=== PATIENT | female | born 1945 | race Caucasian/White ===

== ENCOUNTER 2016-04-18 00:40 | Inpatient (IN) | payer MEDICARE, BC ==
[2016-04-18] MEDS ORDERED: ALBUTEROL NEBULIZED 2.5 MG/3 ML INHALATION STA (01:11)
[2016-04-18] MEDS ORDERED: ONDANSETRON 4 MG/2 ML VIAL IVP STA (01:12)
--- NOTE | 2016-04-18 01:23 | ED ---
General Adult HPI - General Chief complaint: Nausea/Vomiting/Diarrhea Stated complaint: Vomiting Time Seen by Provider: 04/18/16 01:01 Source: patient, RN notes reviewed Mode of arrival: wheelchair Limitations: no limitations - History of Present Illness Initial comments: This patient is a 70-year-old woman who presents with a number of complaints, including cough, retching, shortness of breath, generalized weakness and fatigue. The patient states that things have been going on for couple of days, and seemed to have started with a cough that for the most part is nonproductive. The patient also is having some shortness of breath. Over the past day she has been feeling more and more fatigued and having generalized weakness. She also has noted that the output from her colostomy seems to be runny is unusual. The patient is not having chest or abdominal pain. She is not having fevers. Onset/Timin -: days(s) - Related Data Home Medications Medication Instructions Recorded Confirmed Budesonide-Formot 160-4.5 Mcg 2 puff INHALATION RT-DAILY 11/30/13 04/18/16 [Symbicort 160-4.5 Mcg Inhaler] Losartan/Hydrochlorothiazide 1 tab PO QAM 11/30/13 04/18/16 [Losartan-Hctz 100-25 mg Tab] Sotalol HCl [Sotalol] 120 mg PO TID 11/30/13 04/18/16 amLODIPine [Norvasc] 5 mg PO HS 11/30/13 04/18/16 Magnesium Gluconate [Magonate] 500 mg PO DAILY 11/19/15 04/18/16 [place]-3 Fatty Acids/Fish Oil [Fish 2 cap PO DAILY 11/19/15 04/18/16 Oil 1,000 mg Softgel] Potassium Gluconate 99 mg PO DAILY 11/19/15 04/18/16 Ipratropium/Albuterol Sulfate 1 puff INHALATION RT-QID PRN 04/18/16 04/18/16 [Combivent Respimat Inhaler] Leflunomide [Arava] 20 mg PO DAILY 04/18/16 04/18/16 Oxybutynin Chloride [Ditropan] 5 mg PO BID 04/18/16 04/18/16 predniSONE 10 mg PO DAILY 04/18/16 04/18/16 Previous Rx's Medication Instructions Recorded Docusate [Colace] 100 mg PO BID PRN #60 cap 04/21/16 Enoxaparin [Lovenox] 80 mg SQ Q12HR #60 syringe 04/21/16 Allergies Allergy/AdvReac Type Severity Reaction Status Date / Time No Known Allergies Allergy Verified 04/18/16 11:30 Review of Systems ROS Statement: Those systems with pertinent positive or pertinent negative responses have been documented in the HPI. ROS Other: All systems not noted in ROS Statement are negative. 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 History of Any Multi-Drug Resistant Organisms: C-DIFF Date of last positivie culture/infection: 03/03/2015 MDRO Source:: stool Past Surgical History: Bladder Surgery, Bowel Resection, Joint Replacement, Orthopedic Surgery, Tonsillectomy, Tubal Ligation Additional Past Surgical History / Comment(s): 07/2015 cystoscopy with bladder bxs, Bowel RESECTIONs d/t ANAL CA x 2, bladder suspension x2- all done at [facility], urethropexies, fecal transplant at [facility] with no CDiff since, CARDIOVERSION, JOINT REPLACEMENTS: RT ELBOW & LEFT KNEE, LEFT HIP, RT FOOT surgery X2: HAMMERTOE AND BUNION. R foot 5th toe bone removed. Septoplasty. Bilateral eyelid sx. Past Anesthesia/Blood Transfusion Reactions: No Reported Reaction Past Psychological History: No Psychological Hx Reported Additional Psychological History / Comment(s): Pt resides with her spouse. She has a walker which she uses at times. She is independent. She drives. Smoking Status: Never smoker Past Alcohol Use History: Rare Past Drug Use History: None Reported Additional Drug Use History / Comment(s): . - Past Family History Mother Family Medical History: No Reported History Father Family Medical History: Unable to Obtain Additional Family Medical History / Comment(s): Father at the age of 35yrs following a stomach surgery. Pt unsure what was wrong with his stomach. General Exam Limitations: no limitations General appearance: alert, in distress (Appears in mild respiratory distress with tachypnea) Head exam: Present: atraumatic, normocephalic Eye exam: Present: normal appearance. Absent: scleral icterus, conjunctival injection ENT exam: Present: mucous membranes dry Neck exam: Present: normal inspection Respiratory exam: Present: normal lung sounds bilaterally, respiratory distress (Mildly to). Absent: wheezes, rales, rhonchi, stridor, accessory muscle use, decreased breath sounds Cardiovascular Exam: Present: normal rhythm, tachycardia, normal heart sounds. Absent: systolic murmur, diastolic murmur, rubs, gallop GI/Abdominal exam: Present: soft. Absent: tenderness, guarding, rebound Extremities exam: Present: normal inspection, normal capillary refill. Absent: pedal edema, calf tenderness Back exam: Present: normal inspection. Absent: CVA tenderness (R), CVA tenderness (L) Neurological exam: Present: alert Skin exam: Present: warm, dry, intact, normal color. Absent: rash Course Vital Signs 04/18/16 04/18/16 04/18/16 00:46 01:34 01:43 Temperature 98.6 F Pulse Rate 110 H 104 H 104 H Respiratory 22 Rate Blood Pressure 127/65 O2 Sat by Pulse 89 L Oximetry 04/18/16 04/18/16 04/18/16 02:13 03:53 08:19 Temperature 98.4 F Pulse Rate 105 H 103 H Respiratory 20 73 H 18 Rate Blood Pressure 130/79 125/76 117/66 O2 Sat by Pulse 94 L 16 L 93 L Oximetry 04/18/16 04/18/16 04/18/16 08:30 08:40 10:02 Temperature Pulse Rate 106 H 105 H 98 Respiratory 18 Rate Blood Pressure 144/63 O2 Sat by Pulse 93 L 96 Oximetry 04/18/16 04/18/16 04/18/16 10:05 10:17 12:03 Temperature 97.9 F 97.1 F L Pulse Rate 72 102 H 88 Respiratory 18 18 16 Rate Blood Pressure 144/63 132/60 118/73 O2 Sat by Pulse 92 L 96 92 L Oximetry 04/18/16 04/18/16 13:00 14:10 Temperature Pulse Rate 110 H 111 H Respiratory Rate Blood Pressure O2 Sat by Pulse Oximetry EKG Findings - EKG Results: EKG: interpreted by ERMD, sinus rhythm (With PACs), normal axis (Normal), normal QRS (Normal) EKG shows: tachycardia (Rate approximately 106 bpm) - Blocks, [place], Hypertrophy, ST Abn: Repolarization changes or abnormalities: nonspecific abnormality, ST segment, and/or T wave, early repolarization due to LVH Medical Decision Making - Lab Data Result diagrams: 04/21/16 05:51 04/21/16 05:51 Lab Results 04/18/16 04/18/16 04/18/16 Range/Units 01:23 01:23 01:23 WBC 15.9 H (3.8-10.6) k/uL RBC 4.65 (3.80-5.40) m/uL Hgb 13.2 (11.4-16.0) gm/dL Hct 41.5 (34.0-46.0) % MCV 89.3 (80.0-100.0) fL MCH 28.3 (25.0-35.0) pg MCHC 31.7 (31.0-37.0) g/dL RDW 15.0 (11.5-15.5) % Plt Count 251 (150-450) k/uL Neutrophils % 82 % Lymphocytes % 10 % Monocytes % 5 % Eosinophils % 1 % Basophils % 0 % Neutrophils # 13.0 H (1.3-7.7) k/uL Lymphocytes # 1.6 (1.0-4.8) k/uL Monocytes # 0.8 (0-1.0) k/uL Eosinophils # 0.2 (0-0.7) k/uL Basophils # 0.1 (0-0.2) k/uL PT (9.0-12.0) sec INR (<1.1) APTT (22.0-30.0) sec D-Dimer (<0.60) mg/L FEU Sodium 137 (137-145) mmol/L Potassium 3.5 (3.5-5.1) mmol/L Chloride 96 L (98-107) mmol/L Carbon Dioxide 29 (22-30) mmol/L Anion Gap 12 mmol/L BUN 13 (7-17) mg/dL Creatinine 0.70 (0.52-1.04) mg/dL Est GFR (MDRD) Af Amer >60 (>60 ml/min/1.73 sqM) Est GFR (MDRD) Non-Af >60 (>60 ml/min/1.73 sqM) Glucose 127 H (74-99) mg/dL Plasma Lactic Acid Kana (0.7-2.0) mmol/L Calcium 9.0 (8.4-10.2) mg/dL Total Bilirubin 1.2 (0.2-1.3) mg/dL AST 15 (14-36) U/L ALT 34 (9-52) U/L Alkaline Phosphatase 88 (38-126) U/L Total Creatine Kinase 22 L (30-135) U/L CK-MB (CK-2) 0.4 (0.0-2.4) ng/mL CK-MB (CK-2) Rel Index 1.8 Troponin I 0.012 (0.000-0.034) ng/mL NT-Pro-B Natriuret Pep pg/mL Total Protein 5.8 L (6.3-8.2) g/dL Albumin 3.2 L (3.5-5.0) g/dL C. difficile (EIA) Intrp (Negative) Influenza Type A RNA (Not Detectd) Influenza Type B (PCR) (Not Detectd) 04/18/16 04/18/16 04/18/16 Range/Units 01:23 01:23 01:23 WBC (3.8-10.6) k/uL RBC (3.80-5.40) m/uL Hgb (11.4-16.0) gm/dL Hct (34.0-46.0) % MCV (80.0-100.0) fL MCH (25.0-35.0) pg MCHC (31.0-37.0) g/dL RDW (11.5-15.5) % Plt Count (150-450) k/uL Neutrophils % % Lymphocytes % % Monocytes % % Eosinophils % % Basophils % % Neutrophils # (1.3-7.7) k/uL Lymphocytes # (1.0-4.8) k/uL Monocytes # (0-1.0) k/uL Eosinophils # (0-0.7) k/uL Basophils # (0-0.2) k/uL PT 13.9 H (9.0-12.0) sec INR 1.4 (<1.1) APTT 25.6 (22.0-30.0) sec D-Dimer 5.15 H (<0.60) mg/L FEU Sodium (137-145) mmol/L Potassium (3.5-5.1) mmol/L Chloride (98-107) mmol/L Carbon Dioxide (22-30) mmol/L Anion Gap mmol/L BUN (7-17) mg/dL Creatinine (0.52-1.04) mg/dL Est GFR (MDRD) Af Amer (>60 ml/min/1.73 sqM) Est GFR (MDRD) Non-Af (>60 ml/min/1.73 sqM) Glucose (74-99) mg/dL Plasma Lactic Acid Kaan 1.4 (0.7-2.0) mmol/L Calcium (8.4-10.2) mg/dL Total Bilirubin (0.2-1.3) mg/dL AST (14-36) U/L ALT (9-52) U/L Alkaline Phosphatase (38-126) U/L Total Creatine Kinase (30-135) U/L CK-MB (CK-2) (0.0-2.4) ng/mL CK-MB (CK-2) Rel Index Troponin I (0.000-0.034) ng/mL NT-Pro-B Natriuret Pep 472 pg/mL Total Protein (6.3-8.2) g/dL Albumin (3.5-5.0) g/dL C. difficile (EIA) Intrp (Negative) Influenza Type A RNA (Not Detectd) Influenza Type B (PCR) (Not Detectd) 04/18/16 04/18/16 Range/Units 01:27 01:30 WBC (3.8-10.6) k/uL RBC (3.80-5.40) m/uL Hgb (11.4-16.0) gm/dL Hct (34.0-46.0) % MCV (80.0-100.0) fL MCH (25.0-35.0) pg MCHC (31.0-37.0) g/dL RDW (11.5-15.5) % Plt Count (150-450) k/uL Neutrophils % % Lymphocytes % % Monocytes % % Eosinophils % % Basophils % % Neutrophils # (1.3-7.7) k/uL Lymphocytes # (1.0-4.8) k/uL Monocytes # (0-1.0) k/uL Eosinophils # (0-0.7) k/uL Basophils # (0-0.2) k/uL PT (9.0-12.0) sec INR (<1.1) APTT (22.0-30.0) sec D-Dimer (<0.60) mg/L FEU Sodium (137-145) mmol/L Potassium (3.5-5.1) mmol/L Chloride (98-107) mmol/L Carbon Dioxide (22-30) mmol/L Anion Gap mmol/L BUN (7-17) mg/dL Creatinine (0.52-1.04) mg/dL Est GFR (MDRD) Af Amer (>60 ml/min/1.73 sqM) Est GFR (MDRD) Non-Af (>60 ml/min/1.73 sqM) Glucose (74-99) mg/dL Plasma Lactic Acid Kana (0.7-2.0) mmol/L Calcium (8.4-10.2) mg/dL Total Bilirubin (0.2-1.3) mg/dL AST (14-36) U/L ALT (9-52) U/L Alkaline Phosphatase (38-126) U/L Total Creatine Kinase (30-135) U/L CK-MB (CK-2) (0.0-2.4) ng/mL CK-MB (CK-2) Rel Index Troponin I (0.000-0.034) ng/mL NT-Pro-B Natriuret Pep pg/mL Total Protein (6.3-8.2) g/dL Albumin (3.5-5.0) g/dL C. difficile (EIA) Intrp Negative (Negative) Influenza Type A RNA Not Detected (Not Detectd) Influenza Type B (PCR) Not Detected (Not Detectd) Critical Care Time Critical Care Time: Yes (40 minutes) Disposition Clinical Impression: Acute pulmonary embolism Narrative: Right lung Pneumonia vs. lung infarct. Disposition: ADMITTED IP TO THIS HOSP Condition: Serious
[2016-04-18 01:31] LABS: Basophils # (A) 0.1 k/uL (0-0.2); Basophils % (A) 0 %; CHCM 32.6; Eosinophils # (A) 0.2 k/uL (0-0.7); Eosinophils % (A) 1 %; HCT 41.5 % (34.0-46.0); HDW 2.61; HGB 13.2 gm/dL (11.4-16.0); Luc # (Auto) 0.21; Luc % (Auto) 1; Lymphocytes # (A) 1.6 k/uL (1.0-4.8); Lymphocytes % (A) 10 %; MCH 28.3 pg (25.0-35.0); MCHC 31.7 g/dL (31.0-37.0); MCV 89.3 fL (80.0-100.0); Mean Platelet Volume 6.7; Monocytes # (A) 0.8 k/uL (0-1.0); Monocytes % (A) 5 %; Neutrophils % (A) 82 %; RBC 4.65 m/uL (3.80-5.40); WBC 15.9 k/uL (3.8-10.6); WBC (Perox) 16.02
[2016-04-18 01:41] LABS: ALT 34 U/L (9-52); AST 15 U/L (14-36); Alkaline Phosphatase 88 U/L (38-126); Anion Gap 12 mmol/L; Blood Urea Nitrogen 13 mg/dL (7-17); Carbon Dioxide 29 mmol/L (22-30); Chloride 96 mmol/L (98-107); Glucose 127 mg/dL (74-99); Non-African American GFR(MDRD) >60 (>60 ml/min/1.73 sqM); Potassium 3.5 mmol/L (3.5-5.1); Sodium 137 mmol/L (137-145); Total Bilirubin 1.2 mg/dL (0.2-1.3); Total Protein 5.8 g/dL (6.3-8.2)
[2016-04-18 01:51] LABS: INR 1.4 (<1.1); Partial Thromboplastin Time 25.6 sec (22.0-30.0); Prothrombin Time 13.9 sec (9.0-12.0)
[2016-04-18 02:04] LABS: Creatine Kinase MB 0.4 ng/mL (0.0-2.4); Troponin I 0.012 ng/mL (0.000-0.034)
--- NOTE | 2016-04-18 02:18 | XR ---
EXAMINATION TYPE: XR abdomen acute w cxr DATE OF EXAM: 04/18/2016 1:53 AM COMPARISON: 01/16/2016 chest x-ray HISTORY: COPD atrial fibrillation bowel resection and colostomy, vomiting. TECHNIQUE: Single view of the chest and 2 views of the abdomen are submitted. FINDINGS: Single view of the chest fails demonstrate evidence for acute pulmonary disease. Chronic lung changes are noted bilaterally. Prominent vascular markings are noted bilaterally. There is mild cardiomegaly. There is no evidence for pneumoperitoneum. Mild gaseous distention of small bowel loops is noted in the central abdomen with mild ileus or enter itis changes. No significant bowel obstruction is noted. Surgical clips are noted in the left abdomen and pelvis. Left hip arthroplasty changes are noted. Calcifications are noted in the right buttock area and flank area probably related to injection granulomas. IMPRESSION: 1. No active lung infiltrates. Chronic lung changes are suggested. 2. Suggestion of mild ileus and enteritis changes in the abdomen.
[2016-04-18] MEDS ORDERED: RX INFO: IV CONTRAST WAS GIVEN 1 EACH MISC MISCELLANE PRN (02:41)
[2016-04-18] MEDS ORDERED: HEPARIN SODIUM,PORCINE 5,000 UNIT/ML 1 ML VIAL IV PRN (03:41)
[2016-04-18] MEDS ORDERED: HEPARIN SODIUM,PORCINE 5,000 UNIT/ML 1 ML VIAL IV ONE (03:41)
--- NOTE | 2016-04-18 03:45 | CT ---
EXAMINATION TYPE: CT chest angio for PE DATE OF EXAM: 04/18/2016 3:16 AM COMPARISON: March 02, 2015 HISTORY: ELEVATED D DIMER, SOB, CHEST PAIN CT DLP: 567 mGycm Automated exposure control for dose reduction was used. CONTRAST: CT Chest for pulmonary embolism performed with with IV Contrast, patient injected with 49 mL of Omnip aque 350. FINDINGS: PULMONARY ARTERIES: There is evidence of multiple filling defects extending from the right main pulmo nary artery as seen in the axial image 67 series 6 and extending into right lower lobe and right midd le lobe and also right upper lobe pulmonary arterial branches. The main pulmonary artery is prominent in size with possible pulmonary hypertension. No significant thrombus formation is noted in the left pulmonary artery and its branches. LUNGS: There is evidence of infiltrates and atelectatic changes in the right lung base with possible pulmonary infarction in the right lower lobe of lung. Mild infiltrates and atelectasis is also noted in the left lung base. There is no pleural effusion or pneumothorax seen. The tracheobronchial tree is patent. MEDIASTINUM: The ascending aorta measures 4.0 cm in greatest AP diameter in the axial image 58 with m ild aneurysmal dilatation without significant interval change. Atherosclerotic calcification is noted in the aortic arch. There are no greater than 1 cm hilar or mediastinal lymph nodes. Minor pericardial effusion is sugges bisi. Heart is not enlarged. Coronary arterial calcification is noted. OTHER: Small hiatal hernia is noted. Multilevel degenerative changes are present in the thoracic spine. IMPRESSION: 1. Evidence of acute pulmonary embolism involving the right main pulmonary artery with extension of t hrombi into right upper lobe middle lobe and lower lobe arterial branches. 2. Right lower lobe lung infiltrates and atelectasis and possible right lower lobe pulmonary infarcti on. 3. Mild atelectasis and infiltrate in the left lung base. 4. Stable 4 cm aneurysm of ascending aorta. A phone report is given to Dr. Yu at the time of the dictation.
[2016-04-18] MEDS ORDERED: ONDANSETRON 4 MG/2 ML VIAL IVP PRN (03:54)
[2016-04-18] MEDS ORDERED: ACETAMINOPHEN TAB 325 MG TAB PO PRN (03:54)
[2016-04-18] MEDS ORDERED: NALOXONE 0.4 MG/ML 1 ML VIAL IV PRN (03:54)
[2016-04-18] MEDS ORDERED: MAG HYDROX/AL HYDROX/SIMETH 30 ML CUP PO PRN (03:54)
[2016-04-18] MEDS ORDERED: MORPHINE SULFATE 4 MG/ML SYRINGE IV PRN (03:54)
[2016-04-18] MEDS ORDERED: LEVOFLOXACIN 750 MG TAB PO STA (04:00)
[2016-04-18] MEDS: SYMBICORT 160-4.5 MCG INHALER INHALATION SCH (08:28)
[2016-04-18] MEDS: IPRATROPIUM-ALBUTEROL 3 ML NEB INHALATION SCH ×3 (08:30→21:31)
[2016-04-18] MEDS ORDERED: NON-FORMULARY DRUG (Omega-3 Fatty Acids/Fish Oil [Fish Oil 1,000 Mg Softgel] 2 CAP) PO SCH (09:00)
[2016-04-18] MEDS ORDERED: DOCUSATE 100 MG CAP PO PRN (09:00)
[2016-04-18] MEDS: HEPARIN SODIUM,PORCINE/D5W PMX 25,000 UNIT in DEXTROSE/WATER 1 500ML.BAG IV SCH ×2 (11:12→21:04)
[2016-04-18 16:06] VITALS: BMI 32.1
[2016-04-18] MEDS: SOTALOL 120 MG TAB PO SCH ×3 (16:15→21:04)
--- NOTE | 2016-04-18 17:10 | P.GSCN ---
History of Present Illness Consult date: 04/18/16 Reason for Consult: pulmonary embolism, hypercoagulable state, history of melanoma History of present illness: impression; 1. recurrent pulmonary embolism (right pulmonary artery with extension to middle and lower lobes); patient is compliant with rivaroxaban 2. history of recurrent melanoma; last workup performed in 2016 including PET scan demonstrated no evidence of disease 3. history of hypercoagulable state with right femoral DVT in 2011 plan; 1. continue heparin drip 2. await pulmonary and hematological evaluation and recommendation 3. theoretically patient has failed anticoagulation and would be a candidate for an IVC filter; the question is if a trial of enoxaperin prior to placement of IVC filter is appropriate since the patient was on a NOAC; concern is that with hypercoagulable state and history of recurrent melanoma, IVC filter may result in IVC thrombosis; if patient fails enoxaperin then she would definately require an IVC filter; discussed with Francisco Bedoya, and Siddhartha Tierney 70 y/o woman with complex history including history of hilda-anal melanoma with resection 6 years ago, repeat resection at the [facility] 2013, history of hypercoagulable state with PE in 2013 and now with onset of dyspnea one week ago that failed to improve with nebulizers and steroids. Seen in the emergency room for generalized malaise, worsening cough and nausea. STates that she has been taking rivaroxaban daily and has not missed a dose. 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 FEcal incontinence was debilitating. Has a history of right femoral vein thrombosis in 2011 after foot surgery. CMHx; COPD, anal melanoma with recurrence, hypercoagulable state, rheumatoid arthritis, remote history of c. difficile colitis, degenerative arthritis, obesity PSHx; colonscopy, resection of hemorrhoids/melanoma, resection of perianal melanoma recurrence, left hip and knee replacements, right elbow replacement, Habits; denies tobacco, EtOH, drugs FHx; non-contributory Meds; reviewed PE: HEENT: anicteric sclera, normal oral mucosa, no carotid bruits or JVD, trachea midline, no thyromegaly or lymphadenopathy Lungs; diminished right base, otherwise clear Heart; RRR, normal S1 and S2 ABD; soft, non-tender, functional left lower quadrant colostomy EXTR; femoral, popliteal, dorsalis pedis and posterior tibial pulses are palpable bilaterally; no significant pedal edema bilaterally; no ulcers or evidence of significant venous insufficiency; CTA from 04/17/2016 reviewed; demonstrates thrombus in right PA, right middle and lower lobe branches, moderate burden; bibasilar infiltrate/effusion; CTA from 02/2015 fails to demonstrate evidence of right PA emboli EKG; tachycardia impression/plan as noted above following Past Medical History Past Medical History: Atrial Fibrillation, Blood Disorder, Cancer, COPD, Deep Vein Thrombosis (DVT), GERD/Reflux, Hypertension, Pulmonary Embolus (PE), Rheumatoid Arthritis (RA) Additional Past Medical History / Comment(s): Bilateral DVT's, R lung PE, MTHFR gene mutation, HIATAL HERNIA, MELANOMA ANUS with sx x 2, BASAL CELL CA SKIN NOSE with sx, low back pain, recurrent UTI's, 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 History of Any Multi-Drug Resistant Organisms: C-DIFF Year Discovered:: 03/03/2015 MDRO Source:: stool Past Surgical History: Bladder Surgery, Bowel Resection, Joint Replacement, Orthopedic Surgery, Tonsillectomy, Tubal Ligation Additional Past Surgical History / Comment(s): 07/2015 cystoscopy with bladder bxs, Bowel RESECTIONs d/t ANAL CA x 2, bladder suspension x2- all done at [facility], urethropexies, fecal transplant at [facility] with no CDiff since, CARDIOVERSION, JOINT REPLACEMENTS: RT ELBOW & LEFT KNEE, LEFT HIP, RT FOOT surgery X2: HAMMERTOE AND BUNION. R foot 5th toe bone removed. Septoplasty. Bilateral eyelid sx. Past Anesthesia/Blood Transfusion Reactions: No Reported Reaction Past Psychological History: No Psychological Hx Reported Additional Psychological History / Comment(s): Pt resides with her spouse. She has a walker which she uses at times. She is independent. She drives. Smoking Status: Never smoker Past Alcohol Use History: Rare Past Drug Use History: None Reported Additional Drug Use History / Comment(s): . - Past Family History Mother Family Medical History: No Reported History Father Family Medical History: Unable to Obtain Additional Family Medical History / Comment(s): Father at the age of 35yrs following a stomach surgery. Pt unsure what was wrong with his stomach. Medications and Allergies Home Medications Medication Instructions Recorded Confirmed Type Budesonide-Formot 160-4.5 Mcg 2 puff INHALATION RT-DAILY 11/30/13 04/18/16 History [Symbicort 160-4.5 Mcg Inhaler] Losartan/Hydrochlorothiazide 1 tab PO QAM 11/30/13 04/18/16 History [Losartan-Hctz 100-25 mg Tab] Rivaroxaban [Xarelto] 20 mg PO HS 11/30/13 04/18/16 History Sotalol HCl [Sotalol] 120 mg PO TID 11/30/13 04/18/16 History amLODIPine [Norvasc] 5 mg PO HS 11/30/13 04/18/16 History Magnesium Gluconate [Magonate] 500 mg PO DAILY 11/19/15 04/18/16 History [place]-3 Fatty Acids/Fish Oil [Fish 2 cap PO DAILY 11/19/15 04/18/16 History Oil 1,000 mg Softgel] Potassium Gluconate 99 mg PO DAILY 11/19/15 04/18/16 History Ipratropium/Albuterol Sulfate 1 puff INHALATION RT-QID PRN 04/18/16 04/18/16 History [Combivent Respimat Inhaler] Leflunomide [Arava] 20 mg PO DAILY 04/18/16 04/18/16 History Oxybutynin Chloride [Ditropan] 5 mg PO BID 04/18/16 04/18/16 History predniSONE 10 mg PO DAILY 04/18/16 04/18/16 History Allergies Allergy/AdvReac Type Severity Reaction Status Date / Time No Known Allergies Allergy Verified 04/18/16 11:30 Surgical - Exam Vital Signs Temp Pulse Resp BP Pulse Ox 98.6 F 110 H 22 127/65 89 L 04/18/16 00:46 04/18/16 00:46 04/18/16 00:46 04/18/16 00:46 04/18/16 00:46 Results - Labs 04/18/16 01:23 04/18/16 01:23
[2016-04-18] MEDS: SODIUM CHLORIDE 0.9% 1,000 ML IV SCH ×2 (17:37→20:05)
[2016-04-18] MEDS: LOSARTAN-HCTZ 50-12.5 MG 1 EACH TAB PO SCH (17:43)
[2016-04-18] MEDS: LEFLUNOMIDE 20 MG TAB PO SCH (17:43)
[2016-04-18] MEDS: MAGNESIUM OXIDE 400 MG TAB PO SCH (17:44)
[2016-04-18] MEDS: predniSONE 10 MG TAB PO SCH (17:46)
[2016-04-18] MEDS: POTASSIUM CHLORIDE ER 10 MEQ TAB.ER.PRT PO SCH (17:46)
[2016-04-18] MEDS ORDERED: IPRATROPIUM-ALBUTEROL 3 ML NEB INHALATION PRN (18:54)
[2016-04-18 19:52] LABS: Amorphous Sediment,Urine Rare /hpf; Appearance,Urine Turbid (Clear); Bacteria,Urine Occasional /hpf; Bilirubin,Urine Negative (Negative); Glucose,Urine (UA) Negative (Negative); Ketones,Urine Negative (Negative); Leukocyte Esterase,Urine Large (Negative); Mucus,Urine Many /hpf; Nitrite,Urine Positive (Negative); PH, Urine 5.5 (5.0-8.0); Particle Count 278809; Protein,Urine 1+ (Negative); RBC,Urine 5 /hpf (0-5); Specific Gravity,Urine 1.027 (1.001-1.035); Squamous Epithelial Cell,Urine 4 /hpf (0-4); UA Billing (MACRO vs. MICRO) MICRO; Urobilinogen,Urine <2.0 mg/dL (<2.0); WBC,Urine >182 /hpf (0-5)
[2016-04-18] MEDS: amLODIPine 5 MG TAB PO SCH (20:05)
[2016-04-18] MEDS: OXYBUTYNIN CHLORIDE 5 MG TAB PO SCH (21:04)
[2016-04-19 06:58] LABS: Basophils % (A) 0 %; CH 28.6; CHCM 31.5; Eosinophils % (A) 1 %; HCT 38.6 % (34.0-46.0); HDW 2.57; HGB 12.1 gm/dL (11.4-16.0); Hypochromasia Slight; Luc # (Auto) 0.12; Luc % (Auto) 2; Lymphocytes # (A) 1.2 k/uL (1.0-4.8); Lymphocytes % (A) 16 %; MCH 28.6 pg (25.0-35.0); MCHC 31.3 g/dL (31.0-37.0); MCV 91.2 fL (80.0-100.0); Mean Platelet Volume 6.8; Monocytes # (A) 0.5 k/uL (0-1.0); Monocytes % (A) 6 %; Neutrophils # (A) 5.8 k/uL (1.3-7.7); Neutrophils % (A) 76 %; RBC 4.24 m/uL (3.80-5.40); RDW 14.7 % (11.5-15.5); WBC 7.7 k/uL (3.8-10.6); WBC (Perox) 8.27
[2016-04-19] MEDS: IPRATROPIUM-ALBUTEROL 3 ML NEB INHALATION SCH ×3 (07:45→20:54)
[2016-04-19] MEDS: SYMBICORT 160-4.5 MCG INHALER INHALATION SCH (07:45)
[2016-04-19 08:01] LABS: Anion Gap 10 mmol/L; Blood Urea Nitrogen 12 mg/dL (7-17); Calcium 8.7 mg/dL (8.4-10.2); Carbon Dioxide 29 mmol/L (22-30); Chloride 99 mmol/L (98-107); Glucose 129 mg/dL (74-99); Non-African American GFR(MDRD) >60 (>60 ml/min/1.73 sqM); Potassium 3.9 mmol/L (3.5-5.1); Sodium 138 mmol/L (137-145)
[2016-04-19] MEDS: SOTALOL 120 MG TAB PO SCH ×3 (08:01→21:06)
[2016-04-19] MEDS: MAGNESIUM OXIDE 400 MG TAB PO SCH (08:01)
[2016-04-19] MEDS: OXYBUTYNIN CHLORIDE 5 MG TAB PO SCH ×2 (08:01→20:09)
[2016-04-19] MEDS: LEFLUNOMIDE 20 MG TAB PO SCH (08:01)
[2016-04-19] MEDS: predniSONE 10 MG TAB PO SCH (08:01)
[2016-04-19] MEDS: LOSARTAN-HCTZ 50-12.5 MG 1 EACH TAB PO SCH (08:01)
[2016-04-19] MEDS: POTASSIUM CHLORIDE ER 10 MEQ TAB.ER.PRT PO SCH (08:01)
--- NOTE | 2016-04-19 11:38 | HP ---
DATE OF ADMISSION: 04/18/2016 DATE OF SERVICE: 04/18/2016 CHIEF COMPLAINT: Generalized weakness, fatigue, shortness of breath, cough. HISTORY OF PRESENT ILLNESS: This 70-year-old woman with a past medical history of multiple medical problems including atrial fibrillation, history of COPD, DVT, GERD, hypertension, pulmonary embolism, bilateral deep venous thromboses, history of rectal melanoma being followed by Dr. Paez in the outpatient setting recently had a surgery for colostomy in February. The patient was not feeling with multiple medical problems as mentioned earlier with shortness of breath, cough, weakness and fatigue. The patient came to [facility] yesterday and was evaluated. White count was elevated at 15.9 and d-dimer elevated to 5.15. Influenza is negative. C. difficile also negative. However, the patient underwent a chest CTA, which showed evidence of acute pulmonary embolism involving the right main pulmonary artery with extension of the thrombi in the right upper lobe, middle lobe and as well as lower lobe artery branches and the right lower lobe lung infiltrates, atelectasis and possible right lower lobe pulmonary infarction also noted, stable 4 cm aneurysm ascending artery was also noted. The patient is admitted for further evaluation and treatment. Of note, the patient was taken Xarelto per Dr. Horn's recommendations and the patient is Xarelto taking it every day at 6:00 in the evening. There is no history of any fever, rigors. No history of headache, loss of consciousness, seizures. PAST MEDICAL HISTORY: History of atrial fibrillation, history of COPD, history of DVT, history of GERD, hypertension, pulmonary embolus, history of rheumatoid arthritis, history of bilateral leg DVT, hiatal hernia, bladder surgery, history of cholecystectomy. Medications prior to admission include home medications: 1. Prednisone 10 mg p.o. daily. 2. Norvasc 5 mg q.6. 3. Sotalol 120 mg p.o. daily. 4. Xarelto 10 mg q.h.s. 5. Potassium gluconate 99 mg p.o. daily. 6. Ditropan 5 mg p.o. b.i.d. 7. Fish oil 1 to 2 tablets p.o. daily. 8. Magonate 500 mg p.o. daily. 9. Losartan hydrochlorothiazide 100/20 mg q.a.m. 10. Arava 20 mg p.o. daily. 11. Combivent 1 puff q.i.d. p.r.n. 12. Symbicort 160/4.5, 2 puffs daily. ALLERGIES: None. FAMILY HISTORY: Stomach surgery in father, who after surgery. SOCIAL HISTORY: History of occasional alcohol intake. No history of smoking. REVIEW OF SYSTEMS: ENT: No diminished hearing, vision. CARDIOVASCULAR: As mentioned earlier. RESPIRATORY: As mentioned earlier. GI: As mentioned earlier. : As mentioned earlier. NERVOUS SYSTEM: No numbness or weakness. ALLERGY/IMMUNOLOGY: No asthma or hayfever. MUSCULOSKELETAL: As mentioned earlier. HEMATOLOGY: As mentioned earlier. ENDOCRINE: No history of diabetes or hypothyroidism. CONSTITUTIONAL: As mentioned earlier. DERMATOLOGY: Negative. RHEUMATOLOGY: Negative. PSYCHIATRY: As mentioned earlier. PHYSICAL EXAMINATION: Alert and oriented x3. Pulse is 98, blood pressure 129/79, respirations 16, temperature 97 degrees, pulse ox 97% on room air. HEENT: Conjunctivae normal. Oral mucosa moist. NECK: No jugular venous distention. No carotid bruit. No lymph node enlargement. CARDIOVASCULAR: S1 and S2, muffled. RESPIRATORY: Breath sounds diminished at the bases. A few scattered rhonchi and crackles. ABDOMEN: Soft, colostomy present. Otherwise, nontender. No mass palpable. No guarding, no rigidity. LEGS: Minimal edema. NERVOUS SYSTEM: Higher function as mentioned. Moves all four limbs. No focal motor deficits. LYMPHATIC: No lymphadenopathy in the neck, axillae or groin. SKIN: No ulcer, rash or bleeding. LABS: WBC 15.9. PT is 13.9, d-dimer is 5.15, chloride 96, glucose 127, albumin 3.2. ASSESSMENT: 1. Acute pulmonary embolism. 2. Rule out Xarelto failure. 3. Increased WBC. 4. Increased d-dimer. 5. History of recent colostomy. 6. Mild hypoalbuminemia with mild protein calorie malnutrition. 7. History of atrial fibrillation. 8. History of chronic obstructive pulmonary disease. 9. History of deep venous thrombosis. 10. History of gastroesophageal reflux disease. 11. Hypertension. 12. History of rheumatoid arthritis. 13. History of bilateral deep venous thromboses. 14. History of pulmonary embolism. 15. History of methylenetetrahydrofolate reductase gene mutation. 16. History of hiatal hernia. 17. History of rectal melanoma. 18. History of colostomy. 19. History of basal cell carcinoma. 20. History of degenerative joint disease. 21. History of recurrent Clostridium difficile colitis, status post fecal transplant. 22. History of sepsis and Clostridium difficile colitis. 23. History of left patella fracture. 24. History of bowel resection. 25. History of bladder suspension. 26. Gait dysfunction, uses a walker. 27. FULL CODE. 28. Obesity with body mass index of 32.2. RECOMMENDATIONS AND DISCUSSION: In this 70-year-old woman who presented with multiple complex medical issues, we will monitor the patient closely. Telemetry. I would recommend IV heparin at this time. Obtain Cardiology and Vascular consultation. Resume the home medications. Guarded prognosis because of multiple complex medical issues. See orders for details. Discussed with the family at length. SAMI
[2016-04-19] MEDS: ENOXAPARIN 80 MG/0.8 ML SYRINGE SQ SCH ×2 (12:25→20:09)
--- NOTE | 2016-04-19 12:31 | US ---
EXAMINATION TYPE: US venous doppler duplex LE DATE OF EXAM: 04/19/2016 12:08 PM COMPARISON: Previous exam 02 March 2015 CLINICAL HISTORY: Pulmonary embolus . on blood thinners, hx of DVT- rt leg, left knee replacement x 2 015 SIDE PERFORMED: Bilateral VESSELS IMAGED: External Iliac Vein (EIV) Common Femoral Vein Deep Femoral Vein Greater Saphenous Vein * Femoral Vein Popliteal Vein Small Saphenous Vein * Proximal Calf Veins (* superficial vessels) Right Leg: Positive for DVT in CFV and distal PV. Some of the low level internal echoes are eccentri c and may represent chronic thrombus Left Leg: Positive for DVT in CFV, mid CFV, Mid PV and distal PV. Some compressions deferred. Grayscale, color Doppler, spectral Doppler imaging performed of the deep veins of both lower extremit ies. IMPRESSION: Deep venous thrombosis present within the bilateral lower extremities as described.
--- NOTE | 2016-04-19 12:34 | P.PN ---
Progress Note - Text patient is feeling better this morning dyspnea is improved AF VSS PE: essentially unchanged from 04/18/2016 Labs; reviewed; no intervention impression/plan 1. continue current medical regimen 2. start patient on enoxaperin as per heme/onc and pulmonary recommendations 3. will hold off on IVC filter for now; await final recommendations from heme/ onc and pulmonary consultants 4. following
--- NOTE | 2016-04-19 15:04 | P.CNPUL ---
History of Present Illness Consult date: 04/19/16 Requesting physician: Jennifer Singh Reason for consult: dyspnea, pulmonary embolism Chief complaint: Shortness of breath History of present illness: This is a 70-year-old female who is quite familiar to my service. Patient is known to have history of hypercoagulable state, and previous history of pulmonary embolism and deep vein thrombosis, history of MT HFR gene mutation, patient is maintained on Xarelto for a long time, patient is very compliant with the medication, and she takes it faithfully on a daily basis. Patient is also known to have history of multiple medical problems including rheumatoid arthritis, COPD, history of very anal melanoma with resection done about 6 years ago, repeat resection done at the [facility] in 2013, and the patient had a recent colostomy because of incontinence and this was done in mid February. At any rate the patient presented to the ER yesterday with mostly complaints of shortness of breath, retching, cough, weakness, and fatigue. CT angiogram of the chest showed multiple filling defects extending from the right main pulmonary artery into the right lower lobe and right middle lobe and right upper lobe pulmonary artery branches. The CT was also suggestive of right lower lobe pulmonary infarction. At any rate patient was admitted, and she was started on heparin, she was already seen by vascular surgery for possible IVC filter placement, however my recommendation would be at the time that since the patient failed Xarelto, she will need to be placed on Lovenox, lifetime treatment at home. And I recommended a hematology/oncology evaluation. Apparently Dr. Tijerina who saw the patient today and agrees with that recommendation for the time being. Patient is feeling better today, breathing a lot easier. Hardly any cough, no wheezing, no shortness of breath. Review of Systems 14 point review of systems were reviewed, please refer to pertinent positives and negatives in HPI. 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 History of Any Multi-Drug Resistant Organisms: C-DIFF Date of last positivie culture/infection: 03/03/2015 MDRO Source:: stool Past Surgical History: Bladder Surgery, Bowel Resection, Joint Replacement, Orthopedic Surgery, Tonsillectomy, Tubal Ligation Additional Past Surgical History / Comment(s): 07/2015 cystoscopy with bladder bxs, Bowel RESECTIONs d/t ANAL CA x 2, bladder suspension x2- all done at [facility], urethropexies, fecal transplant at [facility] with no CDiff since, CARDIOVERSION, JOINT REPLACEMENTS: RT ELBOW & LEFT KNEE, LEFT HIP, RT FOOT surgery X2: [facility]. R foot 5th toe bone removed. Septoplasty. Bilateral eyelid sx. Past Anesthesia/Blood Transfusion Reactions: No Reported Reaction Past Psychological History: No Psychological Hx Reported Additional Psychological History / Comment(s): Pt resides with her spouse. She has a walker which she uses at times. She is independent. She drives. Smoking Status: Never smoker Past Alcohol Use History: Rare Past Drug Use History: None Reported Additional Drug Use History / Comment(s): . - Past Family History Mother Family Medical History: No Reported History Father Family Medical History: Unable to Obtain Additional Family Medical History / Comment(s): Father at the age of 35yrs following a stomach surgery. Pt unsure what was wrong with his stomach. Medications and Allergies Home Medications Medication Instructions Recorded Confirmed Type Budesonide-Formot 160-4.5 Mcg 2 puff INHALATION RT-DAILY 11/30/13 04/18/16 History [Symbicort 160-4.5 Mcg Inhaler] Losartan/Hydrochlorothiazide 1 tab PO QAM 11/30/13 04/18/16 History [Losartan-Hctz 100-25 mg Tab] Rivaroxaban [Xarelto] 20 mg PO HS 11/30/13 04/18/16 History Sotalol HCl [Sotalol] 120 mg PO TID 11/30/13 04/18/16 History amLODIPine [Norvasc] 5 mg PO HS 11/30/13 04/18/16 History Magnesium Gluconate [Magonate] 500 mg PO DAILY 11/19/15 04/18/16 History [place]-3 Fatty Acids/Fish Oil [Fish 2 cap PO DAILY 11/19/15 04/18/16 History Oil 1,000 mg Softgel] Potassium Gluconate 99 mg PO DAILY 11/19/15 04/18/16 History Ipratropium/Albuterol Sulfate 1 puff INHALATION RT-QID PRN 04/18/16 04/18/16 History [Combivent Respimat Inhaler] Leflunomide [Arava] 20 mg PO DAILY 04/18/16 04/18/16 History Oxybutynin Chloride [Ditropan] 5 mg PO BID 04/18/16 04/18/16 History predniSONE 10 mg PO DAILY 04/18/16 04/18/16 History Allergies Allergy/AdvReac Type Severity Reaction Status Date / Time No Known Allergies Allergy Verified 04/18/16 11:30 Physical Exam Vitals: Vital Signs Temp Pulse Pulse Resp BP Pulse Ox 04/19/16 11:21 16 04/19/16 11:20 65 16 101/55 96 04/19/16 08:00 99 16 04/19/16 07:59 97.1 F L 72 16 117/60 92 L 04/19/16 07:46 96 04/19/16 03:08 96.5 F L 63 18 125/64 93 L 04/19/16 00:00 97.8 F 66 18 111/55 93 L 04/18/16 20:00 97.9 F 82 18 125/60 94 L 04/18/16 16:30 97 F L 98 16 129/79 96 Intake and Output 04/18/16 04/19/16 04/19/16 22:59 06:59 14:59 Intake Total 430.899 480 180 Output Total 75 400 Balance 355.899 80 180 Intake: IV 130 Sodium Chloride 0.9% 1, 130 000 ml @ 20 mls/hr IV . Q24H MASOUD Rx#:[id number] Intake, IV Titration 310.899 Amount Heparin Sodium,Porcine/ 310.899 D5w Pmx 25,000 unit In Dextrose/Water 1 500ml. bag @ 18 UNITS/KG/HR 31. 51 mls/hr IV .[id number] MASOUD Rx#:[id number] Oral 120 350 180 Output: Urine 75 400 Other: Voiding Method Toilet Toilet Toilet # Voids 1 Weight 85.6 kg HEENT: anicteric sclera, normal oral mucosa, no carotid bruits or JVD, trachea midline, no thyromegaly or lymphadenopathy Lungs; diminished right base, otherwise clear Heart; RRR, normal S1 and S2 ABD; soft, non-tender, functional left lower quadrant colostomy EXTR; femoral, popliteal, dorsalis pedis and posterior tibial pulses are palpable bilaterally; no significant pedal edema bilaterally; no ulcers or evidence of significant venous insufficiency; Results - Laboratory Findings CBC and BMP: 04/19/16 06:29 04/19/16 06:29 PT/INR, D-dimer PT 13.9 sec (9.0-12.0) H 04/18/16: INR 1.4 (<1.1) 04/18/16: D-Dimer 5.15 mg/L FEU (<0.60) H 04/18/16 01:23 Abnormal lab findings: Abnormal Labs 04/18/16 04/18/16 04/18/16 19:15 19:15 19:55 APTT 49.7 H Glucose Urine Appearance Turbid H Urine Protein 1+ H Urine Nitrate Positive H Ur Leukocyte Esterase Large H Urine WBC >182 H Urine WBC Clumps Many H Amorphous Sediment Rare H Urine Bacteria Occasional H Urine Mucus Many H Stool Occult Blood Positive H 04/19/16 04/19/16 06:29 06:29 APTT 56.9 H Glucose 129 H Urine Appearance Urine Protein Urine Nitrate Ur Leukocyte Esterase Urine WBC Urine WBC Clumps Amorphous Sediment Urine Bacteria Urine Mucus Stool Occult Blood - Diagnostic Findings CT scan - chest: image reviewed (Agree with reading as per radiology) Assessment and Plan Plan: Impression: 1 acute and recurrent pulmonary embolism with involvement of the right main pulmonary artery and extension to the middle and lower lobe. This is in spite of the fact that the patient is on Xarelto and she is very compliant with the medication. Hence this is considered failed to Xarelto anticoagulation treatment. Hence I will recommend that the patient goes on Lovenox subcu twice a day at home, in the meantime the patient could be treated with IV heparin or Lovenox while inpatient. Awaiting input from hematology on the case. I don't recommend IVC filter placement at this point. 2 history of multiple comorbidities including hypercoagulable state, MT HFR gene mutation, history of melanoma, steady of rheumatoid arthritis, history of recent colostomy for fecal incontinence, history of basal cell skin cancer of the nose, history of C. difficile colitis requiring fecal transplant, history of previous pulmonary embolism and bilateral DVTs. History of hiatal hernia. And history of COPD. Recommendation: Agree with the treatment plan, continue Lovenox at 80 mg subcu every 12 hours, continue the rest of the medications as listed, and consider discharge planning in the next 24 hours. Discussed this patient's condition with the vascular surgeon on the case, and with the meter readers supervisor on the case. Time with Patient: Greater than 30
[2016-04-19] MEDS: amLODIPine 5 MG TAB PO SCH (20:09)
[2016-04-19] MEDS ORDERED: RX INFO: IV CONTRAST WAS GIVEN 1 EACH MISC MISCELLANE PRN (20:54)
--- NOTE | 2016-04-19 20:54 | P.CONS ---
History of Present Illness - Reason for Consult Consult date: 04/19/16 Recurrent PE. Xarelto failure - History of Present Illness The patient is a 70-year-old lady, well known to our service. She is followed by Dr. Horn in the outpatient setting. She has a fairly complicated hematologic/oncologic history. 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 In 2011, she presented with a right femoral DVT that occurred after for surgery. She was treated with Coumadin for a few months after which treatment was stopped, given that this was felt to be unprovoked clot. Hypercoagulable workup, based on family history was positive for a heterozygous prothrombin gene mutation. She also had a heterozygous MTHFR gene mutation, which is not considered a hypercoagulable state. In 2012, the patient was found to have local recurrence of her anorectal melanoma. She was referred to the [facility] and had excision there in 09/08. No adjuvant therapy was recommended based on stage. In the month after that, she developed recurrent DVT as well as right lung PE. She was then placed on Xarelto, on which she continues. other risk factors for the patient including a long-standing history of rheumatoid arthritis that has been fairly active. She has been on long-term steroids and continues on prednisone currently. She is also on Arava. She continues on follow-up for her history of melanoma. She had a PET scan in 12/12 that was negative for any definite evidence of recurrence. The patient presented to the emergency room, with the complains of progressive shortness of breath, as well as cough with expectoration for the last couple of weeks. She was also complaining of some intermittent chest pain. She had a CTA done, revealing a clot in the right main pulmonary artery with extension into the lower lobe branches. This was definitely a new clot, as the patient had had a previous CTA in 03/12 that was negative for any evidence of PE. On the patient reported good compliance with Xarelto. She had only been off it for a few days around the time of her elective colostomy that was placed in 03/13. She has been taking it with food. The patient was admitted and started on IV heparin. The consult was placed for further evaluation and recommendations. Review of Systems Constitutional: Reports poor appetite, Reports weakness Eyes: denies blurred vision, denies pain Ears: deny: decreased hearing, ear discharge, earache, tinnitus Ears, nose, mouth and throat: Reports sore throat Cardiovascular: Reports chest pain, Reports palpitations, Reports shortness of breath Respiratory: Reports cough with sputum, Reports dyspnea Gastrointestinal: Reports as per HPI Genitourinary: Denies dysuria, Denies hematuria Menstruation: Reports postmenopausal Musculoskeletal: Reports hot joints (Known RA) Integumentary: Denies pruritus, Denies rash Neurological: Reports weakness Psychiatric: Denies anxiety, Denies depression Endocrine: Denies fatigue, Denies weight change Hematologic/Lymphatic: Reports as per HPI, 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 History of Any Multi-Drug Resistant Organisms: C-DIFF Year Discovered:: 03/03/2015 MDRO Source:: stool Past Surgical History: Bladder Surgery, Bowel Resection, Joint Replacement, Orthopedic Surgery, Tonsillectomy, Tubal Ligation Additional Past Surgical History / Comment(s): 07/2015 cystoscopy with bladder bxs, Bowel RESECTIONs d/t ANAL CA x 2, bladder suspension x2- all done at [facility], urethropexies, fecal transplant at [facility] with no CDiff since, CARDIOVERSION, JOINT REPLACEMENTS: RT ELBOW & LEFT KNEE, LEFT HIP, RT FOOT surgery X2: [facility]. R foot 5th toe bone removed. Septoplasty. Bilateral eyelid sx. Past Anesthesia/Blood Transfusion Reactions: No Reported Reaction Past Psychological History: No Psychological Hx Reported Additional Psychological History / Comment(s): Pt resides with her spouse. She has a walker which she uses at times. She is independent. She drives. Smoking Status: Never smoker Past Alcohol Use History: Rare Past Drug Use History: None Reported Additional Drug Use History / Comment(s): . - Past Family History Mother Family Medical History: No Reported History Father Family Medical History: Unable to Obtain Additional Family Medical History / Comment(s): Father at the age of 35yrs following a stomach surgery. Pt unsure what was wrong with his stomach. Medications and Allergies Home Medications Medication Instructions Recorded Confirmed Type Budesonide-Formot 160-4.5 Mcg 2 puff INHALATION RT-DAILY 11/30/13 04/18/16 History [Symbicort 160-4.5 Mcg Inhaler] Losartan/Hydrochlorothiazide 1 tab PO QAM 11/30/13 04/18/16 History [Losartan-Hctz 100-25 mg Tab] Rivaroxaban [Xarelto] 20 mg PO HS 11/30/13 04/18/16 History Sotalol HCl [Sotalol] 120 mg PO TID 11/30/13 04/18/16 History amLODIPine [Norvasc] 5 mg PO HS 11/30/13 04/18/16 History Magnesium Gluconate [Magonate] 500 mg PO DAILY 11/19/15 04/18/16 History [place]-3 Fatty Acids/Fish Oil [Fish 2 cap PO DAILY 11/19/15 04/18/16 History Oil 1,000 mg Softgel] Potassium Gluconate 99 mg PO DAILY 11/19/15 04/18/16 History Ipratropium/Albuterol Sulfate 1 puff INHALATION RT-QID PRN 04/18/16 04/18/16 History [Combivent Respimat Inhaler] Leflunomide [Arava] 20 mg PO DAILY 04/18/16 04/18/16 History Oxybutynin Chloride [Ditropan] 5 mg PO BID 04/18/16 04/18/16 History predniSONE 10 mg PO DAILY 04/18/16 04/18/16 History Allergies Allergy/AdvReac Type Severity Reaction Status Date / Time No Known Allergies Allergy Verified 04/18/16 11:30 Physical Exam Vitals: Vital Signs Temp Pulse Pulse Resp BP BP Pulse Ox 04/19/16 08:00 99 16 04/19/16 07:59 97.1 F L 72 16 117/60 92 L 04/19/16 07:46 96 04/19/16 03:08 96.5 F L 63 18 125/64 93 L 04/19/16 00:00 97.8 F 66 18 111/55 93 L 04/18/16 20:00 97.9 F 82 18 125/60 94 L 04/18/16 16:30 97 F L 98 16 129/79 96 04/18/16 14:10 111 H 04/18/16 13:00 110 H 04/18/16 12:03 97.1 F L 88 16 118/73 92 L Intake and Output 04/18/16 04/19/16 04/19/16 22:59 06:59 14:59 Intake Total 430.899 480 Output Total 75 400 Balance 355.899 80 Intake: IV 130 Sodium Chloride 0.9% 1, 130 000 ml @ 20 mls/hr IV . Q24H MASOUD Rx#:[id number] Intake, IV Titration 310.899 Amount Heparin Sodium,Porcine/ 310.899 D5w Pmx 25,000 unit In Dextrose/Water 1 500ml. bag @ 18 UNITS/KG/HR 31. 51 mls/hr IV .[id number] MASOUD Rx#:[id number] Oral 120 350 Output: Urine 75 400 Other: Voiding Method Toilet Toilet Toilet # Voids 1 Weight 85.6 kg - Constitutional General appearance: no acute distress - EENT Eyes: EOMI, PERRLA ENT: hearing grossly normal, normal oropharynx - Neck Neck: no lymphadenopathy Thyroid: bilateral: normal size - Respiratory Respiratory: bilateral: diminished - Cardiovascular Rhythm: regular Heart sounds: normal: S1, S2 - Gastrointestinal LLQ ostomy General gastrointestinal: normal bowel sounds, soft - Integumentary Integumentary: normal - Neurologic Neurologic: CNII-XII intact - Musculoskeletal Musculoskeletal: generalized weakness, strength equal bilaterally - Psychiatric Psychiatric: A&O x's 3, appropriate affect Results CBC & Chem 7: 04/19/16 06:29 04/19/16 06:29 Labs: Abnormal Lab Results - Last 24 Hours (Table) 04/18/16 04/18/16 04/18/16 Range/Units 19:15 19:15 19:55 APTT 49.7 H (22.0-30.0) sec Glucose (74-99) mg/dL Urine Appearance Turbid H (Clear) Urine Protein 1+ H (Negative) Urine Nitrate Positive H (Negative) Ur Leukocyte Esterase Large H (Negative) Urine WBC >182 H (0-5) /hpf Urine WBC Clumps Many H (None) /hpf Amorphous Sediment Rare H (None) /hpf Urine Bacteria Occasional H (None) /hpf Urine Mucus Many H (None) /hpf Stool Occult Blood Positive H (Negative) 04/19/16 04/19/16 Range/Units 06:29 06:29 APTT 56.9 H (22.0-30.0) sec Glucose 129 H (74-99) mg/dL Urine Appearance (Clear) Urine Protein (Negative) Urine Nitrate (Negative) Ur Leukocyte Esterase (Negative) Urine WBC (0-5) /hpf Urine WBC Clumps (None) /hpf Amorphous Sediment (None) /hpf Urine Bacteria (None) /hpf Urine Mucus (None) /hpf Stool Occult Blood (Negative) Comments: PET scan 12/[address] scan - chest: report reviewed Assessment and Plan (1) Acute pulmonary embolism Narrative/Plan: At this time, based on the clinical picture, this does seem to represent Xarelto failure. The patient states that she's been very compliant with it, and has been taking it with food. In addition, this definitely is a new clot. The patient has been seen by vascular surgery for potential filter placement. The case was discussed with them, and with pulmonary medicine. I agree with the vascular surgery's opinion, the patient is not an ideal candidate for an IVC filter placement. She needs long-term anticoagulation because of persistent risk. We IVC filter obviously would not protect her from having a DVT and the morbidity from that. In addition, it has been well established and after one to 2 years, of the IVC filter is not reliable. In a patient who is hypercoagulable, there is also increased risk of filter associated thrombosis. The patient does not have any contraindication to anticoagulation. Therefore continued anticoagulation would be the preferred intervention. On the main question is the choice of modality. For now, Lovenox, as recommended by vascular surgery at full doses would be reasonable option. The case was also discussed with rheumatology. The patient has not had recent antiphospholipid antibody levels tested. I will check those. If these are elevated, then Coumadin with the higher target INR between 3-4 would also be a reasonable option down the line. - I will check lower extremity Dopplers for her baseline. - Given her history of malignancy, I will repeat a CT of the abdomen and pelvis to rule out any recurrence. If this is negative, the patient will continue on her follow-up with the new PET scan scheduled for 06/12. Status: Acute
[2016-04-19] MEDS: IOHEXOL 350 MG/ML 25 ML BOTTLE (ORAL USE) PO PRN (23:32)
[2016-04-20] MEDS: IOHEXOL 350 MG/ML 25 ML BOTTLE (ORAL USE) PO PRN (00:25)
[2016-04-20] MEDS: SODIUM CHLORIDE 0.9% 1,000 ML IV SCH (06:08)
[2016-04-20 06:15] LABS: Basophils # (A) 0.1 k/uL (0-0.2); Basophils % (A) 1 %; CH 28.5; CHCM 31.1; Eosinophils # (A) 0.2 k/uL (0-0.7); Eosinophils % (A) 3 %; HDW 2.59; HGB 11.9 gm/dL (11.4-16.0); Hypochromasia Slight; Luc # (Auto) 0.18; Luc % (Auto) 3; Lymphocytes # (A) 1.7 k/uL (1.0-4.8); Lymphocytes % (A) 25 %; MCH 28.8 pg (25.0-35.0); MCHC 31.2 g/dL (31.0-37.0); MCV 92.1 fL (80.0-100.0); Mean Platelet Volume 6.8; Monocytes # (A) 0.4 k/uL (0-1.0); Monocytes % (A) 5 %; Neutrophils # (A) 4.4 k/uL (1.3-7.7); Neutrophils % (A) 63 %; RBC 4.13 m/uL (3.80-5.40); RDW 14.9 % (11.5-15.5); WBC 6.9 k/uL (3.8-10.6); WBC (Perox) 7.45
[2016-04-20 06:24] LABS: Anion Gap 10 mmol/L; Blood Urea Nitrogen 17 mg/dL (7-17); Calcium 8.8 mg/dL (8.4-10.2); Carbon Dioxide 28 mmol/L (22-30); Chloride 101 mmol/L (98-107); Glucose 95 mg/dL (74-99); Non-African American GFR(MDRD) >60 (>60 ml/min/1.73 sqM); Potassium 3.6 mmol/L (3.5-5.1); Sodium 139 mmol/L (137-145)
--- NOTE | 2016-04-20 07:42 | CT ---
EXAMINATION TYPE: CT abdomen pelvis w con DATE OF EXAM: 04/20/2016 1:19 AM COMPARISON: PET/CT 12/21/2015 INDICATION: pt is having no abdominal symptoms at this time, has a colostomy done in February, currently being treated for clots in bilateral legs and lungs, history of melanoma and anal CA DLP: 918.70 mGycm, Automated exposure control for dose reduction was used. CONTRAST: 100 mL of Omnipaque 300. Study performed without Oral Contrast TECHNIQUE: Axial images were obtained from above the diaphragm to the pubic rami in the axial plane a t 5 mm thick sections. Reconstructed images are reviewed on the computer in the coronal plane. FINDINGS: Limited CT sections are obtained the lung bases. Some compressive atelectasis may be within the lowe r lung harmon.. CT ABDOMEN: Liver: Normal Spleen: Normal Pancreas: Normal Adrenal glands: The adrenal glands are normal. Gallbladder: Normal Kidneys: No masses are evident. No hydronephrosis is present. No cysts are present. Delayed images were obtained through the kidneys, which remain unremarkable. Right renal artery passes posterior to the inferior vena cava. Aorta: Vascular calcification is within the aorta. Inferior vena cava: Normal. CT PELVIS: Ostomy is in the left lower quadrant. May be some thickening at the level of the ascending colon and cecum. This could be related to incomplete distention. Underlying mass is not excluded. Sm all bowel loops distended with oral contrast are normal. There are loops of bowel which are incompletely distended or lack oral contrast limiting their evalua tion. Appendix: Normal as visualized. This is retrocecal. Urinary bladder: Normal. This is limited due to beam hardening artifact from a left hip prosthesis. Genitourinary structures: Uterus is unremarkable. Adnexal regions are clear. Osseous structures: No suspicious lytic or sclerotic lesions. Sacroiliac joint degenerative changes a re present. Degenerative facet changes are within the lower lumbar spine. Left hip prosthesis causes beam hardening artifact causing some limitation. IMPRESSIONS: 1. There appears to be interval thickening of the cecum and proximal ascending colon. Correlate for colitis or underlying mass is not excluded. 2. Suspicious masses suggested metastatic melanoma or metastatic anal cancer is not identified.
[2016-04-20] MEDS: ENOXAPARIN 80 MG/0.8 ML SYRINGE SQ SCH ×3 (08:09→20:57)
--- NOTE | 2016-04-20 08:16 | PN ---
DATE OF SERVICE: 04/19/2016 This 70-year-old woman was admitted with multiple symptomatology, had a possible acute pulmonary embolism. The patient has been seen by Dr. Tijerina who thinks that this is Xarelto failure and recommended Lovenox 80 subQ b.i.d. Ultrasound of the leg showed bilateral DVTs. The patient also seen by Dr. Elder, Dr. Rhoades's partner and recommended to continue the current medications, hold off on the IVC filter for now. Dr. Alcala from the pulmonary group has seen the patient and also recommended to go on Lovenox subQ twice daily. The patient had consultations on multiple hypercoagulable status including MTHFR mutation, history of melanoma, history of rheumatoid arthritis, possible antiphospholipid antibody syndrome, and as well as recent surgery and history of basal cell cancer also. The patient is being closely monitored. Patient was on IV heparin. PAST MEDICAL HISTORY: Reviewed. REVIEW OF SYSTEMS: CARDIOVASCULAR: No angina or palpitations. RESPIRATORY: As mentioned earlier. GI: No nausea. : No dysuria. NERVOUS SYSTEM: No focal deficits. Current medications are reviewed and include: 1. Tylenol 650 q.6 p.r.n. 2. Maalox. 3. DuoNeb q.i.d. and p.r.n. 4. Norvasc 5 mg q.h.s. 5. Symbicort 160/4.5 two puffs b.i.d. 6. Rocephin 1 gm daily. 7. Colace. 8. Lovenox 80 subQ b.i.d. 9. Hyzaar 50/12.5 two b.i.d. 10. Arava 20 mg p.o. daily. 11. Magnesium oxide. 12. Narcan 0.2 q.2 p.r.n. 13. Zofran. 14. Ditropan. 15. Betapace. PHYSICAL EXAM: Patient is alert and oriented x2. Pulse 67, blood pressure 130/57, respirations 12, temperature 97.8, pulse ox 96% on room air. HEENT: Conjunctivae normal, oral mucosa moist. Neck is no jugular venous distension, no carotid bruit, no lymph node enlargement. CARDIOVASCULAR SYSTEM: S1, S2, muffled, no S3, no S4. RESPIRATORY: Breath sounds diminished at the bases. A few scattered rhonchi, no crackles. ABDOMEN: Soft, obese, nontender. EXTREMITIES: Legs bilateral edema. NERVOUS SYSTEM: Higher functions as mentioned. Moves all 4 limbs. No focal motor deficits. LYMPHATICS: No lymph node enlargement in the neck, axillae and groin. SKIN: No ulcer, rash or bleeding. Labs are CBC within normal limits and glucose 129. UA noted and the urine culture preliminary report not available. ASSESSMENT: 1. Acute pulmonary embolism, recurrent. 2. Possible Xarelto failure. 3. Heparin monitoring. 4. On Lovenox. 5. Increased WBC and d-dimer. 6. History of recent colostomy for incontinence. 7. Mild hypoalbuminemia to mild protein calorie malnutrition. 8. History of atrial fibrillation. 9. History of chronic obstructive pulmonary disease. 10. History of bilateral deep venous thromboses in the ultrasound. 11. History of gastroesophageal reflux disease. 12. Hypertension. 13. History of rheumatoid arthritis. 14. History of pulmonary embolism. 15. History of MTHFR mutation. 16. History of hiatal hernia. 17. History of rectal melanoma and surgery. 18. History of colostomy. 19. History of basal cell carcinoma. 20. History of degenerative joint disease. 21. History of recurrent Clostridium difficile colitis, status post fecal transplantation. 22. History of sepsis and Clostridium difficile colitis. 23. History of patella fracture. 24. History of bowel resection. 25. History of bladder suspension. 26. Gait dysfunction, uses a walker. 27. Obesity with a body mass index of 32.2. 28. FULL CODE. RECOMMENDATION: This 70-year-old woman presented with multiple complex medical issues as mentioned earlier and also as discussed earlier. We will transition to Lovenox 80 subQ b.i.d. Will recommend social work instructor to get authorization for possibly lifelong Lovenox at this time. Otherwise, continue the rest of the medications. Increase ambulation. The prognosis is guarded because of multiple complex medical issues and questions from the patient and the are answered and I would also recommend the patient to follow up closely with Dr. Paez and multiple consultants as described above. Once again, the prognosis extremely guarded because of multiple complex medical issues and further recommendations to follow. SHWETAD
[2016-04-20] MEDS: OXYBUTYNIN CHLORIDE 5 MG TAB PO SCH ×2 (09:23→20:57)
[2016-04-20] MEDS: POTASSIUM CHLORIDE ER 10 MEQ TAB.ER.PRT PO SCH (09:23)
[2016-04-20] MEDS: LOSARTAN-HCTZ 50-12.5 MG 1 EACH TAB PO SCH (09:23)
[2016-04-20] MEDS: predniSONE 10 MG TAB PO SCH (09:24)
[2016-04-20] MEDS: SOTALOL 120 MG TAB PO SCH ×3 (09:24→22:48)
[2016-04-20] MEDS: LEFLUNOMIDE 20 MG TAB PO SCH (09:26)
[2016-04-20] MEDS: MAGNESIUM OXIDE 400 MG TAB PO SCH (10:13)
[2016-04-20] MEDS: SYMBICORT 160-4.5 MCG INHALER INHALATION SCH (11:31)
[2016-04-20] MEDS: IPRATROPIUM-ALBUTEROL 3 ML NEB INHALATION SCH ×4 (11:31→21:53)
--- NOTE | 2016-04-20 15:24 | P.PN ---
Subjective Principal diagnosis: This is a very pleasant 70-year-old female patient who follows with Dr. Alcala in our office. She has a history of hypercoagulable state and previous PE/ DVTs. She has a history of MT HFR gene mutation. She also has a history of melanoma with resection approximately 6 years ago and a repeat resection at the [facility] 2014 she also had a recent colostomy done secondary to incontinence. She's been maintained on Xarelto for approximately 4 years now. She presented here 04/18/2016 with complaints of increasing shortness of breath , cough weakness vomiting and fatigue. A computed tomography scan revealed multiple filling defects from the right main pulmonary artery and to the right lower lobe and right middle lobe and right upper lobe artery branches. The CT was also suggestive of a right lower lobe pulmonary infarct. We are consulted for the same. She is recommended lifelong treatment with Lovenox as she failed Xarelto. She is seen again today in follow-up. She is currently sitting up in the chair at the bedside. She is not wearing any oxygen. She denies any shortness of breath, cough or congestion. No chest pain palpitations lightheadedness or dizziness. She is maintaining O2 saturations in the low 90s on room air. Objective - Vital Signs Vital signs: Vital Signs Temp 98.6 F 04/20/16 11:37 Pulse 84 04/20/16 11:46 Resp 20 04/20/16 11:37 BP 130/62 04/20/16 11:37 Pulse Ox 92 L 04/20/16 11:37 Intake & Output 04/19/16 04/20/16 04/20/16 18:59 06:59 18:59 Intake Total 416 250 500 Balance 416 250 500 Weight 88.3 kg Intake: IV 250 Sodium Chloride 0.9% 1, 200 000 ml @ 20 mls/hr IV . Q24H MASOUD Rx#:[id number] cefTRIAXone 1,000 mg In 50 Sodium Chloride 0.9% 50 ml @ 100 mls/hr IVPB Q24H MASOUD Rx#:[id number] Oral 416 500 Other: Voiding Method Toilet Toilet Toilet # Voids 1 1 1 # Bowel Movements 1 1 - Exam GENERAL EXAM: Alert, active, comfortable in no apparent distress. HEAD: Normocephalic. EYES: Normal reaction of pupils, equal size. NOSE: Clear with pink turbinates. THROAT: No erythema or exudates. NECK: No masses, no JVD. CHEST: No chest wall deformity. LUNGS: Equal air entry with no crackles, wheeze, rhonchi or dullness. CVS: S1 and S2 normal with no audible murmurs, regular rhythm. ABDOMEN: No hepatosplenomegaly, normal bowel sounds, no guarding or rigidity. SPINE: No scoliosis or deformity SKIN: No rashes CENTRAL NERVOUS SYSTEM: No focal deficits, tone is normal in all 4 extremities. Extremities: There is no significant peripheral edema. No clubbing, no cyanosis. Peripheral pulses are intact. - Labs CBC & Chem 7: 04/20/16 05:51 04/20/16 05:51 Labs: Microbiology - Last 24 Hours (Table) 04/18/16 23:50 Urine Culture - Preliminary Urine,Voided Gram Neg Bacilli Assessment and Plan Plan: Impression: #1 Acute and recurrent pulmonary embolism with involvement of the right main pulmonary artery and extension to the middle of lower lobes. This occurrence happened despite the patient being on Xarelto and she has been very compliant with her medications. She has since been switched to Lovenox. #2 Hyper coagulable state with MT HFR gene mutation. #3 History of melanoma. #4 Rheumatoid arthritis. #5 Recent colostomy for fecal incontinence. #6 History of C. difficile colitis requiring fecal transplant. #7 Previous history of pulmonary embolism and bilateral DVTs. #8 History of hiatal hernia. #9 History of chronic obstructive pulmonary disease, currently inactive and stable. Plan: The patient was seen and evaluated by Dr. Godinez. She is currently stable from the pulmonary standpoint. We'll continue with Lovenox as her anticoagulant. Dr. Tijerina has been consulted from hematology as well. Will increase her activity as tolerated. We'll continue to follow make further recommendations based on her clinical status.
[2016-04-20 20:08] LABS: Appearance,Urine Clear (Clear); Bilirubin,Urine Negative (Negative); Glucose,Urine (UA) Negative (Negative); Ketones,Urine Negative (Negative); Leukocyte Esterase,Urine Negative (Negative); Nitrite,Urine Negative (Negative); PH, Urine 6.5 (5.0-8.0); Protein,Urine Negative (Negative); Specific Gravity,Urine 1.011 (1.001-1.035); UA Billing (MACRO vs. MICRO) CHEM; Urobilinogen,Urine <2.0 mg/dL (<2.0)
[2016-04-20] MEDS: amLODIPine 5 MG TAB PO SCH (20:57)
[2016-04-20] MEDS ORDERED: TEMAZEPAM 15 MG CAP PO PRN (21:47)
[2016-04-21] MEDS: SODIUM CHLORIDE 0.9% 1,000 ML IV SCH (00:45)
[2016-04-21 06:09] LABS: Cardiolipin Ab IgG <9.0 GPL (<15); Cardiolipin Ab IgM <9.0 MPL (<12.5)
--- NOTE | 2016-04-21 06:29 | PN ---
DATE OF SERVICE: 04/20/2016 This 70-year-old woman was admitted with acute pulmonary embolism, recurrent, also suspected of having possible Xarelto failure. The patient started on Lovenox. No chest pain or palpitation. No fever. On exam, alert and oriented x3. Pulse 73, blood pressure 130/62, respirations 20, temperature 97.1, pulse ox 92% on room air. HEENT: Conjunctivae normal. NECK: No jugular venous distention. CARDIOVASCULAR: S1 and S2, muffled. RESPIRATORY: Breath sounds diminished at the bases. No scattered rhonchi, no crackles. ABDOMEN: Soft, nontender. LEGS: No edema, no swelling. NERVOUS SYSTEM: No focal deficits. Labs are CBC and BMP within normal limits. Urine cultures grew gram-negative bacilli. ASSESSMENT: 1. Acute pulmonary embolus, recurrent. 2. Possible Xarelto failure. 3. Heparin monitoring. 4. Lovenox. 5. Increased WBC and d-dimer. 6. History of recent colostomy and incontinence. 7. Possible urinary tract infection. 8. Mild hypoalbuminemia with mild protein calorie malnutrition. 9. History of atrial fibrillations. 10. History of chronic obstructive pulmonary disease. 11. History of bilateral leg deep venous thrombosis on the ultrasound. 12. History of gastroesophageal reflux disease. 13. Hypertension. 14. History of rheumatoid arthritis. 15. History of pulmonary embolus. 16. History of MTHFR mutation. 17. History of hiatal hernia. 18. History of rectal melanoma and surgery. 19. History of colostomy. 20. History of basal cell carcinoma. 21. History of degenerative joint disease. 22. History of recurrent Clostridium difficile colitis, status post fecal transplantation. 23. History of sepsis and Clostridium difficile colitis. 24. History of patellar fracture. 25. History of bowel resection. 26. History of bladder suspension. 27. History of gait dysfunction, uses a walker. 28. Obesity with body mass index of 32.2. 29. FULL CODE. RECOMMENDATIONS AND DISCUSSION: I recommend to continue the current medications, continue monitoring and symptomatic treatment. Otherwise at this time I recommend to continue with Lovenox b.i.d. Follow the cultures. I would recommend a repeat UA and continue to monitor. Guarded prognosis. Further recommendations to follow.
[2016-04-21 06:30] LABS: Anion Gap 7 mmol/L; Blood Urea Nitrogen 13 mg/dL (7-17); Calcium 8.8 mg/dL (8.4-10.2); Carbon Dioxide 28 mmol/L (22-30); Chloride 103 mmol/L (98-107); Glucose 81 mg/dL (74-99); Non-African American GFR(MDRD) >60 (>60 ml/min/1.73 sqM); Potassium 4.1 mmol/L (3.5-5.1); Sodium 138 mmol/L (137-145)
[2016-04-21 06:35] LABS: Basophils # (A) 0.1 k/uL (0-0.2); Basophils % (A) 1 %; CH 28.6; Eosinophils # (A) 0.2 k/uL (0-0.7); Eosinophils % (A) 3 %; HCT 37.1 % (34.0-46.0); HDW 2.64; HGB 11.5 gm/dL (11.4-16.0); Hypochromasia Slight; Luc # (Auto) 0.12; Luc % (Auto) 2; Lymphocytes # (A) 1.7 k/uL (1.0-4.8); Lymphocytes % (A) 22 %; MCH 28.8 pg (25.0-35.0); MCHC 31.1 g/dL (31.0-37.0); MCV 92.6 fL (80.0-100.0); Mean Platelet Volume 7.9; Monocytes # (A) 0.6 k/uL (0-1.0); Monocytes % (A) 7 %; Neutrophils # (A) 5.1 k/uL (1.3-7.7); Neutrophils % (A) 66 %; WBC 7.8 k/uL (3.8-10.6); WBC (Perox) 7.23
[2016-04-21 09:33] VITALS: RESP 18
[2016-04-21] MEDS: SYMBICORT 160-4.5 MCG INHALER INHALATION SCH (09:35)
[2016-04-21] MEDS: IPRATROPIUM-ALBUTEROL 3 ML NEB INHALATION SCH (09:35)
[2016-04-21] MEDS: ENOXAPARIN 80 MG/0.8 ML SYRINGE SQ SCH (10:10)
[2016-04-21] MEDS: LEFLUNOMIDE 20 MG TAB PO SCH (10:11)
[2016-04-21] MEDS: OXYBUTYNIN CHLORIDE 5 MG TAB PO SCH (10:12)
[2016-04-21] MEDS: MAGNESIUM OXIDE 400 MG TAB PO SCH (10:12)
[2016-04-21] MEDS: LOSARTAN-HCTZ 50-12.5 MG 1 EACH TAB PO SCH (10:12)
[2016-04-21] MEDS: POTASSIUM CHLORIDE ER 10 MEQ TAB.ER.PRT PO SCH (10:12)
[2016-04-21] MEDS: predniSONE 10 MG TAB PO SCH (10:13)
[2016-04-21] MEDS: SOTALOL 120 MG TAB PO SCH (10:14)
--- NOTE | 2016-04-21 10:24 | P.PN ---
Subjective Progress note dated 04/21/2016 This is a pleasant 70-year-old female sees eye partner in our office. She has a history of prior pulmonary emboli and deep venous thrombosis. 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 She also has a history of melanoma. She presented to the hospital on 04/18/2016 with complaints of increasing shortness of breath cough weakness vomiting and fatigue. A computed tomography scan showed multiple filling defects from the right main pulmonary artery and into the right lower lobe and right middle lobe and right upper lobe as well. The CT was also suggestive of possible right lower lobe pulmonary infarct. We are not recommending lifelong anticoagulation. She apparently failed her factor X a inhibitor. She seemed be breathing relatively well. She denies any shortness breath chest pain chest complaints. No chest discomfort. No fever no chills. No nausea vomiting or diarrhea. Objective - Vital Signs Vital signs: Vital Signs Temp 96.8 F L 04/21/16 08:25 Pulse 72 04/21/16 09:46 Resp 18 04/21/16 09:32 BP 117/68 04/21/16 09:32 Pulse Ox 96 04/21/16 09:36 Intake & Output 04/20/16 04/21/16 04/21/16 18:59 06:59 18:59 Intake Total 780 70 360 Output Total 300 Balance 780 -230 360 Weight 87.5 kg Intake: IV 70 Sodium Chloride 0.9% 1, 20 000 ml @ 20 mls/hr IV . Q24H MASOUD Rx#:[id number] cefTRIAXone 1,000 mg In 50 Sodium Chloride 0.9% 50 ml @ 100 mls/hr IVPB Q24H MASOUD Rx#:[id number] Oral 780 360 Output: Urine 300 Other: Voiding Method Toilet Toilet Toilet # Voids 1 1 # Bowel Movements 1 - Exam No acute distress, oriented 3. HEENT examination is grossly unremarkable. Mixed membranes are moist. There are no oral lesions. Neck supple. Full range of motion. No masses. No neck vein distention. Cardiovascular examination reveals regular rhythm rate. S1-S2 normal. There is no murmur. Lungs clear breath sounds are equal. No adventitious lung sounds. Abdomen soft bowel sounds are heard. Extremities are intact. - Labs CBC & Chem 7: 04/21/16 05:51 04/21/16 05:51 Labs: Microbiology - Last 24 Hours (Table) 04/18/16 23:50 Urine Culture - Preliminary Urine,Voided Gram Neg Bacilli Assessment and Plan (1) Acute pulmonary embolism Status: Acute Plan: Plan The patient seems relatively stable. She is currently on Lovenox his treatment for her pulmonary embolism. Hematology has been consulted. She'll follow-up with my partner upon discharge. No additional recommendations are made. Pulmonary status is currently stable. We'll see as needed. Time with Patient: Less than 30
[2016-04-21 11:25] VITALS: BP 104/62; PULSE 92; TEMP 97.6
[2016-04-21 12:47] LABS: Hexagonal Phase Neutralization Positive (Negative)
--- NOTE | 2016-04-21 15:13 | DS ---
DATE OF ADMISSION: 04/18/2016 DATE OF DISCHARGE: 04/21/2016 FINAL DIAGNOSES: 1. Acute pulmonary embolism, recurrent. 2. On Lovenox. 3. Possible Xarelto failure. 4. Heparin monitoring. 5. Increased WBC, d-dimer. 6. History of recent colostomy for incontinence. 7. Possible urinary tract infection. 8. Mild hypoalbuminemia with mild protein calorie malnutrition. 9. History of atrial fibrillation. 10. History of chronic obstructive pulmonary disease. 11. Bilateral leg deep venous thrombosis on ultrasound. 12. History of gastroesophageal reflux disease. 13. Hypertension. 14. History of rheumatoid arthritis. 15. History of pulmonary embolism. 16. History of MTHFR mutation. 17. History of hiatal hernia. 18. History of rectal melanoma and surgery. 19. History of colostomy. 20. History of basal cell carcinoma. 21. History of degenerative joint disease. 22. History of recurrent Clostridium difficile colitis, status post fecal transplantation. 23. History of sepsis and Clostridium difficile colitis. 24. History of patellar fracture. 25. History of bowel resection. 26. History of bladder suspension. 27. History of gait dysfunction, uses a walker. 28. Obesity, with a body mass index of 33.2. 29. Escherichia coli urinary tract infection. 30. FULL CODE. DISCHARGE DISPOSITION: Patient will be discharged in a stable condition with guarded prognosis. Total time taken 35 minutes. HISTORY OF PRESENT ILLNESS: This is a 70-year-old woman with a past medical history of multiple medical problems was admitted with acute pulmonary embolism which is recurrent. Patient also was taking Xarelto indicating possible Xarelto failure. Patient treated with IV heparin and subsequently patient was seen by Dr. Alcala, Dr. Godinez, and Dr. Tijerina. Care was coordinated. Abdominal and pelvis CAT scan is normal. The patient also had E. coli UTI. A short course of Rocephin was given. Patient improved significantly. On exam, vitals are stable. CARDIOVASCULAR SYSTEM: S1, S2. ABDOMEN: Soft. NERVOUS SYSTEM: No focal deficits. The patient will be discharged in stable condition with a guarded prognosis with the following advice. 1. Diet is cardiac. 2. Activity limited until followup. 3. Follow up with Dr. Paez in 2 to 3 days. 4. Follow up with Dr. Tijerina and Dr. Alcala as advised. Medications are: 1. Symbicort 160/4.5 two puffs b.i.d. 2. Colace 100 mg b.i.d. p.r.n. 3. Lovenox 80 mg subQ b.i.d. 4. Albuterol, Atrovent q.i.d. and p.r.n. 5. Arriva 20 mg p.o. daily. 6. Losartan-hydrochlorothiazide 1 tablet q.a.m. 7. Magnesium gluconate 500 mg p.o. daily. 8. [place]-3 fatty acid 2 daily. 9. Ditropan 5 mg p.o. b.i.d. 10. Potassium gluconate 99 mg p.o. daily. 11. Sotalol 120 mg p.o. t.i.d. 12. Norvasc 5 mg p.o. q.h.s. 13. Prednisone 10 mg p.o. daily. Once again, the patient will be discharged in a stable condition with guarded prognosis.
== END 2016-04-21 13:21 | disposition home or self-care (01) | DRG 176 ==
LOC: EC 00:40 → 6SEL 03:54
PROVIDERS: ADMIT Hospitalist; ATTEND Hospitalist
DX: I26.99 Other pulmonary embolism without acute cor pulmonale (principal); D68.59 Other primary thrombophilia; I82.403 Acute embolism and thrombosis of unspecified deep veins of lower extremity, bilateral; E44.1 Mild protein-calorie malnutrition; N39.0 Urinary tract infection, site not specified; J98.11 Atelectasis; I48.91 Unspecified atrial fibrillation; J44.9 Chronic obstructive pulmonary disease, unspecified; B96.20 Unspecified Escherichia coli [E. coli] as the cause of diseases classified elsewhere; M06.9 Rheumatoid arthritis, unspecified; K44.9 Diaphragmatic hernia without obstruction or gangrene; I10 Essential (primary) hypertension; R26.9 Unspecified abnormalities of gait and mobility; E66.9 Obesity, unspecified; Z68.31 Body mass index [BMI] 31.0-31.9, adult; K21.9 Gastro-esophageal reflux disease without esophagitis; M19.90 Unspecified osteoarthritis, unspecified site; Z86.718 Personal history of other venous thrombosis and embolism; Z86.711 Personal history of pulmonary embolism; Z85.820 Personal history of malignant melanoma of skin; Z93.3 Colostomy status; Z90.49 Acquired absence of other specified parts of digestive tract; Z96.642 Presence of left artificial hip joint; Z96.652 Presence of left artificial knee joint; Z96.621 Presence of right artificial elbow joint; Z85.048 Personal history of other malignant neoplasm of rectum, rectosigmoid junction, and anus; Z87.440 Personal history of urinary (tract) infections; Z79.01 Long term (current) use of anticoagulants; Z79.51 Long term (current) use of inhaled steroids; Z79.52 Long term (current) use of systemic steroids; Z79.899 Other long term (current) drug therapy
CPT/HCPCS: 36415; 71275; 74022; 74177; 80048; 80053; 80299; 81001; 81003; 82272; 82550; 82553; 83605; 83880; 84484; 85025; 85379; 85598; 85610; 85613; 85730; 85732; 86146; 86147; 87077; 87086; 87186; 87324; 87502; 93005; 93970; 94640; 94760; 99291

== ENCOUNTER → 2016-05-06 | Outpatient (CLI) | payer MEDICARE, BC ==
--- NOTE | 2016-05-06 22:26 | MR ---
EXAMINATION TYPE: MR brain wo/w con DATE OF EXAM: 05/06/2016 10:17 PM COMPARISON: NONE HISTORY: melanoma since 2013 presents with confusion. TECHNIQUE: Multiplanar, multisequence images of the brain and brainstem is performed without and with IV contras t, utilizing 15 mL intravenous MultiHance . FINDINGS: Diffusion weighted images demonstrate no evidence of a recent infarct or other diffusion ab normality. There is no worrisome extra-axial fluid collection. Ventricular system and sulcal size ar e felt within normal limits for patient's age. There is occasional focus of T2 hyperintensity seen th roughout the white matter bilaterally. Less than 10 lesions are felt present. Lesions are nonspecific in appearance and distribution but most likely on basis of product of chronic small vessel ischemic change in patient of this age. Midline structures demonstrate normal morphology. The craniocervical junction appears within normal limits. Post contrast images demonstrate no abnormal enhancement. The dural venous sinuses appear pa tent. There is fairly moderate mucosal thickening in the right maxillary sinus. Mild mucosal thickeni ng is seen in the ethmoid sinuses bilaterally. Visualized globes are intact bilaterally. IMPRESSION: Mild to minimal white matter changes presumed on basis of product of chronic small vessel ischemic change. Some chronic paranasal sinus disease as detailed above most pronounced in right max illary sinus. No suspicious enhancing intraparenchymal mass is noted.
== END | disposition home or self-care (01) ==
LOC: RADMRIMAIN 21:20
PROVIDERS: ATTEND Internal Medicine Hematology & Oncology
DX: C43.9 Malignant melanoma of skin, unspecified (principal); R90.82 White matter disease, unspecified
CPT/HCPCS: 70553; A9577

== ENCOUNTER 2016-06-20 07:20 | Inpatient (IN) | payer MEDICARE, BC ==
[2016-06-20] MEDS ORDERED: SODIUM CHLORIDE 0.9% 1,000 ML IV STA (07:48)
[2016-06-20] MEDS ORDERED: LEVOFLOXACIN 750MG-D5W PMX 750 MG in DEXTROSE/WATER 1 150ML.BAG IVPB STA (07:48)
[2016-06-20] MEDS ORDERED: IPRATROPIUM-ALBUTEROL 3 ML NEB INHALATION STA (07:48)
[2016-06-20] MEDS ORDERED: methylPREDNISolone SOD SUCCI 125 MG/2 ML VIAL IV STA (07:48)
[2016-06-20] MEDS ORDERED: ACETAMINOPHEN IV (For NPO) 1,000 MG in EMPTY BAG 1 BAG IVPB ONE (07:49)
[2016-06-20 08:12] LABS: Anisocytosis Slight; Basophils # (A) 0.1 k/uL (0-0.2); Basophils % (A) 1 %; CHCM 32.6; Eosinophils # (A) 0.1 k/uL (0-0.7); Eosinophils % (A) 1 %; HCT 39.9 % (34.0-46.0); HDW 2.38; Luc # (Auto) 0.22; Luc % (Auto) 2; Lymphocytes # (A) 0.9 k/uL (1.0-4.8); Lymphocytes % (A) 10 %; MCH 30.1 pg (25.0-35.0); MCHC 32.5 g/dL (31.0-37.0); MCV 92.6 fL (80.0-100.0); Monocytes # (A) 0.8 k/uL (0-1.0); Monocytes % (A) 8 %; Neutrophils # (A) 7.3 k/uL (1.3-7.7); Neutrophils % (A) 78 %; RDW 16.4 % (11.5-15.5); WBC 9.3 k/uL (3.8-10.6); WBC (Perox) 9.46
[2016-06-20] MEDS ORDERED: METOCLOPRAMIDE 5 MG/ML 2 ML VIAL IVP STA (08:19)
[2016-06-20 08:20] LABS: INR 1.1 (<1.1); Partial Thromboplastin Time 22.4 sec (22.0-30.0); Prothrombin Time 10.8 sec (9.0-12.0)
[2016-06-20 08:25] LABS: ALT 44 U/L (9-52); AST 29 U/L (14-36); Alkaline Phosphatase 79 U/L (38-126); Anion Gap 11 mmol/L; Blood Urea Nitrogen 8 mg/dL (7-17); Calcium 9.3 mg/dL (8.4-10.2); Carbon Dioxide 28 mmol/L (22-30); Chloride 98 mmol/L (98-107); Glucose 105 mg/dL (74-99); Magnesium 1.6 mg/dL (1.6-2.3); Non-African American GFR(MDRD) >60 (>60 ml/min/1.73 sqM); Potassium 3.6 mmol/L (3.5-5.1); Sodium 137 mmol/L (137-145); Total Bilirubin 0.6 mg/dL (0.2-1.3); Total Protein 6.3 g/dL (6.3-8.2)
--- NOTE | 2016-06-20 08:29 | ED ---
SOB HPI - General Chief Complaint: Shortness of Breath Stated Complaint: nausea,vomiting Time Seen by Provider: 06/20/16 07:41 Source: patient, family Mode of arrival: wheelchair Limitations: no limitations - History of Present Illness Initial Comments: This 70-year-old white female presents with a complaint of shortness of breath. She's also had a cough with clear production. She's had some nausea and dry heaves. She denies any actual fever at home but does present with a temperature of 100.9. She is tried her inhalers without any relief. She states that symptoms this came on this past evening. She tried to Zofran this morning at 6 AM without relief. She denies any leg pain but does have chronic swelling. She does have a history of DVT and PE and is currently on Lovenox. She was diagnosed with this several months ago and was prescribed is rolled though but had PE while on this medication. No other complaints or modifying factors. - Related Data Home Medications Medication Instructions Recorded Confirmed Budesonide-Formot 160-4.5 Mcg 2 puff INHALATION RT-DAILY 11/30/13 04/18/16 [Symbicort 160-4.5 Mcg Inhaler] Losartan/Hydrochlorothiazide 1 tab PO QAM 11/30/13 04/18/16 [Losartan-Hctz 100-25 mg Tab] Sotalol HCl [Sotalol] 120 mg PO TID 11/30/13 04/18/16 amLODIPine [Norvasc] 5 mg PO HS 11/30/13 04/18/16 Magnesium Gluconate [Magonate] 500 mg PO DAILY 11/19/15 04/18/16 [place]-3 Fatty Acids/Fish Oil [Fish 2 cap PO DAILY 11/19/15 04/18/16 Oil 1,000 mg Softgel] Potassium Gluconate 99 mg PO DAILY 11/19/15 04/18/16 Ipratropium/Albuterol Sulfate 1 puff INHALATION RT-QID PRN 04/18/16 04/18/16 [Combivent Respimat Inhaler] Leflunomide [Arava] 20 mg PO DAILY 04/18/16 04/18/16 Oxybutynin Chloride [Ditropan] 5 mg PO BID 04/18/16 04/18/16 predniSONE 10 mg PO DAILY 04/18/16 04/18/16 Previous Rx's Medication Instructions Recorded Docusate [Colace] 100 mg PO BID PRN #60 cap 04/21/16 Enoxaparin [Lovenox] 80 mg SQ Q12HR #60 syringe 04/21/16 Allergies Allergy/AdvReac Type Severity Reaction Status Date / Time No Known Allergies Allergy Verified 06/20/16 07:27 Review of Systems ROS Statement: Those systems with pertinent positive or pertinent negative responses have been documented in the HPI. ROS Other: All systems not noted in ROS Statement are negative. 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 History of Any Multi-Drug Resistant Organisms: None Reported Date of last positivie culture/infection: None MDRO Source:: None Past Surgical History: Bladder Surgery, Bowel Resection, Joint Replacement, Orthopedic Surgery, Tonsillectomy, Tubal Ligation Additional Past Surgical History / Comment(s): 07/2015 cystoscopy with bladder bxs, Bowel RESECTIONs d/t ANAL CA x 2, bladder suspension x2- all done at [facility], urethropexies, fecal transplant at [facility] with no CDiff since, CARDIOVERSION, JOINT REPLACEMENTS: RT ELBOW & LEFT KNEE, LEFT HIP, RT FOOT surgery X2: [facility]. R foot 5th toe bone removed. Septoplasty. Bilateral eyelid sx. Past Anesthesia/Blood Transfusion Reactions: No Reported Reaction Past Psychological History: No Psychological Hx Reported Additional Psychological History / Comment(s): Pt resides with her spouse. She has a walker which she uses at times. She is independent. She drives. Smoking Status: Never smoker Past Alcohol Use History: Rare Past Drug Use History: None Reported Additional Drug Use History / Comment(s): . - Past Family History Mother Family Medical History: No Reported History Father Family Medical History: Unable to Obtain Additional Family Medical History / Comment(s): Father at the age of 35yrs following a stomach surgery. Pt unsure what was wrong with his stomach. General Exam - General Exam Comments Initial Comments: GENERAL: The patient is well nourished and well hydrated. VITAL SIGNS: Heart rate, blood pressure, respiratory rate reviewed as recorded in nurse's notes. EYES: Pupils are round and reactive. Extraocular movements are intact. No conjunctival / lid redness or swelling. ENT: No external evidence of injury, swelling, or ecchymosis. Airway is patent. Throat is clear. NECK: Nontender. No swelling or evidence of injury. No subcutaneous emphysema. Trachea is midline. No thyroid mass. HEART: Regular rate and rhythm. Good peripheral pulses. LUNGS/CHEST: Wheezing is noted bilaterally. No ecchymosis, subcutaneous emphysema, or tenderness. ABDOMEN: Abdomen soft without tenderness. No palpable masses or organomegaly. No peritoneal signs. No abdominal wall swelling or ecchymosis. EXTREMITIES: No extremity tenderness. Normal muscle tone and function. No thoracolumbar tenderness. There may be some scant swelling noted to bilateral lower extremities. NEUROLOGIC: Sensation is grossly intact. Cranial nerve exam reveals face is symmetrical, tongue is midline, speech is clear. SKIN: No abrasions or ecchymosis is noted. No induration or masses noted. PSYCHIATRIC: Alert and oriented. Appropriate behavior and judgment. Limitations: no limitations Course Vital Signs 06/20/16 06/20/16 06/20/16 07:24 07:31 07:36 Temperature 100.9 F H Pulse Rate 90 86 Respiratory 18 28 H 28 H Rate Blood Pressure 138/70 162/96 O2 Sat by Pulse 90 L 94 L Oximetry 06/20/16 06/20/16 06/20/16 08:27 08:47 09:13 Temperature 99.3 F Pulse Rate 81 84 77 Respiratory 15 Rate Blood Pressure 134/80 O2 Sat by Pulse 95 Oximetry Medical Decision Making - Medical Decision Making The patient was seen and examined. All diagnostics were reviewed. An EKG was done and shows a normal sinus rhythm at a rate of 74. An occasional PAC is noted. There is some T-wave inversions in the anterolateral leads which is new as compared to previous EKG dated 04/18/2016. The MD intervals 148, QRS duration is 86 and QTC intervals 388. She received Solu-Medrol IV as well as DuoNeb breathing treatments and Levaquin. The x-ray, upon my review, does show evidence of a right lower lobe infiltrate/pneumonia which is new as compared to March. The radiologist does read out x-ray as having a chronic infiltrate and right pleural effusion. Her pulse ox was low at 94% with a respiratory rate of 28 and temperature 100.9. Blood cultures and urine cultures are taken. Due to the patient being admitted to the hospital 2 months ago, the possibility of a hospital-acquired pneumonia is plausible and she also receives Zosyn and vancomycin. She receives some Reglan for her nausea. She is feeling much improved on recheck. It is felt as though she would require admission to the hospital for further treatment for her multiple conditions. Case is discussed with internal medicine and they're agreeable to admission. - Lab Data Result diagrams: 06/20/16 08:00 06/20/16 08:00 Lab Results 06/20/16 06/20/16 06/20/16 Range/Units 08:00 08:00 08:00 WBC 9.3 (3.8-10.6) k/uL RBC 4.30 (3.80-5.40) m/uL Hgb 13.0 (11.4-16.0) gm/dL Hct 39.9 (34.0-46.0) % MCV 92.6 (80.0-100.0) fL MCH 30.1 (25.0-35.0) pg MCHC 32.5 (31.0-37.0) g/dL RDW 16.4 H (11.5-15.5) % Plt Count 204 (150-450) k/uL Neutrophils % 78 % Lymphocytes % 10 % Monocytes % 8 % Eosinophils % 1 % Basophils % 1 % Neutrophils # 7.3 (1.3-7.7) k/uL Lymphocytes # 0.9 L (1.0-4.8) k/uL Monocytes # 0.8 (0-1.0) k/uL Eosinophils # 0.1 (0-0.7) k/uL Basophils # 0.1 (0-0.2) k/uL Anisocytosis Slight PT (9.0-12.0) sec INR (<1.1) APTT (22.0-30.0) sec Sodium 137 (137-145) mmol/L Potassium 3.6 (3.5-5.1) mmol/L Chloride 98 (98-107) mmol/L Carbon Dioxide 28 (22-30) mmol/L Anion Gap 11 mmol/L BUN 8 (7-17) mg/dL Creatinine 0.55 (0.52-1.04) mg/dL Est GFR (MDRD) Af Amer >60 (>60 ml/min/1.73 sqM) Est GFR (MDRD) Non-Af >60 (>60 ml/min/1.73 sqM) Glucose 105 H (74-99) mg/dL Plasma Lactic Acid Kana (0.7-2.0) mmol/L Calcium 9.3 (8.4-10.2) mg/dL Magnesium 1.6 (1.6-2.3) mg/dL Total Bilirubin 0.6 (0.2-1.3) mg/dL AST 29 (14-36) U/L ALT 44 (9-52) U/L Alkaline Phosphatase 79 (38-126) U/L Total Creatine Kinase <20 L (30-135) U/L CK-MB (CK-2) <0.2 (0.0-2.4) ng/mL CK-MB (CK-2) Rel Index Troponin I <0.012 (0.000-0.034) ng/mL NT-Pro-B Natriuret Pep pg/mL Total Protein 6.3 (6.3-8.2) g/dL Albumin 3.7 (3.5-5.0) g/dL 06/20/16 06/20/16 06/20/16 Range/Units 08:00 08:00 08:00 WBC (3.8-10.6) k/uL RBC (3.80-5.40) m/uL Hgb (11.4-16.0) gm/dL Hct (34.0-46.0) % MCV (80.0-100.0) fL MCH (25.0-35.0) pg MCHC (31.0-37.0) g/dL RDW (11.5-15.5) % Plt Count (150-450) k/uL Neutrophils % % Lymphocytes % % Monocytes % % Eosinophils % % Basophils % % Neutrophils # (1.3-7.7) k/uL Lymphocytes # (1.0-4.8) k/uL Monocytes # (0-1.0) k/uL Eosinophils # (0-0.7) k/uL Basophils # (0-0.2) k/uL Anisocytosis PT 10.8 (9.0-12.0) sec INR 1.1 (<1.1) APTT 22.4 (22.0-30.0) sec Sodium (137-145) mmol/L Potassium (3.5-5.1) mmol/L Chloride (98-107) mmol/L Carbon Dioxide (22-30) mmol/L Anion Gap mmol/L BUN (7-17) mg/dL Creatinine (0.52-1.04) mg/dL Est GFR (MDRD) Af Amer (>60 ml/min/1.73 sqM) Est GFR (MDRD) Non-Af (>60 ml/min/1.73 sqM) Glucose (74-99) mg/dL Plasma Lactic Acid Kana 1.6 (0.7-2.0) mmol/L Calcium (8.4-10.2) mg/dL Magnesium (1.6-2.3) mg/dL Total Bilirubin (0.2-1.3) mg/dL AST (14-36) U/L ALT (9-52) U/L Alkaline Phosphatase (38-126) U/L Total Creatine Kinase (30-135) U/L CK-MB (CK-2) (0.0-2.4) ng/mL CK-MB (CK-2) Rel Index Troponin I (0.000-0.034) ng/mL NT-Pro-B Natriuret Pep 698 pg/mL Total Protein (6.3-8.2) g/dL Albumin (3.5-5.0) g/dL Disposition Clinical Impression: Acute exacerbation of chronic obstructive airways disease, Hospital-acquired pneumonia, Hypoxia, Nausea & vomiting, Acute electrocardiogram changes, Bronchospasm, Fever, Dyspnea Disposition: ADMITTED IP TO THIS [facility] Condition: Fair Time of Disposition: 09:41 Decision Date: 06/20/16 Decision Time: 09:41
[2016-06-20] MEDS ORDERED: ASPIRIN 81 MG CHEW PO STA (08:30)
[2016-06-20] MEDS ORDERED: PIPERACILLIN-TAZOBACTAM 3.375 GM in DEXTROSE/WATER 1 50ML.BAG IVPB STA (08:31)
[2016-06-20] MEDS ORDERED: IV VANCOMYCIN PER PHARMACY 1 EACH MISC MISCELLANE PRN (08:31)
[2016-06-20] MEDS ORDERED: VANCOMYCIN 1,500 MG in SODIUM CHLORIDE 0.9% 250 ML IVPB STA (08:33)
--- NOTE | 2016-06-20 08:33 | XR ---
EXAMINATION TYPE: XR chest 2V DATE OF EXAM: 06/20/2016 8:22 AM HISTORY: difficulty breathing. REFERENCE: Previous study dated 11/19/2015. FINDINGS: The heart is enlarged. There is a chronic right lower lobe infiltrate. Lungs are otherwise clear. Small right effusion. IMPRESSION: 1. CARDIOMEGALY. 2. SMALL RIGHT EFFUSION. 3. CHRONIC RIGHT LOWER LOBE INFILTRATE. BRONCHOSCOPY IS SUGGESTED.
[2016-06-20 08:36] LABS: Creatine Kinase <20 U/L (30-135)
[2016-06-20] MEDS ORDERED: VANCOMYCIN 1,750 MG in SODIUM CHLORIDE 0.9% 250 ML IVPB STA (08:40)
[2016-06-20 08:49] LABS: Creatine Kinase MB <0.2 ng/mL (0.0-2.4); Troponin I <0.012 ng/mL (0.000-0.034)
[2016-06-20] MEDS ORDERED: PNEUMONIA PROTOCOL UTILIZED 1 EACH MISC PO PRN (09:52)
[2016-06-20] MEDS ORDERED: IPRATROPIUM-ALBUTEROL 3 ML NEB INHALATION PRN (10:31)
[2016-06-20 12:02] VITALS: BMI 32.3
[2016-06-20 12:32] LABS: Glucose,Whole Blood 130 mg/dL (75-99)
[2016-06-20] MEDS ORDERED: methylPREDNISolone SOD SUCCI 125 MG/2 ML VIAL IV SCH (13:00)
--- NOTE | 2016-06-20 13:04 | P.CNPUL ---
History of Present Illness Consult date: 06/20/16 Requesting physician: Jennifer Singh Reason for consult: pneumonia Chief complaint: Shortness of breath History of present illness: This is a 70-year-old female was quite similar to my service, patient is known to have history of hypercoagulable state, and history of pulmonary embolism, patient has been maintained on Lovenox, lifetime. She was last admitted to the hospital a few months ago with acute and recurrent deep vein thrombosis hence the patient was advised to stay on Lovenox lifetime. Patient has been compliant with all her meds, she is also known to have history of rectal melanoma and previous colostomy. History of hypertension. COPD. And history of severe rheumatoid arthritis. Patient was admitted this time with mostly symptoms of shortness of breath, cough, cough is productive but clear phlegm noted, she denied any fever before admission but in the ER she had a temp of 100.9. Chest x-ray on admission showed a right lower lobe and right middle lobe consolidation. Hence the patient was admitted and this consult was initiated. Since admission patient is feeling a bit better, denies presently any fever, no chills, no hemoptysis, no chest pain, no nausea no vomiting no abdominal pain no melena no hematemesis. No headaches no blurred vision no dizziness. No dysuria frequency and urgency. Review of Systems 14 point review of systems were obtained please refer to pertinent positives and negatives in HPI. 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 History of Any Multi-Drug Resistant Organisms: None Reported Date of last positivie culture/infection: None MDRO Source:: None Past Surgical History: Bladder Surgery, Bowel Resection, Joint Replacement, Orthopedic Surgery, Tonsillectomy, Tubal Ligation Additional Past Surgical History / Comment(s): 07/2015 cystoscopy with bladder bxs, Bowel RESECTIONs d/t ANAL CA x 2, bladder suspension x2- all done at [facility], urethropexies, fecal transplant at [facility] with no CDiff since, CARDIOVERSION, JOINT REPLACEMENTS: RT ELBOW & LEFT KNEE, LEFT HIP, RT FOOT surgery X2: [facility]. R foot 5th toe bone removed. Septoplasty. Bilateral eyelid sx. Past Anesthesia/Blood Transfusion Reactions: No Reported Reaction Past Psychological History: No Psychological Hx Reported Additional Psychological History / Comment(s): Pt resides with her spouse. She has a walker which she uses at times. She is independent. She drives. Smoking Status: Never smoker Past Alcohol Use History: Rare Past Drug Use History: None Reported Additional Drug Use History / Comment(s): . - Past Family History Mother Family Medical History: No Reported History Father Family Medical History: Unable to Obtain Additional Family Medical History / Comment(s): Father at the age of 35yrs following a stomach surgery. Pt unsure what was wrong with his stomach. Medications and Allergies Home Medications Medication Instructions Recorded Confirmed Type Budesonide-Formot 160-4.5 Mcg 2 puff INHALATION RT-DAILY 11/30/13 06/20/16 History [Symbicort 160-4.5 Mcg Inhaler] Losartan/Hydrochlorothiazide 1 tab PO QAM 11/30/13 06/20/16 History [Losartan-Hctz 100-25 mg Tab] Sotalol HCl [Sotalol] 120 mg PO TID 11/30/13 06/20/16 History amLODIPine [Norvasc] 5 mg PO HS 11/30/13 06/20/16 History Magnesium Gluconate [Magonate] 500 mg PO DAILY 11/19/15 06/20/16 History [place]-3 Fatty Acids/Fish Oil [Fish 2 cap PO DAILY 11/19/15 06/20/16 History Oil 1,000 mg Softgel] Potassium Gluconate 99 mg PO DAILY 11/19/15 06/20/16 History Ipratropium/Albuterol Sulfate 1 puff INHALATION RT-QID PRN 04/18/16 06/20/16 History [Combivent Respimat Inhaler] Leflunomide [Arava] 20 mg PO DAILY 04/18/16 06/20/16 History predniSONE 10 mg PO DAILY 04/18/16 06/20/16 History Allergies Allergy/AdvReac Type Severity Reaction Status Date / Time No Known Allergies Allergy Verified 06/20/16 10:15 Physical Exam Vitals: Vital Signs Temp Pulse Pulse Resp BP BP Pulse Ox 06/20/16 10:54 99.5 F 79 18 128/79 93 L 06/20/16 10:51 98.4 F 80 22 114/65 94 L 06/20/16 10:15 98.3 F 82 22 108/74 94 L Intake and Output 06/19/16 06/20/16 06/20/16 22:59 06:59 14:59 Other: # Voids 1 Weight 87.997 kg Patient Weight 06/21/16 06:59 Weight 87.997 kg Physical Exam: Revealed a 70-year-old female in no distress HEENT:[Neck is supple.] [No neck masses.] [No thyromegaly.] [No JVD.] Chest: [Diminished breath sounds and crackles at the right base] Cardiac Exam: [Normal S1 and S2, no S3 gallop, no murmur.] Abdomen: [Soft, nontender, no megaly, no rebound, no guarding, normal bowel sounds. Evidence of a colostomy bag noted, seems to be a functional colostomy] Extremities: [No clubbing, no edema, no cyanosis.] Neurological Exam: [No focal neurologic deficit.] Results - Laboratory Findings CBC and BMP: 06/20/16 08:00 06/20/16 08:00 PT/INR, D-dimer PT 10.8 sec (9.0-12.0) 06/20/16 08:00 INR 1.1 (<1.1) 06/20/16 08:00 Abnormal lab findings: Abnormal Labs 06/20/16 12:30 POC Glucose (mg/dL) 130 H - Diagnostic Findings Chest x-ray: image reviewed (Evidence of cardiomegaly, right middle lobe and right lower lobe consolidation is noted, small right-sided pleural effusion is also noted.) Assessment and Plan Plan: Impression: 1 acute right middle lobe and right lower lobe pneumonia, community-acquired, however the patient is considered relatively immunocompromised because of her rheumatoid arthritis treatment. 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 And sepsis. History of underlying COPD presently inactive. Recommendation: Fully agree with the present treatment plan, patient is on Zosyn and Levaquin which is very appropriate for now, and on proper bronchodilators, she is also back on her usual Lovenox dose. We'll continue to follow, and the patient does not improve early next week, bronchoscopy would be considered. Time with Patient: Greater than 30
[2016-06-20] MEDS: INSULIN LISPRO (humaLOG) 300 UNIT/3 ML VIAL SQ SCH ×3 (13:27→21:48)
[2016-06-20 14:33] LABS: Creatine Kinase <20 U/L (30-135)
[2016-06-20 14:46] LABS: Creatine Kinase MB 0.3 ng/mL (0.0-2.4); Troponin I <0.012 ng/mL (0.000-0.034)
--- NOTE | 2016-06-20 15:10 | CONS ---
Mrs. Lewis is a 70-year-old female who is seen for cardiac evaluation. This patient's previous medical records, ER notes are reviewed. Patient came to the emergency room with shortness of breath. Patient did not have any fever or chills at home. She says she did not have any cough. In the emergency room, patient had a temperature of 100.9. Chest x-ray showed some possible old pleural effusion. There is no definite pneumonia. The patient denies any pleuritic chest pain. This patient has a history of hypertension, atrial fibrillation, has been treated with medications. She also has been treated for melanoma and recurrent DVT and pulmonary embolism. Patient had been treated with Lovenox because she had a recurrence of DVT when patient was on Xarelto. Patient denies any heart fluttering or palpitations. There is no previous history of myocardial infarction. Patient has a history of hypertension. Patient's physical activities are significantly limited, as she can walk only a short distance. Past medical history includes a history of rectal melanoma, hiatal hernia, history of recurrent DVT and pulmonary embolism, history of recurrent C. difficile colitis. Patient subsequently had a fecal transplant. Patient had a cystoscopy with bladder biopsies and bowel resection with a colostomy. Prior history of cardioversion. Patient's home medications included: 1. Ditropan. 2. Prednisone. 3. Lovenox. 4. Colace. 5. Losartan and 6. Sotalol 150 mg b.i.d. as well as 7. Norvasc 5 mg daily. Physical examination at present reveals a 70-year-old obesely-built female who does not appear to be in any acute distress. Patient's initial temperature in the emergency room was 100.9. Patient's temperature now is 99.5, blood pressure is 128/79 mmHg. Head/ENT is negative. Neck is supple. There is no increase in jugular venous pressure. Both the carotid pulses are felt. There is no bruit. Chest is symmetrical. HEART: The PMI is not felt. First and second heart sounds are normal. Lungs reveal bilateral scattered wheezes. Abdomen is soft. EXTREMITIES: Peripheral pulsations are 1+. EKG shows normal sinus rhythm with left ventricular hypertrophy and a strain pattern. This patient's EKG is unchanged from the previous EKGs. FINAL IMPRESSION: This patient is admitted with symptoms of shortness of breath which appear to be most likely acute bronchitis. Patient has evidence of bilateral wheezing. There is no evidence of any significant left ventricular failure and her proBNP level is 698. Initial troponin is normal. EKG shows evidence of left ventricular hypertrophy. There is no significant change as compared to before. RECOMMENDATIONS: I would recommend to continue the patient's respiratory treatment. We will obtain echo and Doppler study to assess the left ventricular systolic function.
[2016-06-20] MEDS: SOTALOL 120 MG TAB PO SCH ×2 (16:14→21:48)
[2016-06-20 16:38] LABS: Glucose,Whole Blood 154 mg/dL (75-99)
[2016-06-20] MEDS: IPRATROPIUM-ALBUTEROL 3 ML NEB INHALATION PRN (17:06)
[2016-06-20] MEDS ORDERED: ALPRAZolam 0.25 MG TAB PO PRN (17:23)
[2016-06-20] MEDS ORDERED: HYDROmorphone 1 MG/ML 1 ML SYRINGE IVP PRN (17:23)
[2016-06-20] MEDS: ENOXAPARIN 80 MG/0.8 ML SYRINGE SQ SCH (17:46)
--- NOTE | 2016-06-20 19:05 | HP ---
DATE OF ADMISSION: 06/20/2016 CHIEF COMPLAINTS: Shortness of breath. HISTORY OF PRESENT ILLNESS: This 70-year-old woman with a past medical history of multiple medical problems including atrial fibrillation, history of chronic obstructive pulmonary disease, history of DVT, history of GERD , history of pulmonary embolism, history of rheumatoid arthritis, bilateral DVT, history of bowel resection, history of degenerative joint disease being followed by Dr. Paez in the outpatient setting, was not feeling well over the past several days. Patient had some shortness of breath and cough also. Patient came to [facility] and was admitted for further evaluation and treatment. The patient also had MTHFR mutation history also. After admission, the patient had multiple evaluations. Chest x-ray was done, which showed right middle and lower lobe infiltrate and the patient was admitted for further evaluation and treatment and pulmonary evaluation in progress. There is no history of fever, rigors or chills. No history of headache, loss of consciousness or seizures. PAST MEDICAL HISTORY: History of atrial fibrillation, history of COPD, history of DVT, history of GERD, hypertension, pulmonary embolism, rheumatoid arthritis, bilateral DVT, DJD. Medications prior to admission include home medications are: 1. Prednisone 20 mg p.o. daily. 2. Potassium gluconate 99 milligrams p.o. daily. 3. Fish oil two cups p.o. daily. 4. Maganate 500 mg p.o. daily. 5. hydrochlorothiazide 100/25 mg p.o. in the morning. 6. Combivent 1 puff q.i.d. p.r.n. 7. Symbicort 160/4.5 2 puffs daily. 8. Norvasc 5 mg p.o. daily. 9. Sotalol 120 mg p.o. t.i.d. 10. Arava 20 mg p.o. daily. 11. Lovenox 80 mg subcu b.i.d. ALLERGIES: No known drug allergies. FAMILY HISTORY: History of stomach surgery in father. SOCIAL HISTORY: No history of smoking, occasional alcohol intake. REVIEW OF SYSTEMS: ENT: Diminishing hearing. Diminished vision. CARDIOVASCULAR: No angina, palpitations. RESPIRATORY: As mentioned earlier. GI: No nausea. : No dysuria as mentioned earlier. CENTRAL NERVOUS SYSTEM: No numbness or weakness. Allergy/immunology: No asthma or hayfever. MUSCULOSKELETAL: As mentioned earlier. HEMATOLOGY/ONCOLOGY: As mentioned earlier. ENDOCRINE: No history of diabetes, hypothyroidism. CONSTITUTIONAL: As mentioned earlier. DERMATOLOGY: Negative. RHEUMATOLOGY: Negative. PSYCHIATRY: As mentioned earlier. PHYSICAL EXAMINATION: Alert and oriented times three. Pulse is 70, blood pressure 140/90, respiratory rate 19, temperature 98.4, pulse ox 94% on 2 L. HEENT: Conjunctivae normal. Oral mucosa moist. NECK: No jugular venous distention. No carotid bruit. No lymph node enlargement. CARDIOVASCULAR: S1, S2 muffled. No S3, no S4. RESPIRATORY: Breath sounds diminished at the bases. A few scattered rhonchi and crackles. Breath sounds diminished in the right side especially. No bronchial breath sounds heard. A few crackles heard. ABDOMEN: Soft and nontender. No mass palpable. The abdomen is soft, nontender. No mass palpable. No hepatosplenomegaly. Legs: No edema. No swelling. Nervous system: Higher functions as mentioned earlier. Moves all four limbs. No focal deficits. LYMPHATICS: No lymph nodes palpable in the neck, axillae or groin. SKIN: No ulcer, rash or bleeding. LABS: WBC 9.3. Hemoglobin 13. Glucose 105. Influenza negative. Chest x-ray personally reviewed which shows right lower lobe consolidation with a small right sided pleural effusion. ASSESSMENT: 1. Right lower and middle lobe pneumonia, possibly gram-negative, possibly community acquired with right pleural effusion. 2. Chronic obstructive pulmonary disease. 3. Atrial fibrillation. 4. History of deep venous thrombosis. 5. History of Xarelto failure. 6. History of hypertension. 7. History of pulmonary embolism. 8. History of rheumatoid arthritis. 9. History of bilateral deep venous thrombosis. 10. History of MTHFR gene mutation. 11. History of hiatal hernia. 12. History of basal cell carcinoma of the skin of the nose. 13. History of recurrent urinary tract infection. 14. History of recurrent Clostridium difficile colitis. 15. History of fecal transplant. 16. History of bowel resection. 17. History of degenerative joint disease. 18. History of bladder suspension. 19. History of cardioversion. 20. History of degenerative joint disease. 21. FULL CODE. 22. History of sepsis and Clostridium difficile colitis previously. 23. Gait dysfunction, uses a walker. 24. Obesity with body mass index of 32.3. 25. FULL CODE. RECOMMENDATIONS AND DISCUSSION: In this 70 -year-old woman who presented with multiple complex medical issues, we will monitor the patient closely, continue the current medications, continue symptomatic treatment, continue with the bronchodilators, otherwise, empiric antibiotics. Closely follow with Dr. Alcala. Guarded prognosis because of multiple complex medical issues. Further recommendations to follow-up. Steroids have been given which will be tapered and copy of dictation forwarded to Dr. Paez. We will monitor the blood sugars closely. Otherwise, discussed with the patient who understands and agrees. Further recommendations to follow. MTDD
[2016-06-20 20:56] LABS: Glucose,Whole Blood 171 mg/dL (75-99)
[2016-06-20] MEDS ORDERED: TEMAZEPAM 15 MG CAP PO PRN (21:00)
[2016-06-20 21:28] LABS: Creatine Kinase 20 U/L (30-135)
[2016-06-20 21:39] LABS: Creatine Kinase MB 0.3 ng/mL (0.0-2.4); Troponin I <0.012 ng/mL (0.000-0.034)
[2016-06-20] MEDS: PIPERACILLIN-TAZOBACTAM 3.375 GM in DEXTROSE/WATER 1 50ML.BAG IVPB SCH (21:42)
[2016-06-20] MEDS: amLODIPine 5 MG TAB PO SCH (21:48)
[2016-06-20] MEDS: LACTOBACILLUS ACIDOPH & BULGAR 1 EACH PACKET PO SCH (21:48)
[2016-06-20] MEDS: HYDROcodone/APAP 5-325MG 1 EACH TAB PO PRN (22:00)
[2016-06-20 22:35] LABS: Amorphous Sediment,Urine Occasional /hpf; Appearance,Urine Cloudy (Clear); Bilirubin,Urine Negative (Negative); Glucose,Urine (UA) Negative (Negative); Ketones,Urine Negative (Negative); Leukocyte Esterase,Urine Negative (Negative); Mucus,Urine Few /hpf; Nitrite,Urine Negative (Negative); PH, Urine 5.5 (5.0-8.0); Particle Count 3477; Protein,Urine Trace (Negative); Specific Gravity,Urine 1.019 (1.001-1.035); Squamous Epithelial Cell,Urine 4 /hpf (0-4); UA Billing (MACRO vs. MICRO) MICRO; Urobilinogen,Urine <2.0 mg/dL (<2.0); WBC,Urine 1 /hpf (0-5)
[2016-06-21] MEDS: VANCOMYCIN 1,500 MG in SODIUM CHLORIDE 0.9% 250 ML IVPB SCH ×2 (00:39→12:04)
[2016-06-21] MEDS: methylPREDNISolone SOD SUCCI 40 MG/ML 1 ML VIAL IV SCH ×4 (00:39→21:03)
[2016-06-21] MEDS: PIPERACILLIN-TAZOBACTAM 3.375 GM in DEXTROSE/WATER 1 50ML.BAG IVPB SCH ×3 (05:29→20:43)
[2016-06-21] MEDS: HYDROcodone/APAP 5-325MG 1 EACH TAB PO PRN (05:34)
[2016-06-21 06:13] LABS: Glucose,Whole Blood 161 mg/dL (75-99)
[2016-06-21] MEDS: INSULIN LISPRO (humaLOG) 300 UNIT/3 ML VIAL SQ SCH ×4 (06:14→20:54)
[2016-06-21 06:29] LABS: Anisocytosis Slight; Basophils % (A) 0 %; CH 29.6; CHCM 31.3; Eosinophils % (A) 0 %; HCT 42.2 % (34.0-46.0); HDW 2.36; Hypochromasia Slight; Luc % (Auto) 1; Lymphocytes # (A) 0.8 k/uL (1.0-4.8); Lymphocytes % (A) 11 %; MCH 29.3 pg (25.0-35.0); MCHC 30.8 g/dL (31.0-37.0); MCV 95.1 fL (80.0-100.0); Monocytes # (A) 0.4 k/uL (0-1.0); Monocytes % (A) 6 %; Neutrophils # (A) 5.9 k/uL (1.3-7.7); Neutrophils % (A) 82 %; RBC 4.44 m/uL (3.80-5.40); RDW 16.5 % (11.5-15.5); WBC 7.2 k/uL (3.8-10.6); WBC (Perox) 7.46
[2016-06-21 06:51] LABS: Anion Gap 11 mmol/L; Blood Urea Nitrogen 16 mg/dL (7-17); Calcium 9.4 mg/dL (8.4-10.2); Carbon Dioxide 23 mmol/L (22-30); Chloride 104 mmol/L (98-107); Cholesterol 188 mg/dL (<200); Glucose 154 mg/dL (74-99); HDL Cholesterol 52 mg/dL (40-60); Non-African American GFR(MDRD) >60 (>60 ml/min/1.73 sqM); Potassium 4.3 mmol/L (3.5-5.1); Sodium 138 mmol/L (137-145); Triglycerides 110 mg/dL (<150)
[2016-06-21] MEDS ORDERED: NON-FORMULARY DRUG (Omega-3 Fatty Acids/Fish Oil [Fish Oil 1,000 Mg Softgel] 2 CAP) PO SCH (09:00)
[2016-06-21] MEDS: POTASSIUM CHLORIDE ORAL LIQUID 40 MEQ/30 ML CUP PO SCH (09:09)
[2016-06-21] MEDS: ENOXAPARIN 80 MG/0.8 ML SYRINGE SQ SCH ×2 (09:11→20:56)
[2016-06-21] MEDS: ASPIRIN 325 MG TAB PO SCH (09:16)
[2016-06-21] MEDS: LACTOBACILLUS ACIDOPH & BULGAR 1 EACH PACKET PO SCH ×2 (09:16→20:59)
[2016-06-21] MEDS: SOTALOL 120 MG TAB PO SCH ×3 (09:16→21:03)
[2016-06-21] MEDS: LOSARTAN-HCTZ 50-12.5 MG 1 EACH TAB PO SCH (09:17)
[2016-06-21] MEDS: LEFLUNOMIDE 20 MG TAB PO SCH (09:17)
[2016-06-21] MEDS: MAGNESIUM OXIDE 400 MG TAB PO SCH (09:17)
[2016-06-21] MEDS: LEVOFLOXACIN 750MG-D5W PMX 750 MG in DEXTROSE/WATER 1 150ML.BAG IVPB SCH (09:20)
[2016-06-21] MEDS: SYMBICORT 160-4.5 MCG INHALER INHALATION SCH (10:45)
--- NOTE | 2016-06-21 11:17 | P.PN ---
Subjective Principal diagnosis: Acute right lower lobe pneumonia This is a 70-year-old female was quite similar to my service, patient is known to have history of hypercoagulable state, and history of pulmonary embolism, patient has been maintained on Lovenox, lifetime. She was last admitted to the hospital a few months ago with acute and recurrent deep vein thrombosis hence the patient was advised to stay on Lovenox lifetime. Patient has been compliant with all her meds, she is also known to have history of rectal melanoma and previous colostomy. History of hypertension. COPD. And history of severe rheumatoid arthritis. Patient was admitted this time with mostly symptoms of shortness of breath, cough, cough is productive but clear phlegm noted, she denied any fever before admission but in the ER she had a temp of 100.9. Chest x-ray on admission showed a right lower lobe and right middle lobe consolidation. Hence the patient was admitted and this consult was initiated. Since admission patient is feeling a bit better, denies presently any fever, no chills, no hemoptysis, no chest pain, no nausea no vomiting no abdominal pain no melena no hematemesis. No headaches no blurred vision no dizziness. No dysuria frequency and urgency. Patient was reevaluated today on 06/21/2016, feeling a bit better, less cough, less shortness of breath, no wheezing, no chest pain. Recommended a follow-up chest x-ray in a.m., and of the chest x-ray shows improvement, patient could be considered for discharge planning in the next 24 hours. CBC was noted to be normal electrolytes and renal profile were normal. Objective - Vital Signs Vital signs: Vital Signs Temp 97.3 F L 06/21/16 08:00 Pulse 64 06/21/16 08:00 Resp 18 06/21/16 08:00 BP 109/60 06/21/16 08:00 Pulse Ox 93 L 06/21/16 10:00 Intake & Output 06/20/16 06/21/16 06/21/16 18:59 06:59 18:59 Intake Total 800 300 200 Balance 800 300 200 Weight 87.997 kg 87 kg Intake: IV 500 Sodium Chloride 0.9% 1, 500 000 ml @ 100 mls/hr IV . Q10H [facility] Rx#:[id number] Intake, IV Titration 300 300 Amount Piperacillin-Tazobactam 3 50 50 .375 gm In Dextrose/Water 1 50ml.bag @ 12.5 mls/hr IVPB Q8H [facility] Rx#: [id number] Vancomycin 1,500 mg In 250 250 Sodium Chloride 0.9% 250 ml @ 125 mls/hr IVPB Q12H [facility] Rx#:[id number] Oral 200 Other: Voiding Method Toilet Toilet Urinal Urinal # Voids 2 1 - Exam Physical Exam: Revealed a 70-year-old female in no distress HEENT:[Neck is supple.] [No neck masses.] [No thyromegaly.] [No JVD.] Chest: [Diminished breath sounds and crackles at the right base] Cardiac Exam: [Normal S1 and S2, no S3 gallop, no murmur.] Abdomen: [Soft, nontender, no megaly, no rebound, no guarding, normal bowel sounds. Evidence of a colostomy bag noted, seems to be a functional colostomy] Extremities: [No clubbing, no edema, no cyanosis.] Neurological Exam: [No focal neurologic deficit.] - Labs CBC & Chem 7: 06/21/16 05:43 06/21/16 05:43 Labs: Abnormal Lab Results - Last 24 Hours (Table) 06/20/16 06/20/16 06/20/16 Range/Units 12:30 13:42 16:36 MCHC (31.0-37.0) g/dL RDW (11.5-15.5) % Lymphocytes # (1.0-4.8) k/uL Creatinine (0.52-1.04) mg/dL Glucose (74-99) mg/dL POC Glucose (mg/dL) 130 H 154 H (75-99) mg/dL Total Creatine Kinase <20 L (30-135) U/L LDL Cholesterol, Calc (0-99) mg/dL Urine Appearance (Clear) Urine Protein (Negative) Amorphous Sediment (None) /hpf Hyaline Casts (0-2) /lpf Urine Mucus (None) /hpf 06/20/16 06/20/16 06/20/16 Range/Units 20:41 20:51 21:00 MCHC (31.0-37.0) g/dL RDW (11.5-15.5) % Lymphocytes # (1.0-4.8) k/uL Creatinine (0.52-1.04) mg/dL Glucose (74-99) mg/dL POC Glucose (mg/dL) 171 H (75-99) mg/dL Total Creatine Kinase 20 L (30-135) U/L LDL Cholesterol, Calc (0-99) mg/dL Urine Appearance Cloudy H (Clear) Urine Protein Trace H (Negative) Amorphous Sediment Occasional H (None) /hpf Hyaline Casts 3 H (0-2) /lpf Urine Mucus Few H (None) /hpf 06/21/16 06/21/16 06/21/16 Range/Units 05:43 05:43 06:12 MCHC 30.8 L (31.0-37.0) g/dL RDW 16.5 H (11.5-15.5) % Lymphocytes # 0.8 L (1.0-4.8) k/uL Creatinine 0.50 L (0.52-1.04) mg/dL Glucose 154 H (74-99) mg/dL POC Glucose (mg/dL) 161 H (75-99) mg/dL Total Creatine Kinase (30-135) U/L LDL Cholesterol, Calc 114 H (0-99) mg/dL Urine Appearance (Clear) Urine Protein (Negative) Amorphous Sediment (None) /hpf Hyaline Casts (0-2) /lpf Urine Mucus (None) /hpf Assessment and Plan Plan: Impression: 1 acute right middle lobe and right lower lobe pneumonia, community-acquired, however the patient is considered relatively immunocompromised because of her rheumatoid arthritis treatment. 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 And sepsis. History of underlying COPD presently inactive. Recommendation: Continue present meds and antibiotics, repeat chest x-ray in a.m., and if improving consider discharge planning on oral antibiotics and follow-up on outpatient basis. Time with Patient: Less than 30
[2016-06-21 11:47] LABS: Glucose,Whole Blood 190 mg/dL (75-99)
[2016-06-21 12:21] LABS: Hemoglobin A1C 5.7 % (4.2-6.1)
--- NOTE | 2016-06-21 15:17 | PN ---
This patient was admitted with acute respiratory distress, which responded to be mostly secondary to acute bronchitis. There is no evidence of any significant left ventricular failure. Patient is doing fairly well. Her breathing is improved. Blood pressure now is 116/62 millimeters of mercury. HEART: S1 and S2 normal. Lungs reveal a few scattered wheezes. We will continue the current medications.
[2016-06-21] MEDS: IPRATROPIUM-ALBUTEROL 3 ML NEB INHALATION PRN ×2 (15:54→19:37)
[2016-06-21 16:25] LABS: Glucose,Whole Blood 164 mg/dL (75-99)
[2016-06-21] MEDS: amLODIPine 5 MG TAB PO SCH (21:03)
[2016-06-21 21:05] LABS: Glucose,Whole Blood 171 mg/dL (75-99)
[2016-06-22] MEDS: VANCOMYCIN 1,500 MG in SODIUM CHLORIDE 0.9% 250 ML IVPB SCH ×2 (01:08→13:05)
[2016-06-22] MEDS: PIPERACILLIN-TAZOBACTAM 3.375 GM in DEXTROSE/WATER 1 50ML.BAG IVPB SCH ×3 (06:08→19:23)
[2016-06-22 06:31] LABS: Anisocytosis Slight; CH 29.4; CHCM 31.4; HGB 12.9 gm/dL (11.4-16.0); Hypochromasia Slight; Immature Gran Flag Marked; MCH 29.1 pg (25.0-35.0); MCHC 30.8 g/dL (31.0-37.0); MCV 94.5 fL (80.0-100.0); Mean Platelet Volume 8.2; RBC 4.45 m/uL (3.80-5.40); RDW 16.5 % (11.5-15.5); WBC 8.6 k/uL (3.8-10.6); WBC (Perox) 9.18
[2016-06-22 06:41] LABS: Add Differential Manual Differential
[2016-06-22 06:44] LABS: Anion Gap 7 mmol/L; Blood Urea Nitrogen 21 mg/dL (7-17); Calcium 9.3 mg/dL (8.4-10.2); Carbon Dioxide 27 mmol/L (22-30); Chloride 105 mmol/L (98-107); Glucose 121 mg/dL (74-99); Non-African American GFR(MDRD) >60 (>60 ml/min/1.73 sqM); Potassium 4.2 mmol/L (3.5-5.1); Sodium 139 mmol/L (137-145)
[2016-06-22 06:46] LABS: Manual Review Performed; Nucleated Red Blood Cells 0 /100 WBC (0-0); Total Cells Counted 200
[2016-06-22 06:48] LABS: Toxic Granulation Present; Toxic Vacuolation Present
[2016-06-22 06:53] LABS: Glucose,Whole Blood 102 mg/dL (75-99)
[2016-06-22] MEDS: INSULIN LISPRO (humaLOG) 300 UNIT/3 ML VIAL SQ SCH ×4 (06:58→21:50)
[2016-06-22 07:32] LABS: Glucose,Whole Blood 113 mg/dL (75-99)
--- NOTE | 2016-06-22 07:59 | PN ---
DATE OF SERVICE: 06/21/2016 This is a 70-year-old woman who was admitted with shortness of breath, was thought to have right lower and middle pneumonia, possibly gram-negative. Dr. Alcala is following the patient closely. The patient was started on broad-spectrum IV antibiotics. The patient is on immuno-compromise because of treatment. Patient started on IV antibiotics. Patient has improved significantly and Dr. Parada also saw the patient. Recommended continue to monitor. Past medical history reviewed. REVIEW OF SYSTEMS: CARDIOVASCULAR: No angina, no palpitations. RESPIRATORY: As mentioned earlier. GI: As mentioned earlier. : No dysuria. NERVOUS SYSTEM: No numbness are weakness. Current medications are reviewed and include: 1. [place] 5 mg q.6 p.r.n. 2. Albuterol q.i.d. and p.r.n. 3. Xanax 0.25 t.i.d. 4. Norvasc 5 mg p.o. q.h.s. 5. Aspirin 325 mg daily. 6. Symbicort 160/4.5 two puffs b.i.d. 7. Lovenox 50 mg subQ b.i.d. 8. Hyzaar 50/12.5 two tabs p.o. q.a.m. 9. Dilaudid 0.5 mg q.6. 10. Humalog to scale. 11. Lactinex 1 tablet p.o. b.i.d. 12. Arava 20 mg p.o. daily. 13. Levaquin 750 q.24 hours. 14. Magnesium oxide 400 daily. 15. Solu-Medrol 40 IV q.8. 16. Vancomycin. 17. Zosyn 3.375 IV q.8. 18. Betapace 120 mg p.o. t.i.d. 19. Restoril 15 mg q.h.s. PHYSICAL EXAMINATION: Patient is alert and oriented x3. Pulse 60, blood pressure 112/60, respirations 18, temperature is 97.4, pulse ox 94% on room air. HEENT: Conjunctivae normal, oral mucosal moist. NECK: No jugular venous distension. No carotid bruit, no lymph node enlargement. CARDIOVASCULAR SYSTEM: S1, S2, muffled, no S3, no S4. RESPIRATORY: Breath sounds diminished at the bases. A few scattered rhonchi and crackles. Abdomen is soft, nontender, no mass palpable. EXTREMITIES: Legs no edema, no swelling. NERVOUS SYSTEM: Higher functions as mentioned, moves all 4 limbs, no focal deficits. LYMPHATICS: No lymph node enlargement in the neck, axillae or groin. SKIN: No ulcer, rash or bleeding. LABS: WBC is 7.3, hemoglobin is 13. Otherwise, glucose 154. LDL is 114. ASSESSMENT: 1. Acute right lower lobe pneumonia, possibly gram-negative, possibly community-acquired with right pleural effusion. 2. Immunosuppressed. 3. Chronic obstructive pulmonary disease. 4. Atrial fibrillation, paroxysmal. 5. History of deep venous thrombosis. 6. History of Xarelto failure. 7. History of hypertension. 8. History of pulmonary embolization. 9. History of rheumatoid arthritis. 10. History of bilateral deep venous thrombosis. 11. History MTHFR gene mutation. 12. History of hiatal hernia. 13. History of basal cell carcinoma of the skin of the nose. 14. History of recurrent urinary tract infection. 15. 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 16. History of bowel resection. 17. History of degenerative joint disease. 18. History of bladder suspension. 19. History of cardioversion. 20. History of sepsis and Clostridium difficile colitis previously. 21. Gait dysfunction, uses a walker. 22. Obesity with body mass index of 32.3. 23. FULL CODE. RECOMMENDATION: In this 70-year-old woman who presented with multiple complex medical issues, will monitor the patient closely. Continue with the current medications and continue with the symptomatic treatment. Otherwise, at this time I would recommend continue with broad-spectrum IV antibiotics, bronchodilators. Closely follow with Dr. Alcala. I would cut down the dose of IV steroids significantly and closely monitor. Otherwise, the prognosis is guarded because of multiple complex medical issues. See orders for details. Cardiology input also appreciated. Further recommendations to follow. MTDD
[2016-06-22] MEDS: SYMBICORT 160-4.5 MCG INHALER INHALATION SCH (08:00)
[2016-06-22] MEDS: IPRATROPIUM-ALBUTEROL 3 ML NEB INHALATION PRN (08:00)
[2016-06-22] MEDS: POTASSIUM CHLORIDE ORAL LIQUID 40 MEQ/30 ML CUP PO SCH (08:41)
[2016-06-22] MEDS: methylPREDNISolone SOD SUCCI 40 MG/ML 1 ML VIAL IV SCH ×2 (08:43→21:33)
[2016-06-22] MEDS: LACTOBACILLUS ACIDOPH & BULGAR 1 EACH PACKET PO SCH ×2 (08:44→21:33)
[2016-06-22] MEDS: SOTALOL 120 MG TAB PO SCH ×3 (08:44→21:33)
[2016-06-22] MEDS: ENOXAPARIN 80 MG/0.8 ML SYRINGE SQ SCH ×2 (08:44→21:32)
[2016-06-22] MEDS: ASPIRIN 325 MG TAB PO SCH (08:44)
[2016-06-22] MEDS: LEFLUNOMIDE 20 MG TAB PO SCH (08:44)
[2016-06-22] MEDS: LOSARTAN-HCTZ 50-12.5 MG 1 EACH TAB PO SCH (08:45)
[2016-06-22] MEDS ORDERED: VANCOMYCIN TROUGH DUE 1 EACH MISC MISCELLANE ONE (11:00)
[2016-06-22] MEDS: LEVOFLOXACIN 750MG-D5W PMX 750 MG in DEXTROSE/WATER 1 150ML.BAG IVPB SCH (11:15)
--- NOTE | 2016-06-22 11:32 | P.PN ---
Subjective progress note dated 06/22/2016 70-year-old female seen by my partner over the weekend for a diagnosis of pneumonia. She apparently was diagnosed as having acute right lower lobe pneumonia. She apparently has a history of hypercoagulable state previous history of pulmonary embolism and other medical problems. She had in addition has a history of rheumatoid arthritis and hypertension. Anyway the patient is doing much better. Was doing much better over the week and with my partner saw her yesterday. He mentions in his note that she could probably be considered for discharge planning soon. She is also being seen by the primary service. She feeling better. Less shortness of breath. No cough. Not much phlegm production. No fever no chills. No nausea vomiting or diarrhea. Objective - Vital Signs Vital signs: Vital Signs Temp 98.1 F 06/22/16 07:00 Pulse 82 06/22/16 08:10 Resp 16 06/22/16 07:00 BP 140/71 06/22/16 07:00 Pulse Ox 93 L 06/22/16 07:00 Intake & Output 06/21/16 06/22/16 06/22/16 18:59 06:59 18:59 Intake Total 1930 350 Balance 1930 350 Weight 87 kg 87 kg Intake: IV 400 Sodium Chloride 0.9% 1, 400 000 ml @ 100 mls/hr IV . Q10H [facility] Rx#:[id number] Intake, IV Titration 450 350 Amount Levofloxacin 750Mg-D5w 150 Pmx 750 mg In Dextrose/ Water 1 150ml.bag @ 100 mls/hr IVPB Q24H [facility] Rx#: [id number] Piperacillin-Tazobactam 3 50 100 .375 gm In Dextrose/Water 1 50ml.bag @ 12.5 mls/hr IVPB Q8H [facility] Rx#: [id number] Vancomycin 1,500 mg In 250 250 Sodium Chloride 0.9% 250 ml @ 125 mls/hr IVPB Q12H [facility] Rx#:[id number] Oral 1080 Other: Voiding Method Toilet Toilet Toilet Urinal Urinal Urinal # Voids 3 1 - Exam No acute distress, oriented 3. HEENT examination is grossly unremarkable. Mucous membranes are moist. Neck supple. Full range of motion. No adenopathy. Neck veins are flat. Cardiovascular examination reveals regular rhythm rate. S1 and S2 normal. No S3-S4. No distinct murmur noted. Lungs reveal few scattered rhonchi. No wheezes or crackles. Not really impressive examination. Breath sounds are equal. Abdomen soft. Extremities are intact. - Labs CBC & Chem 7: 06/22/16 06:04 06/22/16 06:04 Labs: Abnormal Lab Results - Last 24 Hours (Table) 06/21/16 06/21/16 06/21/16 Range/Units 11:45 16:23 20:48 MCHC (31.0-37.0) g/dL RDW (11.5-15.5) % BUN (7-17) mg/dL Glucose (74-99) mg/dL POC Glucose (mg/dL) 190 H 164 H 171 H (75-99) mg/dL 06/22/16 06/22/16 06/22/16 Range/Units 06:04 06:04 06:33 MCHC 30.8 L (31.0-37.0) g/dL RDW 16.5 H (11.5-15.5) % BUN 21 H (7-17) mg/dL Glucose 121 H (74-99) mg/dL POC Glucose (mg/dL) 102 H (75-99) mg/dL 06/22/16 Range/Units 07:19 MCHC (31.0-37.0) g/dL RDW (11.5-15.5) % BUN (7-17) mg/dL Glucose (74-99) mg/dL POC Glucose (mg/dL) 113 H (75-99) mg/dL Microbiology - Last 24 Hours (Table) 06/20/16 21:00 Urine Culture - Final Urine,Voided Assessment and Plan (1) Acute exacerbation of chronic obstructive airways disease Status: Acute (2) Acute pulmonary embolism Status: Acute (3) Pneumonia Status: Acute Plan: Plan dated 06/22/2016 We'll review the labs x-rays medications. We'll continue with the breathing treatments antibiotics and so forth. We'll continue to follow closely. Possible discharge soon. We'll continue to make additional recommendations as needed. Should have a follow-up in the outpatient setting. Time with Patient: Less than 30
[2016-06-22 11:34] LABS: Glucose,Whole Blood 143 mg/dL (75-99)
[2016-06-22] MEDS ORDERED: RX INFO: IV CONTRAST WAS GIVEN 1 EACH MISC MISCELLANE PRN (11:34)
--- NOTE | 2016-06-22 12:07 | ECHOF ---
Referral Reason:atrial fib MEASUREMENTS -------- HEIGHT: 165.1 cm WEIGHT: 88.0 kg BP: 128/77 RVIDd: 3.2 cm (< 3.3) IVSd: 1.1 cm (0.6 - 1.1) LVIDd: 5.0 cm (3.9 - 5.3) LVPWd: 1.1 cm (0.6 - 1.1) IVSs: 1.6 cm LVIDs: 2.9 cm LVPWs: 1.7 cm LA Diam: 2.9 cm (2.7 - 3.8) LAESV Index (A-L): 27.32 ml/m Ao Diam: 3.7 cm (2.0 - 3.7) AV Cusp: 2.6 cm (1.5 - 2.6) MV EXCURSION: 16.312 mm (> 18.000) MV EF SLOPE: 70 mm/s (70 - 150) EPSS: 0.6 cm MV E Hunter: 0.91 m/s MV DecT: 171 ms MV A Hunter: 1.12 m/s MV E/A Ratio: 0.82 FINDINGS -------- Sinus rhythm. This was a technically adequate study. The left ventricular size is normal. There is borderline concentric left ventricular hypertrophy. Overall left ventricular systolic function is normal with, an EF between 55 - 60 %. The right ventricle is normal in size. Normal LA size by volume 22+/-6 ml/m2. The right atrium is normal in size. The aortic valve is trileaflet and appears structurally normal. The mitral valve is normal. There is trace mitral regurgitation. No regurgitation noted Trace/mild (physiologic) pulmonic regurgitation. The aortic root is dilated measuring 3.7cm. There is no pericardial effusion. CONCLUSIONS -------- 1. Sinus rhythm. 2. Trace/mild (physiologic) pulmonic regurgitation. 3. The aortic root is dilated measuring 3.7cm. 4. There is no pericardial effusion. 5. This was a technically adequate study. 6. There is borderline concentric left ventricular hypertrophy. 7. Overall left ventricular systolic function is normal with, an EF between 55 - 60 %. 8. Normal LA size by volume 22+/-6 ml/m2. 9. The aortic valve is trileaflet and appears structurally normal. 10. The mitral valve is normal. 11. There is trace mitral regurgitation. 12. No regurgitation noted FACTORY EXPERT: Britta Bruno RDCS
--- NOTE | 2016-06-22 14:33 | CT ---
EXAMINATION TYPE: CT chest w con DATE OF EXAM: 06/22/2016 2:05 PM COMPARISON: 03/02/2015 HISTORY: Pneumonia, History of PE CT DLP: 666 mGycm Automated exposure control for dose reduction was used. CONTRAST: CT scan of the chest is performed with IV Contrast, patient injected with 100 ml mL of Omnipaque 350. FINDINGS: LUNGS: There is basilar scarring and atelectasis noted. Elevation of the right hemidiaphragm is ident ified. There is no evidence for pulmonary nodule or mass. No focal consolidation. No evidence for ple ural effusion. MEDIASTINUM: Stable mild aneurysmal dilatation of its ascending thoracic aorta. No evidence for aneur ysm. There is prominence of the pulmonary artery compatible with pulmonary arterial hypertension. The heart is enlarged. UPPER ABDOMEN: No significant abnormality appreciated. OTHER: No additional significant abnormality is seen. IMPRESSION: 1. No evidence for acute pulmonary process. 2. Basilar atelectasis and chronic elevation right hemidiaphragm. 3. Prominence the pulmonary artery felt to reflect pulmonary arterial hypertension.
[2016-06-22 16:53] LABS: Glucose,Whole Blood 129 mg/dL (75-99)
[2016-06-22] MEDS: MAGNESIUM OXIDE 400 MG TAB PO SCH (17:32)
[2016-06-22] MEDS: HYDROcodone/APAP 5-325MG 1 EACH TAB PO PRN (19:52)
[2016-06-22 20:22] LABS: Glucose,Whole Blood 149 mg/dL (75-99)
[2016-06-22] MEDS: amLODIPine 5 MG TAB PO SCH (21:33)
--- NOTE | 2016-06-22 21:33 | PN ---
DATE OF SERVICE: 06/22/2016 This 70-year-old woman who was admitted with significant right lower lobe pneumonia is on antibiotics. No chest pain. No palpitation. No fever. Patient has an extensive history of C difficile colitis, also. On exam, alert and oriented x3. Pulse is 82, blood pressure 131/69, respiration 16, temperature 98.2. The pulse ox is 92% on room air. HEENT: Conjunctivae normal. Oral mucosa moist. NECK: No jugular venous distention. No carotid bruit. No lymph node enlargement. CARDIOVASCULAR SYSTEM: S1 normal. S2 normal. No S3. No S4. RESPIRATORY SYSTEM: Breath sounds diminished at the bases. A few scattered rhonchi and crackles. ABDOMEN: Soft, non-tender. No mass palpable. LEGS: No edema. No swelling. NERVOUS SYSTEM: No focal deficit. Labs at this time show WBC 12.9 and glucose 121. Vancomycin is 18.2. ASSESSMENT: 1. Acute right lower lobe pneumonia, possibly Gram-negative, possibly community-acquired, with right pleural effusion. 2. Immunosuppressed. 3. Chronic obstructive pulmonary disease. 4. Atrial fibrillation, paroxysmal. 5. History of deep venous thrombosis. 6. History of Xarelto failure apparently. 7. History of hypertension. 8. History of pulmonary embolization. 9. History of rheumatoid arthritis. 10. History of bilateral leg deep venous thrombosis. 11. History of methylenetetrahydrofolate reductase gene mutation. 12. History of hiatal hernia. 13. History of basal cell carcinoma of the skin of the nose. 14. History of recurrent urinary tract infection. 15. History of recurrent Clostridium difficile colitis. 16. History of fecal transplantation. 17. History of bowel resection. 18. History of degenerative joint disease. 19. History of bladder suspension. 20. History of cardioversion. 21. History of sepsis and Clostridium difficile colitis previously. 22. Gait dysfunction; uses a walker. 23. Obesity with a body mass index of 32.3. 24. FULL CODE. RECOMMENDATIONS AND DISCUSSION: I recommend to continue with the current medications, continue with the monitoring, symptomatic treatment. Continue with the rest of the medications. Continue with empiric antibiotics. Guarded prognosis. Further recommendations to follow. Closely follow with Dr. Godinez. Closely follow with Pulmonary.
[2016-06-22 22:22] VITALS: RESP 18
[2016-06-23] MEDS: VANCOMYCIN 1,500 MG in SODIUM CHLORIDE 0.9% 250 ML IVPB SCH ×2 (00:16→10:45)
[2016-06-23] MEDS: PIPERACILLIN-TAZOBACTAM 3.375 GM in DEXTROSE/WATER 1 50ML.BAG IVPB SCH ×2 (03:42→13:41)
[2016-06-23] MEDS: SYMBICORT 160-4.5 MCG INHALER INHALATION SCH (07:08)
[2016-06-23 07:35] LABS: Glucose,Whole Blood 127 mg/dL (75-99)
[2016-06-23] MEDS: INSULIN LISPRO (humaLOG) 300 UNIT/3 ML VIAL SQ SCH ×2 (07:42→11:27)
[2016-06-23 08:08] VITALS: BP 159/74; PULSE 61; TEMP 95.1
[2016-06-23 08:31] LABS: Anisocytosis Slight; Basophils % (A) 0 %; CH 29.2; CHCM 30.9; Eosinophils % (A) 0 %; HCT 43.6 % (34.0-46.0); HDW 2.33; HGB 13.5 gm/dL (11.4-16.0); Hypochromasia Slight; Luc # (Auto) 0.11; Luc % (Auto) 1; Lymphocytes # (A) 0.8 k/uL (1.0-4.8); Lymphocytes % (A) 10 %; MCH 29.4 pg (25.0-35.0); MCHC 30.9 g/dL (31.0-37.0); MCV 94.9 fL (80.0-100.0); Mean Platelet Volume 7.4; Monocytes # (A) 0.4 k/uL (0-1.0); Monocytes % (A) 5 %; Neutrophils # (A) 7.1 k/uL (1.3-7.7); Neutrophils % (A) 84 %; RBC 4.59 m/uL (3.80-5.40); RDW 16.3 % (11.5-15.5); WBC 8.5 k/uL (3.8-10.6); WBC (Perox) 8.61
[2016-06-23] MEDS: LEFLUNOMIDE 20 MG TAB PO SCH (08:46)
[2016-06-23] MEDS: ASPIRIN 325 MG TAB PO SCH (08:46)
[2016-06-23] MEDS: POTASSIUM CHLORIDE ORAL LIQUID 40 MEQ/30 ML CUP PO SCH (08:46)
[2016-06-23] MEDS: LACTOBACILLUS ACIDOPH & BULGAR 1 EACH PACKET PO SCH (08:46)
[2016-06-23] MEDS: LOSARTAN-HCTZ 50-12.5 MG 1 EACH TAB PO SCH (08:46)
[2016-06-23] MEDS: MAGNESIUM OXIDE 400 MG TAB PO SCH (08:46)
[2016-06-23] MEDS: SOTALOL 120 MG TAB PO SCH (08:46)
[2016-06-23] MEDS: methylPREDNISolone SOD SUCCI 40 MG/ML 1 ML VIAL IV SCH (08:46)
[2016-06-23] MEDS: ENOXAPARIN 80 MG/0.8 ML SYRINGE SQ SCH (08:47)
[2016-06-23 08:48] LABS: Anion Gap 10 mmol/L; Blood Urea Nitrogen 20 mg/dL (7-17); Calcium 9.6 mg/dL (8.4-10.2); Carbon Dioxide 29 mmol/L (22-30); Chloride 101 mmol/L (98-107); Glucose 144 mg/dL (74-99); Non-African American GFR(MDRD) >60 (>60 ml/min/1.73 sqM); Potassium 4.2 mmol/L (3.5-5.1); Sodium 140 mmol/L (137-145)
[2016-06-23] MEDS ORDERED: LEVOFLOXACIN 750 MG TAB PO SCH (09:00)
[2016-06-23 11:18] LABS: Glucose,Whole Blood 113 mg/dL (75-99)
--- NOTE | 2016-06-23 11:52 | P.PN ---
Subjective progress note dated 06/22/2016 70-year-old female seen by my partner over the weekend for a diagnosis of pneumonia. She apparently was diagnosed as having acute right lower lobe pneumonia. She apparently has a history of hypercoagulable state previous history of pulmonary embolism and other medical problems. She had in addition has a history of rheumatoid arthritis and hypertension. Anyway the patient is doing much better. Was doing much better over the week and with my partner saw her yesterday. He mentions in his note that she could probably be considered for discharge planning soon. She is also being seen by the primary service. She feeling better. Less shortness of breath. No cough. Not much phlegm production. No fever no chills. No nausea vomiting or diarrhea. Progress note dated 06/23/2016 70-year-old female with a diagnosis of pneumonia. See my my partner over the weekend. The patient came in with acute right lower lobe pneumonia. Does have a history of hypercoagulable state with previous pulmonary embolism. Anyway the patient is doing much better. Much less short of breath. Coughing but not producing any phlegm. No fever no chills. No nausea vomiting or diarrhea. No hemoptysis. She states that she may be discharged home today. Objective - Vital Signs Vital signs: Vital Signs Temp 95.1 F L 06/23/16 07:00 Pulse 61 06/23/16 07:00 Resp 18 06/23/16 07:00 BP 159/74 06/23/16 07:00 Pulse Ox 93 L 06/23/16 07:15 Intake & Output 06/22/16 06/23/16 06/23/16 18:59 06:59 18:59 Intake Total 200 390 Balance 200 390 Weight 87 kg Intake: Oral 200 390 Other: Voiding Method Toilet Toilet Urinal # Voids 1 2 - Exam No acute distress, oriented 3. HEENT examination is grossly unremarkable. Mucous membranes are moist. Neck supple. Full range of motion. No adenopathy. Neck veins are flat. Cardiovascular examination reveals regular rhythm rate. S1 and S2 normal. No S3-S4. No distinct murmur noted. Lungs reveal few scattered rhonchi. No wheezes or crackles. Not really impressive examination. Breath sounds are equal. Abdomen soft. Extremities are intact. - Labs CBC & Chem 7: 06/23/16 07:50 06/23/16 07:50 Labs: Abnormal Lab Results - Last 24 Hours (Table) 06/22/16 06/22/16 06/23/16 Range/Units 16:52 20:21 07:34 MCHC (31.0-37.0) g/dL RDW (11.5-15.5) % Lymphocytes # (1.0-4.8) k/uL BUN (7-17) mg/dL Glucose (74-99) mg/dL POC Glucose (mg/dL) 129 H 149 H 127 H (75-99) mg/dL 06/23/16 06/23/16 06/23/16 Range/Units 07:50 07:50 11:15 MCHC 30.9 L (31.0-37.0) g/dL RDW 16.3 H (11.5-15.5) % Lymphocytes # 0.8 L (1.0-4.8) k/uL BUN 20 H (7-17) mg/dL Glucose 144 H (74-99) mg/dL POC Glucose (mg/dL) 113 H (75-99) mg/dL Microbiology - Last 24 Hours (Table) 06/20/16 21:00 Urine Culture - Final Urine,Voided Assessment and Plan (1) Acute exacerbation of chronic obstructive airways disease Status: Acute (2) Acute pulmonary embolism Status: Acute (3) Pneumonia Status: Acute Plan: Plan dated 06/22/2016 We'll review the labs x-rays medications. We'll continue with the breathing treatments antibiotics and so forth. We'll continue to follow closely. Possible discharge soon. We'll continue to make additional recommendations as needed. Should have a follow-up in the outpatient setting. Plan dated 06/15/2016 The patient's x-rays medications and labs are all reviewed. The patient may be discharged home today. Not sure. Follow-up is necessary. She needs a follow- up chest x-ray for the right lower lobe pneumonia. CAT scan was not really impressive. Please see the results. Labs are reviewed. Additional recommendations suggestions are forthcoming. Time with Patient: Less than 30
--- NOTE | 2016-06-24 05:58 | DS ---
DATE OF ADMISSION: 06/20/2016 DATE OF DISCHARGE: 06/23/2016 PROGRESS NOTE AND DISCHARGE SUMMARY A 70-year-old female admitted with right lower lobe pneumonia and COPD exacerbation. Patient is clinically doing well except for she becomes a little bit hypoxic per ambulation. We will ambulate the patient and make sure her vitals are stable and oxygen saturations are okay before her discharge without oxygen and we will get clearance from Pulmonary as well. Patient apparently has right lower lobe pneumonia. Patient will be discharged on Augmentin. My suspicion is low for aspiration pneumonitis. Patient most probably has community-acquired pneumonia most probably pneumococcal in origin. Patient was seen and examined on the day of discharge. Vitals are stable. PHYSICAL EXAMINATION: GENERAL: The patient is alert and oriented x3, not in any acute distress. Well developed, well nourished. HEENT: Pupils are round and equally reacting to light. EOMI. No scleral icterus. No conjunctival pallor. Normocephalic, atraumatic. No pharyngeal erythema. No thyromegaly. CARDIOVASCULAR: S1 and S2 present. No murmurs, rubs, or gallops. PULMONARY: Chest is clear to auscultation, no wheezing or crackles. ABDOMEN: Soft, nontender, nondistended, normoactive bowel sounds. No palpable organomegaly. MUSCULOSKELETAL: No joint swelling or deformity. EXTREMITIES: No cyanosis, clubbing, or pedal edema. NEUROLOGICAL: Gross neurological examination did not reveal any focal deficits. SKIN: No rashes. FINAL DIAGNOSES: 1. Right lower lobe pneumonia, most probably pneumococcal, suspicion is low for gram-negative pneumonia. 2. Chronic obstructive pulmonary disease with acute exacerbation. 3. Acute hypercapnic respiratory failure secondary to chronic obstructive pulmonary disease exacerbation. 4. Atrial fibrillation, paroxysmal. 5. Patient had a history of deep venous thrombosis in the past and failed Xarelto, because of which patient is on Lovenox, which will be continued. 6. Hypertension. 7. History of pulmonary embolism. 8. History of basal cell carcinoma in the past. 9. Apparently patient had methylenetetrahydrofolate reductase gene mutation. 10. Obesity. For discharge medications, please refer to my depart summary. Activity as tolerated. Cardiac diet. Follow up with Dr. Maude Paez in about 3 to 7 days. Follow up with Pulmonary in 3 to 7 days. Spent greater than 35 minutes in total discharge process.
== END 2016-06-23 13:55 | disposition home or self-care (01) | DRG 190 ==
LOC: EC 07:20 → 6SEL 09:53 → 5MS5E 06-22 07:19
PROVIDERS: ADMIT Internal Medicine; ATTEND Internal Medicine
DX: J44.0 Chronic obstructive pulmonary disease with (acute) lower respiratory infection (principal); J13 Pneumonia due to Streptococcus pneumoniae; J96.01 Acute respiratory failure with hypoxia; J96.02 Acute respiratory failure with hypercapnia; J90 Pleural effusion, not elsewhere classified; E72.12 Methylenetetrahydrofolate reductase deficiency; I48.0 Paroxysmal atrial fibrillation; I11.9 Hypertensive heart disease without heart failure; M06.9 Rheumatoid arthritis, unspecified; J44.1 Chronic obstructive pulmonary disease with (acute) exacerbation; M54.5 Low back pain; I49.1 Atrial premature depolarization; R50.9 Fever, unspecified; H91.90 Unspecified hearing loss, unspecified ear; H54.7 Unspecified visual loss; J98.01 Acute bronchospasm; E66.9 Obesity, unspecified; K21.9 Gastro-esophageal reflux disease without esophagitis; K44.9 Diaphragmatic hernia without obstruction or gangrene; R26.9 Unspecified abnormalities of gait and mobility; R11.2 Nausea with vomiting, unspecified; M19.90 Unspecified osteoarthritis, unspecified site; R20.0 Anesthesia of skin; Z90.49 Acquired absence of other specified parts of digestive tract; Z85.820 Personal history of malignant melanoma of skin; Z86.711 Personal history of pulmonary embolism; Z86.718 Personal history of other venous thrombosis and embolism; Z87.440 Personal history of urinary (tract) infections; Z68.32 Body mass index [BMI] 32.0-32.9, adult; Z79.899 Other long term (current) drug therapy; Z86.19 Personal history of other infectious and parasitic diseases; Z93.3 Colostomy status; Z85.048 Personal history of other malignant neoplasm of rectum, rectosigmoid junction, and anus; Z87.19 Personal history of other diseases of the digestive system; Z87.448 Personal history of other diseases of urinary system; Z87.81 Personal history of (healed) traumatic fracture; Z98.51 Tubal ligation status; Z96.652 Presence of left artificial knee joint; Z96.621 Presence of right artificial elbow joint; Z96.642 Presence of left artificial hip joint; Z89.421 Acquired absence of other right toe(s); Z79.01 Long term (current) use of anticoagulants; Z79.51 Long term (current) use of inhaled steroids; Z79.52 Long term (current) use of systemic steroids
CPT/HCPCS: 36415; 71020; 71260; 80048; 80053; 80061; 80202; 81001; 82550; 82553; 83036; 83605; 83735; 83880; 84484; 85025; 85610; 85730; 87040; 87086; 87502; 93005; 93306; 94640; 94760; 96365; 96375; 99285

== ENCOUNTER 2016-07-28 06:40 | Day surgery (SDC) | payer MEDICARE, BC ==
[2016-07-24 14:55] VITALS: BMI 31.6
[~2016-07-28 06:40] MED LIST: LACTATED RINGERS 1,000 ML IV SCH; LIDOCAINE 1% 20 ML VIAL (10MG/ML) FOR IV START INTRADERMA PRN
[2016-07-28 06:59] VITALS: RESP 16; TEMP 96.3
[2016-07-28] MEDS: CYCLOPENTOLATE 1% OPHTH SOLN 2 ML BTL OP ONE ×2 (07:00→07:18)
[2016-07-28] MEDS: FLURBIPROFEN 0.03% OPHTH DROPS 2.5 ML BTL OP ONE ×2 (07:02→07:21)
[2016-07-28] MEDS: PHENYLEPHRINE 10% OPHTH DROPS 5 ML BTL OP ONE ×2 (07:06→07:24)
[2016-07-28] MEDS ORDERED: PROPOFOL 10 MG/ML 20 ML VIAL IV ONE (08:18)
[2016-07-28] MEDS ORDERED: EPINEPHrine (PF) 0.5 ML in BALANCED SALT IRRIG SOLN COMB2 500 ML IRRIGATION ONE (08:22)
[2016-07-28] MEDS ORDERED: HYALURONATE SODIUM INTRAOCULAR 1 EACH SYRINGE (10MG/ML) INTRAOCULA ONE (08:25)
[2016-07-28] MEDS ORDERED: BALANCED SALT IRRIG SOLN COMB2 15 ML IRRIG.SOLN IRRIGATION ONE (08:25)
--- NOTE | 2016-07-28 08:42 | P.OP ---
Date of Procedure: 07/28/16 Procedure(s) Performed: PREOPERATIVE DIAGNOSIS: Cataract, left eye. POSTOPERATIVE DIAGNOSIS: Cataract, left eye. OPERATION: Phacoemulsification cataract, left eye. DESCRIPTION OF PROCEDURE: The patient was taken to the preoperative holding area. Intravenous Propofol was given so as to bring about adequate sedation. The following mixture was given for local anesthesia: 5 mL of 2% lidocaine, 5 mL of 0.75% Marcaine, and 1 mL of [place]ase. Approximately 4 mL was injected in the retrobulbar space of the surgical eye. Additional 1 mL was then directed to the temporal area of the surgical eye. This was performed to allow adequate neurological block of the facial muscles. The patient was revived and then taken into the operative room. The patient was prepped and draped in the usual sterile manner for the operative eye. A lid speculum was put into position. The conjunctiva was resected back from the limbus in the 12 o'clock position. Bleeding was controlled with electrocautery. A #69 blade was then used and a half-thickness scleral incision approximately 1-mm posterior to the limbus was made on bare sclera. This was shelved in the clear cornea using a crescent knife. Next a 15-degree blade was used to make a stab incision at the 3 o' clock position at the corneolimbal interface. Keratome blade was then used and the superior wound was extended into the anterior chamber. Viscoelastic was injected into the anterior chamber and to maintain its form. Next, a cystotome was used and a continuous anterior capsulotomy was made without difficulty. Hydrodissection using a blunt cannula and BSS was performed. Phaco probe was then employed and a groove extending from 12 to 6 o'clock in the lens was created. A Rafiq wand was used through the stab incision so as to perform a divide and conquer technique. Next an irrigation aspiration probe was utilized and any residual cortex was removed from the eye. Again, viscoelastic was injected into the anterior chamber. An Felipe posterior chamber lens implant was placed in the cartridge and injected into the anterior chamber without difficulty. The SinBlue Saintey hook was utilized to spin the lens into position and this was again performed without any difficulty. The irrigation and aspiration probe was again employed and any residual viscoelastic was removed from the eye. Then BSS was injected into the limbal stab incision and the anterior chamber re-inflated. The conjunctiva was reapproximated using electrocautery. One drop of 0.25% Timoptic was placed over the corneal along with TobraDex ophthalmic ointment. Two sterile patches and a Thorpe eye shield were taped into position. The patient was transported to the recovery room in stable condition. Pathology: none sent Condition: stable Disposition: same day
[2016-07-28 09:03] VITALS: BP 114/63; PULSE 67
[2016-07-28] MEDS ORDERED: TIMOLOL 0.5% OPHTH SOLN (PF) 0.2 ML DROPERETTE OP ONE (23:00)
[2016-07-28] MEDS ORDERED: BUPIVACAINE (PF) 0.75% 5 ML, LIDOCAINE 4% (PF) 5 ML, HYALURONIDASE, HUMAN RECOMB 150 UNIT MISCELLANE ONE ×3 (23:00)
[2016-07-28] MEDS ORDERED: GENTAMICIN/PREDNISOL AC OPHTH OINT 3.5GM OPHTHALMIC ONE (23:00)
== END 2016-07-28 09:23 | disposition home or self-care (01) ==
LOC: OR 06:40
PROVIDERS: ATTEND Ophthalmology
DX: H26.9 Unspecified cataract (principal); I48.91 Unspecified atrial fibrillation; I10 Essential (primary) hypertension; J44.9 Chronic obstructive pulmonary disease, unspecified; Z79.899 Other long term (current) drug therapy; Z79.52 Long term (current) use of systemic steroids
CPT/HCPCS: 66984; V2632; J2001; J3470; J0171; J2704

== ENCOUNTER 2016-09-01 07:09 | Day surgery (SDC) | payer MEDICARE, BC ==
[2016-08-27 15:23] VITALS: BMI 32.5
[~2016-09-01 07:09] MED LIST changes: -LIDOCAINE 1% 20 ML VIAL (10MG/ML) FOR IV START INTRADERMA PRN
[2016-09-01] MEDS: PHENYLEPHRINE 10% OPHTH DROPS 5 ML BTL OP ONE ×3 (08:03→08:23)
[2016-09-01] MEDS: CYCLOPENTOLATE 1% OPHTH SOLN 2 ML BTL OP ONE ×3 (08:06→08:26)
[2016-09-01 08:10] VITALS: RESP 18; TEMP 98
[2016-09-01] MEDS: FLURBIPROFEN 0.03% OPHTH DROPS 2.5 ML BTL OP ONE ×3 (08:10→08:30)
[2016-09-01 08:22] LABS: Glucose,Whole Blood 97 mg/dL (75-99)
[2016-09-01] MEDS ORDERED: PROPOFOL 10 MG/ML 20 ML VIAL IV ONE (08:40)
[2016-09-01] MEDS ORDERED: EPINEPHrine (PF) 0.5 ML in BALANCED SALT IRRIG SOLN COMB2 500 ML IRRIGATION ONE (08:45)
[2016-09-01] MEDS ORDERED: BALANCED SALT IRRIG SOLN COMB2 15 ML IRRIG.SOLN IRRIGATION ONE (08:49)
[2016-09-01] MEDS ORDERED: HYALURONATE SODIUM INTRAOCULAR 1 EACH SYRINGE (10MG/ML) INTRAOCULA ONE (08:49)
--- NOTE | 2016-09-01 09:10 | P.OP ---
Date of Procedure: 09/01/16 Preoperative Diagnosis: Postoperative Diagnosis: Procedure(s) Performed: PREOPERATIVE DIAGNOSIS: Cataract, right eye. POSTOPERATIVE DIAGNOSIS: Cataract, right eye. OPERATION: Phacoemulsification cataract, right eye. DESCRIPTION OF PROCEDURE: The patient was taken to the preoperative holding area. Intravenous Propofol was given so as to bring about adequate sedation. The following mixture was given for local anesthesia: 5 mL of 2% lidocaine, 5 mL of 0.75% Marcaine, and 1 mL of Wydase. Approximately 4 mL was injected in the retrobulbar space of the surgical eye. Additional 1 mL was then directed to the temporal area of the surgical eye. This was performed to allow adequate neurological block of the facial muscles. The patient was revived and then taken into the operative room. The patient was prepped and draped in the usual sterile manner for the operative eye. A lid speculum was put into position. The conjunctiva was resected back from the limbus in the 12 o'clock position. Bleeding was controlled with electrocautery. A #69 blade was then used and a half-thickness scleral incision approximately 1-mm posterior to the limbus was made on bare sclera. This was shelved in the clear cornea using a crescent knife. Next a 15-degree blade was used to make a stab incision at the 3 o' clock position at the corneolimbal interface. Keratome blade was then used and the superior wound was extended into the anterior chamber. Viscoelastic was injected into the anterior chamber and to maintain its form. Next, a cystotome was used and a continuous anterior capsulotomy was made without difficulty. Hydrodissection using a blunt cannula and BSS was performed. Phaco probe was then employed and a groove extending from 12 to 6 o'clock in the lens was created. A Rafiq wand was used through the stab incision so as to perform a divide and conquer technique. Next an irrigation aspiration probe was utilized and any residual cortex was removed from the eye. Again, viscoelastic was injected into the anterior chamber. An Felipe posterior chamber lens implant was placed in the cartridge and injected into the anterior chamber without difficulty. The Dialectiveey hook was utilized to spin the lens into position and this was again performed without any difficulty. The irrigation and aspiration probe was again employed and any residual viscoelastic was removed from the eye. Then BSS was injected into the limbal stab incision and the anterior chamber re-inflated. The conjunctiva was reapproximated using electrocautery. One drop of 0.25% Timoptic was placed over the corneal along with TobraDex ophthalmic ointment. Two sterile patches and a Thorpe eye shield were taped into position. The patient was transported to the recovery room in stable condition. Implants: Pathology: none sent Condition: stable Disposition: same day Indications for Procedure: Operative Findings: Description of Procedure:
[2016-09-01 09:31] VITALS: BP 120/73; PULSE 96
[2016-09-01] MEDS ORDERED: TIMOLOL 0.5% OPHTH SOLN (PF) 0.2 ML DROPERETTE OP ONE (23:00)
[2016-09-01] MEDS ORDERED: GENTAMICIN/PREDNISOL AC OPHTH OINT 3.5GM OPHTHALMIC ONE (23:00)
[2016-09-01] MEDS ORDERED: BUPIVACAINE (PF) 0.75% 5 ML, LIDOCAINE 4% (PF) 5 ML, HYALURONIDASE, HUMAN RECOMB 150 UNIT MISCELLANE ONE ×3 (23:00)
== END 2016-09-01 09:46 | disposition home or self-care (01) ==
LOC: OR 07:09
PROVIDERS: ATTEND Ophthalmology
DX: H26.9 Unspecified cataract (principal); Z79.52 Long term (current) use of systemic steroids; Z79.899 Other long term (current) drug therapy; I10 Essential (primary) hypertension; K21.9 Gastro-esophageal reflux disease without esophagitis; M06.9 Rheumatoid arthritis, unspecified; I48.91 Unspecified atrial fibrillation
CPT/HCPCS: 66984; V2632; J2001; J3470; J0171; J2704

== ENCOUNTER 2016-12-03 23:42 | Inpatient (IN) | payer MEDICARE, BC ==
[2016-12-03] MEDS ORDERED: IPRATROPIUM-ALBUTEROL 3 ML NEB INHALATION STA (23:59)
[2016-12-03] MEDS ORDERED: ACETAMINOPHEN IV (For NPO) 1,000 MG in EMPTY BAG 1 BAG IVPB STA (23:59)
[2016-12-04] MEDS ORDERED: FAMOTIDINE 20 MG/2 ML VIAL IV STA
[2016-12-04] MEDS ORDERED: ONDANSETRON 4 MG/2 ML VIAL IVP STA
[2016-12-04] MEDS ORDERED: RX INFO: IV CONTRAST WAS GIVEN 1 EACH MISC MISCELLANE PRN ×2 (00:01→10:04)
--- NOTE | 2016-12-04 00:07 | ED ---
General Adult HPI - General Chief complaint: Shortness of Breath Stated complaint: SOB Time Seen by Provider: 12/03/16 23:53 Source: patient, EMS, RN notes reviewed Mode of arrival: EMS Limitations: no limitations - History of Present Illness Initial comments: Patient is a pleasant 71-year-old female presenting to the emergency Department with shortness of breath and nausea and vomiting. Onset of symptoms was today. Patient does have some abdominal discomfort. Patient does have history of similar dyspnea previously associated with COPD. Patient has had mild cough. Patient is nauseated at this time and is not providing much additional history. No complaints of chest pain - Related Data Home Medications Medication Instructions Recorded Confirmed Budesonide-Formot 160-4.5 Mcg 2 puff INHALATION RT-DAILY PRN 11/30/13 09/01/16 [Symbicort 160-4.5 Mcg Inhaler] Losartan/Hydrochlorothiazide 1 tab PO QAM 11/30/13 09/01/16 [Losartan-Hctz 100-25 mg Tab] Sotalol HCl [Sotalol] 120 mg PO TID 11/30/13 09/01/16 amLODIPine [Norvasc] 5 mg PO HS 11/30/13 09/01/16 Magnesium Gluconate [Magonate] 500 mg PO DAILY 11/19/15 09/01/16 Cochrane-3 Fatty Acids/Fish Oil [Fish 2 cap PO DAILY 11/19/15 09/01/16 Oil 1,000 mg Softgel] Potassium Gluconate 99 mg PO DAILY 11/19/15 09/01/16 Ipratropium/Albuterol Sulfate 2 puff INHALATION RT-QID PRN 04/18/16 09/01/16 [Combivent Respimat Inhaler] Leflunomide [Arava] 20 mg PO DAILY 04/18/16 09/01/16 Enoxaparin [Lovenox] 120 mg SQ DAILY 06/25/16 09/01/16 Previous Rx's Medication Instructions Recorded predniSONE 10 mg PO DAILY #30 tab 06/23/16 Allergies Allergy/AdvReac Type Severity Reaction Status Date / Time No Known Allergies Allergy Verified 09/01/16 08:03 Review of Systems ROS Statement: Those systems with pertinent positive or pertinent negative responses have been documented in the HPI. ROS Other: All systems not noted in ROS Statement are negative. Constitutional: Reports: chills Eyes: Denies: eye pain ENT: Denies: ear pain Respiratory: Reports: dyspnea Cardiovascular: Denies: chest pain Endocrine: Reports: fatigue Gastrointestinal: Reports: abdominal pain, nausea, vomiting Genitourinary: Denies: dysuria Musculoskeletal: Denies: back pain Skin: Denies: rash Neurological: Denies: weakness Past Medical History Past Medical History: Atrial Fibrillation, Blood Disorder, Cancer, COPD, Deep Vein Thrombosis (DVT), GERD/Reflux, Hypertension, Pneumonia, Pulmonary Embolus ( PE), Rheumatoid Arthritis (RA) Additional Past Medical History / Comment(s): Bilateral DVT's, R lung PE, MTHFR gene mutation, HIATAL HERNIA, MELANOMA ANUS with sx x 2, BASAL CELL CA SKIN NOSE with sx, low back pain, recurrent UTI's, 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 uses cane or walker as needed History of Any Multi-Drug Resistant Organisms: None Reported Date of last positivie culture/infection: None MDRO Source:: None Past Surgical History: Bladder Surgery, Bowel Resection, Joint Replacement, Orthopedic Surgery, Tonsillectomy, Tubal Ligation Additional Past Surgical History / Comment(s): 07/2015 cystoscopy with bladder bxs, Bowel RESECTIONs d/t ANAL CA x 2,has colostomy, bladder suspension x2- all done at [facility], urethropexies, fecal transplant at [facility] with no CDiff since, CARDIOVERSION, JOINT REPLACEMENTS: RT ELBOW & LEFT KNEE, LEFT HIP, RT FOOT surgery X2: HAMMERTOE AND BUNION. R foot 5th toe bone removed. Septoplasty. Bilateral eyelid sx. Past Anesthesia/Blood Transfusion Reactions: No Reported Reaction Past Psychological History: No Psychological Hx Reported Smoking Status: Never smoker - Past Family History Brother(s) Family Medical History: Blood Disorder Additional Family Medical History / Comment(s): MTHFR Mother Family Medical History: No Reported History Father Family Medical History: Unable to Obtain Additional Family Medical History / Comment(s): Father at the age of 35yrs following a stomach surgery. Pt unsure what was wrong with his stomach. General Exam Limitations: no limitations General appearance: alert Head exam: Present: atraumatic Eye exam: Present: normal appearance, PERRL ENT exam: Present: normal oropharynx Neck exam: Present: normal inspection Respiratory exam: Present: rhonchi Cardiovascular Exam: Present: regular rate, normal rhythm Expanded Peripheral pulses: 2+: Radial (R), Radial (L), Dorsalis Pedis (R), Dorsalis Pedis (L) GI/Abdominal exam: Present: soft. Absent: distended, tenderness, guarding, rebound, rigid, pulsatile mass Extremities exam: Present: normal inspection. Absent: pedal edema, calf tenderness Back exam: Present: normal inspection Neurological exam: Present: alert Psychiatric exam: Present: normal affect, normal mood Skin exam: Present: normal color Course Vital Signs 12/03/16 12/03/16 12/04/16 23:46 23:54 00:37 Temperature 100.7 F H Pulse Rate 86 79 Respiratory 18 26 H 20 Rate Blood Pressure 151/73 113/55 O2 Sat by Pulse 88 L 86 L Oximetry 12/04/16 12/04/16 12/04/16 00:51 01:02 02:00 Temperature Pulse Rate 80 83 91 Respiratory 20 Rate Blood Pressure 103/55 O2 Sat by Pulse 86 L Oximetry - Reevaluation(s) Reevaluation #1: 12/04/16 03:07 Patient meets criteria for severe sepsis diagnosed at 3 AM. EKG Findings - EKG Comments: EKG Findings:: Normal sinus rhythm 85. MA 136. QRS 82. QT 360. QTC 428. Normal axis. LVH with repolarization changes. Medical Decision Making - Medical Decision Making Patient reexamined and is somewhat improved. Improved respiratory effort. Nausea has improved. Patient still feels short of breath. Pulse ox in the upper 80s on 40% Ventimask. Patient will be given a repeat nebulizer treatment. Case discussed in detail with practitioner Jerilyn way, who will admit for Dr. Singh, covering for Dr. Paez. Pulmonary will be consult. - Lab Data Result diagrams: 12/04/16 00:23 12/04/16 00:23 Lab Results 12/04/16 12/04/16 12/04/16 Range/Units 00:23 00:23 00:23 WBC 21.9 H (3.8-10.6) k/uL RBC 5.03 (3.80-5.40) m/uL Hgb 15.0 (11.4-16.0) gm/dL Hct 47.3 H (34.0-46.0) % MCV 94.0 (80.0-100.0) fL MCH 29.9 (25.0-35.0) pg MCHC 31.8 (31.0-37.0) g/dL RDW 14.4 (11.5-15.5) % Plt Count 235 (150-450) k/uL Neutrophils % (Manual) 47 % Band Neutrophils % 51 % Lymphocytes % (Manual) 2 % Monocytes % (Manual) 1 % Neutrophils # (Manual) 21.40 H (1.3-7.7) k/uL Lymphocytes # (Manual) 0.44 L (1.0-4.8) k/uL Monocytes # (Manual) 0.22 (0-1.0) k/uL Nucleated RBCs 0 (0-0) /100 WBC Toxic Vacuolation Present Hypochromasia Slight Poikilocytosis (manual Present Anisocytosis (manual) Present Target Cells Present PT 12.8 H (9.0-12.0) sec INR 1.3 H (<1.2) APTT 25.4 (22.0-30.0) sec Sodium 137 (137-145) mmol/L Potassium 4.1 (3.5-5.1) mmol/L Chloride 100 (98-107) mmol/L Carbon Dioxide 28 (22-30) mmol/L Anion Gap 9 mmol/L BUN 17 (7-17) mg/dL Creatinine 0.60 (0.52-1.04) mg/dL Est GFR (MDRD) Af Amer >60 (>60 ml/min/1.73 sqM) Est GFR (MDRD) Non-Af >60 (>60 ml/min/1.73 sqM) Glucose 103 H (74-99) mg/dL Plasma Lactic Acid Kana (0.7-2.0) mmol/L Calcium 9.1 (8.4-10.2) mg/dL Total Bilirubin 0.6 (0.2-1.3) mg/dL AST 74 H (14-36) U/L ALT 71 H (9-52) U/L Alkaline Phosphatase 95 (38-126) U/L Total Creatine Kinase (30-135) U/L CK-MB (CK-2) (0.0-2.4) ng/mL CK-MB (CK-2) Rel Index Troponin I (0.000-0.034) ng/mL Total Protein 5.9 L (6.3-8.2) g/dL Albumin 3.4 L (3.5-5.0) g/dL 12/04/16 12/04/16 Range/Units 00:23 00:23 WBC (3.8-10.6) k/uL RBC (3.80-5.40) m/uL Hgb (11.4-16.0) gm/dL Hct (34.0-46.0) % MCV (80.0-100.0) fL MCH (25.0-35.0) pg MCHC (31.0-37.0) g/dL RDW (11.5-15.5) % Plt Count (150-450) k/uL Neutrophils % (Manual) % Band Neutrophils % % Lymphocytes % (Manual) % Monocytes % (Manual) % Neutrophils # (Manual) (1.3-7.7) k/uL Lymphocytes # (Manual) (1.0-4.8) k/uL Monocytes # (Manual) (0-1.0) k/uL Nucleated RBCs (0-0) /100 WBC Toxic Vacuolation Hypochromasia Poikilocytosis (manual Anisocytosis (manual) Target Cells PT (9.0-12.0) sec INR (<1.2) APTT (22.0-30.0) sec Sodium (137-145) mmol/L Potassium (3.5-5.1) mmol/L Chloride (98-107) mmol/L Carbon Dioxide (22-30) mmol/L Anion Gap mmol/L BUN (7-17) mg/dL Creatinine (0.52-1.04) mg/dL Est GFR (MDRD) Af Amer (>60 ml/min/1.73 sqM) Est GFR (MDRD) Non-Af (>60 ml/min/1.73 sqM) Glucose (74-99) mg/dL Plasma Lactic Acid Kana 2.4 H* (0.7-2.0) mmol/L Calcium (8.4-10.2) mg/dL Total Bilirubin (0.2-1.3) mg/dL AST (14-36) U/L ALT (9-52) U/L Alkaline Phosphatase (38-126) U/L Total Creatine Kinase <20 L (30-135) U/L CK-MB (CK-2) 0.6 (0.0-2.4) ng/mL CK-MB (CK-2) Rel Index Troponin I <0.012 (0.000-0.034) ng/mL Total Protein (6.3-8.2) g/dL Albumin (3.5-5.0) g/dL - Radiology Data Radiology results: report reviewed (Computed tomography scan of the abdomen and pelvis shows lung infiltrates. Ventral wall hernia with colostomy.), image reviewed (Chest x-ray shows right greater than left infiltrates and cardiac megaly.) Critical Care Time Critical Care Time: Yes Total Critical Care Time: 33 Disposition Clinical Impression: Severe sepsis, Pneumonia Disposition: ADMITTED IP TO THIS [facility] Condition: Serious Referrals: Maude Paez MD [Primary Care Provider] - 1-2 days Decision Time: 03:09
[2016-12-04] MEDS: SODIUM CHLORIDE 0.9% 500 ML IV SCH ×2 (00:20→00:28)
[2016-12-04 00:52] LABS: CH 29.1; CHCM 31.1; HCT 47.3 % (34.0-46.0); HDW 2.28; Hypochromasia Slight; Immature Gran Flag Moderate; MCH 29.9 pg (25.0-35.0); MCHC 31.8 g/dL (31.0-37.0); Mean Platelet Volume 7.4; RBC 5.03 m/uL (3.80-5.40); RDW 14.4 % (11.5-15.5); WBC 21.9 k/uL (3.8-10.6); WBC (Perox) 22.35
[2016-12-04 00:54] LABS: INR 1.3 (<1.2); Partial Thromboplastin Time 25.4 sec (22.0-30.0); Prothrombin Time 12.8 sec (9.0-12.0)
[2016-12-04 00:58] LABS: ALT 71 U/L (9-52); AST 74 U/L (14-36); Alkaline Phosphatase 95 U/L (38-126); Anion Gap 9 mmol/L; Blood Urea Nitrogen 17 mg/dL (7-17); Calcium 9.1 mg/dL (8.4-10.2); Carbon Dioxide 28 mmol/L (22-30); Chloride 100 mmol/L (98-107); Glucose 103 mg/dL (74-99); Non-African American GFR(MDRD) >60 (>60 ml/min/1.73 sqM); Potassium 4.1 mmol/L (3.5-5.1); Sodium 137 mmol/L (137-145); Total Bilirubin 0.6 mg/dL (0.2-1.3); Total Protein 5.9 g/dL (6.3-8.2)
[2016-12-04] MEDS ORDERED: SODIUM CHLORIDE 0.9% 1,000 ML IV STA ×2 (01:05→03:00)
[2016-12-04 01:13] LABS: Creatine Kinase <20 U/L (30-135)
[2016-12-04] MEDS ORDERED: PIPERACILLIN-TAZOBACTAM 3.375 GM in DEXTROSE/WATER 1 50ML.BAG IVPB STA (01:20)
[2016-12-04] MEDS ORDERED: LEVOFLOXACIN 750MG-D5W PMX 750 MG in DEXTROSE/WATER 1 150ML.BAG IVPB STA (01:20)
[2016-12-04 01:25] LABS: Creatine Kinase MB 0.6 ng/mL (0.0-2.4); Troponin I <0.012 ng/mL (0.000-0.034)
[2016-12-04 01:48] LABS: Add Differential Manual Differential
--- NOTE | 2016-12-04 01:50 | XR ---
EXAM: XR Chest, 2 Views CLINICAL HISTORY: Reason: Fever TECHNIQUE: Frontal and lateral views of the chest. COMPARISON: 06/26/16 two-view chest. FINDINGS: Lungs: New right greater than the left basilar infiltrates. Pleural space: New small right greater than left pleural effusions. No pneumothorax. Heart: Enlargement of the cardiomediastinal silhouette is probably unchanged allowing for differences in positioning and rotation, and the new right lower lobe infiltrate. Mediastinum: See above. Bones/joints: Osteopenia and degenerative changes with accentuated thoracic kyphosis again present. IMPRESSION: New right greater than left base infiltrates and small pleural effusions. Follow-up is recommended to ensure clearing.
[2016-12-04 01:54] LABS: Band Neutrophils % 51 %; Nucleated Red Blood Cells 0 /100 WBC (0-0); Total Cells Counted 200
[2016-12-04 01:57] LABS: Target Cells Present
[2016-12-04 01:58] LABS: Toxic Vacuolation Present
--- NOTE | 2016-12-04 02:23 | CT ---
EXAM: CT Abdomen and Pelvis With Intravenous Contrast CLINICAL HISTORY: Reason: Abdominal pain and vomiting TECHNIQUE: Axial computed tomography images of the abdomen and pelvis with intravenous contrast. CTDI is 38.40 mGy and DLP is 1417.30 mGy-cm. This CT exam was performed using one or more of the following dose reduction techniques: automated exposure control, adjustment of the mA and/or kV according to patient size, and/or use of iterative reconstruction technique. CONTRAST: 100 mL of Omnipaque 300 administered intravenously. COMPARISON: 04/20/16 CT. FINDINGS: Artifacts: Motion related artifact present. Lower thorax: Partially included new right greater than the left basilar infiltrates and small pleural effusions. There is again a small hiatal hernia. ABDOMEN: Liver: Stable. No mass. Gallbladder and bile ducts: Stable. No calcified stones. No ductal dilation. Pancreas: Stable including generalized fatty replacement. Spleen: Grossly stable (partially obscured by motion related artifact). Adrenals: Unremarkable. No mass. Kidneys and ureters: Stable without stone or hydronephrosis. Stomach and bowel: Previous distal colectomy. There is again a left mid abdomen ventral wall diverting colostomy, the opening of which appears larger and now containing a longer loop of colon within. No evidence of associated intestinal obstruction. There are again colonic diverticula throughout including within the ostomy site, without evidence of diverticulitis. Appendix: No evidence of appendicitis. The appendix is again ascending, with its tip abutting the inferior margin of the right hepatic lobe. PELVIS: Note again some metallic artifact from left hip replacement. Bladder: Grossly normal. Reproductive: Stable. ABDOMEN and PELVIS: Intraperitoneal space: No free air. No significant fluid collection. Bones/joints: Degenerative changes and previous left hip replacement again present. Soft tissues: Unremarkable while for the left ventral wall ostomy. Vasculature: Stable, including note made of right renal artery coursing posterior to the IVC. No abdominal aortic aneurysm. Lymph nodes: No adenopathy. IMPRESSION: 1. New right greater than left basilar infiltrates and small pleural effusions. 2. Left ventral wall diverting colostomy with either interval revision and/or parastomal hernia without associated obstruction. There is again diffuse colonic diverticulosis without evidence of diverticulitis. 3. Additional findings as above.
[2016-12-04] MEDS ORDERED: SODIUM CHLORIDE 0.9% 500 ML IV STA (03:00)
[2016-12-04] MEDS ORDERED: IPRATROPIUM-ALBUTEROL 3 ML NEB INHALATION STA (03:07)
[2016-12-04] MEDS ORDERED: IPRATROPIUM-ALBUTEROL 3 ML NEB INHALATION PRN (03:10)
[2016-12-04] MEDS ORDERED: PNEUMONIA PROTOCOL UTILIZED 1 EACH MISC PO PRN (03:10)
[2016-12-04 03:39] LABS: Appearance,Urine Cloudy (Clear); Bacteria,Urine Occasional /hpf; Bilirubin,Urine Negative (Negative); Glucose,Urine (UA) Negative (Negative); Ketones,Urine Negative (Negative); Leukocyte Esterase,Urine Large (Negative); Mucus,Urine Rare /hpf; Nitrite,Urine Negative (Negative); Particle Count 12792; Protein,Urine Negative (Negative); RBC,Urine 1 /hpf (0-5); Specific Gravity,Urine 1.033 (1.001-1.035); Squamous Epithelial Cell,Urine 10 /hpf (0-4); UA Billing (MACRO vs. MICRO) MICRO; Urobilinogen,Urine <2.0 mg/dL (<2.0); WBC,Urine 26 /hpf (0-5)
[2016-12-04 04:35] LABS: ABG PCO2 45 mmHg (35-45); ABG PH 7.36 (7.35-7.45); ABG PO2 72 mmHg (83-108)
[2016-12-04] MEDS ORDERED: DEXAMETHASONE SOD PHOSPHATE 10 MG/ML 1 ML VIAL IV STA (04:35)
[2016-12-04 04:36] LABS: ABG Base Excess -0.2 mmol/L; ABG HCO3 25 mmol/L (21-25); ABG Oxygen Saturation 93.5 % (94-97); ABG TCO2 26 mmol/L (19-24)
--- NOTE | 2016-12-04 04:39 | ED ---
Medical Decision Making - Medical Decision Making Systolic blood pressure 83. Patient will be started on Levophed. Patient has already received 30 mL bolus. Patient does meet criteria for septic shock. Cortisone level ordered. Decadron ordered. Case discussed with Dr. Alcala, who will consult. Septic shock diagnosed at 4:30 AM. - Lab Data Result diagrams: 12/04/16 00:23 12/04/16 00:23 Lab Results 12/04/16 12/04/16 12/04/16 Range/Units 00:23 00:23 00:23 WBC 21.9 H (3.8-10.6) k/uL RBC 5.03 (3.80-5.40) m/uL Hgb 15.0 (11.4-16.0) gm/dL Hct 47.3 H (34.0-46.0) % MCV 94.0 (80.0-100.0) fL MCH 29.9 (25.0-35.0) pg MCHC 31.8 (31.0-37.0) g/dL RDW 14.4 (11.5-15.5) % Plt Count 235 (150-450) k/uL Neutrophils % (Manual) 47 % Band Neutrophils % 51 % Lymphocytes % (Manual) 2 % Monocytes % (Manual) 1 % Neutrophils # (Manual) 21.40 H (1.3-7.7) k/uL Lymphocytes # (Manual) 0.44 L (1.0-4.8) k/uL Monocytes # (Manual) 0.22 (0-1.0) k/uL Nucleated RBCs 0 (0-0) /100 WBC Toxic Vacuolation Present Hypochromasia Slight Poikilocytosis (manual Present Anisocytosis (manual) Present Target Cells Present PT 12.8 H (9.0-12.0) sec INR 1.3 H (<1.2) APTT 25.4 (22.0-30.0) sec Sodium 137 (137-145) mmol/L Potassium 4.1 (3.5-5.1) mmol/L Chloride 100 (98-107) mmol/L Carbon Dioxide 28 (22-30) mmol/L Anion Gap 9 mmol/L BUN 17 (7-17) mg/dL Creatinine 0.60 (0.52-1.04) mg/dL Est GFR (MDRD) Af Amer >60 (>60 ml/min/1.73 sqM) Est GFR (MDRD) Non-Af >60 (>60 ml/min/1.73 sqM) Glucose 103 H (74-99) mg/dL Lactic Ac Sepsis Rflx Plasma Lactic Acid Kana (0.7-2.0) mmol/L Calcium 9.1 (8.4-10.2) mg/dL Total Bilirubin 0.6 (0.2-1.3) mg/dL AST 74 H (14-36) U/L ALT 71 H (9-52) U/L Alkaline Phosphatase 95 (38-126) U/L Total Creatine Kinase (30-135) U/L CK-MB (CK-2) (0.0-2.4) ng/mL CK-MB (CK-2) Rel Index Troponin I (0.000-0.034) ng/mL Total Protein 5.9 L (6.3-8.2) g/dL Albumin 3.4 L (3.5-5.0) g/dL Urine Color Urine Appearance (Clear) Urine pH (5.0-8.0) Ur Specific Perry (1.001-1.035) Urine Protein (Negative) Urine Glucose (UA) (Negative) Urine Ketones (Negative) Urine Blood (Negative) Urine Nitrite (Negative) Urine Bilirubin (Negative) Urine Urobilinogen (<2.0) mg/dL Ur Leukocyte Esterase (Negative) Urine RBC (0-5) /hpf Urine WBC (0-5) /hpf Urine WBC Clumps (None) /hpf Ur Squamous Epith Cells (0-4) /hpf Urine Bacteria (None) /hpf Hyaline Casts (0-2) /lpf Urine Mucus (None) /hpf 12/04/16 12/04/16 12/04/16 Range/Units 00:23 00:23 01:03 WBC (3.8-10.6) k/uL RBC (3.80-5.40) m/uL Hgb (11.4-16.0) gm/dL Hct (34.0-46.0) % MCV (80.0-100.0) fL MCH (25.0-35.0) pg MCHC (31.0-37.0) g/dL RDW (11.5-15.5) % Plt Count (150-450) k/uL Neutrophils % (Manual) % Band Neutrophils % % Lymphocytes % (Manual) % Monocytes % (Manual) % Neutrophils # (Manual) (1.3-7.7) k/uL Lymphocytes # (Manual) (1.0-4.8) k/uL Monocytes # (Manual) (0-1.0) k/uL Nucleated RBCs (0-0) /100 WBC Toxic Vacuolation Hypochromasia Poikilocytosis (manual Anisocytosis (manual) Target Cells PT (9.0-12.0) sec INR (<1.2) APTT (22.0-30.0) sec Sodium (137-145) mmol/L Potassium (3.5-5.1) mmol/L Chloride (98-107) mmol/L Carbon Dioxide (22-30) mmol/L Anion Gap mmol/L BUN (7-17) mg/dL Creatinine (0.52-1.04) mg/dL Est GFR (MDRD) Af Amer (>60 ml/min/1.73 sqM) Est GFR (MDRD) Non-Af (>60 ml/min/1.73 sqM) Glucose (74-99) mg/dL Lactic Ac Sepsis Rflx Y Plasma Lactic Acid Kana 2.4 H* (0.7-2.0) mmol/L Calcium (8.4-10.2) mg/dL Total Bilirubin (0.2-1.3) mg/dL AST (14-36) U/L ALT (9-52) U/L Alkaline Phosphatase (38-126) U/L Total Creatine Kinase <20 L (30-135) U/L CK-MB (CK-2) 0.6 (0.0-2.4) ng/mL CK-MB (CK-2) Rel Index Troponin I <0.012 (0.000-0.034) ng/mL Total Protein (6.3-8.2) g/dL Albumin (3.5-5.0) g/dL Urine Color Urine Appearance (Clear) Urine pH (5.0-8.0) Ur Specific Perry (1.001-1.035) Urine Protein (Negative) Urine Glucose (UA) (Negative) Urine Ketones (Negative) Urine Blood (Negative) Urine Nitrite (Negative) Urine Bilirubin (Negative) Urine Urobilinogen (<2.0) mg/dL Ur Leukocyte Esterase (Negative) Urine RBC (0-5) /hpf Urine WBC (0-5) /hpf Urine WBC Clumps (None) /hpf Ur Squamous Epith Cells (0-4) /hpf Urine Bacteria (None) /hpf Hyaline Casts (0-2) /lpf Urine Mucus (None) /hpf 12/04/16 Range/Units 02:48 WBC (3.8-10.6) k/uL RBC (3.80-5.40) m/uL Hgb (11.4-16.0) gm/dL Hct (34.0-46.0) % MCV (80.0-100.0) fL MCH (25.0-35.0) pg MCHC (31.0-37.0) g/dL RDW (11.5-15.5) % Plt Count (150-450) k/uL Neutrophils % (Manual) % Band Neutrophils % % Lymphocytes % (Manual) % Monocytes % (Manual) % Neutrophils # (Manual) (1.3-7.7) k/uL Lymphocytes # (Manual) (1.0-4.8) k/uL Monocytes # (Manual) (0-1.0) k/uL Nucleated RBCs (0-0) /100 WBC Toxic Vacuolation Hypochromasia Poikilocytosis (manual Anisocytosis (manual) Target Cells PT (9.0-12.0) sec INR (<1.2) APTT (22.0-30.0) sec Sodium (137-145) mmol/L Potassium (3.5-5.1) mmol/L Chloride (98-107) mmol/L Carbon Dioxide (22-30) mmol/L Anion Gap mmol/L BUN (7-17) mg/dL Creatinine (0.52-1.04) mg/dL Est GFR (MDRD) Af Amer (>60 ml/min/1.73 sqM) Est GFR (MDRD) Non-Af (>60 ml/min/1.73 sqM) Glucose (74-99) mg/dL Lactic Ac Sepsis Rflx Plasma Lactic Acid Kana (0.7-2.0) mmol/L Calcium (8.4-10.2) mg/dL Total Bilirubin (0.2-1.3) mg/dL AST (14-36) U/L ALT (9-52) U/L Alkaline Phosphatase (38-126) U/L Total Creatine Kinase (30-135) U/L CK-MB (CK-2) (0.0-2.4) ng/mL CK-MB (CK-2) Rel Index Troponin I (0.000-0.034) ng/mL Total Protein (6.3-8.2) g/dL Albumin (3.5-5.0) g/dL Urine Color Yellow Urine Appearance Cloudy H (Clear) Urine pH 6.0 (5.0-8.0) Ur Specific Perry 1.033 (1.001-1.035) Urine Protein Negative (Negative) Urine Glucose (UA) Negative (Negative) Urine Ketones Negative (Negative) Urine Blood Negative (Negative) Urine Nitrite Negative (Negative) Urine Bilirubin Negative (Negative) Urine Urobilinogen <2.0 (<2.0) mg/dL Ur Leukocyte Esterase Large H (Negative) Urine RBC 1 (0-5) /hpf Urine WBC 26 H (0-5) /hpf Urine WBC Clumps Rare H (None) /hpf Ur Squamous Epith Cells 10 H (0-4) /hpf Urine Bacteria Occasional H (None) /hpf Hyaline Casts 3 H (0-2) /lpf Urine Mucus Rare H (None) /hpf Disposition Clinical Impression: Severe sepsis, Pneumonia, Septic shock Disposition: ADMITTED IP TO THIS HOSP Condition: Serious Procedures - Sepsis Sepsis Focused Exam #1 Time Sepsis Criteria Met: 03:00 Sepsis Focused Exam Date: 12/04/16 Sepsis Focused Exam Time: 04:38 Sepsis Focused Exam Complete: Yes Vital Signs & RN Notes Reviewed: Yes Capillary Refill: < 2 Seconds: Fingers, Toes Peripheral Pulses: Normal: Radial (R), Radial (L), Dorsalis Pedis (R), Dorsalis Pedis (L) Skin Color: Normal for Patient Respiratory Exam: rales (Bilateral bases), rhonchi Cardiovascular Exam: regular rate, normal rhythm
[2016-12-04] MEDS ORDERED: NOREPINEPHRIN 4 MG-0.9% NS PMX 4 MG/250 ML ML IV SCH (04:45)
[2016-12-04 07:35] LABS: Creatine Kinase <20 U/L (30-135)
[2016-12-04 07:48] LABS: Creatine Kinase MB 0.7 ng/mL (0.0-2.4); Troponin I <0.012 ng/mL (0.000-0.034)
[2016-12-04] MEDS: IPRATROPIUM-ALBUTEROL 3 ML NEB INHALATION SCH ×5 (08:41→19:47)
[2016-12-04] MEDS: SODIUM CHLORIDE 0.9% 1,000 ML IV SCH ×3 (08:51→23:15)
[2016-12-04] MEDS: SOTALOL 120 MG TAB PO SCH ×4 (08:52→21:24)
[2016-12-04] MEDS: LEFLUNOMIDE 20 MG TAB PO SCH (08:52)
[2016-12-04] MEDS: amLODIPine 5 MG TAB PO SCH ×2 (08:53→21:08)
[2016-12-04] MEDS: OXYBUTYNIN CHLORIDE 5 MG TAB PO SCH (08:54)
[2016-12-04] MEDS ORDERED: RIVAROXABAN 10 MG TAB PO SCH (09:00)
[2016-12-04] MEDS ORDERED: LOSARTAN-HCTZ 50-12.5 MG 1 EACH TAB PO SCH (09:00)
--- NOTE | 2016-12-04 11:36 | NM ---
EXAMINATION TYPE: NM pul vent and perfuse DATE OF EXAM: 12/04/2016 COMPARISON: NONE HISTORY: Shortness of breath TECHNIQUE: Utilizing inhalation of 71.1 mCi Tc 99m DTPA aerosol and intravenous injection of 5.61 mC i of Tc 99m MAA, ventilation and perfusion images are acquired post injection in multiple projections . FINDINGS: Central accumulation of radiotracer is noted compatible with COPD. Several scattered matched perfusio n ventilation defects are seen. No evidence for perfusion mismatch at this time. IMPRESSION: Low probability for pulmonary embolism.
[2016-12-04] MEDS: PIPERACILLIN-TAZOBACTAM 3.375 GM in DEXTROSE/WATER 1 50ML.BAG IVPB SCH ×2 (11:48→20:00)
[2016-12-04] MEDS: HYDROCORTISONE SUCCINATE 100 MG/2 ML VIAL IV SCH ×2 (11:55→23:51)
[2016-12-04] MEDS ORDERED: methylPREDNISolone SOD SUCCI 125 MG/2 ML VIAL IV SCH (12:00)
[2016-12-04] MEDS: BUDESONIDE 1 MG/2 ML NEBU INHALATION SCH ×2 (12:02→19:30)
[2016-12-04 12:52] LABS: Creatine Kinase <20 U/L (30-135)
[2016-12-04 13:05] LABS: Troponin I <0.012 ng/mL (0.000-0.034)
--- NOTE | 2016-12-04 13:14 | P.CNPUL ---
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 Some vague nausea and vomiting, and vague abdominal discomfort. No cough, no wheezing, denies any fever or chills, denies any hemoptysis. Chest x-ray showed evidence of chronic changes, however the possibility of underlying pneumonia involving the right lower lobe with a small pleural effusion is not entirely ruled out. (Patient is known to have history of interstitial lung disease related to rheumatoid arthritis.). ABG on 50% FiO2 showed a pO2 of 72 pCO2 of 45 pH of 7.36. Patient was also noted to have leukocytosis with WBC count of 21.9, basic metabolic profile was normal, lactic acid was only 2.0, and her urinalysis was abnormal showing evidence of bacteriuria, pyuria, and positive leukocyte esterase. Patient was felt to be possibly septic, she was started on antibiotics in the form of Levaquin and Zosyn, patient was also given fluid boluses, did not require pressors. Arrangements were made for the patient to be admitted to the ICU. At the time of my evaluation, the patient was feeling a bit better and this was done in the emergency room. And I was a bit concerned that the patient has been switched in the last few weeks to Xarelto although she had failure with Xarelto and she developed pulmonary embolism while on Xarelto hence we decided to treat the patient with Lovenox for a long time. In the last few weeks, Lovenox was changed by her oncologist to Xarelto again. Workup in the ER also included a CT of the abdomen and pelvis which is basically nondiagnostic, I was about to order a CT angiogram of the chest, but since she already had a CT with contrast , I recommended a VQ scan. I still plan to switch her Xarelto to Lovenox until a final decision or diagnosis is made about the possibility of thromboembolic disease again. Review of Systems 14 point review of systems were obtained, please refer to pertinent positives and negatives in HPI. 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 uses cane or walker as needed History of Any Multi-Drug Resistant Organisms: None Reported Date of last positivie culture/infection: None MDRO Source:: None Past Surgical History: Bladder Surgery, Bowel Resection, Joint Replacement, Orthopedic Surgery, Tonsillectomy, Tubal Ligation Additional Past Surgical History / Comment(s): 07/2015 cystoscopy with bladder bxs, Bowel RESECTIONs d/t ANAL CA x 2,has colostomy, bladder suspension x2- all done at [facility], urethropexies, fecal transplant at [facility] with no CDiff since, CARDIOVERSION, JOINT REPLACEMENTS: RT ELBOW & LEFT KNEE, LEFT HIP, RT FOOT surgery X2: HAMMERTOE AND BUNION. R foot 5th toe bone removed. Septoplasty. Bilateral eyelid sx. Past Anesthesia/Blood Transfusion Reactions: No Reported Reaction Past Psychological History: No Psychological Hx Reported Smoking Status: Never smoker - Past Family History Brother(s) Family Medical History: Blood Disorder Additional Family Medical History / Comment(s): MTHFR Mother Family Medical History: No Reported History Father Family Medical History: Unable to Obtain Additional Family Medical History / Comment(s): Father at the age of 35yrs following a stomach surgery. Pt unsure what was wrong with his stomach. Medications and Allergies Home Medications Medication Instructions Recorded Confirmed Type Budesonide-Formot 160-4.5 Mcg 2 puff INHALATION RT-DAILY PRN 11/30/13 12/04/16 History [Symbicort 160-4.5 Mcg Inhaler] Losartan/Hydrochlorothiazide 1 tab PO DAILY 11/30/13 12/04/16 History [Losartan-Hctz 100-25 mg Tab] Sotalol HCl [Sotalol] 120 mg PO TID 11/30/13 12/04/16 History amLODIPine [Norvasc] 5 mg PO HS 11/30/13 12/04/16 History Magnesium Gluconate [Magonate] 500 mg PO DAILY 11/19/15 12/04/16 History [place]-3 Fatty Acids/Fish Oil [Fish 2 cap PO DAILY 11/19/15 12/04/16 History Oil 1,000 mg Softgel] Potassium Gluconate 99 mg PO DAILY 11/19/15 12/04/16 History Ipratropium/Albuterol Sulfate 2 puff INHALATION RT-QID PRN 04/18/16 12/04/16 History [Combivent Respimat Inhaler] Leflunomide [Arava] 20 mg PO DAILY 04/18/16 12/04/16 History predniSONE 10 mg PO DAILY #30 tab 06/23/16 12/04/16 Rx Oxybutynin Chloride [Ditropan] 5 mg PO BID 12/04/16 12/04/16 History Rivaroxaban [Xarelto] 20 mg PO DAILY 12/04/16 12/04/16 History Allergies Allergy/AdvReac Type Severity Reaction Status Date / Time No Known Allergies Allergy Verified 12/04/16 07:30 Physical Exam Vitals: Vital Signs Temp Pulse Resp BP Pulse Ox 12/04/16 12:15 75 12/04/16 12:02 75 12/04/16 11:00 79 22 129/79 94 L 12/04/16 10:00 77 22 106/52 95 12/04/16 09:00 80 22 120/65 95 12/04/16 08:52 81 12/04/16 08:41 87 12/04/16 07:35 78 18 120/75 96 12/04/16 07:07 98.7 F 12/04/16 06:40 80 20 107/54 95 12/04/16 05:00 81 22 100/57 90 L 12/04/16 04:50 79 18 95/52 93 L 12/04/16 04:00 79 18 82/47 91 L 12/04/16 03:19 82 24 103/55 90 L 12/04/16 03:12 83 12/04/16 03:00 85 12/04/16 02:00 91 20 103/55 86 L 12/04/16 01:02 83 12/04/16 00:51 80 12/04/16 00:37 79 20 113/55 86 L 12/03/16 23:54 26 H 12/03/16 23:46 100.7 F H 86 18 151/73 88 L Intake and Output 12/03/16 12/04/16 12/04/16 22:59 06:59 14:59 Other: Weight 83.915 kg Physical Exam: Revealed a 71-year-old female in mild respiratory distress. Presently on 50% Ventimask. HEENT:[Neck is supple.] [No neck masses.] [No thyromegaly.] [No JVD.] Chest: [Minimal crackles at the bases, no rhonchi, no wheezes. Cardiac Exam: [Irregular irregular rhythm Normal S1 and S2, no S3 gallop, no murmur.] Abdomen: [Soft, nontender, no megaly, no rebound, no guarding, normal bowel sounds. Colostomy bag seems to be intact.] Extremities: [No clubbing, trace of edema, no cyanosis.] Neurological Exam: [No focal neurologic deficit.] Results - Laboratory Findings CBC and BMP: 12/04/16 00:23 12/04/16 00:23 ABG ABG pH 7.36 (7.35-7.45) 12/04/16 04:20 ABG pCO2 45 mmHg (35-45) 12/04/16 04:20 ABG pO2 72 mmHg (83-108) L 12/04/16 04:20 ABG O2 Saturation 93.5 % (94-97) L 12/04/16 04:20 PT/INR, D-dimer PT 12.8 sec (9.0-12.0) H 12/04/16 00:23 INR 1.3 (<1.2) H 12/04/16 00:23 Abnormal lab findings: Abnormal Labs 12/04/16 12/04/16 12/04/16 00:23 00:23 00:23 WBC 21.9 H Hct 47.3 H Neutrophils # (Manual) 21.40 H Lymphocytes # (Manual) 0.44 L PT 12.8 H INR 1.3 H ABG pO2 ABG Total CO2 ABG O2 Saturation Glucose 103 H Plasma Lactic Acid Kana AST 74 H ALT 71 H Total Creatine Kinase Total Protein 5.9 L Albumin 3.4 L Urine Appearance Ur Leukocyte Esterase Urine WBC Urine WBC Clumps Ur Squamous Epith Cells Urine Bacteria Hyaline Casts Urine Mucus 12/04/16 12/04/16 12/04/16 00:23 00:23 02:48 WBC Hct Neutrophils # (Manual) Lymphocytes # (Manual) PT INR ABG pO2 ABG Total CO2 ABG O2 Saturation Glucose Plasma Lactic Acid Kana 2.4 H* AST ALT Total Creatine Kinase <20 L Total Protein Albumin Urine Appearance Cloudy H Ur Leukocyte Esterase Large H Urine WBC 26 H Urine WBC Clumps Rare H Ur Squamous Epith Cells 10 H Urine Bacteria Occasional H Hyaline Casts 3 H Urine Mucus Rare H 12/04/16 12/04/16 04:20 06:54 WBC Hct Neutrophils # (Manual) Lymphocytes # (Manual) PT INR ABG pO2 72 L ABG Total CO2 26 H ABG O2 Saturation 93.5 L Glucose Plasma Lactic Acid Kana AST ALT Total Creatine Kinase <20 L Total Protein Albumin Urine Appearance Ur Leukocyte Esterase Urine WBC Urine WBC Clumps Ur Squamous Epith Cells Urine Bacteria Hyaline Casts Urine Mucus - Diagnostic Findings Chest x-ray: image reviewed Assessment and Plan Plan: Impression: 1 acute right lower lobe pneumonia 2 acute urinary tract infection 3 acute sepsis 4 acute exacerbation of COPD 5 history of multiple comorbidities including rheumatoid arthritis and rheumatoid associated lung disease, history of hypercoagulable state and thromboembolic disease, history of atrial fibrillation, history of anal melanoma , history of colostomy, history of deep vein thrombosis, history of MT HFR gene mutation, history of hypertension, Recommendation: Agree with the treatment plan including antibiotics in the form of Levaquin and Zosyn, will continue on Xarelto since the VQ scan showed low probability for pulmonary embolism, no need for CT angiogram of the chest at this point. Patient will be admitted to the ICU, will follow the protocol for sepsis pneumonia and COPD. Depending on the cultures further recommendations will be made. We'll continue to follow. Critical care time over 30 minutes. Time with Patient: Greater than 30
[2016-12-04] MEDS ORDERED: SOTALOL 120 MG TAB PO SCH (22:00)
[2016-12-04] MEDS: LEVOFLOXACIN 750MG-D5W PMX 750 MG in DEXTROSE/WATER 1 150ML.BAG IVPB SCH (23:51)
[2016-12-05 03:45] LABS: Glucose,Whole Blood 111 mg/dL (75-99)
[2016-12-05] MEDS: PIPERACILLIN-TAZOBACTAM 3.375 GM in DEXTROSE/WATER 1 50ML.BAG IVPB SCH ×3 (03:45→20:49)
[2016-12-05 06:13] LABS: Basophils % (A) 0 %; CH 28.9; CHCM 30.5; Eosinophils % (A) 0 %; HDW 2.37; HGB 12.8 gm/dL (11.4-16.0); Hypochromasia Moderate; Luc % (Auto) 1; Lymphocytes # (A) 0.7 k/uL (1.0-4.8); Lymphocytes % (A) 3 %; MCH 29.7 pg (25.0-35.0); MCHC 31.1 g/dL (31.0-37.0); MCV 95.5 fL (80.0-100.0); Mean Platelet Volume 7.6; Monocytes # (A) 0.4 k/uL (0-1.0); Monocytes % (A) 2 %; Neutrophils % (A) 94 %; RBC 4.29 m/uL (3.80-5.40); RDW 14.6 % (11.5-15.5); WBC 20.2 k/uL (3.8-10.6); WBC (Perox) 20.05
[2016-12-05 06:30] LABS: Anion Gap 7 mmol/L; Blood Urea Nitrogen 15 mg/dL (7-17); Calcium 8.6 mg/dL (8.4-10.2); Carbon Dioxide 25 mmol/L (22-30); Chloride 107 mmol/L (98-107); Glucose 132 mg/dL (74-99); Non-African American GFR(MDRD) >60 (>60 ml/min/1.73 sqM); Sodium 139 mmol/L (137-145)
[2016-12-05 06:44] LABS: Glucose,Whole Blood 121 mg/dL (75-99)
[2016-12-05] MEDS: IPRATROPIUM-ALBUTEROL 3 ML NEB INHALATION SCH ×4 (07:36→21:03)
[2016-12-05] MEDS: BUDESONIDE 1 MG/2 ML NEBU INHALATION SCH ×2 (07:36→21:03)
--- NOTE | 2016-12-05 08:05 | XR ---
EXAMINATION TYPE: XR chest 2V DATE OF EXAM: 12/05/2016 HISTORY: pneumonia. REFERENCE: Previous study dated 12/04/2016. FINDINGS: The heart is enlarged. Pulmonary vasculature has improved. There continues to be bibasilar airspace disease, worse on the left than the right. There is a right-sided effusion. I could not excl ude a small left effusion. IMPRESSION: 1. CARDIOMEGALY, VASCULAR CONGESTION AND MILD CHANGES OF HEART FAILURE. 2. BIBASILAR AIRSPACE DISEASE. 3. BILATERAL EFFUSIONS, GREATER ON THE RIGHT THAN THE LEFT.
[2016-12-05] MEDS ORDERED: FUROSEMIDE 10 MG/ML 4 ML VIAL IV STA (08:15)
--- NOTE | 2016-12-05 08:17 | P.CRDCN ---
History of Present Illness Consult date: 12/05/16 Consult reason: shortness of breath History of present illness: 71-year-old lady with history of paroxysmal atrial fibrillation COPD and hypertension and rheumatoid arthritis presents to Hospital complaining of progressively worsening shortness of breath. She is a poor historian and has poor recollection of recent events. Her chest x-ray showed evidence of bilateral pneumonia and she is being treated for the same. An EKG check shows ST-T wave changes suggestive of ischemia. Troponins have been negative. There is no prior history of coronary artery disease or congestive heart failure. There is no history of focal neurological deficits. She is currently an anticoagulant. Patient underwent a VQ scan that was low probability. This morning patient states that she is feeling more short of breath I'm going to give her a dose of Lasix and see if her symptoms improve. I will obtain a 2-D echo to assess her LV function. We'll continue to monitor her on the telemetry. Will review her outpatient records. Once the pneumonia settles down will consider evaluation for possible CAD with a stress test if one has not been done recently Review of Systems Constitutional: Denies chills. Denies fever. Eyes: Denies blurred vision. Denies pain. Ears, nose, mouth and throat: Denies headache. Denies sore throat. Cardiovascular: Denies chest pain.has shortness of breath. Respiratory: Denies cough. Gastrointestinal: Denies abdominal pain. Denies diarrhea. Denies nausea. Denies vomiting. Musculoskeletal: Denies myalgias. Integumentary: Denies pruritus. Denies rash. Neurological: Denies numbness. Denies weakness. Has confusion Psychiatric: Denies anxiety. Denies depression. Endocrine: Denies fatigue. Denies weight change. Genitourinary: Denies burning, hematuria, frequency of urination. Hematological: No anemia or excess bleeding. 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 uses cane or walker as needed History of Any Multi-Drug Resistant Organisms: None Reported Date of last positivie culture/infection: None MDRO Source:: None Past Surgical History: Bladder Surgery, Bowel Resection, Joint Replacement, Orthopedic Surgery, Tonsillectomy, Tubal Ligation Additional Past Surgical History / Comment(s): 07/2015 cystoscopy with bladder bxs, Bowel RESECTIONs d/t ANAL CA x 2,has colostomy, bladder suspension x2- all done at [facility], urethropexies, fecal transplant at [facility] with no CDiff since, CARDIOVERSION, JOINT REPLACEMENTS: RT ELBOW & LEFT KNEE, LEFT HIP, RT FOOT surgery X2: HAMMERTOE AND BUNION. R foot 5th toe bone removed. Septoplasty. Bilateral eyelid sx. Past Anesthesia/Blood Transfusion Reactions: No Reported Reaction Past Psychological History: No Psychological Hx Reported Smoking Status: Never smoker - Past Family History Brother(s) Family Medical History: Blood Disorder Additional Family Medical History / Comment(s): MTHFR Mother Family Medical History: No Reported History Father Family Medical History: Unable to Obtain Additional Family Medical History / Comment(s): Father at the age of 35yrs following a stomach surgery. Pt unsure what was wrong with his stomach. Medications and Allergies Home Medications Medication Instructions Recorded Confirmed Type Budesonide-Formot 160-4.5 Mcg 2 puff INHALATION RT-DAILY PRN 11/30/13 12/04/16 History [Symbicort 160-4.5 Mcg Inhaler] Losartan/Hydrochlorothiazide 1 tab PO DAILY 11/30/13 12/04/16 History [Losartan-Hctz 100-25 mg Tab] Sotalol HCl [Sotalol] 120 mg PO TID 11/30/13 12/04/16 History amLODIPine [Norvasc] 5 mg PO HS 11/30/13 12/04/16 History Magnesium Gluconate [Magonate] 500 mg PO DAILY 11/19/15 12/04/16 History [place]-3 Fatty Acids/Fish Oil [Fish 2 cap PO DAILY 11/19/15 12/04/16 History Oil 1,000 mg Softgel] Potassium Gluconate 99 mg PO DAILY 11/19/15 12/04/16 History Ipratropium/Albuterol Sulfate 2 puff INHALATION RT-QID PRN 04/18/16 12/04/16 History [Combivent Respimat Inhaler] Leflunomide [Arava] 20 mg PO DAILY 04/18/16 12/04/16 History predniSONE 10 mg PO DAILY #30 tab 06/23/16 12/04/16 Rx Oxybutynin Chloride [Ditropan] 5 mg PO BID 12/04/16 12/04/16 History Rivaroxaban [Xarelto] 20 mg PO DAILY 12/04/16 12/04/16 History Allergies Allergy/AdvReac Type Severity Reaction Status Date / Time No Known Allergies Allergy Verified 12/04/16 07:30 Physical Exam Vitals: Vital Signs Temp Pulse Pulse Resp BP BP Pulse Ox 12/05/16 07:56 72 12/05/16 07:39 76 95 12/05/16 04:00 96.9 F L 70 18 136/65 92 L 12/05/16 00:00 97.5 F L 72 18 101/55 94 L 12/04/16 20:00 96.8 F L 68 18 117/63 92 L 12/04/16 19:45 72 97 12/04/16 19:34 70 12/04/16 18:35 20 97 12/04/16 17:00 97.9 F 70 20 124/70 95 12/04/16 16:00 69 20 117/64 95 12/04/16 15:35 68 12/04/16 15:27 73 12/04/16 15:00 77 20 125/66 98 12/04/16 13:59 72 18 123/57 97 12/04/16 13:14 71 26 H 117/55 96 12/04/16 12:15 75 12/04/16 12:02 75 12/04/16 11:00 79 22 129/79 94 L 12/04/16 10:00 77 22 106/52 95 12/04/16 09:00 80 22 120/65 95 12/04/16 08:52 81 12/04/16 08:41 87 12/04/16 08:40 96.8 F L 77 20 139/68 97 Intake and Output 12/04/16 12/05/16 12/05/16 22:59 06:59 14:59 Intake Total 220 150 240 Balance 220 150 240 Intake: Intake, IV Titration 150 Amount Levofloxacin 750Mg-D5w 150 Pmx 750 mg In Dextrose/ Water 1 150ml.bag @ 100 mls/hr IVPB HS MASOUD Rx#: [id number] Oral 220 240 Other: # Voids 1 1 Weight 92 kg General: The patient is awake and alert, in no distress, and does not appear acutely ill. Skin: Skin is warm and dry and no rashes or lesions are noted. Eye: Pupils are equal, round and reactive to light, extra-ocular movements are intact; there is normal conjunctiva bilaterally. Ears, nose, mouth and throat: There are moist mucous membranes and no oral lesions. Neck: The neck is supple, there is no tenderness or JVD. Cardiovascular: There is a regular rate and rhythm. No murmur, rub or gallop is appreciated. Respiratory: Lungs are clear to auscultation, respirations are non-labored, breath sounds are equal. Gastrointestinal: Soft, non-distended, non-tender abdomen without masses or organomegaly noted. There is no rebound or guarding present. Bowel sounds are unremarkable. Back: There is no tenderness to palpation in the midline. There is no obvious deformity. Musculoskeletal: Normal ROM, no tenderness, There is no pedal edema. There is no calf tenderness or swelling. Extremities: No edema. Vascular: Femoral pulse is normal. Posterior tibial pulses are normal .Dorsalis pedis is palpable. Neurological: CN II-XII intact. There are no obvious motor or sensory deficits. Speech is normal. Psychiatric: Cooperative, but somewhat confused Results 12/05/16 05:55 12/05/16 05:55 Cardiac Enzymes 12/04/16 Range/Units 12:22 CK-MB (CK-2) 1.0 (0.0-2.4) ng/mL Troponin I <0.012 (0.000-0.034) ng/mL CBC 12/05/16 Range/Units 05:55 WBC 20.2 H (3.8-10.6) k/uL RBC 4.29 (3.80-5.40) m/uL Hgb 12.8 (11.4-16.0) gm/dL Hct 41.0 (34.0-46.0) % Plt Count 208 (150-450) k/uL Comprehensive Metabolic Panel 12/05/16 Range/Units 05:55 Sodium 139 (137-145) mmol/L Potassium 4.0 (3.5-5.1) mmol/L Chloride 107 (98-107) mmol/L Carbon Dioxide 25 (22-30) mmol/L BUN 15 (7-17) mg/dL Creatinine 0.50 L (0.52-1.04) mg/dL Glucose 132 H (74-99) mg/dL Calcium 8.6 (8.4-10.2) mg/dL Current Medications Generic Name Dose Route Start Last Admin Trade Name Freq PRN Reason Stop Dose Admin Albuterol/Ipratropium 3 ml 12/04/16 03:10 Duoneb 0.5 Mg-3 Mg/3 Ml Soln INHALATION RT-Q4H PRN shortness of breath Albuterol/Ipratropium 3 ml 12/04/16 20:00 12/05/16 07:36 Duoneb 0.5 Mg-3 Mg/3 Ml Soln INHALATION 3 ml RT-QID MASOUD Administration Alprazolam 0.25 mg 12/05/16 08:09 Xanax PO TID PRN Anxiety Amlodipine Besylate 5 mg 12/04/16 21:00 12/04/16 21:08 Norvasc PO 5 mg HS MASOUD Administration Budesonide 1 mg 12/04/16 08:00 12/05/16 07:36 Pulmicort INHALATION 1 mg RT-BID MASOUD Administration Furosemide 40 mg 12/05/16 08:02 Lasix IV 12/05/16 08:03 ONCE STA HCTZ/Losartan Potassium 2 each 12/05/16 09:00 Hyzaar 50-12.5 PO DAILY MASOUD Hydrocortisone Sodium Succinate 100 mg 12/04/16 10:15 12/04/16 23:51 Solu-Cortef IV 100 mg Q8HR MASOUD Administration Levofloxacin 750 mg/ IV 150 mls @ 100 mls/hr 12/04/16 23:00 12/04/16 23:51 Solution IVPB 100 mls/hr HS MASOUD Administration Piperacillin/Tazobactam/ 50 mls @ 12.5 mls/hr 12/04/16 12:00 12/05/16 03:45 Dextrose 3.375 gm/ IV Solution IVPB 12.5 mls/hr Q8H MASOUD Administration Sodium Chloride 1,000 mls @ 100 mls/hr 12/04/16 03:15 12/04/16 23:15 Saline 0.9% IV Not Given .Q10H MASOUD Leflunomide 20 mg 12/04/16 09:00 12/04/16 08:52 Arava PO 20 mg DAILY MASOUD Administration Magnesium Oxide 400 mg 12/05/16 09:00 Mag-Ox PO DAILY MASOUD Miscellaneous Information 1 each 12/04/16 00:01 12/04/16 00:27 Rx Info: Iv Contrast Was Given MISCELLANE 12/06/16 00:01 1 each DAILY PRN Administration Per Protocol Miscellaneous Information 1 each 12/04/16 03:10 Pneumonia Protocol Utilized PO ONCE PRN Per Protocol Miscellaneous Information 1 each 12/04/16 10:04 Rx Info: Iv Contrast Was Given MISCELLANE 12/06/16 10:04 DAILY PRN Per Protocol Oxybutynin Chloride 5 mg 12/04/16 09:00 12/04/16 08:54 Ditropan PO 5 mg DAILY MASOUD Administration Potassium Chloride 2.5 meq 12/05/16 09:00 Potassium Chloride Oral Liquid PO DAILY MASOUD Rivaroxaban 20 mg 12/05/16 09:00 Xarelto PO DAILY [facility] Sotalol HCl 120 mg 12/04/16 09:00 12/04/16 21:24 Betapace PO 120 mg TID MASOUD Administration Intake and Output 12/04/16 12/05/16 12/05/16 22:59 06:59 14:59 Intake Total 220 150 240 Balance 220 150 240 Intake: Intake, IV Titration 150 Amount Levofloxacin 750Mg-D5w 150 Pmx 750 mg In Dextrose/ Water 1 150ml.bag @ 100 mls/hr IVPB HS MASOUD Rx#: [id number] Oral 220 240 Other: # Voids 1 1 Weight 92 kg 12/05/16 05:55 12/05/16 05:55 EKG Interpretations (text) Normal sinus rhythm with ST-T wave changes of ischemia Assessment and Plan Plan: Acute bilateral pneumonia Paroxysmal atrial fibrillation Abnormal EKG Shortness of breath probably secondary to pneumonia I will give her a dose of Lasix and see if her symptoms improve. I reviewed EKG rhythm strips chest x-ray and labs. Her white cell count is elevated. I'm going to obtain a 2-D echo on her both to assess her LV function and wall motion. She may need evaluation for coronary artery disease if her symptoms don 't improve with treatment for pneumonia.
[2016-12-05] MEDS: LOSARTAN-HCTZ 50-12.5 MG 1 EACH TAB PO SCH (08:51)
[2016-12-05] MEDS: HYDROCORTISONE SUCCINATE 100 MG/2 ML VIAL IV SCH ×3 (08:51→23:31)
[2016-12-05] MEDS: ALPRAZolam 0.25 MG TAB PO PRN ×2 (08:51→22:10)
[2016-12-05] MEDS: POTASSIUM CHLORIDE ORAL LIQUID 40 MEQ/30 ML CUP PO SCH (08:52)
[2016-12-05] MEDS: MAGNESIUM OXIDE 400 MG TAB PO SCH (08:52)
[2016-12-05] MEDS: RIVAROXABAN 10 MG TAB PO SCH (08:52)
[2016-12-05] MEDS: OXYBUTYNIN CHLORIDE 5 MG TAB PO SCH (08:53)
[2016-12-05] MEDS: SOTALOL 120 MG TAB PO SCH ×3 (08:53→20:50)
[2016-12-05] MEDS: SODIUM CHLORIDE 0.9% 1,000 ML IV SCH ×2 (08:54→12:35)
[2016-12-05] MEDS: LEFLUNOMIDE 20 MG TAB PO SCH (08:54)
[2016-12-05] MEDS ORDERED: NON-FORMULARY DRUG (Omega-3 Fatty Acids/Fish Oil [Fish Oil 1,000 Mg Softgel] 2 CAP) PO SCH (09:00)
--- NOTE | 2016-12-05 11:37 | ECHOF ---
Referral Reason:LVfunction MEASUREMENTS -------- HEIGHT: 165.1 cm WEIGHT: 91.6 kg BP: 136/65 RVIDd: 2.7 cm (< 3.3) IVSd: 1.2 cm (0.6 - 1.1) LVIDd: 5.2 cm (3.9 - 5.3) LVPWd: 1.0 cm (0.6 - 1.1) IVSs: 1.8 cm LVIDs: 3.5 cm LVPWs: 1.4 cm LA Diam: 4.0 cm (2.7 - 3.8) LAESV Index (A-L): 33.36 ml/m Ao Diam: 3.6 cm (2.0 - 3.7) AV Cusp: 2.5 cm (1.5 - 2.6) LA Diam: 4.5 cm (2.7 - 3.8) MV EXCURSION: 16.009 mm (> 18.000) MV EF SLOPE: 68 mm/s (70 - 150) EPSS: 0.4 cm MV E Hunter: 0.64 m/s MV DecT: 183 ms MV A Hunter: 0.84 m/s MV E/A Ratio: 0.76 RAP: 5.00 mmHg RVSP: 39.64 mmHg FINDINGS -------- Sinus rhythm. This was a technically adequate study. There is mild concentric left ventricular hypertrophy. Overall left ventricular systolic function is normal with, an EF between 55 - 60 %. The right ventricle is normal in size. LA is midly dilated 29-33ml/m2. The right atrial size is normal. There is mild aortic valve sclerosis. There is no evidence of aortic regurgitation. Mild mitral annular calcification present. Mild mitral regurgitation is present. Mild tricuspid regurgitation present. There is mild pulmonary hypertension. The right ventricular systolic pressure, as measured by Doppler, is 39.64mmHg. There is no pulmonic regurgitation present. The aortic root size is normal. Echo free space may represent effusion or a pericardial fat pad. CONCLUSIONS -------- 1. There is mild concentric left ventricular hypertrophy. 2. There is no pulmonic regurgitation present. 3. Echo free space may represent effusion or a pericardial fat pad. 4. Overall left ventricular systolic function is normal with, an EF between 55 - 60 %. 5. LA is midly dilated 29-33ml/m2. 6. There is mild aortic valve sclerosis. 7. Mild mitral annular calcification present. 8. Mild mitral regurgitation is present. 9. Mild tricuspid regurgitation present. 10. There is mild pulmonary hypertension. 11. The right ventricular systolic pressure, as measured by Doppler, is 39.64mmHg. FIBERGLASSER: Seble Moralez RDCS
--- NOTE | 2016-12-05 11:38 | P.PN ---
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 Some vague nausea and vomiting, and vague abdominal discomfort. No cough, no wheezing, denies any fever or chills, denies any hemoptysis. Chest x-ray showed evidence of chronic changes, however the possibility of underlying pneumonia involving the right lower lobe with a small pleural effusion is not entirely ruled out. (Patient is known to have history of interstitial lung disease related to rheumatoid arthritis.). ABG on 50% FiO2 showed a pO2 of 72 pCO2 of 45 pH of 7.36. Patient was also noted to have leukocytosis with WBC count of 21.9, basic metabolic profile was normal, lactic acid was only 2.0, and her urinalysis was abnormal showing evidence of bacteriuria, pyuria, and positive leukocyte esterase. Patient was felt to be possibly septic, she was started on antibiotics in the form of Levaquin and Zosyn, patient was also given fluid boluses, did not require pressors. Arrangements were made for the patient to be admitted to the ICU. At the time of my evaluation, the patient was feeling a bit better and this was done in the emergency room. And I was a bit concerned that the patient has been switched in the last few weeks to Xarelto although she had failure with Xarelto and she developed pulmonary embolism while on Xarelto hence we decided to treat the patient with Lovenox for a long time. In the last few weeks, Lovenox was changed by her oncologist to Xarelto again. Workup in the ER also included a CT of the abdomen and pelvis which is basically nondiagnostic, I was about to order a CT angiogram of the chest, but since she already had a CT with contrast , I recommended a VQ scan. I still plan to switch her Xarelto to Lovenox until a final decision or diagnosis is made about the possibility of thromboembolic disease again. Patient was reevaluated today on 12/06/2016, continues to have shortness of breath, some cough, no fever no chills no hemoptysis no chest pain. Patient is saturating better today, she is 95% on 3 L nasal cannula. Vitals showed a temp of 96 9 no fever overnight. Blood pressure is 136/65 with a mean of 88. Patient does have leukocytosis with WBC count of 20.2 hemoglobin is 12.8. Electrolytes are normal renal profile is normal. Chest x-ray seems to be better today compared to admission chest x-ray, but the patient remains a bit dyspneic at rest and on exertion. She was given a dose of Lasix earlier, and I recommended a Hitchcock catheter placement. Objective - Vital Signs Vital signs: Vital Signs Temp 96.9 F L 12/05/16 04:00 Pulse 72 12/05/16 07:56 Resp 18 12/05/16 04:00 BP 136/65 12/05/16 04:00 Pulse Ox 95 12/05/16 07:39 Intake & Output 12/04/16 12/05/16 12/05/16 18:59 06:59 18:59 Intake Total 220 150 240 Balance 220 150 240 Weight 92 kg Intake: Intake, IV Titration 150 Amount Levofloxacin 750Mg-D5w 150 Pmx 750 mg In Dextrose/ Water 1 150ml.bag @ 100 mls/hr IVPB HS [facility] Rx#: [id number] Oral 220 240 Other: # Voids 1 1 - Exam Physical Exam: Revealed a 71-year-old female in mild respiratory distress. Presently on 3 L nasal cannula. HEENT:[Neck is supple.] [No neck masses.] [No thyromegaly.] [No JVD.] Chest: [Minimal crackles at the bases, no rhonchi, no wheezes. Cardiac Exam: [Irregular irregular rhythm Normal S1 and S2, no S3 gallop, no murmur.] Abdomen: [Soft, nontender, no megaly, no rebound, no guarding, normal bowel sounds. Colostomy bag seems to be intact.] Extremities: [No clubbing, trace of edema, no cyanosis.] Neurological Exam: [No focal neurologic deficit.] - Labs CBC & Chem 7: 12/05/16 05:55 12/05/16 05:55 Labs: Abnormal Lab Results - Last 24 Hours (Table) 12/04/16 12/05/16 12/05/16 Range/Units 12:22 03:33 05:55 WBC 20.2 H (3.8-10.6) k/uL Neutrophils # 19.0 H (1.3-7.7) k/uL Lymphocytes # 0.7 L (1.0-4.8) k/uL Creatinine (0.52-1.04) mg/dL Glucose (74-99) mg/dL POC Glucose (mg/dL) 111 H (75-99) mg/dL Total Creatine Kinase <20 L (30-135) U/L 12/05/16 12/05/16 Range/Units 05:55 06:32 WBC (3.8-10.6) k/uL Neutrophils # (1.3-7.7) k/uL Lymphocytes # (1.0-4.8) k/uL Creatinine 0.50 L (0.52-1.04) mg/dL Glucose 132 H (74-99) mg/dL POC Glucose (mg/dL) 121 H (75-99) mg/dL Total Creatine Kinase (30-135) U/L Microbiology - Last 24 Hours (Table) 12/04/16 00:23 Blood Culture - Preliminary Blood No Growth after 24 hours 12/04/16 02:48 Urine Culture - Preliminary Urine,Voided Assessment and Plan Plan: Impression: 1 acute right lower lobe pneumonia, possible left lower lobe pneumonia based on the follow-up chest x-ray today, patient is known to have history of interstitial lung disease related to rheumatoid arthritis. Most likely we are seeing a combination of interstitial lung disease with superimposed pneumonitis. 2 acute urinary tract infection 3 acute sepsis 4 acute exacerbation of COPD 5 history of multiple comorbidities including rheumatoid arthritis and rheumatoid associated lung disease, history of hypercoagulable state and thromboembolic disease, history of atrial fibrillation, history of anal melanoma , history of colostomy, history of deep vein thrombosis, history of MT HFR gene mutation, history of hypertension, Recommendation: Agree with the treatment plan including antibiotics in the form of Levaquin and Zosyn, will continue on Xarelto since the VQ scan showed low probability for pulmonary embolism, no need for CT angiogram of the chest at this point. Patient will be placed on a high flow nasal cannula today for more comfort, and to keep the saturations in the mid 90s, patient received the Lasix dose given by cardiology, and a Hitchcock catheter was placed today. We'll continue to follow closely. Prognosis remains guarded. Time with Patient: Less than 30
--- NOTE | 2016-12-05 11:56 | HP ---
HISTORY AND PHYSICAL CHIEF COMPLAINT: Shortness of breath and possible pneumonia. HISTORY OF PRESENT ILLNESS: This 71-year-old woman with a past medical history of multiple medical problems including atrial fibrillation, history of COPD, history of DVT, hypertension, pneumonia, history of pulmonary embolus, history of rheumatoid arthritis being followed by [facility] in the outpatient setting was admitted to [facility] with complaints of shortness of breath, nausea, vomiting suddenly which started yesterday. The patient was well before a few hours while the patient was going to dinner according to her . The patient had some mild cough. Patient had features of right lower lobe pneumonia and possibly UTI and sepsis and the patient admitted for further evaluation and treatment. There is no history of any a rigors or chills. No history headache, loss of consciousness or seizure at this time. The white count is elevated 21.9. PAST MEDICAL HISTORY: History of atrial fibrillation, history of COPD, history of DVT, GERD, hypertension, pneumonia, pulmonary embolism, rheumatoid arthritis. MEDICATIONS: Medications prior to admission include home medications are: 1. Xarelto 20 mg p.o. daily. 2. Ditropan 5 mg p.o. b.i.d. 3. Losartan hydrochlorothiazide 100/25 p.o. daily. 4. Prednisone 10 mg p.o. daily. 5. Norvasc 5 mg p.o. q.h.s. 6. Sotalol 120 mg p.o. t.i.d. 7. Potassium gluconate 99 mg p.o. daily. 8. Fish oil 2 capsules p.o. daily. 9. Magonate 500 mg p.o. daily. 10.Arava 20 mg p.o. daily. 11.Combivent 2 puffs q.i.d. p.r.n. 12.Symbicort 160/45, two puffs daily p.r.n. ALLERGIES: Allergies are none. FAMILY HISTORY: No history of any heart disease or strokes in the family. SOCIAL HISTORY: Occasional alcohol. No history of smoking. REVIEW OF SYSTEMS: ENT: Diminished hearing and diminished vision. CARDIOVASCULAR SYSTEM: Angina. RESPIRATORY SYSTEM: As mentioned earlier. GI: No nausea. : No dysuria. NERVOUS SYSTEM: No numbness or weakness. ALLERGIES/IMMUNOLOGY: No history of asthma. MUSCULOSKELETAL: As mentioned earlier. HEMATOLOGY/ONCOLOGY: No history of anemia. ENDOCRINE: As mentioned earlier. CONSTITUTIONAL: As mentioned earlier. DERMATOLOGY: Negative. RHEUMATOLOGY: As mentioned earlier. PSYCHIATRY: As mentioned earlier. PHYSICAL EXAMINATION: Patient is alert and oriented x3. The pulse is 70, blood pressure 124/70, respiratory 20, temperature 97.9, pulse ox 95% on 5 L. HEENT: Conjunctivae normal. Oral mucosa moist. Neck is no jugular venous distention. No carotid bruit. No lymph node enlargement. CARDIOVASCULAR: S1, S2 muffled. No S3 or S4. RESPIRATORY: Breath sounds diminished at the bases. Bilateral scattered rhonchi and crackles. ABDOMEN: Soft, nontender. No mass palpable. LEGS; No edema, no swelling. NERVOUS SYSTEM: Higher functions as mentioned. Moves all 4 limbs. No focal motor or sensory deficits. LYMPHATICS: No lymphadenopathy of the neck, axillae or groin. SKIN: No ulcer, rash or bleeding. LABS: Labs are WBC 21.9. Otherwise ABGs noted, UA noted. AST 74, ALT 71. ASSESSMENT: 1. Acute right lower lobe pneumonia possibly gram-negative and acute urinary tract infection with sepsis with acute hypoxic respiratory failure, present on admission. 2. Atrial fibrillation. 3. Chronic obstructive pulmonary disease acute exacerbation. 4. History of deep venous thrombosis. 5. Hypertension. 6. Pneumonia. 7. History of pulmonary embolism. 8. History rheumatoid arthritis. 9. History of possible failure previously. 10.History of colostomy for incontinence. 11.History of atrial fibrillation. 12.History of MTHFR mutation. 13.History of rectal surgery. 14.History of basal cell carcinoma. 15.History of recurrent Clostridium difficile colitis as well as fecal transplantation. 16.History of sepsis and Clostridium difficile colitis. RECOMMENDATION AND DISCUSSION: We will recommend to continue the current medication and continue symptomatic treatment. Otherwise, the lactic acid 2.4, present on admission. Will follow the cultures. We will also closely follow with Dr. Alcala. Bronchodilators. Levaquin and Zosyn has been initiated and will also resume the home medication as well. Further recommendations to follow. Copy of dictation forwarded to Dr. Paez who is the primary physician also. Once again, the prognosis guarded. Further recommendations to follow. See orders for further details. The patient is also being on stress dose steroids as well. Discussed with the patient. Further recommendations to follow. Ensure oxygenation. Will also obtain cultures. MMODL / IJN: [id number] / [id number]
[2016-12-05 11:58] LABS: Glucose,Whole Blood 139 mg/dL (75-99)
[2016-12-05 16:56] LABS: Glucose,Whole Blood 147 mg/dL (75-99)
--- NOTE | 2016-12-05 19:34 | P.CONS ---
History of Present Illness - Reason for Consult Consult date: 12/05/16 - Chief Complaint Shortness of breath and fever - History of Present Illness 71-year-old female presents to hospital with difficulties with increasing shortness of breath cough without hemoptysis in feeling quite weak and poor. She is well-known to the pulmonologists given her many medical troubles. She has rheumatoid arthritis and his interstitial lung disease. She' s had difficulties with a hypercoagulable state with prior thrombosis including pulmonary emboli. She has an extensive history regarding her rectal melanoma. The surgical interventions resulted in loss of her sphincter structure and function. She constantly is now undergone a elective colostomy and is much more content she now has control over her stool. She relates that she basically started to get more short of breath and Cossey presented to Hospital where she was on evidence of pneumonia superimposed on her underlying interstitial lung disease. There is evidence of leukocytosis and a positive chest x-ray because of her pneumonia the infectious diseases consult was requested. The patient is known to the infectious disease service in the past when she had recurrent Clostridium difficile colitis. She was sent to [facility] [place] where she did receive a fecal transplantation and has been Clostridium difficile free since that time. She is not having typical diarrhea at this time. And again is very content since she's had the colostomy placed because it does control her stool function. Review of Systems HEENT:Denies headache or acute visual change. Denies sinus or mouth discomforts. Denies neck stiffness or pain. Denies significant oral cavity pain. Denies difficulty on swallowing. Lungs: At presentation patient has shortness of breath cough minimal sputum production no hemoptysis no Civic and chest pain Cardiovascular: Denies chest pain, chest wall pain, orthopnea, , syncope was having some mild dyspnea on exertion at admission Gastrointestinal:Denies nausea, vomiting, diarrhea, constipation, hematemesis, melena, hematochezia. No no significant change of bowel habit noticed. Musculoskeletal: denies significant myalgias or arthralgias. No new joint swelling. Denies new back pain. Skin: Denies new rash or lesions. No new ulcers or wounds are related.. Neuro: Denies headache or visual change. Denies any new onset weakness or difficulty with ambulation. Denies falls or seizures. Psychiatric:Denies anxiety or depression. Endocrine: Denies significant fatigue, denies significant weight loss or weight gain. 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 uses cane or walker as needed History of Any Multi-Drug Resistant Organisms: None Reported Year Discovered:: None MDRO Source:: None Past Surgical History: Bladder Surgery, Bowel Resection, Joint Replacement, Orthopedic Surgery, Tonsillectomy, Tubal Ligation Additional Past Surgical History / Comment(s): 07/2015 cystoscopy with bladder bxs, Bowel RESECTIONs d/t ANAL CA x 2,has colostomy, bladder suspension x2- all done at [facility], urethropexies, fecal transplant at [facility] with no CDiff since, CARDIOVERSION, JOINT REPLACEMENTS: RT ELBOW & LEFT KNEE, LEFT HIP, RT FOOT surgery X2: [facility] BUNION. R foot 5th toe bone removed. Septoplasty. Bilateral eyelid sx. Past Anesthesia/Blood Transfusion Reactions: No Reported Reaction Past Psychological History: No Psychological Hx Reported Additional Psychological History / Comment(s): . Retired. Lifelong nonsmoker. No recent travel. No experience. No animal exposures Smoking Status: Never smoker - Past Family History Brother(s) Family Medical History: Blood Disorder Additional Family Medical History / Comment(s): MTHFR Mother Family Medical History: No Reported History Father Family Medical History: Unable to Obtain Additional Family Medical History / Comment(s): Father at the age of 35yrs following a stomach surgery. Pt unsure what was wrong with his stomach. Medications and Allergies Home Medications and Allergies Comment(s): Current Medications Albuterol/Ipratropium (Duoneb 0.5 Mg-3 Mg/3 Ml Soln) 3 ml INHALATION RT-Q4H PRN PRN Reason: shortness of breath Albuterol/Ipratropium (Duoneb 0.5 Mg-3 Mg/3 Ml Soln) 3 ml INHALATION RT-QID [facility] Last Admin: 12/05/16 15:53 Dose: 3 ml Alprazolam (Xanax) 0.25 mg PO TID PRN PRN Reason: Anxiety Last Admin: 12/05/16 08:51 Dose: 0.25 mg Amlodipine Besylate (Norvasc) 5 mg PO [facility] Last Admin: 12/04/16 21:08 Dose: 5 mg Budesonide (Pulmicort) 1 mg INHALATION RT-BID [facility] Last Admin: 12/05/16 07:36 Dose: 1 mg HCTZ/Losartan Potassium (Hyzaar 50-12.5) 2 each PO DAILY [facility] Last Admin: 12/05/16 08:51 Dose: 2 each Hydrocortisone Sodium Succinate (Solu-Cortef) 100 mg IV Q8HR [facility] Last Admin: 12/05/16 17:39 Dose: 100 mg Levofloxacin 750 mg/ IV (Solution) 150 mls @ 100 mls/hr IVPB [facility] Last Admin: 12/04/16 23:51 Dose: 100 mls/hr Piperacillin/Tazobactam/ (Dextrose 3.375 gm/ IV Solution) 50 mls @ 12.5 mls/hr IVPB Q8H [facility] Last Admin: 12/05/16 12:00 Dose: 12.5 mls/hr Sodium Chloride (Saline 0.9%) 1,000 mls @ 30 mls/hr IV .Q24H [facility] Last Admin: 12/05/16 12:35 Dose: Not Given Insulin Human Lispro (Humalog) 0 unit SQ ACHS [facility] PRN Reason: Protocol Leflunomide (Arava) 20 mg PO DAILY [facility] Last Admin: 12/05/16 08:54 Dose: 20 mg Magnesium Oxide (Mag-Ox) 400 mg PO DAILY [facility] Last Admin: 12/05/16 08:52 Dose: 400 mg Miscellaneous Information (Rx Info: Iv Contrast Was Given) 1 each MISCELLANE DAILY PRN PRN Reason: Per Protocol Stop: 12/06/16 00:01 Last Admin: 12/04/16 00:27 Dose: 1 each Miscellaneous Information (Pneumonia Protocol Utilized) 1 each PO ONCE PRN PRN Reason: Per Protocol Miscellaneous Information (Rx Info: Iv Contrast Was Given) 1 each MISCELLANE DAILY PRN PRN Reason: Per Protocol Stop: 12/06/16 10:04 Oxybutynin Chloride (Ditropan) 5 mg PO DAILY [facility] Last Admin: 12/05/16 08:53 Dose: 5 mg Potassium Chloride (Potassium Chloride Oral Liquid) 2.5 meq PO DAILY [facility] Last Admin: 12/05/16 08:52 Dose: 2.5 meq Rivaroxaban (Xarelto) 20 mg PO DAILY [facility] Last Admin: 12/05/16 08:52 Dose: 20 mg Sotalol HCl (Betapace) 120 mg PO TID [facility] Last Admin: 12/05/16 16:00 Dose: 120 mg Home Medications Medication Instructions Recorded Confirmed Type Budesonide-Formot 160-4.5 Mcg 2 puff INHALATION RT-DAILY PRN 11/30/13 12/04/16 History [Symbicort 160-4.5 Mcg Inhaler] Losartan/Hydrochlorothiazide 1 tab PO DAILY 11/30/13 12/04/16 History [Losartan-Hctz 100-25 mg Tab] Sotalol HCl [Sotalol] 120 mg PO TID 11/30/13 12/04/16 History amLODIPine [Norvasc] 5 mg PO HS 11/30/13 12/04/16 History Magnesium Gluconate [Magonate] 500 mg PO DAILY 11/19/15 12/04/16 History [place]-3 Fatty Acids/Fish Oil [Fish 2 cap PO DAILY 11/19/15 12/04/16 History Oil 1,000 mg Softgel] Potassium Gluconate 99 mg PO DAILY 11/19/15 12/04/16 History Ipratropium/Albuterol Sulfate 2 puff INHALATION RT-QID PRN 04/18/16 12/04/16 History [Combivent Respimat Inhaler] Leflunomide [Arava] 20 mg PO DAILY 04/18/16 12/04/16 History predniSONE 10 mg PO DAILY #30 tab 06/23/16 12/04/16 Rx Oxybutynin Chloride [Ditropan] 5 mg PO BID 12/04/16 12/04/16 History Rivaroxaban [Xarelto] 20 mg PO DAILY 12/04/16 12/04/16 History Allergies Allergy/AdvReac Type Severity Reaction Status Date / Time No Known Allergies Allergy Verified 12/04/16 07:30 Physical Exam Vitals: Vital Signs Temp Pulse Pulse Resp BP Pulse Ox 12/05/16 16:08 78 12/05/16 16:00 97.8 F 68 20 149/70 96 12/05/16 15:54 78 12/05/16 12:04 70 97 12/05/16 12:00 97.5 F L 75 22 105/54 98 12/05/16 11:52 70 12/05/16 08:00 97 F L 75 20 164/83 96 12/05/16 07:56 72 12/05/16 07:39 76 95 12/05/16 04:00 96.9 F L 70 18 136/65 92 L 12/05/16 00:00 97.5 F L 72 18 101/55 94 L 12/04/16 20:00 96.8 F L 68 18 117/63 92 L 12/04/16 19:45 72 97 12/04/16 19:34 70 Intake and Output 12/05/16 12/05/16 12/05/16 06:59 14:59 22:59 Intake Total 150 880 240 Output Total 900 Balance 150 -20 240 Intake: Intake, IV Titration 150 520 Amount Levofloxacin 750Mg-D5w 150 Pmx 750 mg In Dextrose/ Water 1 150ml.bag @ 100 mls/hr IVPB HS [facility] Rx#: [id number] Sodium Chloride 0.9% 1, 520 000 ml @ 30 mls/hr IV . Q24H [facility] Rx#:[id number] Oral 360 240 Output: Urine 900 Other: Voiding Method Indwelling Catheter Indwelling Catheter # Voids 1 1 Weight 92 kg Gen: This is a 71-year-old female. She is sitting up in the bed and appears to be in no respiratory distress. HEENT: Head is atraumatic, normocephalic. Pupils equal, round. Sclerae is anicteric. NECK: Supple. No JVD. No lymphadenopathy. No thyromegaly. LUNGS: A few scattered rhonchi. No intercostal retractions. HEART: Regular rate and rhythm. No murmur. ABDOMEN: Soft. Bowel sounds are present. No masses. Lower abdominal tenderness. EXTREMITIES: No pedal edema. No calf tenderness. Dorsalis pedis is +2 bilaterally. NEUROLOGICAL: Patient is awake, alert and oriented x3. Results CBC & Chem 7: 12/05/16 05:55 12/05/16 05:55 Labs: Abnormal Lab Results - Last 24 Hours (Table) 12/05/16 12/05/16 12/05/16 Range/Units 03:33 05:55 05:55 WBC 20.2 H (3.8-10.6) k/uL Neutrophils # 19.0 H (1.3-7.7) k/uL Lymphocytes # 0.7 L (1.0-4.8) k/uL Creatinine 0.50 L (0.52-1.04) mg/dL Glucose 132 H (74-99) mg/dL POC Glucose (mg/dL) 111 H (75-99) mg/dL 12/05/16 12/05/16 12/05/16 Range/Units 06:32 11:52 16:50 WBC (3.8-10.6) k/uL Neutrophils # (1.3-7.7) k/uL Lymphocytes # (1.0-4.8) k/uL Creatinine (0.52-1.04) mg/dL Glucose (74-99) mg/dL POC Glucose (mg/dL) 121 H 139 H 147 H (75-99) mg/dL Microbiology - Last 24 Hours (Table) 12/04/16 02:48 Urine Culture - Final Urine,Voided Agatha albicans 12/04/16 00:23 Blood Culture - Preliminary Blood No Growth after 24 hours Laboratory Results WBC 20.2 k/uL (3.8-10.6) H 12/05/16 05:55 RBC 4.29 m/uL (3.80-5.40) 12/05/16 05:55 Hgb 12.8 gm/dL (11.4-16.0) 12/05/16 05:55 Hct 41.0 % (34.0-46.0) 12/05/16 05:55 MCV 95.5 fL (80.0-100.0) 12/05/16 05:55 MCH 29.7 pg (25.0-35.0) 12/05/16 05:55 MCHC 31.1 g/dL (31.0-37.0) 12/05/16 05:55 RDW 14.6 % (11.5-15.5) 12/05/16 05:55 Plt Count 208 k/uL (150-450) 12/05/16 05:55 Neutrophils % 94 % 12/05/16 05:55 Neutrophils % (Manual) 47 % 12/04/16 00:23 Band Neutrophils % 51 % 12/04/16 00:23 Lymphocytes % 3 % 12/05/16 05:55 Lymphocytes % (Manual) 2 % 12/04/16 00:23 Monocytes % 2 % 12/05/16 05:55 Monocytes % (Manual) 1 % 12/04/16 00:23 Eosinophils % 0 % 12/05/16 05:55 Basophils % 0 % 12/05/16 05:55 Neutrophils # 19.0 k/uL (1.3-7.7) H 12/05/16 05:55 Neutrophils # (Manual) 21.40 k/uL (1.3-7.7) H 12/04/16 00:23 Lymphocytes # 0.7 k/uL (1.0-4.8) L 12/05/16 05:55 Lymphocytes # (Manual) 0.44 k/uL (1.0-4.8) L 12/04/16 00:23 Monocytes # 0.4 k/uL (0-1.0) 12/05/16 05:55 Monocytes # (Manual) 0.22 k/uL (0-1.0) 12/04/16 00:23 Eosinophils # 0.0 k/uL (0-0.7) 12/05/16 05:55 Basophils # 0.0 k/uL (0-0.2) 12/05/16 05:55 Nucleated RBCs 0 /100 WBC (0-0) 12/04/16 00:23 Toxic Vacuolation Present 12/04/16 00:23 Hypochromasia Moderate 12/05/16 05:55 Poikilocytosis (manual Present 12/04/16 00:23 Anisocytosis (manual) Present 12/04/16 00:23 Target Cells Present 12/04/16 00:23 PT 12.8 sec (9.0-12.0) H 12/04/16 00:23 INR 1.3 (<1.2) H 12/04/16 00:23 APTT 25.4 sec (22.0-30.0) 12/04/16 00:23 Sample Site RRAD 12/04/16 04:20 ABG pH 7.36 (7.35-7.45) 12/04/16 04:20 ABG pCO2 45 mmHg (35-45) 12/04/16 04:20 ABG pO2 72 mmHg (83-108) L 12/04/16 04:20 ABG HCO3 25 mmol/L (21-25) 12/04/16 04:20 ABG Total CO2 26 mmol/L (19-24) H 12/04/16 04:20 ABG O2 Saturation 93.5 % (94-97) L 12/04/16 04:20 ABG Base Excess -0.2 mmol/L 12/04/16 04:20 FiO2 55 % 12/04/16 04:20 Sodium 139 mmol/L (137-145) 12/05/16 05:55 Potassium 4.0 mmol/L (3.5-5.1) 12/05/16 05:55 Chloride 107 mmol/L (98-107) 12/05/16 05:55 Carbon Dioxide 25 mmol/L (22-30) 12/05/16 05:55 Anion Gap 7 mmol/L 12/05/16 05:55 BUN 15 mg/dL (7-17) 12/05/16 05:55 Creatinine 0.50 mg/dL (0.52-1.04) L 12/05/16 05:55 Est GFR (MDRD) Af Amer >60 (>60 ml/min/1.73 sqM) 12/05/16 05:55 Est GFR (MDRD) Non-Af >60 (>60 ml/min/1.73 sqM) 12/05/16 05:55 Glucose 132 mg/dL (74-99) H 12/05/16 05:55 POC Glucose (mg/dL) 147 mg/dL (75-99) H 12/05/16 16:50 POC Glu [employer] ID [employer]les 12/05/16 16:50 Lactic Ac Sepsis Rflx Y 12/04/16 01:03 Plasma Lactic Acid Kana 2.0 mmol/L (0.7-2.0) 12/04/16 04:29 Calcium 8.6 mg/dL (8.4-10.2) 12/05/16 05:55 Total Bilirubin 0.6 mg/dL (0.2-1.3) 12/04/16 00:23 AST 74 U/L (14-36) H 12/04/16 00:23 ALT 71 U/L (9-52) H 12/04/16 00:23 Alkaline Phosphatase 95 U/L (38-126) 12/04/16 00:23 Total Creatine Kinase <20 U/L (30-135) L 12/04/16 12:22 CK-MB (CK-2) 1.0 ng/mL (0.0-2.4) 12/04/16 12:22 CK-MB (CK-2) Rel Index 12/04/16 12:22 Troponin I <0.012 ng/mL (0.000-0.034) 12/04/16 12:22 Total Protein 5.9 g/dL (6.3-8.2) L 12/04/16 00:23 Albumin 3.4 g/dL (3.5-5.0) L 12/04/16 00:23 Cortisol 13 ug/dL 12/04/16 00:23 Urine Color Yellow 12/04/16 02:48 Urine Appearance Cloudy (Clear) H 12/04/16 02:48 Urine pH 6.0 (5.0-8.0) 12/04/16 02:48 Ur Specific Richardson 1.033 (1.001-1.035) 12/04/16 02:48 Urine Protein Negative (Negative) 12/04/16 02:48 Urine Glucose (UA) Negative (Negative) 12/04/16 02:48 Urine Ketones Negative (Negative) 12/04/16 02:48 Urine Blood Negative (Negative) 12/04/16 02:48 Urine Nitrite Negative (Negative) 12/04/16 02:48 Urine Bilirubin Negative (Negative) 12/04/16 02:48 Urine Urobilinogen <2.0 mg/dL (<2.0) 12/04/16 02:48 Ur Leukocyte Esterase Large (Negative) H 12/04/16 02:48 Urine RBC 1 /hpf (0-5) 12/04/16 02:48 Urine WBC 26 /hpf (0-5) H 12/04/16 02:48 Urine WBC Clumps Rare /hpf (None) H 12/04/16 02:48 Ur Squamous Epith Cells 10 /hpf (0-4) H 12/04/16 02:48 Urine Bacteria Occasional /hpf (None) H 12/04/16 02:48 Hyaline Casts 3 /lpf (0-2) H 12/04/16 02:48 Urine Mucus Rare /hpf (None) H 12/04/16 02:48 Microbiology 12/04/16 02:48 Urine,Voided Urine Culture - Final Agatha albicans 12/04/16 00:23 Blood Blood Culture - Preliminary No Growth after 24 hours Assessment and Plan (1) Pneumonia Narrative/Plan: 71-year-old female presents to Hospital with complaints of significant shortness of breath. She relative hypoxia in fever and leukocytosis. Chest x-ray was abnormal and there is evidence of pneumonia. With her history of significant underlying disease with interstitial lung disease she's been treated with piperacillin tazobactam and Levaquin pending further culture data. She fortunately is improving at this point in time. She was noticed to have acidosis at admission the lactic acid was only 2.0 Admission the patient is computed tomography scan of her abdomen and pelvis without evidence of acute intra-abdominal process but did confirm evidence of the pneumonia. VQ scan reveal evidence of a low probability of a pulmonary embolus. She's been seen by cardiology because of her history of paroxysmal atrial fibrillation. She also is having some chest discomfort and they are following. Pulmonary critical care is also evaluated. Echocardiogram is been performed with mild pulmonary hypertension. Normal LV function. As she improves we'll likely be able to finish her course of 7 days of Levaquin for her pneumonia Status: Acute (2) Fever Status: Acute (3) Leukocytosis Status: Acute
[2016-12-05] MEDS: amLODIPine 5 MG TAB PO SCH (20:49)
[2016-12-05] MEDS: LEVOFLOXACIN 750MG-D5W PMX 750 MG in DEXTROSE/WATER 1 150ML.BAG IVPB SCH (20:49)
[2016-12-05] MEDS: INSULIN LISPRO (humaLOG) 300 UNIT/3 ML VIAL SQ SCH (21:11)
[2016-12-05 21:28] LABS: Glucose,Whole Blood 143 mg/dL (75-99)
--- NOTE | 2016-12-05 22:45 | PN ---
PROGRESS NOTE DATE OF SERVICE: 12/05/2016 This 71-year-old woman who was admitted with possible pneumonia and UTI is being closely monitored. Patient also, so the patient was seen by Dr. Alcala today and is being closely monitored. Otherwise Dr. Laird has also seen from the cardiology point of view. The patient was given Lasix. Hitchcock catheter has been inserted and a 2D echo with a Doppler was also done which showed ejection fraction 52%, mild aortic cusp sclerosis and mild valvular abnormalities. PAST MEDICAL HISTORY: Reviewed. REVIEW OF SYSTEM: CARDIOVASCULAR: As mentioned earlier. RESPIRATORY: As mentioned earlier. GI: No nausea, vomiting. : No dysuria. NERVOUS: No numbness or weakness. A chest x-ray PA view was done today with I personally reviewed and showed some pneumonia. The current medications are reviewed and include: 1. DuoNeb q.i.d. and p.r.n. 2. Xanax 0.5 t.i.d. 3. Norvasc 5 mg q.h.s. 4. Pulmicort 4 mg b.i.d. 5. Hydrochlorothiazide/losartan 2 times p.o. daily. 8. Levaquin 750 q.h.s. 9. Magnesium oxide 400 mg daily. 10.Oxybutynin. 11.Zosyn 3.375 IV q.8 hours. 12.Xarelto 20 mg daily. 13.Betapace 120 mg p.o. t.i.d. PHYSICAL EXAM: Patient is alert, oriented x3. Pulse 75, blood pressure 105/54, respirations 22 , temperature 97.4, pulse ox 98% on 6L. HEENT: Conjunctivae normal. Oral mucosa moist. NECK: No jugular venous distention. No carotid bruits. No lymph node enlargement. CARDIOVASCULAR: S1, S2 muffled. RESPIRATORY: Breath sounds diminished in the bases. A few scattered rhonchi and crackles. ABDOMEN: Soft, nontender. No mass palpable. LEGS: No edema. NERVOUS: Nonfocal. LABS: WBC 20.2. Sodium 139, potassium 4. ASSESSMENT: 1. Acute bilateral pneumonia, right more the left, possibly gram-negative with sepsis with shortness of breath present with acute hypoxic respiratory failure present on admission, showed possible acute urinary tract infection with sepsis present on admission. 2. Atrial fibrillation. 3. Chronic obstructive pulmonary disease acute exacerbation. 4. History of deep vein thrombosis. 5. Hypertension. 6. History of pneumonia. 7. History of pulmonary embolism. 8. History rheumatoid arthritis. 9. History of colostomy for incontinence. 10.History of atrial fibrillation paroxysmal. 11.History of methylenetetrahydrofolate reductase mutation. 12.History of rectal melanoma surgery. 13.History of basal cell carcinoma. 14.History of recent Clostridium difficile colitis as well as fecal transplantation. 15.History of sepsis and Clostridium difficile colitis. RECOMMENDATIONS AND DISCUSSION: In this 71-year-old woman who presented with multiple complex medical issues, we will monitor the patient closely, continue with current management and symptomatic treatment. Otherwise at this time, I will recommend to continue the current treatment with IV antibiotics. Continue with diuretics. Monitor fluid-electrolyte balance closely. Prognosis extremely guarded because of multiple complex medical issues. Further recommendations to follow. See orders for further details. MMODL / IJN: [id number] / MTDD
[2016-12-06] MEDS: SODIUM CHLORIDE 0.9% 1,000 ML IV SCH (02:57)
[2016-12-06] MEDS: PIPERACILLIN-TAZOBACTAM 3.375 GM in DEXTROSE/WATER 1 50ML.BAG IVPB SCH ×3 (03:31→22:34)
[2016-12-06 06:14] LABS: Basophils % (A) 0 %; CH 29.8; CHCM 31.2; Eosinophils % (A) 0 %; HCT 41.3 % (34.0-46.0); HDW 2.54; HGB 12.9 gm/dL (11.4-16.0); Hypochromasia Slight; Luc # (Auto) 0.07; Luc % (Auto) 0; Lymphocytes # (A) 0.7 k/uL (1.0-4.8); Lymphocytes % (A) 4 %; MCHC 31.2 g/dL (31.0-37.0); MCV 96.3 fL (80.0-100.0); Monocytes # (A) 0.6 k/uL (0-1.0); Monocytes % (A) 3 %; Neutrophils # (A) 16.7 k/uL (1.3-7.7); Neutrophils % (A) 93 %; RBC 4.29 m/uL (3.80-5.40); RDW 15.7 % (11.5-15.5); WBC 18.1 k/uL (3.8-10.6); WBC (Perox) 17.61
[2016-12-06 06:35] LABS: Anion Gap 6 mmol/L; Blood Urea Nitrogen 19 mg/dL (7-17); Calcium 9.2 mg/dL (8.4-10.2); Carbon Dioxide 32 mmol/L (22-30); Chloride 102 mmol/L (98-107); Glucose 149 mg/dL (74-99); Non-African American GFR(MDRD) >60 (>60 ml/min/1.73 sqM); Potassium 3.8 mmol/L (3.5-5.1); Sodium 140 mmol/L (137-145)
[2016-12-06] MEDS: INSULIN LISPRO (humaLOG) 300 UNIT/3 ML VIAL SQ SCH ×4 (06:41→21:02)
[2016-12-06 06:55] LABS: Glucose,Whole Blood 152 mg/dL (75-99)
[2016-12-06] MEDS: IPRATROPIUM-ALBUTEROL 3 ML NEB INHALATION SCH ×4 (07:44→20:08)
[2016-12-06] MEDS: BUDESONIDE 1 MG/2 ML NEBU INHALATION SCH ×2 (07:44→20:08)
[2016-12-06 07:53] LABS: Hemoglobin A1C 6.3 % (4.2-6.1)
[2016-12-06] MEDS ORDERED: ACETAMINOPHEN TAB 325 MG TAB PO PRN (07:56)
[2016-12-06] MEDS: HYDROCORTISONE SUCCINATE 100 MG/2 ML VIAL IV SCH ×2 (07:59→21:05)
[2016-12-06] MEDS: LOSARTAN-HCTZ 50-12.5 MG 1 EACH TAB PO SCH (08:00)
[2016-12-06] MEDS: POTASSIUM CHLORIDE ORAL LIQUID 40 MEQ/30 ML CUP PO SCH (08:00)
[2016-12-06] MEDS: OXYBUTYNIN CHLORIDE 5 MG TAB PO SCH (08:00)
[2016-12-06] MEDS: LEFLUNOMIDE 20 MG TAB PO SCH (08:00)
[2016-12-06] MEDS: RIVAROXABAN 10 MG TAB PO SCH (08:01)
[2016-12-06] MEDS: SOTALOL 120 MG TAB PO SCH ×3 (08:01→21:06)
[2016-12-06] MEDS: MAGNESIUM OXIDE 400 MG TAB PO SCH (08:01)
--- NOTE | 2016-12-06 09:42 | P.PN ---
Subjective Principal diagnosis: Shortness of breath secondary to pneumonia Patient is feeling better today denies shortness of breath does not have fever cough or sputum. I I gave her a dose of IV Lasix yesterday I'm going to put her on by mouth Lasix. Objective - Vital Signs Vital signs: Vital Signs Temp 96.9 F L 12/06/16 04:00 Pulse 78 12/06/16 08:06 Resp 18 12/06/16 04:00 BP 131/66 12/06/16 04:00 Pulse Ox 95 12/06/16 07:48 Intake & Output 12/05/16 12/06/16 12/06/16 18:59 06:59 18:59 Intake Total 1120 410 180 Output Total 900 700 Balance 220 -290 180 Intake: Intake, IV Titration 520 210 Amount Piperacillin-Tazobactam 3 50 .375 gm In Dextrose/Water 1 50ml.bag @ 12.5 mls/hr IVPB Q8H [facility] Rx#: [id number] Sodium Chloride 0.9% 1, 520 160 000 ml @ 30 mls/hr IV . Q24H [facility] Rx#:[id number] Oral 600 200 180 Output: Urine 900 700 Other: Voiding Method Indwelling Catheter Indwelling Catheter # Voids 1 # Bowel Movements 1 - Exam Patient is comfortable at rest vital signs are stable chest exam reveals good air entry bilaterally and do not hear any crackles or rhonchi heart exam reveals first and second heart sounds no gallop examination extremities did not reveal any edema per for pulses are felt - Labs CBC & Chem 7: 12/06/16 05:44 12/06/16 05:44 Labs: Abnormal Lab Results - Last 24 Hours (Table) 12/05/16 12/05/16 12/05/16 Range/Units 05:55 11:52 16:50 WBC (3.8-10.6) k/uL RDW (11.5-15.5) % Neutrophils # (1.3-7.7) k/uL Lymphocytes # (1.0-4.8) k/uL Carbon Dioxide (22-30) mmol/L BUN (7-17) mg/dL Glucose (74-99) mg/dL POC Glucose (mg/dL) 139 H 147 H (75-99) mg/dL Hemoglobin A1c 6.3 H (4.2-6.1) % 12/05/16 12/06/16 12/06/16 Range/Units 21:00 05:44 05:44 WBC 18.1 H (3.8-10.6) k/uL RDW 15.7 H (11.5-15.5) % Neutrophils # 16.7 H (1.3-7.7) k/uL Lymphocytes # 0.7 L (1.0-4.8) k/uL Carbon Dioxide 32 H (22-30) mmol/L BUN 19 H (7-17) mg/dL Glucose 149 H (74-99) mg/dL POC Glucose (mg/dL) 143 H (75-99) mg/dL Hemoglobin A1c (4.2-6.1) % 12/06/16 Range/Units 06:14 WBC (3.8-10.6) k/uL RDW (11.5-15.5) % Neutrophils # (1.3-7.7) k/uL Lymphocytes # (1.0-4.8) k/uL Carbon Dioxide (22-30) mmol/L BUN (7-17) mg/dL Glucose (74-99) mg/dL POC Glucose (mg/dL) 152 H (75-99) mg/dL Hemoglobin A1c (4.2-6.1) % Microbiology - Last 24 Hours (Table) 12/04/16 00:23 Blood Culture - Preliminary Blood No Growth after 48 hours 12/04/16 02:48 Urine Culture - Final Urine,Voided Agatha albicans Assessment and Plan Plan: Acute bilateral pneumonia Paroxysmal atrial fibrillation Shortness of breath probably secondary to pneumonia Continue current antibiotics. By mouth Lasix. Echo shows normal LV systolic function
[2016-12-06] MEDS: FUROSEMIDE 20 MG TAB PO SCH (11:41)
[2016-12-06 11:42] LABS: Glucose,Whole Blood 118 mg/dL (75-99)
--- NOTE | 2016-12-06 11:49 | P.PN ---
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 Some vague nausea and vomiting, and vague abdominal discomfort. No cough, no wheezing, denies any fever or chills, denies any hemoptysis. Chest x-ray showed evidence of chronic changes, however the possibility of underlying pneumonia involving the right lower lobe with a small pleural effusion is not entirely ruled out. (Patient is known to have history of interstitial lung disease related to rheumatoid arthritis.). ABG on 50% FiO2 showed a pO2 of 72 pCO2 of 45 pH of 7.36. Patient was also noted to have leukocytosis with WBC count of 21.9, basic metabolic profile was normal, lactic acid was only 2.0, and her urinalysis was abnormal showing evidence of bacteriuria, pyuria, and positive leukocyte esterase. Patient was felt to be possibly septic, she was started on antibiotics in the form of Levaquin and Zosyn, patient was also given fluid boluses, did not require pressors. Arrangements were made for the patient to be admitted to the ICU. At the time of my evaluation, the patient was feeling a bit better and this was done in the emergency room. And I was a bit concerned that the patient has been switched in the last few weeks to Xarelto although she had failure with Xarelto and she developed pulmonary embolism while on Xarelto hence we decided to treat the patient with Lovenox for a long time. In the last few weeks, Lovenox was changed by her oncologist to Xarelto again. Workup in the ER also included a CT of the abdomen and pelvis which is basically nondiagnostic, I was about to order a CT angiogram of the chest, but since she already had a CT with contrast , I recommended a VQ scan. I still plan to switch her Xarelto to Lovenox until a final decision or diagnosis is made about the possibility of thromboembolic disease again. Patient was reevaluated today on 12/05/2016, continues to have shortness of breath , some cough, no fever no chills no hemoptysis no chest pain. Patient is saturating better today, she is 95% on 3 L nasal cannula. Vitals showed a temp of 96 9 no fever overnight. Blood pressure is 136/65 with a mean of 88. Patient does have leukocytosis with WBC count of 20.2 hemoglobin is 12.8. Electrolytes are normal renal profile is normal. Chest x-ray seems to be better today compared to admission chest x-ray, but the patient remains a bit dyspneic at rest and on exertion. She was given a dose of Lasix earlier, and I recommended a Hitchcock catheter placement. Patient was reevaluated today on 12/06/2016, definitely feeling better today compared to how she felt yesterday. Less shortness of breath, less cough, less wheezing. Her last chest x-ray from yesterday was showing slight improvement, but clinically the patient was doing that well yesterday. Continues to have leukocytosis with WBC count of 18.1, rest of her labs were relatively unremarkable. Last chest x-ray was yesterday, however I plan to order a repeat chest x-ray in a.m. Objective - Vital Signs Vital signs: Vital Signs Temp 97.1 F L 12/06/16 08:00 Pulse 76 12/06/16 11:40 Resp 18 12/06/16 08:00 BP 138/79 12/06/16 08:00 Pulse Ox 95 12/06/16 08:00 Intake & Output 12/05/16 12/06/16 12/06/16 18:59 06:59 18:59 Intake Total 1120 410 180 Output Total 900 700 950 Balance 220 -290 -770 Intake: Intake, IV Titration 520 210 Amount Piperacillin-Tazobactam 3 50 .375 gm In Dextrose/Water 1 50ml.bag @ 12.5 mls/hr IVPB Q8H [facility] Rx#: [id number] Sodium Chloride 0.9% 1, 520 160 000 ml @ 30 mls/hr IV . Q24H [facility] Rx#:[id number] Oral 600 200 180 Output: Urine 900 700 950 Other: Voiding Method Indwelling Catheter Indwelling Catheter # Voids 1 # Bowel Movements 1 - Exam Physical Exam: Revealed a 71-year-old female in mild respiratory distress. Presently on 3 L nasal cannula. HEENT:[Neck is supple.] [No neck masses.] [No thyromegaly.] [No JVD.] Chest: [Minimal crackles at the bases, no rhonchi, no wheezes. Cardiac Exam: [Irregular irregular rhythm Normal S1 and S2, no S3 gallop, no murmur.] Abdomen: [Soft, nontender, no megaly, no rebound, no guarding, normal bowel sounds. Colostomy bag seems to be intact.] Extremities: [No clubbing, trace of edema, no cyanosis.] Neurological Exam: [No focal neurologic deficit.] - Labs CBC & Chem 7: 12/06/16 05:44 12/06/16 05:44 Labs: Abnormal Lab Results - Last 24 Hours (Table) 12/05/16 12/05/16 12/05/16 Range/Units 05:55 11:52 16:50 WBC (3.8-10.6) k/uL RDW (11.5-15.5) % Neutrophils # (1.3-7.7) k/uL Lymphocytes # (1.0-4.8) k/uL Carbon Dioxide (22-30) mmol/L BUN (7-17) mg/dL Glucose (74-99) mg/dL POC Glucose (mg/dL) 139 H 147 H (75-99) mg/dL Hemoglobin A1c 6.3 H (4.2-6.1) % 12/05/16 12/06/16 12/06/16 Range/Units 21:00 05:44 05:44 WBC 18.1 H (3.8-10.6) k/uL RDW 15.7 H (11.5-15.5) % Neutrophils # 16.7 H (1.3-7.7) k/uL Lymphocytes # 0.7 L (1.0-4.8) k/uL Carbon Dioxide 32 H (22-30) mmol/L BUN 19 H (7-17) mg/dL Glucose 149 H (74-99) mg/dL POC Glucose (mg/dL) 143 H (75-99) mg/dL Hemoglobin A1c (4.2-6.1) % 12/06/16 12/06/16 Range/Units 06:14 11:40 WBC (3.8-10.6) k/uL RDW (11.5-15.5) % Neutrophils # (1.3-7.7) k/uL Lymphocytes # (1.0-4.8) k/uL Carbon Dioxide (22-30) mmol/L BUN (7-17) mg/dL Glucose (74-99) mg/dL POC Glucose (mg/dL) 152 H 118 H (75-99) mg/dL Hemoglobin A1c (4.2-6.1) % Microbiology - Last 24 Hours (Table) 12/04/16 00:23 Blood Culture - Preliminary Blood No Growth after 48 hours 12/04/16 02:48 Urine Culture - Final Urine,Voided Agatha albicans Assessment and Plan Plan: Impression: 1 acute right lower lobe pneumonia, possible left lower lobe pneumonia based on the follow-up chest x-ray today, patient is known to have history of interstitial lung disease related to rheumatoid arthritis. Most likely we are seeing a combination of interstitial lung disease with superimposed pneumonitis. 2 acute urinary tract infection 3 acute sepsis 4 acute exacerbation of COPD 5 history of multiple comorbidities including rheumatoid arthritis and rheumatoid associated lung disease, history of hypercoagulable state and thromboembolic disease, history of atrial fibrillation, history of anal melanoma , history of colostomy, history of deep vein thrombosis, history of MT HFR gene mutation, history of hypertension, Recommendation: Continue present treatment plan including antibiotics, bronchodilators, steroids, diuretics, and coagulation therapy for her previous history of pulmonary embolism and hypercoagulable state. Follow-up chest x-ray in a.m., follow-up labs in a.m. Patient is not ready for any discharge planning at this point. We'll continue to follow. Time with Patient: Less than 30
[2016-12-06 17:03] LABS: Glucose,Whole Blood 124 mg/dL (75-99)
[2016-12-06 20:48] LABS: Glucose,Whole Blood 123 mg/dL (75-99)
[2016-12-06] MEDS: LEVOFLOXACIN 750MG-D5W PMX 750 MG in DEXTROSE/WATER 1 150ML.BAG IVPB SCH (21:05)
[2016-12-06] MEDS: amLODIPine 5 MG TAB PO SCH (21:06)
--- NOTE | 2016-12-06 22:04 | PN ---
PROGRESS NOTE DATE OF SERVICE: 12/06/16 This is a progress note. INTERVAL HISTORY: This 71-year-old woman who was admitted with possible pneumonia and as well as atrial fibrillation. Also possibly UTI. Also the patient on broad IV antibiotics. No chest pain. No palpitations. No fever. EXAM: Alert, oriented times three. The pulse is 74, blood pressure 155/94, respirations 16, temperature is normal. Pulse ox 95% on 5 L. HEENT: Conjunctivae normal. Oral mucosa moist. NECK: No jugular venous distention. CARDIOVASCULAR: S1, S2 muffled. RESPIRATORY: Breath sounds diminished in the bases. Scattered rhonchi and crackles. ABDOMEN: Soft. Nontender. No mass palpable. Legs no edema. No swelling. NERVOUS SYSTEM: Higher functions as mentioned earlier. Moves all four limbs. No focal deficits. Lymphatics: No lymph nodes palpable in the neck, axillae or groin. SKIN: No ulcer, rash or bleeding. LABS: WBC 18.8, hemoglobin 11.9, sodium 140, potassium 3.8, Accu-Cheks are noted. ASSESSMENT: 1. Acute bilateral pneumonia right more the left possibly gram-negative sepsis with shortness of breath. 2. Acute hypoxic respiratory failure present on admission with possible acute urinary tract infection also with present on admission. 3. Atrial fibrillation. 4. Chronic obstructive pulmonary disease acute exacerbation. 5. History of deep vein thrombosis. 6. Hypertension. 7. History of pneumonia. 8. History of pulmonary embolism. 9. History of rheumatoid arthritis. 10.History of colostomy. 11.History atrial fibrillation, paroxysmal. 12.History of MTHFR mutation. 13.History of rectal melanoma surgery. 14.History of basal cell carcinoma. 15.History of recent C difficile colitis as well as fecal transplantation. 16.History of sepsis and C difficile colitis. RECOMMENDATIONS AND DISCUSSION: I recommend to continue current medications. Continue with monitoring and symptomatic treatment. Otherwise, continue with antibiotics. Closely monitor. Guarded prognosis because of multiple complex medical issues. Further recommendations to follow. MMODL / IJN: [id number] /
[2016-12-07] MEDS: ALPRAZolam 0.25 MG TAB PO PRN
[2016-12-07] MEDS: PIPERACILLIN-TAZOBACTAM 3.375 GM in DEXTROSE/WATER 1 50ML.BAG IVPB SCH ×3 (05:39→22:15)
[2016-12-07] MEDS: IPRATROPIUM-ALBUTEROL 3 ML NEB INHALATION SCH ×4 (05:51→19:56)
[2016-12-07 06:19] LABS: Basophils % (A) 0 %; CHCM 31.8; Eosinophils % (A) 0 %; HDW 2.52; HGB 12.3 gm/dL (11.4-16.0); Luc # (Auto) 0.12; Luc % (Auto) 1; Lymphocytes # (A) 1.1 k/uL (1.0-4.8); Lymphocytes % (A) 10 %; MCH 29.8 pg (25.0-35.0); MCHC 31.4 g/dL (31.0-37.0); Mean Platelet Volume 8.5; Monocytes # (A) 0.6 k/uL (0-1.0); Monocytes % (A) 5 %; Neutrophils # (A) 9.7 k/uL (1.3-7.7); Neutrophils % (A) 84 %; RBC 4.11 m/uL (3.80-5.40); RDW 15.6 % (11.5-15.5); WBC 11.6 k/uL (3.8-10.6); WBC (Perox) 11.65
[2016-12-07 06:33] LABS: Blood Urea Nitrogen 18 mg/dL (7-17); Calcium 8.9 mg/dL (8.4-10.2); Chloride 94 mmol/L (98-107); Glucose 107 mg/dL (74-99); Non-African American GFR(MDRD) >60 (>60 ml/min/1.73 sqM); Potassium 3.1 mmol/L (3.5-5.1); Sodium 137 mmol/L (137-145)
[2016-12-07 06:38] LABS: Anion Gap 3 mmol/L
[2016-12-07 06:43] LABS: Glucose,Whole Blood 111 mg/dL (75-99)
[2016-12-07 06:45] LABS: Carbon Dioxide 40 mmol/L (22-30)
[2016-12-07] MEDS: INSULIN LISPRO (humaLOG) 300 UNIT/3 ML VIAL SQ SCH ×4 (06:54→21:29)
--- NOTE | 2016-12-07 07:23 | XR ---
EXAMINATION TYPE: XR chest 1V portable DATE OF EXAM: 12/07/2016 COMPARISON: 12/05/2016 INDICATION: Rheumatoid lungs, a hepatic lung disease, pneumonia, short of breath TECHNIQUE: Single frontal view of the chest is obtained. FINDINGS: The heart size is enlarged. The pulmonary vasculature is normal. Some mild infiltrate is in the right midlung and at the right base. Small right pleural effusion is p resent. Subpulmonic effusion could be considered. Retrocardiac infiltrate may be present. IMPRESSION: 1. Bibasilar infiltrates and small right pleural effusion
[2016-12-07] MEDS: BUDESONIDE 1 MG/2 ML NEBU INHALATION SCH ×2 (08:33→19:56)
[2016-12-07] MEDS: POTASSIUM CHLORIDE ORAL LIQUID 40 MEQ/30 ML CUP PO SCH (09:56)
[2016-12-07] MEDS: FUROSEMIDE 20 MG TAB PO SCH (09:56)
[2016-12-07] MEDS: RIVAROXABAN 10 MG TAB PO SCH (09:57)
[2016-12-07] MEDS: OXYBUTYNIN CHLORIDE 5 MG TAB PO SCH (09:57)
[2016-12-07] MEDS: HYDROCORTISONE SUCCINATE 100 MG/2 ML VIAL IV SCH ×2 (09:57→20:37)
[2016-12-07] MEDS: LOSARTAN-HCTZ 50-12.5 MG 1 EACH TAB PO SCH (09:57)
[2016-12-07] MEDS: MAGNESIUM OXIDE 400 MG TAB PO SCH (09:57)
[2016-12-07] MEDS: SODIUM CHLORIDE 0.9% 1,000 ML IV SCH (09:58)
[2016-12-07] MEDS ORDERED: SODIUM CHLORIDE 0.9% 1,000 ML with POTASSIUM CHLORIDE 40 MEQ IV SCH ×2 (10:33)
[2016-12-07] MEDS ORDERED: Potassium Replacement Protocol 1 EACH MISC MISCELLANE PRN (10:33)
[2016-12-07] MEDS ORDERED: 0.9% NACL WITH KCL 40 MEQ/L 1,000 ML IV SCH (11:00)
--- NOTE | 2016-12-07 11:08 | P.PN ---
Subjective This is a pleasant 71-year-old lady with history of paroxysmal atrial fibrillation, COPD and hypertension as well as rheumatoid arthritis. Presented to the hospital with complaints of progressively worsening shortness of breath. Chest x-ray showed bilateral pneumonia and she is being treated for the same with IV antibiotics. VQ scan showed low probability for PE. Testing this morning is 3.1 this being replaced. He is complaining of some dizziness this morning while sitting in bed. She did have one episode of some bradycardia sitting up at the site of the bed, was short-lived. She is on sotalol 120 mg by mouth 3 times a day. Objective - Vital Signs Vital signs: Vital Signs Temp 97 F L 12/07/16 08:00 Pulse 56 L 12/07/16 08:46 Resp 16 12/07/16 08:00 BP 184/87 12/07/16 08:00 Pulse Ox 94 L 12/07/16 08:00 Intake & Output 12/06/16 12/07/16 12/07/16 18:59 06:59 18:59 Intake Total 470 236 Output Total 1650 1700 Balance -1180 -1700 236 Intake: Intake, IV Titration 290 Amount Piperacillin-Tazobactam 3 50 .375 gm In Dextrose/Water 1 50ml.bag @ 12.5 mls/hr IVPB Q8H [facility] Rx#: [id number] Sodium Chloride 0.9% 1, 240 000 ml @ 30 mls/hr IV . Q24H [facility] Rx#:[id number] Oral 180 236 Output: Urine 1650 1700 Other: Voiding Method Indwelling Catheter Indwelling Catheter - Exam PHYSICAL EXAMINATION: HEENT: Head is atraumatic, normocephalic. Pupils equal, round. Neck is supple. There is no elevated jugular venous pressure. HEART EXAMINATION: Heart sounds regular, S1 and S2 normal. No murmur or gallop heard. CHEST EXAMINATION: Lungs feel faint expiratory wheezing throughout. No chest wall tenderness is noted on palpation or with deep breathing. ABDOMEN: Soft, nontender. Bowel sounds are heard. No organomegaly noted. EXTREMITIES: 2+ peripheral pulses with no evidence of peripheral edema and no calf tenderness noted. NEUROLOGIC patient is awake, alert and oriented x3. . - Labs CBC & Chem 7: 12/07/16 05:50 12/07/16 05:50 Labs: Abnormal Lab Results - Last 24 Hours (Table) 12/06/16 12/06/16 12/06/16 Range/Units 11:40 16:42 20:44 WBC (3.8-10.6) k/uL RDW (11.5-15.5) % Neutrophils # (1.3-7.7) k/uL Potassium (3.5-5.1) mmol/L Chloride (98-107) mmol/L Carbon Dioxide (22-30) mmol/L BUN (7-17) mg/dL Glucose (74-99) mg/dL POC Glucose (mg/dL) 118 H 124 H 123 H (75-99) mg/dL 12/07/16 12/07/16 12/07/16 Range/Units 05:50 05:50 06:41 WBC 11.6 H (3.8-10.6) k/uL RDW 15.6 H (11.5-15.5) % Neutrophils # 9.7 H (1.3-7.7) k/uL Potassium 3.1 L (3.5-5.1) mmol/L Chloride 94 L (98-107) mmol/L Carbon Dioxide 40 H* (22-30) mmol/L BUN 18 H (7-17) mg/dL Glucose 107 H (74-99) mg/dL POC Glucose (mg/dL) 111 H (75-99) mg/dL Microbiology - Last 24 Hours (Table) 12/04/16 00:23 Blood Culture - Preliminary Blood No Growth after 72 hours Assessment and Plan Plan: Assessment and plan 1 bilateral pneumonia #2 paroxysmal atrial fibrillation #3 shortness of breath likely secondary to pneumonia #4 dizziness #5 sinus bradycardia arrhythmia, on sotalol 120 mg by mouth 3 times a day. We will decrease the patient's sotalol to 80 mg by mouth 3 times a day. Continue telemetry monitoring. Further recommendations to follow The above dictated assessment and findings were discussed with signing physician. The impression and plan of care have been directed as dictated. Vicki Young, Nurse Practitioner, acting as scribe for signing physician.
[2016-12-07 11:53] LABS: Glucose,Whole Blood 98 mg/dL (75-99)
[2016-12-07] MEDS: POTASSIUM CHLORIDE ER 20 MEQ TAB.ER PO SCH ×4 (12:06→17:25)
--- NOTE | 2016-12-07 12:31 | P.PN ---
Subjective Plan dated 12/07/2016 This is a 71-year-old female who is reevaluated today. Less short of breath. Less cough. No wheezing. Feels better. The patient sitting up at the bedside. Denies any pain in the chest. No nausea vomiting or diarrhea. The patient does have a history of acute right lower lobe pneumonia and possible left lower lobe pneumonia. Also has a history of urinary tract infection acute sepsis, and COPD. She also suffers from rheumatoid arthritis mood disorder associated lung disease hypercoagulable state thromboembolic disease atrial fibrillation previous colostomy DVT and MTHFR mutation. Objective - Vital Signs Vital signs: Vital Signs Temp 97 F L 12/07/16 08:00 Pulse 60 12/07/16 11:47 Resp 16 12/07/16 08:00 BP 184/87 12/07/16 08:00 Pulse Ox 94 L 12/07/16 08:00 Intake & Output 12/06/16 12/07/16 12/07/16 18:59 06:59 18:59 Intake Total 470 236 Output Total 1650 1700 Balance -1180 -1700 236 Intake: Intake, IV Titration 290 Amount Piperacillin-Tazobactam 3 50 .375 gm In Dextrose/Water 1 50ml.bag @ 12.5 mls/hr IVPB Q8H [facility] Rx#: [id number] Sodium Chloride 0.9% 1, 240 000 ml @ 30 mls/hr IV . Q24H [facility] Rx#:[id number] Oral 180 236 Output: Urine 1650 1700 Other: Voiding Method Indwelling Catheter Indwelling Catheter Indwelling Catheter - Exam No acute distress, oriented 3. HEENT examination is grossly unremarkable. Mucous membranes are moist. No oral lesions. Neck supple. Full range of motion. No adenopathy or thyromegaly. Neck veins are flat. Cardiovascular examination reveals regular rhythm rate. S1-S2 normal. No S3- S4 or murmur. Lungs reveal mostly clear breath sounds. A few scattered rhonchi. Breath sounds are slightly diminished at the bases. A few crackles at the right base. Abdomen soft bowel sounds are heard. Extremities are intact. No cyanosis clubbing or edema. Skin without rash. Neurologic examination is brief but nonfocal. - Labs CBC & Chem 7: 12/07/16 05:50 12/07/16 05:50 Labs: Abnormal Lab Results - Last 24 Hours (Table) 12/06/16 12/06/16 12/07/16 Range/Units 16:42 20:44 05:50 WBC 11.6 H (3.8-10.6) k/uL RDW 15.6 H (11.5-15.5) % Neutrophils # 9.7 H (1.3-7.7) k/uL Potassium (3.5-5.1) mmol/L Chloride (98-107) mmol/L Carbon Dioxide (22-30) mmol/L BUN (7-17) mg/dL Glucose (74-99) mg/dL POC Glucose (mg/dL) 124 H 123 H (75-99) mg/dL 12/07/16 12/07/16 Range/Units 05:50 06:41 WBC (3.8-10.6) k/uL RDW (11.5-15.5) % Neutrophils # (1.3-7.7) k/uL Potassium 3.1 L (3.5-5.1) mmol/L Chloride 94 L (98-107) mmol/L Carbon Dioxide 40 H* (22-30) mmol/L BUN 18 H (7-17) mg/dL Glucose 107 H (74-99) mg/dL POC Glucose (mg/dL) 111 H (75-99) mg/dL Microbiology - Last 24 Hours (Table) 12/04/16 00:23 Blood Culture - Preliminary Blood No Growth after 72 hours Assessment and Plan (1) Pneumonia Status: Acute (2) Septic shock Status: Acute (3) Severe sepsis Status: Acute (4) Acute exacerbation of chronic obstructive airways disease Status: Acute (5) Acute pulmonary embolism Status: Acute (6) Adult respiratory distress syndrome Status: Acute (7) Clostridium difficile colitis Status: Acute (8) Degenerative arthritis of left knee Status: Acute (9) History of Clostridium difficile colitis Status: Acute (10) Pneumonia Status: Acute (11) Rib fracture Status: Acute (12) S/P total knee arthroplasty Status: Acute (13) Status post left hip replacement Status: Acute Plan: Plan dated 12/07/2016 This patient will continue on antibiotics bronchodilators steroids and diuretics and other treatments for her above diagnoses including pulmonary embolus him and hypercoagulable state. The patient is being readied for discharge. Likely not related this time. Just taking a shower made her very fatigued today. A low short of breath just walking to the shower. She is sitting at the bedside. She looks well though. Feeling better than on her day of admission. Time with Patient: Less than 30
[2016-12-07 16:42] LABS: Glucose,Whole Blood 140 mg/dL (75-99)
[2016-12-07] MEDS: SOTALOL 80 MG TAB PO SCH ×2 (17:25→20:38)
[2016-12-07] MEDS: SOTALOL 120 MG TAB PO SCH (20:01)
[2016-12-07] MEDS: LEVOFLOXACIN 750MG-D5W PMX 750 MG in DEXTROSE/WATER 1 150ML.BAG IVPB SCH (20:33)
[2016-12-07] MEDS: amLODIPine 5 MG TAB PO SCH (20:38)
[2016-12-07] MEDS ORDERED: MELATONIN 5 MG TABLET PO SCH (21:00)
--- NOTE | 2016-12-07 21:02 | P.PN ---
Subjective Principal diagnosis: Shortness of breath 71-year-old female presents to hospital with difficulties with increasing shortness of breath cough without hemoptysis in feeling quite weak and poor. She is well-known to the pulmonologists given her many medical troubles. She has rheumatoid arthritis and his interstitial lung disease. She' s had difficulties with a hypercoagulable state with prior thrombosis including pulmonary emboli. She has an extensive history regarding her rectal melanoma. The surgical interventions resulted in loss of her sphincter structure and function. She constantly is now undergone a elective colostomy and is much more content she now has control over her stool. She relates that she basically started to get more short of breath and Melissa presented to Hospital where she was on evidence of pneumonia superimposed on her underlying interstitial lung disease. There is evidence of leukocytosis and a positive chest x-ray because of her pneumonia the infectious diseases consult was requested. The patient is known to the infectious disease service in the past when she had recurrent Clostridium difficile colitis. She was sent to [facility] where she did receive a fecal transplantation and has been Clostridium difficile free since that time. She is not having typical diarrhea at this time. And again is very content since she's had the colostomy placed because it does control her stool function. At this time she is feeling somewhat better. She is less short of breath. Still requiring oxygen and respiratory treatments which she does not utilize at home. Objective - Vital Signs Vital signs: Vital Signs Temp 97.3 F L 12/07/16 20:43 Pulse 60 12/07/16 20:43 Resp 18 12/07/16 20:43 BP 142/68 12/07/16 20:43 Pulse Ox 95 12/07/16 20:43 Intake & Output 12/07/16 12/07/16 12/08/16 06:59 18:59 06:59 Intake Total 496 Output Total 1700 3150 Balance -5077 -7448 Intake: Intake, IV Titration 260 Amount 0.9% NaCl with KCl 40 Meq 90 /l 1,000 ml @ 30 mls/hr IV .Q24H [facility] Rx#: [id number] Piperacillin-Tazobactam 3 50 .375 gm In Dextrose/Water 1 50ml.bag @ 12.5 mls/hr IVPB Q8H [facility] Rx#: [id number] Sodium Chloride 0.9% 1, 120 000 ml @ 30 mls/hr IV . Q24H [facility] Rx#:[id number] Oral 236 Output: Urine 1700 3150 Other: Voiding Method Indwelling Catheter Indwelling Catheter Bedside Commode - Exam Gen: This is a 71-year-old female. She is sitting up in the bed and appears to be in no respiratory distress. HEENT: Head is atraumatic, normocephalic. Pupils equal, round. Sclerae is anicteric. NECK: Supple. No JVD. No lymphadenopathy. No thyromegaly. LUNGS: A few scattered rhonchi. Evidence of decreased breath sounds to the right base. Some crackles and dullness are still noted bilaterally. HEART: Regular rate and rhythm. No murmur. ABDOMEN: Soft. Bowel sounds are present. No masses. Lower abdominal tenderness. EXTREMITIES: No pedal edema. No calf tenderness. Dorsalis pedis is +2 bilaterally. NEUROLOGICAL: Patient is awake, alert and oriented x3. - Labs CBC & Chem 7: 12/07/16 05:50 12/07/16 19:41 Labs: Abnormal Lab Results - Last 24 Hours (Table) 12/07/16 12/07/16 12/07/16 Range/Units 05:50 05:50 06:41 WBC 11.6 H (3.8-10.6) k/uL RDW 15.6 H (11.5-15.5) % Neutrophils # 9.7 H (1.3-7.7) k/uL Potassium 3.1 L (3.5-5.1) mmol/L Chloride 94 L (98-107) mmol/L Carbon Dioxide 40 H* (22-30) mmol/L BUN 18 H (7-17) mg/dL Glucose 107 H (74-99) mg/dL POC Glucose (mg/dL) 111 H (75-99) mg/dL 12/07/16 12/07/16 12/07/16 Range/Units 15:47 16:39 19:41 WBC (3.8-10.6) k/uL RDW (11.5-15.5) % Neutrophils # (1.3-7.7) k/uL Potassium 3.3 L 3.4 L (3.5-5.1) mmol/L Chloride (98-107) mmol/L Carbon Dioxide (22-30) mmol/L BUN (7-17) mg/dL Glucose (74-99) mg/dL POC Glucose (mg/dL) 140 H (75-99) mg/dL Microbiology - Last 24 Hours (Table) 12/04/16 00:23 Blood Culture - Preliminary Blood No Growth after 72 hours Laboratory Results WBC 11.6 k/uL (3.8-10.6) H 12/07/16 05:50 RBC 4.11 m/uL (3.80-5.40) 12/07/16 05:50 Hgb 12.3 gm/dL (11.4-16.0) 12/07/16 05:50 Hct 39.0 % (34.0-46.0) 12/07/16 05:50 MCV 95.0 fL (80.0-100.0) 12/07/16 05:50 MCH 29.8 pg (25.0-35.0) 12/07/16 05:50 MCHC 31.4 g/dL (31.0-37.0) 12/07/16 05:50 RDW 15.6 % (11.5-15.5) H 12/07/16 05:50 Plt Count 207 k/uL (150-450) 12/07/16 05:50 Neutrophils % 84 % 12/07/16 05:50 Neutrophils % (Manual) 47 % 12/04/16 00:23 Band Neutrophils % 51 % 12/04/16 00:23 Lymphocytes % 10 % 12/07/16 05:50 Lymphocytes % (Manual) 2 % 12/04/16 00:23 Monocytes % 5 % 12/07/16 05:50 Monocytes % (Manual) 1 % 12/04/16 00:23 Eosinophils % 0 % 12/07/16 05:50 Basophils % 0 % 12/07/16 05:50 Neutrophils # 9.7 k/uL (1.3-7.7) H 12/07/16 05:50 Neutrophils # (Manual) 21.40 k/uL (1.3-7.7) H 12/04/16 00:23 Lymphocytes # 1.1 k/uL (1.0-4.8) 12/07/16 05:50 Lymphocytes # (Manual) 0.44 k/uL (1.0-4.8) L 12/04/16 00:23 Monocytes # 0.6 k/uL (0-1.0) 12/07/16 05:50 Monocytes # (Manual) 0.22 k/uL (0-1.0) 12/04/16 00:23 Eosinophils # 0.0 k/uL (0-0.7) 12/07/16 05:50 Basophils # 0.0 k/uL (0-0.2) 12/07/16 05:50 Nucleated RBCs 0 /100 WBC (0-0) 12/04/16 00:23 Toxic Vacuolation Present 12/04/16 00:23 Hypochromasia Slight 12/06/16 05:44 Poikilocytosis (manual Present 12/04/16 00:23 Anisocytosis (manual) Present 12/04/16 00:23 Target Cells Present 12/04/16 00:23 PT 12.8 sec (9.0-12.0) H 12/04/16 00:23 INR 1.3 (<1.2) H 12/04/16 00:23 APTT 25.4 sec (22.0-30.0) 12/04/16 00:23 Sample Site RRAD 12/04/16 04:20 ABG pH 7.36 (7.35-7.45) 12/04/16 04:20 ABG pCO2 45 mmHg (35-45) 12/04/16 04:20 ABG pO2 72 mmHg (83-108) L 12/04/16 04:20 ABG HCO3 25 mmol/L (21-25) 12/04/16 04:20 ABG Total CO2 26 mmol/L (19-24) H 12/04/16 04:20 ABG O2 Saturation 93.5 % (94-97) L 12/04/16 04:20 ABG Base Excess -0.2 mmol/L 12/04/16 04:20 FiO2 55 % 12/04/16 04:20 Sodium 137 mmol/L (137-145) 12/07/16 05:50 Potassium 3.4 mmol/L (3.5-5.1) L 12/07/16 19:41 Chloride 94 mmol/L (98-107) L 12/07/16 05:50 Carbon Dioxide 40 mmol/L (22-30) H* 12/07/16 05:50 Anion Gap 3 mmol/L 12/07/16 05:50 BUN 18 mg/dL (7-17) H 12/07/16 05:50 Creatinine 0.60 mg/dL (0.52-1.04) 12/07/16 05:50 Est GFR (MDRD) Af Amer >60 (>60 ml/min/1.73 sqM) 12/07/16 05:50 Est GFR (MDRD) Non-Af >60 (>60 ml/min/1.73 sqM) 12/07/16 05:50 Glucose 107 mg/dL (74-99) H 12/07/16 05:50 POC Glucose (mg/dL) 140 mg/dL (75-99) H 12/07/16 16:39 POC Glu Civil Rights Representative Carolina Palacios 12/07/16 16:[address] Glu mg/dL 134 mg/dL 12/05/16 05:55 Hemoglobin A1c 6.3 % (4.2-6.1) H 12/05/16 05:55 Lactic Ac Sepsis Rflx Y 12/04/16 01:03 Plasma Lactic Acid Kana 2.0 mmol/L (0.7-2.0) 12/04/16 04:29 Calcium 8.9 mg/dL (8.4-10.2) 12/07/16 05:50 Total Bilirubin 0.6 mg/dL (0.2-1.3) 12/04/16 00:23 AST 74 U/L (14-36) H 12/04/16 00:23 ALT 71 U/L (9-52) H 12/04/16 00:23 Alkaline Phosphatase 95 U/L (38-126) 12/04/16 00:23 Total Creatine Kinase <20 U/L (30-135) L 12/04/16 12:22 CK-MB (CK-2) 1.0 ng/mL (0.0-2.4) 12/04/16 12:22 CK-MB (CK-2) Rel Index 12/04/16 12:22 Troponin I <0.012 ng/mL (0.000-0.034) 12/04/16 12:22 Total Protein 5.9 g/dL (6.3-8.2) L 12/04/16 00:23 Albumin 3.4 g/dL (3.5-5.0) L 12/04/16 00:23 Cortisol 13 ug/dL 12/04/16 00:23 Urine Color Yellow 12/04/16 02:48 Urine Appearance Cloudy (Clear) H 12/04/16 02:48 Urine pH 6.0 (5.0-8.0) 12/04/16 02:48 Ur Specific [place] 1.033 (1.001-1.035) 12/04/16 02:48 Urine Protein Negative (Negative) 12/04/16 02:48 Urine Glucose (UA) Negative (Negative) 12/04/16 02:48 Urine Ketones Negative (Negative) 12/04/16 02:48 Urine Blood Negative (Negative) 12/04/16 02:48 Urine Nitrite Negative (Negative) 12/04/16 02:48 Urine Bilirubin Negative (Negative) 12/04/16 02:48 Urine Urobilinogen <2.0 mg/dL (<2.0) 12/04/16 02:48 Ur Leukocyte Esterase Large (Negative) H 12/04/16 02:48 Urine RBC 1 /hpf (0-5) 12/04/16 02:48 Urine WBC 26 /hpf (0-5) H 12/04/16 02:48 Urine WBC Clumps Rare /hpf (None) H 12/04/16 02:48 Ur Squamous Epith Cells 10 /hpf (0-4) H 12/04/16 02:48 Urine Bacteria Occasional /hpf (None) H 12/04/16 02:48 Hyaline Casts 3 /lpf (0-2) H 12/04/16 02:48 Urine Mucus Rare /hpf (None) H 12/04/16 02:48 Microbiology 12/04/16 00:23 Blood Blood Culture - Preliminary No Growth after 72 hours 12/04/16 02:48 Urine,Voided Urine Culture - Final Agatha albicans Assessment and Plan (1) Pneumonia Narrative/Plan: 71-year-old female presents to Hospital with complaints of significant shortness of breath. She relative hypoxia in fever and leukocytosis. Chest x-ray was abnormal and there is evidence of pneumonia. With her history of significant underlying disease with interstitial lung disease she's been treated with piperacillin tazobactam and Levaquin pending further culture data. She fortunately is improving at this point in time. She was noticed to have acidosis at admission the lactic acid was only 2.0 Admission the patient is computed tomography scan of her abdomen and pelvis without evidence of acute intra-abdominal process but did confirm evidence of the pneumonia. VQ scan reveal evidence of a low probability of a pulmonary embolus. She's been seen by cardiology because of her history of paroxysmal atrial fibrillation. She also is having some chest discomfort and they are following. Pulmonary critical care is also evaluated. Echocardiogram is been performed with mild pulmonary hypertension. Normal LV function. As she improves we'll likely be able to finish her course of 7 days of Levaquin for her pneumonia will likely need updrafts and oxygen at home. Status: Acute (2) Fever Status: Acute (3) Leukocytosis Status: Acute
[2016-12-07 21:31] LABS: Glucose,Whole Blood 107 mg/dL (75-99)
[2016-12-08] MEDS: PIPERACILLIN-TAZOBACTAM 3.375 GM in DEXTROSE/WATER 1 50ML.BAG IVPB SCH ×2 (05:31→12:12)
[2016-12-08 06:27] LABS: Glucose,Whole Blood 101 mg/dL (75-99)
[2016-12-08] MEDS: INSULIN LISPRO (humaLOG) 300 UNIT/3 ML VIAL SQ SCH ×2 (06:45→12:36)
[2016-12-08 07:04] LABS: Basophils % (A) 0 %; CH 30.2; CHCM 32.1; Eosinophils # (A) 0.1 k/uL (0-0.7); Eosinophils % (A) 1 %; HCT 41.5 % (34.0-46.0); HDW 2.33; HGB 12.8 gm/dL (11.4-16.0); Luc # (Auto) 0.09; Luc % (Auto) 1; Lymphocytes # (A) 1.2 k/uL (1.0-4.8); Lymphocytes % (A) 12 %; MCH 29.3 pg (25.0-35.0); MCV 94.8 fL (80.0-100.0); Mean Platelet Volume 8.3; Monocytes # (A) 0.8 k/uL (0-1.0); Monocytes % (A) 8 %; Neutrophils # (A) 7.8 k/uL (1.3-7.7); Neutrophils % (A) 78 %; RBC 4.38 m/uL (3.80-5.40); RDW 15.4 % (11.5-15.5); WBC 10.1 k/uL (3.8-10.6); WBC (Perox) 10.33
[2016-12-08 07:28] LABS: Anion Gap 6 mmol/L; Blood Urea Nitrogen 16 mg/dL (7-17); Calcium 9.3 mg/dL (8.4-10.2); Carbon Dioxide 39 mmol/L (22-30); Chloride 95 mmol/L (98-107); Glucose 108 mg/dL (74-99); Non-African American GFR(MDRD) >60 (>60 ml/min/1.73 sqM); Potassium 3.6 mmol/L (3.5-5.1); Sodium 140 mmol/L (137-145)
[2016-12-08] MEDS ORDERED: POTASSIUM CHLORIDE ER 20 MEQ TAB.ER PO SCH (08:00)
[2016-12-08] MEDS: BUDESONIDE 1 MG/2 ML NEBU INHALATION SCH (08:16)
[2016-12-08] MEDS: IPRATROPIUM-ALBUTEROL 3 ML NEB INHALATION SCH ×3 (08:16→15:58)
[2016-12-08 08:48] VITALS: TEMP 96.9
[2016-12-08] MEDS: FUROSEMIDE 20 MG TAB PO SCH (08:49)
[2016-12-08] MEDS: HYDROCORTISONE SUCCINATE 100 MG/2 ML VIAL IV SCH (08:49)
[2016-12-08] MEDS: LOSARTAN-HCTZ 50-12.5 MG 1 EACH TAB PO SCH (08:49)
[2016-12-08] MEDS: MAGNESIUM OXIDE 400 MG TAB PO SCH (08:50)
[2016-12-08] MEDS: RIVAROXABAN 10 MG TAB PO SCH (08:50)
[2016-12-08] MEDS: OXYBUTYNIN CHLORIDE 5 MG TAB PO SCH (08:50)
[2016-12-08] MEDS: POTASSIUM CHLORIDE ORAL LIQUID 40 MEQ/30 ML CUP PO SCH (08:51)
[2016-12-08] MEDS: SOTALOL 80 MG TAB PO SCH (08:51)
--- NOTE | 2016-12-08 12:01 | P.PN ---
Subjective Principal diagnosis: Bilateral pneumonia This is a pleasant 71-year-old female with history of paroxysmal atrial fibrillation, COPD, hypertension, rheumatoid arthritis, who presented to the hospital mainly with symptoms of progressively worsening shortness of breath. Chest x-ray revealed bilateral pneumonia for which patient is currently receiving IV antibiotics. Patient was complaining yesterday of some mild dizziness and was found to be bradycardic. Her dose of beta rodney was. Heart rate this morning in the 70s. Blood pressure 120/60, 93% on 2 L of oxygen. Potassium this morning 3.6, BUN 16, creatinine 0.5. Objective - Vital Signs Vital signs: Vital Signs Temp 96.9 F L 12/08/16 08:47 Pulse 78 12/08/16 11:43 Resp 16 12/08/16 11:43 BP 121/58 12/08/16 08:47 Pulse Ox 93 L 12/08/16 10:20 Intake & Output 12/07/16 12/08/16 12/08/16 18:59 06:59 18:59 Intake Total 496 118 Output Total 3150 400 Balance -2654 -400 118 Weight 89.1 kg Intake: Intake, IV Titration 260 Amount 0.9% NaCl with KCl 40 Meq 90 /l 1,000 ml @ 30 mls/hr IV .Q24H [facility] Rx#: [id number] Piperacillin-Tazobactam 3 50 .375 gm In Dextrose/Water 1 50ml.bag @ 12.5 mls/hr IVPB Q8H [facility] Rx#: [id number] Sodium Chloride 0.9% 1, 120 000 ml @ 30 mls/hr IV . Q24H [facility] Rx#:[id number] Oral 236 118 Output: Urine 3150 400 Other: Voiding Method Indwelling Catheter Bedside Commode Bedside Commode # Voids 1 - Exam PHYSICAL EXAMINATION: HEENT: Head is atraumatic, normocephalic. Pupils equal, round. Neck is supple. There is no elevated jugular venous pressure. HEART EXAMINATION: Heart S1, S2 normal. No murmur or gallop heard. CHEST EXAMINATION: Lungs are clear to auscultation and precussion. No chest wall tenderness is noted on palpation or with deep breathing. ABDOMEN: Soft, nontender. Bowel sounds are heard. No organomegaly noted. EXTREMITIES: 2+ peripheral pulses with no evidence of peripheral edema and no calf tenderness noted. NEUROLOGIC patient is awake, alert and oriented -3. . - Labs CBC & Chem 7: 12/08/16 06:06 12/08/16 06:06 Labs: Abnormal Lab Results - Last 24 Hours (Table) 12/07/16 12/07/16 12/07/16 Range/Units 15:47 16:39 19:41 Neutrophils # (1.3-7.7) k/uL Potassium 3.3 L 3.4 L (3.5-5.1) mmol/L Chloride (98-107) mmol/L Carbon Dioxide (22-30) mmol/L Glucose (74-99) mg/dL POC Glucose (mg/dL) 140 H (75-99) mg/dL 12/07/16 12/08/16 12/08/16 Range/Units 21:29 06:06 06:06 Neutrophils # 7.8 H (1.3-7.7) k/uL Potassium (3.5-5.1) mmol/L Chloride 95 L (98-107) mmol/L Carbon Dioxide 39 H (22-30) mmol/L Glucose 108 H (74-99) mg/dL POC Glucose (mg/dL) 107 H (75-99) mg/dL 12/08/16 Range/Units 06:24 Neutrophils # (1.3-7.7) k/uL Potassium (3.5-5.1) mmol/L Chloride (98-107) mmol/L Carbon Dioxide (22-30) mmol/L Glucose (74-99) mg/dL POC Glucose (mg/dL) 101 H (75-99) mg/dL Microbiology - Last 24 Hours (Table) 12/04/16 00:23 Blood Culture - Preliminary Blood No Growth after 96 hours Assessment and Plan (1) Bilateral pneumonia Status: Acute (2) Paroxysmal a-fib Status: Acute (3) Sinus bradycardia Status: Acute Plan: From cardiology's perspective, we'll continue current medications. She may be able to be discharged home from our standpoint and a follow-up appointment will be made in the office. DNP note has been reviewed, I agree with a documented findings and plan of care. Patient was seen and examined.
[2016-12-08 14:12] VITALS: PULSE 73; RESP 16
[2016-12-08 14:13] VITALS: BP 146/82
--- NOTE | 2016-12-08 14:57 | P.PN ---
Subjective Date of service 12/07/2016. Personal being dictated for Dr. Singh. Interval history: This a 71-year-old female admitted with pneumonia, atrial fibrillation, pneumonia, possible acute UTI and multiple other medical issues. Maintained on broad-spectrum IV antibiotics. Oxygen requirements improving, down to 6 L high flow nasal cannula. Denies chest pain, palpitations. Afebrile , leukocytosis improving. Potassium 3.4. Objective - Vital Signs Vital signs: Vital Signs Temp 98.2 F 12/07/16 15:20 Pulse 64 12/07/16 15:43 Resp 16 12/07/16 15:20 BP 191/87 12/07/16 15:20 Pulse Ox 96 12/07/16 15:20 Intake & Output 12/07/16 12/07/16 12/08/16 06:59 18:59 06:59 Intake Total 496 Output Total 1700 3150 Balance -5554 -3637 Intake: Intake, IV Titration 260 Amount 0.9% NaCl with KCl 40 Meq 90 /l 1,000 ml @ 30 mls/hr IV .Q24H [facility] Rx#: [id number] Piperacillin-Tazobactam 3 50 .375 gm In Dextrose/Water 1 50ml.bag @ 12.5 mls/hr IVPB Q8H [facility] Rx#: [id number] Sodium Chloride 0.9% 1, 120 000 ml @ 30 mls/hr IV . Q24H [facility] Rx#:[id number] Oral 236 Output: Urine 1700 3150 Other: Voiding Method Indwelling Catheter Indwelling Catheter - Exam PHYSICAL EXAM: VITAL SIGNS: As above GENERAL: Sitting up at bedside, respiratory effort increased HEENT: Conjunctivae normal. eyes normal. NECK: No JVD. No thyroid enlargement. No LNs CARDIOVASCULAR: S1, S2 muffled. No murmur RESPIRATION: Breath sounds diminished in the bases. Scattered rhonchi and crackles. ABDOMEN: Soft, nontender . No guarding. no masses palpable. No ascites, Bowel sounds present LEGS: No edema. no swelling PSYCHIATRY: Alert and oriented -3, mood and affect normal. NERVOUS SYSTEM: Cranial N 2-12 grossly normal. Moves all 4 limbs. No focal deficits. No sensory deficit. Skin: no ulcer no rash Joints: No active swelling. No inflammation. Lymphatic system. No LN neck axilla or groin. - Labs CBC & Chem 7: 12/08/16 06:06 12/08/16 06:06 Labs: Abnormal Lab Results - Last 24 Hours (Table) 12/06/16 12/07/16 12/07/16 Range/Units 20:44 05:50 05:50 WBC 11.6 H (3.8-10.6) k/uL RDW 15.6 H (11.5-15.5) % Neutrophils # 9.7 H (1.3-7.7) k/uL Potassium 3.1 L (3.5-5.1) mmol/L Chloride 94 L (98-107) mmol/L Carbon Dioxide 40 H* (22-30) mmol/L BUN 18 H (7-17) mg/dL Glucose 107 H (74-99) mg/dL POC Glucose (mg/dL) 123 H (75-99) mg/dL 12/07/16 12/07/16 12/07/16 Range/Units 06:41 15:47 16:39 WBC (3.8-10.6) k/uL RDW (11.5-15.5) % Neutrophils # (1.3-7.7) k/uL Potassium 3.3 L (3.5-5.1) mmol/L Chloride (98-107) mmol/L Carbon Dioxide (22-30) mmol/L BUN (7-17) mg/dL Glucose (74-99) mg/dL POC Glucose (mg/dL) 111 H 140 H (75-99) mg/dL Microbiology - Last 24 Hours (Table) 12/04/16 00:23 Blood Culture - Preliminary Blood No Growth after 72 hours Assessment and Plan Plan: 1. Acute bilateral pneumonia right greater than left, possibly gram-negative sepsis with shortness of breath. 2. [ Acute hypoxic respiratory failure present on admission]. 3. [ Possible acute UTI]. 4. [ Chronic proximal Atrial fibrillation]. 5. [ COPD]. 6. [ History of MTHFR mutation]. 7. [ History of recent C. difficile colitis as well as fecal transplantation]. 8. History of rheumatoid arthritis 9. History of PE Plan: Continue on current medication regime ,monitoring and symptomatic treatment. Potassium to be supplemented as per potassium replacement protocol. Maintain antibiotics as per infectious disease. Tapering and weaning of steroids and oxygen in progress. Increase ambulation as tolerated. Discharge planning in progress for tomorrow. Further recommendations to follow. Prognosis guarded given multiple complex medical issues. The impression and plan of care has been dictated as directed. : I performed a H&P examination of this patient and discussed the same with the dictator. I agree with the dictator's note. Any additional findings/opinions/ etc. will be noted.
--- NOTE | 2016-12-08 15:06 | P.DS ---
Providers Date of admission: 12/04/16 03:10 Expected date of discharge: 12/08/16 Attending physician: Jennifer Carney Consults: 12/04/16 03:11 Consult Physician Urgent Consulting Provider: Sunday Alcala Consult Reason/Comments: pneumonia, severe sepsis Do you want consulting provider notified?: Yes 12/04/16 19:32 Consult Physician Routine Consulting Provider: Basim Lopes Consult Reason/Comments: sepsis Do you want consulting provider notified?: [facility] Primary care physician: Maude Paez [place] [facility] Course: Final Diagnoses: 1. Acute bilateral pneumonia right greater than left, possibly gram-negative sepsis with shortness of breath. 2. [ Acute hypoxic respiratory failure present on admission, secondary to the above]. 3. [ Possible acute UTI]. 4. [ Chronic proximal Atrial fibrillation]. 5. [ COPD]. 6. [ History of MTHFR mutation]. 7. [ History of recent C. difficile colitis as well as fecal transplantation]. 8. History of rheumatoid arthritis 9. History of PE Hospital course:This a 71-year-old female admitted with pneumonia, atrial fibrillation, pneumonia, possible acute UTI and multiple other medical issues. Evaluated by pulmonary, cardiology and infectious disease. Maintained on broad- spectrum IV antibiotics. Required Ventimask initially with oxygen weaned down to 2 L nasal cannula. Significant clinical improvement. Patient has been cleared by all consults for discharge. Patient is being discharged home in a stable condition with guarded prognosis. The impression and plan of care has been dictated as directed as a scribe. : I performed a H&P examination of this patient and discussed the same with the dictator. I agree with the dictator's note. Any additional findings/opinions/ etc. will be noted. Patient Condition at Discharge: Stable Plan - Discharge Summary New Discharge Prescriptions: New Furosemide [Lasix] 20 mg PO DAILY #30 tab Sotalol [Betapace] 80 mg PO TID #90 tab Levofloxacin [Levaquin] 750 mg PO HS #7 tab Continue amLODIPine [Norvasc] 5 mg PO HS Budesonide-Formot 160-4.5 Mcg [Symbicort 160-4.5 Mcg Inhaler] 2 puff INHALATION RT-DAILY PRN PRN Reason: Shortness Of Breath Losartan/Hydrochlorothiazide [Losartan-Hctz 100-25 mg Tab] 1 tab PO DAILY Magnesium Gluconate [Magonate] 500 mg PO DAILY [place]-3 Fatty Acids/Fish Oil [Fish Oil 1,000 mg Softgel] 2 cap PO DAILY Potassium Gluconate 99 mg PO DAILY Leflunomide [Arava] 20 mg PO DAILY Oxybutynin Chloride [Ditropan] 5 mg PO BID Rivaroxaban [Xarelto] 20 mg PO DAILY predniSONE 10 mg PO DAILY #30 tab Changed Ipratropium/Albuterol Sulfate [Combivent Respimat Inhaler] 2 puff INHALATION RT-QID #0 Discontinued Sotalol HCl [Sotalol] 120 mg PO TID Discharge Medication List Budesonide-Formot 160-4.5 Mcg [Symbicort 160-4.5 Mcg Inhaler] 2 puff INHALATION RT-DAILY PRN 11/30/13 [History] Losartan/Hydrochlorothiazide [Losartan-Hctz 100-25 mg Tab] 1 tab PO DAILY [History] amLODIPine [Norvasc] 5 mg PO HS 11/30/13 [History] Magnesium Gluconate [Magonate] 500 mg PO DAILY 11/19/15 [History] [place]-3 Fatty Acids/Fish Oil [Fish Oil 1,000 mg Softgel] 2 cap PO DAILY [History] Potassium Gluconate 99 mg PO DAILY 11/19/15 [History] Leflunomide [Arava] 20 mg PO DAILY 04/18/16 [History] Oxybutynin Chloride [Ditropan] 5 mg PO BID 12/04/16 [History] Rivaroxaban [Xarelto] 20 mg PO DAILY 12/04/16 [History] Furosemide [Lasix] 20 mg PO DAILY #30 tab 12/08/16 [Rx] Ipratropium/Albuterol Sulfate [Combivent Respimat Inhaler] 2 puff INHALATION RT- QID #0 12/08/16 [Rx] Levofloxacin [Levaquin] 750 mg PO HS #7 tab 12/08/16 [Rx] Sotalol [Betapace] 80 mg PO TID #90 tab 12/08/16 [Rx] predniSONE 10 mg PO DAILY #30 tab 12/08/16 [Rx] Follow up Appointment(s)/Referral(s): Sunday Alcala MD [STAFF PHYSICIAN] - 2 Weeks Salvador Ramires MD [Family Provider] - 1 Week Basim Lopes MD [STAFF PHYSICIAN] - 10 Days Maude Paez MD [Primary Care Provider] - 3 Days Ambulatory/Diagnostic Orders: Complete Blood Count w/diff [LAB.AMB] Time Frame: 3 Days, Location: Determined By Patient Patient Instructions/Handouts: Sepsis (GEN), Pneumonia (DC) Activity/Diet/Wound Care/Special Instructions: Confirm cardiology follow-up appointment prior to discharge. O2 sat on room air after ambulation 86%, case management to arrange for 2 L nasal cannula O2 Diet: Cardiac Activity: Limited until follow up
[2016-12-08 15:54] LABS: Glucose,Whole Blood 111 mg/dL (75-99)
--- NOTE | 2016-12-08 18:13 | P.PN ---
Subjective Principal diagnosis: Shortness of breath 71-year-old female presents to hospital with difficulties with increasing shortness of breath cough without hemoptysis in feeling quite weak and poor. She is well-known to the pulmonologists given her many medical troubles. She has rheumatoid arthritis and his interstitial lung disease. She' s had difficulties with a hypercoagulable state with prior thrombosis including pulmonary emboli. She has an extensive history regarding her rectal melanoma. The surgical interventions resulted in loss of her sphincter structure and function. She constantly is now undergone a elective colostomy and is much more content she now has control over her stool. She relates that she basically started to get more short of breath and Melissa presented to Hospital where she was on evidence of pneumonia superimposed on her underlying interstitial lung disease. There is evidence of leukocytosis and a positive chest x-ray because of her pneumonia the infectious diseases consult was requested. The patient is known to the infectious disease service in the past when she had recurrent Clostridium difficile colitis. She was sent to [facility] where she did receive a fecal transplantation and has been Clostridium difficile free since that time. She is not having typical diarrhea at this time. And again is very content since she's had the colostomy placed because it does control her stool function. At this time she is feeling somewhat better. She is less short of breath. Still requiring oxygen and respiratory treatments which will be set up for home Objective - Vital Signs Vital signs: Vital Signs Temp 96.9 F L 12/08/16 08:47 Pulse 73 12/08/16 12:10 Resp 16 12/08/16 12:10 BP 146/82 12/08/16 12:10 Pulse Ox 93 L 12/08/16 12:10 Intake & Output 12/07/16 12/08/16 12/08/16 18:59 06:59 18:59 Intake Total 496 118 Output Total 3150 400 Balance -2654 -400 118 Weight 89.1 kg Intake: Intake, IV Titration 260 Amount 0.9% NaCl with KCl 40 Meq 90 /l 1,000 ml @ 30 mls/hr IV .Q24H [facility] Rx#: [id number] Piperacillin-Tazobactam 3 50 .375 gm In Dextrose/Water 1 50ml.bag @ 12.5 mls/hr IVPB Q8H [facility] Rx#: [id number] Sodium Chloride 0.9% 1, 120 000 ml @ 30 mls/hr IV . Q24H [facility] Rx#:[id number] Oral 236 118 Output: Urine 3150 400 Other: Voiding Method Indwelling Catheter Bedside Commode Bedside Commode # Voids 1 2 - Exam Gen: This is a 71-year-old female. She is sitting up in the bed and appears to be in no respiratory distress. HEENT: Head is atraumatic, normocephalic. Pupils equal, round. Sclerae is anicteric. NECK: Supple. No JVD. No lymphadenopathy. No thyromegaly. LUNGS: A few scattered rhonchi. Evidence of decreased breath sounds to the right base. Some crackles and dullness are still noted bilaterally. HEART: Regular rate and rhythm. No murmur. ABDOMEN: Soft. Bowel sounds are present. No masses. Lower abdominal tenderness. EXTREMITIES: No pedal edema. No calf tenderness. Dorsalis pedis is +2 bilaterally. NEUROLOGICAL: Patient is awake, alert and oriented x3. - Labs CBC & Chem 7: 12/08/16 06:06 12/08/16 06:06 Labs: Abnormal Lab Results - Last 24 Hours (Table) 12/07/16 12/07/16 12/08/16 Range/Units 19:41 21:29 06:06 Neutrophils # 7.8 H (1.3-7.7) k/uL Potassium 3.4 L (3.5-5.1) mmol/L Chloride (98-107) mmol/L Carbon Dioxide (22-30) mmol/L Glucose (74-99) mg/dL POC Glucose (mg/dL) 107 H (75-99) mg/dL 12/08/16 12/08/16 12/08/16 Range/Units 06:06 06:24 11:43 Neutrophils # (1.3-7.7) k/uL Potassium (3.5-5.1) mmol/L Chloride 95 L (98-107) mmol/L Carbon Dioxide 39 H (22-30) mmol/L Glucose 108 H (74-99) mg/dL POC Glucose (mg/dL) 101 H 111 H (75-99) mg/dL Microbiology - Last 24 Hours (Table) 12/04/16 00:23 Blood Culture - Preliminary Blood No Growth after 96 hours Laboratory Results WBC 10.1 k/uL (3.8-10.6) 12/08/16 06:06 RBC 4.38 m/uL (3.80-5.40) 12/08/16 06:06 Hgb 12.8 gm/dL (11.4-16.0) 12/08/16 06:06 Hct 41.5 % (34.0-46.0) 12/08/16 06:06 MCV 94.8 fL (80.0-100.0) 12/08/16 06:06 MCH 29.3 pg (25.0-35.0) 12/08/16 06:06 MCHC 31.0 g/dL (31.0-37.0) 12/08/16 06:06 RDW 15.4 % (11.5-15.5) 12/08/16 06:06 Plt Count 186 k/uL (150-450) 12/08/16 06:06 Neutrophils % 78 % 12/08/16 06:06 Neutrophils % (Manual) 47 % 12/04/16 00:23 Band Neutrophils % 51 % 12/04/16 00:23 Lymphocytes % 12 % 12/08/16 06:06 Lymphocytes % (Manual) 2 % 12/04/16 00:23 Monocytes % 8 % 12/08/16 06:06 Monocytes % (Manual) 1 % 12/04/16 00:23 Eosinophils % 1 % 12/08/16 06:06 Basophils % 0 % 12/08/16 06:06 Neutrophils # 7.8 k/uL (1.3-7.7) H 12/08/16 06:06 Neutrophils # (Manual) 21.40 k/uL (1.3-7.7) H 12/04/16 00:23 Lymphocytes # 1.2 k/uL (1.0-4.8) 12/08/16 06:06 Lymphocytes # (Manual) 0.44 k/uL (1.0-4.8) L 12/04/16 00:23 Monocytes # 0.8 k/uL (0-1.0) 12/08/16 06:06 Monocytes # (Manual) 0.22 k/uL (0-1.0) 12/04/16 00:23 Eosinophils # 0.1 k/uL (0-0.7) 12/08/16 06:06 Basophils # 0.0 k/uL (0-0.2) 12/08/16 06:06 Nucleated RBCs 0 /100 WBC (0-0) 12/04/16 00:23 Toxic Vacuolation Present 12/04/16 00:23 Hypochromasia Slight 12/06/16 05:44 Poikilocytosis (manual Present 12/04/16 00:23 Anisocytosis (manual) Present 12/04/16 00:23 Target Cells Present 12/04/16 00:23 PT 12.8 sec (9.0-12.0) H 12/04/16 00:23 INR 1.3 (<1.2) H 12/04/16 00:23 APTT 25.4 sec (22.0-30.0) 12/04/16 00:23 Sample Site RRAD 12/04/16 04:20 ABG pH 7.36 (7.35-7.45) 12/04/16 04:20 ABG pCO2 45 mmHg (35-45) 12/04/16 04:20 ABG pO2 72 mmHg (83-108) L 12/04/16 04:20 ABG HCO3 25 mmol/L (21-25) 12/04/16 04:20 ABG Total CO2 26 mmol/L (19-24) H 12/04/16 04:20 ABG O2 Saturation 93.5 % (94-97) L 12/04/16 04:20 ABG Base Excess -0.2 mmol/L 12/04/16 04:20 FiO2 55 % 12/04/16 04:20 Sodium 140 mmol/L (137-145) 12/08/16 06:06 Potassium 3.6 mmol/L (3.5-5.1) 12/08/16 06:06 Chloride 95 mmol/L (98-107) L 12/08/16 06:06 Carbon Dioxide 39 mmol/L (22-30) H 12/08/16 06:06 Anion Gap 6 mmol/L 12/08/16 06:06 BUN 16 mg/dL (7-17) 12/08/16 06:06 Creatinine 0.54 mg/dL (0.52-1.04) 12/08/16 06:06 Est GFR (MDRD) Af Amer >60 (>60 ml/min/1.73 sqM) 12/08/16 06:06 Est GFR (MDRD) Non-Af >60 (>60 ml/min/1.73 sqM) 12/08/16 06:06 Glucose 108 mg/dL (74-99) H 12/08/16 06:06 POC Glucose (mg/dL) 111 mg/dL (75-99) H 12/08/16 11:43 POC Glu [employer] Carolina Palacios 12/08/16 11:[address] Glu mg/dL 134 mg/dL 12/05/16 05:55 Hemoglobin A1c 6.3 % (4.2-6.1) H 12/05/16 05:55 Lactic Ac Sepsis Rflx Y 12/04/16 01:03 Plasma Lactic Acid Kana 2.0 mmol/L (0.7-2.0) 12/04/16 04:29 Calcium 9.3 mg/dL (8.4-10.2) 12/08/16 06:06 Total Bilirubin 0.6 mg/dL (0.2-1.3) 12/04/16 00:23 AST 74 U/L (14-36) H 12/04/16 00:23 ALT 71 U/L (9-52) H 12/04/16 00:23 Alkaline Phosphatase 95 U/L (38-126) 12/04/16 00:23 Total Creatine Kinase <20 U/L (30-135) L 12/04/16 12:22 CK-MB (CK-2) 1.0 ng/mL (0.0-2.4) 12/04/16 12:22 CK-MB (CK-2) Rel Index 12/04/16 12:22 Troponin I <0.012 ng/mL (0.000-0.034) 12/04/16 12:22 Total Protein 5.9 g/dL (6.3-8.2) L 12/04/16 00:23 Albumin 3.4 g/dL (3.5-5.0) L 12/04/16 00:23 Cortisol 13 ug/dL 12/04/16 00:23 Urine Color Yellow 12/04/16 02:48 Urine Appearance Cloudy (Clear) H 12/04/16 02:48 Urine pH 6.0 (5.0-8.0) 12/04/16 02:48 Ur Specific [place] 1.033 (1.001-1.035) 12/04/16 02:48 Urine Protein Negative (Negative) 12/04/16 02:48 Urine Glucose (UA) Negative (Negative) 12/04/16 02:48 Urine Ketones Negative (Negative) 12/04/16 02:48 Urine Blood Negative (Negative) 12/04/16 02:48 Urine Nitrite Negative (Negative) 12/04/16 02:48 Urine Bilirubin Negative (Negative) 12/04/16 02:48 Urine Urobilinogen <2.0 mg/dL (<2.0) 12/04/16 02:48 Ur Leukocyte Esterase Large (Negative) H 12/04/16 02:48 Urine RBC 1 /hpf (0-5) 12/04/16 02:48 Urine WBC 26 /hpf (0-5) H 12/04/16 02:48 Urine WBC Clumps Rare /hpf (None) H 12/04/16 02:48 Ur Squamous Epith Cells 10 /hpf (0-4) H 12/04/16 02:48 Urine Bacteria Occasional /hpf (None) H 12/04/16 02:48 Hyaline Casts 3 /lpf (0-2) H 12/04/16 02:48 Urine Mucus Rare /hpf (None) H 12/04/16 02:48 Microbiology 12/04/16 00:23 Blood Blood Culture - Preliminary No Growth after 96 hours 12/04/16 02:48 Urine,Voided Urine Culture - Final Agatha albicans Assessment and Plan (1) Pneumonia Narrative/Plan: 71-year-old female presents to Hospital with complaints of significant shortness of breath. She relative hypoxia in fever and leukocytosis. Chest x-ray was abnormal and there is evidence of pneumonia. With her history of significant underlying disease with interstitial lung disease she's been treated with piperacillin tazobactam and Levaquin pending further culture data. She fortunately is improving at this point in time. She was noticed to have acidosis at admission the lactic acid was only 2.0 Admission the patient is computed tomography scan of her abdomen and pelvis without evidence of acute intra-abdominal process but did confirm evidence of the pneumonia. VQ scan reveal evidence of a low probability of a pulmonary embolus. She's been seen by cardiology because of her history of paroxysmal atrial fibrillation. She also is having some chest discomfort and they are following. Pulmonary critical care is also evaluated. Echocardiogram is been performed with mild pulmonary hypertension. Normal LV function. As she she is improving from her pneumonia, suspect gram negative, will complete 7 days at home with Levaquin. Discharge today. Status: Acute (2) Fever Status: Acute (3) Leukocytosis Status: Acute
--- NOTE | 2016-12-08 19:39 | PN ---
PROGRESS NOTE A 71-year-old female. The patient comes in with complaints of shortness of breath. She is feeling better today. Less cough. Less wheezing. Feels generally better. Sitting up at the bedside. Denies any chest pain or chest discomfort. No nausea, vomiting or diarrhea. She was admitted with a diagnosis of acute right lower lobe pneumonia, possible left lower lobe pneumonia. Also has a history of urinary tract infection, urosepsis and COPD. Also suffers from rheumatoid arthritis and also rheumatoid arthritis-associated lung disease. Also in addition has a history of hypercoagulable state, the MTHFR mutation, as well as thromboembolic disease, atrial fibrillation, previous DVT and colostomy. Currently, her vital signs include a temperature which is 96.9, heart rate 77, respiratory rate 16, blood pressure 121/58, mean 79, 2L saturation 92%. Appears in no acute distress. No respiratory distress. HEENT: Grossly unremarkable. Mucous membranes are moist. No oral lesions. NECK: Supple. Full range of motion. No adenopathy, thyromegaly or neck vein distention. Cardiovascular reveals distant heart sounds. S1, S2 normal. No distinct murmur. No S3, S4. Lungs reveal a few scattered rhonchi. No wheezes or crackles. ABDOMEN: Soft. Bowel sounds are heard. There is no mass or tenderness. EXTREMITIES: Intact. No cyanosis, clubbing or edema. CBC is completely normal. White count 10.1, hemoglobin 12.8, hematocrit 41.5, platelet count 186,000. Sodium 140, potassium 3.6, chloride 95, CO2 of 39, BUN and creatinine were 16 and 0.54. A chest x-ray that was done on December 07 shows some small bibasilar infiltrates or atelectasis and a small right-sided pleural effusion. Microbiology is just showing Agatha in the urine. Medications are reviewed. ASSESSMENT: 1. Pneumonia. 2. Septic shock. 3. Severe sepsis. 4. Chronic obstructive pulmonary disease exacerbation. 5. Acute pulmonary embolism. 6. Acute respiratory distress syndrome. 7. Clostridium difficile colitis. 8. Degenerative joint disease, left knee. 9. History of pneumonia. 10.History of rib fracture. 11.Status post total knee arthroplasty. 12.Status post left hip replacement. PLAN: The patient will continue on the antibiotics, bronchodilators, steroids, diuretics and other treatments. The patient seems to be doing better. Will continue to follow closely. Additional recommendations and suggestions forthcoming. Prognosis is guarded. The patient could be discharged home today. MMODL / IJN: [id number] /
[2016-12-08] MEDS ORDERED: LEVOFLOXACIN 750 MG TAB PO SCH (21:00)
== END 2016-12-08 16:55 | disposition home health service (06) | DRG 871 ==
LOC: EC 23:42 → 6SEL 12-04 03:10 → 6ICU 12-04 04:47 → 6SEL 12-04 17:08
PROVIDERS: ADMIT Hospitalist; ATTEND Hospitalist
DX: A41.50 Gram-negative sepsis, unspecified (principal); J96.01 Acute respiratory failure with hypoxia; R65.21 Severe sepsis with septic shock; J84.9 Interstitial pulmonary disease, unspecified; I48.0 Paroxysmal atrial fibrillation; I27.2 Other secondary pulmonary hypertension; J18.9 Pneumonia, unspecified organism; E72.12 Methylenetetrahydrofolate reductase deficiency; N39.0 Urinary tract infection, site not specified; I48.2 Chronic atrial fibrillation; J80 Acute respiratory distress syndrome; J44.0 Chronic obstructive pulmonary disease with (acute) lower respiratory infection; J44.1 Chronic obstructive pulmonary disease with (acute) exacerbation; S22.39XA Fracture of one rib, unspecified side, initial encounter for closed fracture; Z83.2 Family history of diseases of the blood and blood-forming organs and certain disorders involving the immune mechanism; F39 Unspecified mood [affective] disorder; I10 Essential (primary) hypertension; I25.10 Atherosclerotic heart disease of native coronary artery without angina pectoris; Z86.718 Personal history of other venous thrombosis and embolism; Z86.711 Personal history of pulmonary embolism; Z79.01 Long term (current) use of anticoagulants; K21.9 Gastro-esophageal reflux disease without esophagitis; M06.9 Rheumatoid arthritis, unspecified; M17.12 Unilateral primary osteoarthritis, left knee; Z79.51 Long term (current) use of inhaled steroids; Z79.899 Other long term (current) drug therapy; Z85.820 Personal history of malignant melanoma of skin; Z86.19 Personal history of other infectious and parasitic diseases; Z87.01 Personal history of pneumonia (recurrent); Z87.440 Personal history of urinary (tract) infections; Z93.3 Colostomy status; Z96.642 Presence of left artificial hip joint; Z96.652 Presence of left artificial knee joint; Z96.621 Presence of right artificial elbow joint; Z90.49 Acquired absence of other specified parts of digestive tract
CPT/HCPCS: 36415; 36600; 71010; 71020; 74177; 78582; 80048; 80053; 81001; 82533; 82550; 82553; 82805; 83036; 83605; 84132; 84484; 85025; 85610; 85730; 87040; 87086; 93005; 93306; 94640; 94760; 96365; 96366; 96367; 96375; 99291

== ENCOUNTER 2016-12-10 00:38 | Inpatient (IN) | payer MEDICARE, BC ==
[2016-12-10] MEDS ORDERED: ASPIRIN 81 MG PO STA (00:51)
[2016-12-10] MEDS ORDERED: SODIUM CHLORIDE 0.9% 500 ML IV STA (00:51)
[2016-12-10] MEDS ORDERED: DILTIAZEM 125 MG in SODIUM CHLORIDE 0.9% 100 ML IV ONE (00:53)
--- NOTE | 2016-12-10 00:57 | ED ---
SOB HPI - General Chief Complaint: Shortness of Breath Stated Complaint: SOB Time Seen by Provider: 12/10/16 00:41 Source: EMS Mode of arrival: EMS Limitations: altered mental status - Related Data Home Medications Medication Instructions Recorded Confirmed Budesonide-Formot 160-4.5 Mcg 2 puff INHALATION RT-DAILY PRN 11/30/13 12/04/16 [Symbicort 160-4.5 Mcg Inhaler] Losartan/Hydrochlorothiazide 1 tab PO DAILY 11/30/13 12/04/16 [Losartan-Hctz 100-25 mg Tab] amLODIPine [Norvasc] 5 mg PO HS 11/30/13 12/04/16 Magnesium Gluconate [Magonate] 500 mg PO DAILY 11/19/15 12/04/16 Schroeder-3 Fatty Acids/Fish Oil [Fish 2 cap PO DAILY 11/19/15 12/04/16 Oil 1,000 mg Softgel] Potassium Gluconate 99 mg PO DAILY 11/19/15 12/04/16 Leflunomide [Arava] 20 mg PO DAILY 04/18/16 12/04/16 Oxybutynin Chloride [Ditropan] 5 mg PO BID 12/04/16 12/04/16 Rivaroxaban [Xarelto] 20 mg PO DAILY 12/04/16 12/04/16 Previous Rx's Medication Instructions Recorded Furosemide [Lasix] 20 mg PO DAILY #30 tab 12/08/16 Ipratropium/Albuterol Sulfate 2 puff INHALATION RT-QID #0 12/08/16 [Combivent Respimat Inhaler] Levofloxacin [Levaquin] 750 mg PO HS #7 tab 12/08/16 Sotalol [Betapace] 80 mg PO TID #90 tab 12/08/16 predniSONE 10 mg PO DAILY #30 tab 12/08/16 Allergies Allergy/AdvReac Type Severity Reaction Status Date / Time No Known Allergies Allergy Verified 12/04/16 07:30 Review of Systems ROS Statement: Those systems with pertinent positive or pertinent negative responses have been documented in the HPI. ROS Other: All systems not noted in ROS Statement are negative. 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 uses cane or walker as needed History of Any Multi-Drug Resistant Organisms: None Reported Date of last positivie culture/infection: None MDRO Source:: None Past Surgical History: Bladder Surgery, Bowel Resection, Joint Replacement, Orthopedic Surgery, Tonsillectomy, Tubal Ligation Additional Past Surgical History / Comment(s): 07/2015 cystoscopy with bladder bxs, Bowel RESECTIONs d/t ANAL CA x 2,has colostomy, bladder suspension x2- all done at [facility], urethropexies, fecal transplant at [facility] with no CDiff since, CARDIOVERSION, JOINT REPLACEMENTS: RT ELBOW & LEFT KNEE, LEFT HIP, RT FOOT surgery X2: HAMMERTOE AND BUNION. R foot 5th toe bone removed. Septoplasty. Bilateral eyelid sx. Past Anesthesia/Blood Transfusion Reactions: No Reported Reaction Past Psychological History: No Psychological Hx Reported Smoking Status: Never smoker Past Alcohol Use History: None Reported Past Drug Use History: None Reported - Past Family History Brother(s) Family Medical History: Blood Disorder Additional Family Medical History / Comment(s): MTHFR Mother Family Medical History: No Reported History Father Family Medical History: Unable to Obtain Additional Family Medical History / Comment(s): Father at the age of 35yrs following a stomach surgery. Pt unsure what was wrong with his stomach. General Exam Limitations: altered mental status Course Vital Signs 12/10/16 12/10/16 12/10/16 00:44 01:05 02:07 Temperature 97.7 F Pulse Rate 127 H 124 H 148 H Respiratory 24 22 20 Rate Blood Pressure 146/62 146/62 138/65 O2 Sat by Pulse 93 L 93 L 95 Oximetry 12/10/16 02:54 Temperature Pulse Rate 129 H Respiratory 36 H Rate Blood Pressure 128/70 O2 Sat by Pulse 93 L Oximetry Medical Decision Making - Lab Data Result diagrams: 12/10/16 01:44 12/10/16 01:44 Lab Results 12/10/16 12/10/16 12/10/16 Range/Units 01:44 01:44 01:44 WBC 16.2 H (3.8-10.6) k/uL RBC 5.00 (3.80-5.40) m/uL Hgb 15.0 (11.4-16.0) gm/dL Hct 46.9 H (34.0-46.0) % MCV 93.7 (80.0-100.0) fL MCH 30.0 (25.0-35.0) pg MCHC 32.0 (31.0-37.0) g/dL RDW 14.5 (11.5-15.5) % Plt Count 214 (150-450) k/uL Neutrophils % 85 % Lymphocytes % 9 % Monocytes % 4 % Eosinophils % 1 % Basophils % 0 % Neutrophils # 13.8 H (1.3-7.7) k/uL Lymphocytes # 1.4 (1.0-4.8) k/uL Monocytes # 0.6 (0-1.0) k/uL Eosinophils # 0.1 (0-0.7) k/uL Basophils # 0.1 (0-0.2) k/uL PT 14.0 H (9.0-12.0) sec INR 1.4 H (<1.2) APTT 24.8 (22.0-30.0) sec Sodium 136 L (137-145) mmol/L Potassium 3.1 L (3.5-5.1) mmol/L Chloride 94 L (98-107) mmol/L Carbon Dioxide 33 H (22-30) mmol/L Anion Gap 9 mmol/L BUN 22 H (7-17) mg/dL Creatinine 0.90 (0.52-1.04) mg/dL Est GFR (MDRD) Af Amer >60 (>60 ml/min/1.73 sqM) Est GFR (MDRD) Non-Af >60 (>60 ml/min/1.73 sqM) Glucose 117 H (74-99) mg/dL Plasma Lactic Acid Kana (0.7-2.0) mmol/L Calcium 9.3 (8.4-10.2) mg/dL Magnesium 1.6 (1.6-2.3) mg/dL Total Bilirubin 0.8 (0.2-1.3) mg/dL AST 15 (14-36) U/L ALT 54 H (9-52) U/L Alkaline Phosphatase 86 (38-126) U/L Total Creatine Kinase (30-135) U/L CK-MB (CK-2) (0.0-2.4) ng/mL CK-MB (CK-2) Rel Index Troponin I (0.000-0.034) ng/mL Total Protein 5.8 L (6.3-8.2) g/dL Albumin 3.3 L (3.5-5.0) g/dL 12/10/16 12/10/16 Range/Units 01:44 01:44 WBC (3.8-10.6) k/uL RBC (3.80-5.40) m/uL Hgb (11.4-16.0) gm/dL Hct (34.0-46.0) % MCV (80.0-100.0) fL MCH (25.0-35.0) pg MCHC (31.0-37.0) g/dL RDW (11.5-15.5) % Plt Count (150-450) k/uL Neutrophils % % Lymphocytes % % Monocytes % % Eosinophils % % Basophils % % Neutrophils # (1.3-7.7) k/uL Lymphocytes # (1.0-4.8) k/uL Monocytes # (0-1.0) k/uL Eosinophils # (0-0.7) k/uL Basophils # (0-0.2) k/uL PT (9.0-12.0) sec INR (<1.2) APTT (22.0-30.0) sec Sodium (137-145) mmol/L Potassium (3.5-5.1) mmol/L Chloride (98-107) mmol/L Carbon Dioxide (22-30) mmol/L Anion Gap mmol/L BUN (7-17) mg/dL Creatinine (0.52-1.04) mg/dL Est GFR (MDRD) Af Amer (>60 ml/min/1.73 sqM) Est GFR (MDRD) Non-Af (>60 ml/min/1.73 sqM) Glucose (74-99) mg/dL Plasma Lactic Acid Kana 2.1 H* (0.7-2.0) mmol/L Calcium (8.4-10.2) mg/dL Magnesium (1.6-2.3) mg/dL Total Bilirubin (0.2-1.3) mg/dL AST (14-36) U/L ALT (9-52) U/L Alkaline Phosphatase (38-126) U/L Total Creatine Kinase 20 L (30-135) U/L CK-MB (CK-2) 0.7 (0.0-2.4) ng/mL CK-MB (CK-2) Rel Index 3.5 Troponin I 0.065 H* (0.000-0.034) ng/mL Total Protein (6.3-8.2) g/dL Albumin (3.5-5.0) g/dL - EKG Data -: EKG Interpreted by Al EKG shows normal: intervals (Normal), ST-T waves (There are ST depressions in the inferolateral leads.) Rate: tachycardia (Rate approximately 123) Interpretation: LVH, other (Atrial fibrillation with rapid ventricular rate) Disposition Clinical Impression: Atrial fibrillation with rapid ventricular response Disposition: ADMITTED IP TO THIS [facility] Condition: Poor Referrals: Maude Paez MD [Primary Care Provider] - 1-2 days
[2016-12-10] MEDS ORDERED: PROMETHAZINE INJ 25 MG in SODIUM CHLORIDE 0.9% 50 ML IVPB PRN (01:09)
[2016-12-10 02:03] LABS: Basophils # (A) 0.1 k/uL (0-0.2); Basophils % (A) 0 %; CH 29.8; CHCM 31.9; Eosinophils # (A) 0.1 k/uL (0-0.7); Eosinophils % (A) 1 %; HCT 46.9 % (34.0-46.0); HDW 2.18; Luc # (Auto) 0.15; Luc % (Auto) 1; Lymphocytes # (A) 1.4 k/uL (1.0-4.8); Lymphocytes % (A) 9 %; MCV 93.7 fL (80.0-100.0); Mean Platelet Volume 7.3; Monocytes # (A) 0.6 k/uL (0-1.0); Monocytes % (A) 4 %; Neutrophils # (A) 13.8 k/uL (1.3-7.7); Neutrophils % (A) 85 %; RDW 14.5 % (11.5-15.5); WBC 16.2 k/uL (3.8-10.6)
[2016-12-10 02:11] LABS: INR 1.4 (<1.2); Partial Thromboplastin Time 24.8 sec (22.0-30.0)
[2016-12-10 02:14] LABS: ALT 54 U/L (9-52); AST 15 U/L (14-36); Alkaline Phosphatase 86 U/L (38-126); Anion Gap 9 mmol/L; Blood Urea Nitrogen 22 mg/dL (7-17); Calcium 9.3 mg/dL (8.4-10.2); Carbon Dioxide 33 mmol/L (22-30); Chloride 94 mmol/L (98-107); Glucose 117 mg/dL (74-99); Magnesium 1.6 mg/dL (1.6-2.3); Non-African American GFR(MDRD) >60 (>60 ml/min/1.73 sqM); Potassium 3.1 mmol/L (3.5-5.1); Sodium 136 mmol/L (137-145); Total Bilirubin 0.8 mg/dL (0.2-1.3); Total Protein 5.8 g/dL (6.3-8.2)
[2016-12-10 02:32] LABS: Creatine Kinase MB 0.7 ng/mL (0.0-2.4)
[2016-12-10] MEDS ORDERED: SODIUM CHLORIDE 0.9% 1,000 ML IV ONE (02:40)
[2016-12-10 02:41] LABS: Troponin I 0.065 ng/mL (0.000-0.034)
--- NOTE | 2016-12-10 02:43 | XR ---
PROCEDURE: FILM CXR 1 VIEW HISTORY: 71-year-old female with dysrhythmia. COMPARISON: Chest radiograph 12/07/2016 TECHNIQUE: Frontal view of the chest was obtained. FINDINGS: Limited by technique. Cardiomediastinal silhouette is enlarged, but stable. Right pleural effusion, mildly improved compared to prior. Bibasilar atelectasis/consolidation. Bones are similar to prior. IMPRESSION: Cardiomediastinal silhouette is enlarged, but stable. Right pleural effusion, mildly improved compared to prior. Bibasilar atelectasis/consolidation.
[2016-12-10] MEDS ORDERED: DILTIAZEM 5 MG/ML 5 ML VIAL IVP STA (02:53)
[2016-12-10] MEDS ORDERED: NITROGLYCERIN SL TABS 0.4 MG TAB SUBLINGUAL PRN (03:16)
[2016-12-10 05:06] VITALS: BMI 30.4
[2016-12-10] MEDS: MAGNESIUM SULFATE-D5W PMX 1 GM in DEXTROSE/WATER 1 100ML.BAG IVPB SCH ×2 (05:33→06:34)
[2016-12-10] MEDS: POTASSIUM CHLORIDE ER 20 MEQ TAB.ER PO SCH ×2 (05:34→06:35)
[2016-12-10] MEDS: SODIUM CHLORIDE 0.9% 1,000 ML IV SCH (05:34)
[2016-12-10] MEDS: IPRATROPIUM-ALBUTEROL 3 ML NEB INHALATION SCH ×4 (07:30→20:08)
[2016-12-10] MEDS: SYMBICORT 160-4.5 MCG INHALER INHALATION PRN (07:30)
[2016-12-10 08:45] LABS: Creatine Kinase <20 U/L (30-135)
[2016-12-10 08:59] LABS: Creatine Kinase MB 0.7 ng/mL (0.0-2.4)
[2016-12-10 09:04] LABS: Glucose,Whole Blood 111 mg/dL (75-99)
[2016-12-10 09:04] LABS: Troponin I 0.112 ng/mL (0.000-0.034)
[2016-12-10] MEDS ORDERED: Potassium Replacement Protocol 1 EACH MISC MISCELLANE PRN (09:25)
[2016-12-10] MEDS: OXYBUTYNIN CHLORIDE 5 MG TAB PO SCH ×2 (09:41→21:23)
[2016-12-10] MEDS: MAGNESIUM OXIDE 400 MG TAB PO SCH (09:41)
[2016-12-10] MEDS: POTASSIUM CHLORIDE ER 10 MEQ TAB.ER.PRT PO SCH (09:41)
[2016-12-10] MEDS: LEFLUNOMIDE 20 MG TAB PO SCH (09:41)
[2016-12-10] MEDS: RIVAROXABAN 10 MG TAB PO SCH (09:42)
[2016-12-10] MEDS: SOTALOL 80 MG TAB PO SCH ×3 (09:43→21:23)
[2016-12-10] MEDS: POTASSIUM CHLORIDE 10 MEQ, LIDOCAINE 2% INJ 10 MG in SODIUM CHLORIDE 0.9% 100 ML IV SCH ×2 (10:30→11:33)
[2016-12-10] MEDS: predniSONE 10 MG TAB PO SCH (11:32)
[2016-12-10] MEDS: LOSARTAN-HCTZ 50-12.5 MG 1 EACH TAB PO SCH (11:32)
[2016-12-10 14:48] LABS: Creatine Kinase MB 0.4 ng/mL (0.0-2.4)
[2016-12-10 15:02] LABS: Troponin I 0.085 ng/mL (0.000-0.034)
--- NOTE | 2016-12-10 15:23 | CONS ---
CONSULTATION CHIEF COMPLAINT: Confusion, not feeling well and shortness of breath. This is a 71-year-old lady who was recently discharged home from hospital following her admission with pneumonia. She comes back in not feeling well, dizzy and short of breath and apparently was confused. Patient was in atrial fibrillation with rapid ventricular rate and Cardiology had been consulted for the same. At the time of my evaluation this morning, she appears comfortable at rest and is free of symptoms. Heart rate is better controlled on intravenous Cardizem. Patient has known history of paroxysmal atrial fibrillation and we had to decrease the dose of sotalol at last admission because of bradycardia. She is anticoagulated with Xarelto. She has been having periods of confusion. PAST MEDICAL HISTORY: Significant for paroxysmal atrial fibrillation, hypertension, congestive heart failure, COPD. MEDICATIONS: At home included Norvasc 5 mg daily, Betapace 80 mg t.i.d., Xarelto 20 mg daily. fish oil, losartan, Lasix and Symbicort. ALLERGIES: As charted. FAMILY HISTORY: Negative for premature coronary artery disease. SOCIAL HISTORY: Negative for current smoking, EtOH abuse or drug abuse. REVIEW OF SYSTEMS: HEENT is unremarkable. CARDIAC: As described above. RESPIRATORY: As described above. GI: Negative. GENITOURINARY: Negative. ALLERGY: None. IMMUNOLOGY: None. MUSCULOSKELETAL: Significant for arthritis. PSYCHOSOCIAL: Negative. DERMATOLOGICAL: Negative. ENDOCRINE: Negative. ONCOLOGICAL: Negative. Rest of the systems review is not relevant. PHYSICAL EXAM: Comfortable at rest. Heart rate is around 100 beats per minute. Blood pressure is 100/50, respiratory rate is 18. Chest exam reveals diminished air entry at the bases. Heart exam reveals first and second heart sounds. Regular rhythm. Abdomen is soft. Exam of the extremities did not reveal edema. Peripheral pulses are felt. EKG shows atrial fibrillation. Labs showed a potassium of 3.1, hemoglobin is 15, troponin is in the carroll zone at 0.06 and 0.1. ASSESSMENT: 1. Chronic atrial fibrillation with poorly-controlled ventricular rate. 2. Troponin elevation, probably related to supply/demand mismatch. 3. Recent pneumonia. 4. Confusion. PLAN: I am going to increase the dose of sotalol back to where it was, supplement the potassium, cut down the dose of Cardizem, taper it and stop it. MMODL / IJN: [id number] /
[2016-12-10] MEDS ORDERED: LEVOFLOXACIN 750 MG TAB PO SCH (21:00)
[2016-12-10] MEDS: amLODIPine 5 MG TAB PO SCH (21:22)
--- NOTE | 2016-12-10 22:23 | P.HPIM ---
History of Present Illness H&P Date: 12/10/16 Chief Complaint: Difficulty breathing and confusion Patient is a 71-year-old female with a known history of paroxysmal atrial fibrillation on anticoagulation with xarelto, rheumatoid arthritis and COPD came to the hospital with altered mental status and difficulty breathing. Patient was recently treated for pneumonia. Patient was found to have atrial fibrillation with a rapid ventricular rate. Patient was started on Cardizem drip and her rate is currently in 90s. Patient is awake alert but seems to be confused. Her chest x-ray showed bibasilar atelectasis/consolidation and improved right-sided pleural effusion. Patient was found to have a slightly elevated troponin level. Patient says that she did have fever at home. No significant cough or sputum production. Patient is on sotalol for rate control. Otherwise patient is a poor historian due to her current clinical condition. Review of Systems CONSTITUTIONAL: Subjective fever and generalized weakness.. HEENT: No recent visual problems or hearing problems. Denied any sore throat. CARDIOVASCULAR: No chest pain, orthopnea, PND, no palpitations, no syncope. PULMONARY: Difficulty breathing. No wheezing no hemoptysis. No cough GASTROINTESTINAL: No diarrhea, no nausea, no vomiting, no abdominal pain. Normoactive bowel sounds. NEUROLOGICAL: No headaches, no weakness, no numbness. HEMATOLOGICAL: Denies any bleeding or petechiae. GENITOURINARY: Denies any burning micturition, frequency, or urgency. MUSCULOSKELETAL/RHEUMATOLOGICAL: Denies any joint pain, swelling, or any muscle pain. ENDOCRINE: Denies any polyuria or polydipsia. The rest of the 14-point review of systems is negative. 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 uses cane or walker as needed History of Any Multi-Drug Resistant Organisms: None Reported Date of last positivie culture/infection: None MDRO Source:: None Past Surgical History: Bladder Surgery, Bowel Resection, Joint Replacement, Orthopedic Surgery, Tonsillectomy, Tubal Ligation Additional Past Surgical History / Comment(s): 07/2015 cystoscopy with bladder bxs, Bowel RESECTIONs d/t ANAL CA x 2,has colostomy, bladder suspension x2- all done at [facility], urethropexies, fecal transplant at [facility] with no CDiff since, CARDIOVERSION, JOINT REPLACEMENTS: RT ELBOW & LEFT KNEE, LEFT HIP, RT FOOT surgery X2: HAMMERTOE AND BUNION. R foot 5th toe bone removed. Septoplasty. Bilateral eyelid sx. Past Anesthesia/Blood Transfusion Reactions: No Reported Reaction Past Psychological History: No Psychological Hx Reported Additional Psychological History / Comment(s): . Retired. Lifelong nonsmoker. No recent travel. No experience. No animal exposures Smoking Status: Never smoker Past Alcohol Use History: None Reported Past Drug Use History: None Reported Additional Drug Use History / Comment(s): . - Past Family History Brother(s) Family Medical History: Blood Disorder Additional Family Medical History / Comment(s): MTHFR Mother Family Medical History: No Reported History Father Family Medical History: Unable to Obtain Additional Family Medical History / Comment(s): Father at the age of 35yrs following a stomach surgery. Pt unsure what was wrong with his stomach. Medications and Allergies Home Medications Medication Instructions Recorded Confirmed Type Budesonide-Formot 160-4.5 Mcg 2 puff INHALATION RT-DAILY PRN 11/30/13 12/10/16 History [Symbicort 160-4.5 Mcg Inhaler] Losartan/Hydrochlorothiazide 1 tab PO DAILY 11/30/13 12/10/16 History [Losartan-Hctz 100-25 mg Tab] amLODIPine [Norvasc] 5 mg PO HS 11/30/13 12/10/16 History Magnesium Gluconate [Magonate] 500 mg PO DAILY 11/19/15 12/10/16 History Garner-3 Fatty Acids/Fish Oil [Fish 2 cap PO DAILY 11/19/15 12/10/16 History Oil 1,000 mg Softgel] Potassium Gluconate 99 mg PO DAILY 11/19/15 12/10/16 History Leflunomide [Arava] 20 mg PO DAILY 04/18/16 12/10/16 History Oxybutynin Chloride [Ditropan] 5 mg PO BID 12/04/16 12/10/16 History Rivaroxaban [Xarelto] 20 mg PO DAILY 12/04/16 12/10/16 History Furosemide [Lasix] 20 mg PO DAILY #30 tab 12/08/16 12/10/16 Rx Ipratropium/Albuterol Sulfate 2 puff INHALATION RT-QID #0 12/08/16 12/10/16 Rx [Combivent Respimat Inhaler] Levofloxacin [Levaquin] 750 mg PO HS #7 tab 12/08/16 12/10/16 Rx Sotalol [Betapace] 80 mg PO TID #90 tab 12/08/16 12/10/16 Rx predniSONE 10 mg PO DAILY #30 tab 12/08/16 12/10/16 Rx Allergies Allergy/AdvReac Type Severity Reaction Status Date / Time No Known Allergies Allergy Verified 12/10/16 07:13 Physical Exam Vitals: Vital Signs Temp Pulse Resp BP Pulse Ox 12/10/16 09:00 110 H 93/49 96 12/10/16 08:00 98.5 F 111 H 28 H 90/57 95 12/10/16 07:48 108 H 12/10/16 07:31 110 H 12/10/16 07:00 117 H 90/55 94 L 12/10/16 06:45 106 H 86/62 94 L 12/10/16 06:30 105 H 103/58 93 L 12/10/16 06:15 126 H 113/66 95 12/10/16 06:00 122 H 90/57 95 12/10/16 05:45 124 H 148/67 97 12/10/16 05:30 98.5 F 124 H 141/84 97 12/10/16 05:15 106 H 97/58 96 12/10/16 05:00 107 H 127/73 95 12/10/16 04:45 118 H 116/57 95 12/10/16 04:30 130 H 94 L 12/10/16 03:52 118 H 37 H 151/79 94 L 12/10/16 02:54 129 H 36 H 128/70 93 L 12/10/16 02:07 148 H 20 138/65 95 12/10/16 01:05 124 H 22 146/62 93 L 12/10/16 00:44 97.7 F 127 H 24 146/62 93 L Intake and Output 12/09/16 12/10/16 12/10/16 22:59 06:59 14:59 Intake Total 138.333 Output Total 0 0 Balance 138.333 0 Intake: Intake, IV Titration 138.333 Amount Diltiazem 125 mg In 18.333 Sodium Chloride 0.9% 100 ml @ 5 MG/HR 5 mls/hr IV .Q24H [facility] Rx#:[id number] Magnesium Sulfate-D5w Pmx 100 1 gm In Dextrose/Water 1 100ml.bag @ 100 mls/hr IVPB Q1H [facility] Rx#: [id number] Sodium Chloride 0.9% 1, 20 000 ml @ 20 mls/hr IV . Q24H [facility] Rx#:[id number] Output: Urine 0 0 Other: Weight 82.8 kg PHYSICAL EXAMINATION: Patient is lying in the bed comfortably, no acute distress, awake alert but confused and lethargic. HEENT: Normocephalic. Neck is supple. Pupils reactive. Nostrils clear. Oral cavity is moist. Ears reveal no drainage. Neck reveals no JVD, carotid bruits, or thyromegaly. CHEST EXAMINATION: Trachea is central. Symmetrical expansion. Lung harmon clear to auscultation and percussion. CARDIAC: Normal S1, S2 with no gallops. No murmurs . Irregularly irregular rhythm ABDOMEN: Soft. Bowel sounds normal. No organomegaly. No abdominal bruits. Extremities reveal no edema. No clubbing or cyanosis Neurologically awake, alert, oriented x2 with well-coordinated movements. Skin: no rash or skin lesions Musculoskeletal: no joint swelling or deformity. Results CBC & Chem 7: 12/10/16 01:44 12/10/16 16:44 Labs: Abnormal Lab Results - Last 24 Hours (Table) 12/10/16 12/10/16 12/10/16 Range/Units 01:44 01:44 01:44 WBC 16.2 H (3.8-10.6) k/uL Hct 46.9 H (34.0-46.0) % Neutrophils # 13.8 H (1.3-7.7) k/uL PT 14.0 H (9.0-12.0) sec INR 1.4 H (<1.2) Sodium 136 L (137-145) mmol/L Potassium 3.1 L (3.5-5.1) mmol/L Chloride 94 L (98-107) mmol/L Carbon Dioxide 33 H (22-30) mmol/L BUN 22 H (7-17) mg/dL Glucose 117 H (74-99) mg/dL POC Glucose (mg/dL) (75-99) mg/dL Plasma Lactic Acid Kana (0.7-2.0) mmol/L ALT 54 H (9-52) U/L Total Creatine Kinase (30-135) U/L Troponin I (0.000-0.034) ng/mL Total Protein 5.8 L (6.3-8.2) g/dL Albumin 3.3 L (3.5-5.0) g/dL 12/10/16 12/10/16 12/10/16 Range/Units 01:44 01:44 04:27 WBC (3.8-10.6) k/uL Hct (34.0-46.0) % Neutrophils # (1.3-7.7) k/uL PT (9.0-12.0) sec INR (<1.2) Sodium (137-145) mmol/L Potassium (3.5-5.1) mmol/L Chloride (98-107) mmol/L Carbon Dioxide (22-30) mmol/L BUN (7-17) mg/dL Glucose (74-99) mg/dL POC Glucose (mg/dL) 111 H (75-99) mg/dL Plasma Lactic Acid Kana 2.1 H* (0.7-2.0) mmol/L ALT (9-52) U/L Total Creatine Kinase 20 L (30-135) U/L Troponin I 0.065 H* (0.000-0.034) ng/mL Total Protein (6.3-8.2) g/dL Albumin (3.5-5.0) g/dL 12/10/16 12/10/16 Range/Units 07:56 07:56 WBC (3.8-10.6) k/uL Hct (34.0-46.0) % Neutrophils # (1.3-7.7) k/uL PT (9.0-12.0) sec INR (<1.2) Sodium (137-145) mmol/L Potassium 3.0 L* (3.5-5.1) mmol/L Chloride (98-107) mmol/L Carbon Dioxide (22-30) mmol/L BUN (7-17) mg/dL Glucose (74-99) mg/dL POC Glucose (mg/dL) (75-99) mg/dL Plasma Lactic Acid Kana (0.7-2.0) mmol/L ALT (9-52) U/L Total Creatine Kinase <20 L (30-135) U/L Troponin I 0.112 H* (0.000-0.034) ng/mL Total Protein (6.3-8.2) g/dL Albumin (3.5-5.0) g/dL Thrombosis Risk Factor Assmnt - Choose All That Apply Each Factor Represents 1 point: Abnormal pulmonary function (COPD), Heart failure (<1month), Obesity (BMI >25) Each Risk Factor Represents 2 Points: Age 61-74 years, Malignancy Each Risk Factor Represents 3 Points: Positive Factor V Leiden, Family history of DVT/PE, History of DVT/PE Thrombosis Risk Factor Assessment Total Risk Factor Score: 16 Thrombosis Risk Factor Assessment Level: High Risk Assessment and Plan Plan: #1 atrial fibrillation with a rapid regular rate #2 altered mental status possible metabolic encephalopathy #3 elevated troponin level possible demand mismatch secondary to #1 #3 recently admitted for pneumonia #4 leukocytosis #5 COPD not in exacerbation #6 hypertension #7 history of DVT/PE #8 history of basal cell carcinoma of the skin on the nose #9 rheumatoid arthritis on immunosuppressive therapy Plan: Patient will be continued on Cardizem drip and was started back on sotalol. Cardiology has seen the patient. We will continue the antibiotics and the follow-up levofloxacin. And continue to follow closely. We can with the home medications including breathing treatments when necessary. Prognosis is guarded. Further recommendations based on the clinical course. Time with Patient: Greater than 30
[2016-12-11] MEDS: SODIUM CHLORIDE 0.9% 1,000 ML IV SCH (04:57)
[2016-12-11] MEDS: IPRATROPIUM-ALBUTEROL 3 ML NEB INHALATION SCH ×5 (05:20→19:42)
[2016-12-11] MEDS ORDERED: IPRATROPIUM-ALBUTEROL 3 ML NEB INHALATION PRN (05:23)
[2016-12-11 06:02] LABS: Basophils % (A) 0 %; CH 30.4; CHCM 32.7; Eosinophils % (A) 0 %; HCT 41.2 % (34.0-46.0); HDW 2.32; HGB 13.3 gm/dL (11.4-16.0); Luc # (Auto) 0.17; Luc % (Auto) 2; Lymphocytes # (A) 1.1 k/uL (1.0-4.8); Lymphocytes % (A) 11 %; MCH 30.1 pg (25.0-35.0); MCHC 32.2 g/dL (31.0-37.0); MCV 93.4 fL (80.0-100.0); Mean Platelet Volume 8.5; Monocytes # (A) 0.5 k/uL (0-1.0); Monocytes % (A) 5 %; Neutrophils # (A) 8.4 k/uL (1.3-7.7); Neutrophils % (A) 82 %; RBC 4.42 m/uL (3.80-5.40); RDW 15.4 % (11.5-15.5); WBC 10.2 k/uL (3.8-10.6); WBC (Perox) 10.98
[2016-12-11 06:26] LABS: Anion Gap 6 mmol/L; Blood Urea Nitrogen 19 mg/dL (7-17); Calcium 8.7 mg/dL (8.4-10.2); Carbon Dioxide 32 mmol/L (22-30); Chloride 97 mmol/L (98-107); Cholesterol 147 mg/dL (<200); Glucose 94 mg/dL (74-99); HDL Cholesterol 32 mg/dL (40-60); Magnesium 1.9 mg/dL (1.6-2.3); Non-African American GFR(MDRD) >60 (>60 ml/min/1.73 sqM); Potassium 3.4 mmol/L (3.5-5.1); Sodium 135 mmol/L (137-145)
[2016-12-11] MEDS: LEFLUNOMIDE 20 MG TAB PO SCH (08:18)
[2016-12-11] MEDS: RIVAROXABAN 10 MG TAB PO SCH (08:20)
[2016-12-11] MEDS: OXYBUTYNIN CHLORIDE 5 MG TAB PO SCH ×2 (08:21→20:55)
[2016-12-11] MEDS: LOSARTAN-HCTZ 50-12.5 MG 1 EACH TAB PO SCH (08:22)
[2016-12-11] MEDS: POTASSIUM CHLORIDE ER 10 MEQ TAB.ER.PRT PO SCH (08:22)
[2016-12-11] MEDS: predniSONE 10 MG TAB PO SCH (08:22)
[2016-12-11] MEDS: MAGNESIUM OXIDE 400 MG TAB PO SCH (08:22)
[2016-12-11] MEDS: SYMBICORT 160-4.5 MCG INHALER INHALATION PRN (08:35)
[2016-12-11 09:59] LABS: Appearance,Urine Clear (Clear); Bilirubin,Urine Negative (Negative); Glucose,Urine (UA) Negative (Negative); Ketones,Urine Negative (Negative); Leukocyte Esterase,Urine Negative (Negative); Nitrite,Urine Negative (Negative); Protein,Urine Trace (Negative); Specific Gravity,Urine 1.018 (1.001-1.035); UA Billing (MACRO vs. MICRO) CHEM; Urobilinogen,Urine <2.0 mg/dL (<2.0)
--- NOTE | 2016-12-11 10:51 | P.PN ---
Subjective Principal diagnosis: Shortness of breath and generalized malaise This is a 71-year-old female patient who was recently discharged home from the hospital after an admission with pneumonia. She came back to the hospital primarily with symptoms of generally not feeling well, associated shortness of breath and mental confusion. She was in atrial fibrillation with rapid ventricular response, for which cardiology consultation was requested. She was seen in consultation yesterday by Dr. Laird. Patient continues to be in atrial fibrillation this morning, heart rate around 108 to low 1 teens. She also was noted to have mild troponin abnormality not consistent with acute coronary syndrome. We will increase her dose of sotalol back to 120 mg by mouth 3 times a day. This morning patient states she just does not feel well, states she has some mild shortness of breath, denies any chest discomfort. Blood pressure 120/ 70. CBC normal. Potassium 3.4, BUN 19, creatinine 0.6. Objective - Vital Signs Vital signs: Vital Signs Temp 97.5 F L 12/11/16 04:00 Pulse 100 12/11/16 08:49 Resp 18 12/11/16 04:00 BP 121/70 12/11/16 04:00 Pulse Ox 94 L 12/11/16 04:00 Intake & Output 12/10/16 12/11/16 12/11/16 18:59 06:59 18:59 Intake Total 184 300 120 Output Total 0 675 Balance 184 -375 120 Weight 86 kg Intake: IV 100 300 Sodium Chloride 0.9% 1, 100 300 000 ml @ 20 mls/hr IV . Q24H [facility] Rx#:[id number] Intake, IV Titration 84 Amount Diltiazem 125 mg In 84 Sodium Chloride 0.9% 100 ml @ 5 MG/HR 5 mls/hr IV .Q24H [facility] Rx#:[id number] Oral 120 Output: Urine 0 Stool 675 Other: Voiding Method Bedside Commode Bedside Commode # Voids 1 2 # Bowel Movements 1 1 - Exam PHYSICAL EXAMINATION: HEENT: Head is atraumatic, normocephalic. Pupils equal, round. Neck is supple. There is no elevated jugular venous pressure. HEART EXAMINATION: Heart S1 and S2 irregularly irregular CHEST EXAMINATION: Lungs are clear to auscultation and precussion. No chest wall tenderness is noted on palpation or with deep breathing. ABDOMEN: Soft, nontender. Bowel sounds are heard. No organomegaly noted]. EXTREMITIES:[ 2+ peripheral pulses with no evidence of peripheral edema and no calf tenderness noted]. NEUROLOGIC [patient is awake, alert and oriented -3.] . - Labs CBC & Chem 7: 12/11/16 05:39 12/11/16 05:39 Labs: Abnormal Lab Results - Last 24 Hours (Table) 12/10/16 12/11/16 12/11/16 Range/Units 13:18 05:39 05:39 Neutrophils # 8.4 H (1.3-7.7) k/uL Sodium 135 L (137-145) mmol/L Potassium 3.4 L (3.5-5.1) mmol/L Chloride 97 L (98-107) mmol/L Carbon Dioxide 32 H (22-30) mmol/L BUN 19 H (7-17) mg/dL Total Creatine Kinase 24 L (30-135) U/L Troponin I 0.085 H* (0.000-0.034) ng/mL HDL Cholesterol 32 L (40-60) mg/dL Urine Protein (Negative) 12/11/16 Range/Units 08:30 Neutrophils # (1.3-7.7) k/uL Sodium (137-145) mmol/L Potassium (3.5-5.1) mmol/L Chloride (98-107) mmol/L Carbon Dioxide (22-30) mmol/L BUN (7-17) mg/dL Total Creatine Kinase (30-135) U/L Troponin I (0.000-0.034) ng/mL HDL Cholesterol (40-60) mg/dL Urine Protein Trace H (Negative) Assessment and Plan (1) Paroxysmal a-fib Status: Acute (2) Confusion Status: Acute (3) Atrial fibrillation with rapid ventricular response Status: Acute (4) Pneumonia Status: Acute Plan: From cardiology's perspective, we will increase his sotalol to 120 mg by mouth 3 times a day, continue other medications. DNP note has been reviewed, I agree with a documented findings and plan of care. Patient was seen and examined.
[2016-12-11] MEDS: SOTALOL 120 MG TAB PO SCH ×3 (11:12→20:55)
[2016-12-11] MEDS: POTASSIUM CHLORIDE ER 20 MEQ TAB.ER PO SCH ×2 (11:12→13:46)
[2016-12-11] MEDS ORDERED: metroNIDAZOLE-NS PMX 500 MG in SALINE 1 100ML.BAG IVPB SCH (13:00)
--- NOTE | 2016-12-11 13:23 | CDI ---
[facility] [address] [place] [address] Documentation Clarification Form Date: 12/11/2016 1:18:00 PM From: Briana Hoyos Admit Date: 12/10/2016 3:16:00 AM Patient Name: Elin Lewis Visit Number: [id number] Dr. Lory Brumfield History/Risk Factors: Afib, GI bleed, recent Pneumonia Clinical Indicators: Labs: K+ 3.1 on admission Treatment: IV Potassium PO Potassium Clinical significance of diagnostic testing and treatment CANNOT be assumed or coded without physician documentation of significance if any. Please clarify what abnormal laboratory signifies: Abnormal Lab Value (please specify as diagnosis) Unable to determine Other, please specify Please document in your progress notes and discharge summary in order to capture severity of illness and risk of mortality. Include clinical findings that support your diagnosis. FYI: Press F11 to launch patient chart MTDD
[2016-12-11] MEDS ORDERED: MD COMMUNICATION TO PHARMACY 1 EACH MISC PO PRN (15:48)
[2016-12-11] MEDS: FIDAXOMICIN 200 MG TABLET PO SCH ×2 (17:12→20:55)
[2016-12-11] MEDS: LACTOBACILLUS ACIDOPH & BULGAR 1 EACH PACKET PO SCH ×2 (17:12→20:55)
[2016-12-11] MEDS: amLODIPine 5 MG TAB PO SCH (20:54)
--- NOTE | 2016-12-11 22:54 | P.PN ---
Subjective Principal diagnosis: Atrial fibrillation with rapid ventricular rate and C. diff infection Patient is a 71-year-old female with a known history of paroxysmal atrial fibrillation on anticoagulation with xarelto, rheumatoid arthritis and COPD came to the hospital with altered mental status and difficulty breathing. Patient was recently treated for pneumonia. Patient was found to have atrial fibrillation with a rapid ventricular rate. Patient was started on Cardizem drip and her rate is currently in 90s. Patient is awake alert but seems to be confused. Her chest x-ray showed bibasilar atelectasis/consolidation and improved right-sided pleural effusion. Patient was found to have a slightly elevated troponin level. Patient says that she did have fever at home. No significant cough or sputum production. Patient is on sotalol for rate control. Otherwise patient is a poor historian due to her current clinical condition. On 12/11/2016 Patient is more awake and oriented today. Patient developed diarrhea and C. diff toxin came or positive. Heart rate is in upper 90s today. Now complains of abdominal pain. No nausea no vomiting. Objective - Vital Signs Vital signs: Vital Signs Temp 97.8 F 12/11/16 20:00 Pulse 103 H 12/11/16 20:00 Resp 20 12/11/16 20:00 BP 103/62 12/11/16 20:00 Pulse Ox 94 L 12/11/16 20:00 Intake & Output 12/11/16 12/11/16 12/12/16 06:59 18:59 06:59 Intake Total 300 220 Output Total 675 250 250 Balance -375 -30 -250 Weight 86 kg Intake: IV 300 Sodium Chloride 0.9% 1, 300 000 ml @ 20 mls/hr IV . Q24H [facility] Rx#:[id number] Oral 220 Output: Stool 675 250 250 Other: Voiding Method Bedside Commode Bedside Commode Bedside Commode # Voids 2 1 # Bowel Movements 1 - Exam Patient is lying in the bed comfortably, no acute distress, awake alert but confused and lethargic. HEENT: Normocephalic. Neck is supple. Pupils reactive. Nostrils clear. Oral cavity is moist. Ears reveal no drainage. Neck reveals no JVD, carotid bruits, or thyromegaly. CHEST EXAMINATION: Trachea is central. Symmetrical expansion. Lung harmon clear to auscultation and percussion. CARDIAC: Normal S1, S2 with no gallops. No murmurs . Irregularly irregular rhythm ABDOMEN: Soft. Bowel sounds normal. No organomegaly. No abdominal bruits. Extremities reveal no edema. No clubbing or cyanosis Neurologically awake, alert, oriented x2 with well-coordinated movements. Skin: no rash or skin lesions Musculoskeletal: no joint swelling or deformity. - Labs CBC & Chem 7: 12/11/16 05:39 12/11/16 15:00 Labs: Abnormal Lab Results - Last 24 Hours (Table) 12/11/16 12/11/16 12/11/16 Range/Units 05:39 05:39 06:30 Neutrophils # 8.4 H (1.3-7.7) k/uL Sodium 135 L (137-145) mmol/L Potassium 3.4 L (3.5-5.1) mmol/L Chloride 97 L (98-107) mmol/L Carbon Dioxide 32 H (22-30) mmol/L BUN 19 H (7-17) mg/dL HDL Cholesterol 32 L (40-60) mg/dL Urine Protein (Negative) C. difficile (EIA) Intrp Positive A (Negative) 12/11/16 Range/Units 08:30 Neutrophils # (1.3-7.7) k/uL Sodium (137-145) mmol/L Potassium (3.5-5.1) mmol/L Chloride (98-107) mmol/L Carbon Dioxide (22-30) mmol/L BUN (7-17) mg/dL HDL Cholesterol (40-60) mg/dL Urine Protein Trace H (Negative) C. difficile (EIA) Intrp (Negative) Microbiology - Last 24 Hours (Table) 12/11/16 08:30 Urine Culture - Preliminary Urine,Voided Assessment and Plan Plan: #1 acute C. diff infection. With recent antibiotics for pneumonia. #1 atrial fibrillation with a rapid regular rate. fairly controlled. #2 altered mental status possible metabolic encephalopathy #3 elevated troponin level possible demand mismatch secondary to #1 #3 recently admitted for pneumonia #4 leukocytosis. improved. 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 Plan: Patient's heart rate is better controlled today. sotalol has been increased to 3 times a day. Cardiology is following. Patient was started on metronidazole. ID will be consulted due to previous history of recurrent C. diff. Continue with the home medications including breathing treatments when necessary. Prognosis is guarded. Further recommendations based on the clinical course. Discussed with her over telephone. Time with Patient: Greater than 30
--- NOTE | 2016-12-11 23:17 | P.CONS ---
History of Present Illness - Reason for Consult Consult date: 12/11/16 - Chief Complaint diarrhea - History of Present Illness 71-year-old female known to the infectious disease service regarding her recent hospitalization. Attempts were recent stay she had evidence of significant pneumonia and sepsis. She with a course of intravenous antibiotic therapy. Her pneumonia improved and she was to complete a 7 day course of levofloxacin for her suspected gram-negative pneumonia. She however started to develop some abdominal discomforts and then diarrhea. Stools quite loose and had to change her pouch quite a bit. She's here to feel poorly. She became weak. As well as she presents to Hospital. There is mild dehydration. Testing shows evidence of positive C. difficile toxin in the stool. Infectious diseases consultation was requested for her recurrent C. diff colitis. Patient relates that in general she's not having high-grade fevers, chills or rigors. Her breathing is improved. Her breathing is actually passes been in some time. Review of Systems HEENT:Denies headache or acute visual change. Denies sinus or mouth discomforts. Denies neck stiffness or pain. Denies significant oral cavity pain. Denies difficulty on swallowing. Lungs: At presentation patient has shortness of breath cough minimal sputum production no hemoptysis no Civic and chest pain Cardiovascular: Denies chest pain, chest wall pain, orthopnea, , syncope was having some mild dyspnea on exertion at admission Gastrointestinal: Denied nausea or emesis but had developed symptoms amounts of loose stool through her ostomy. It was nonbloody. Musculoskeletal: denies significant myalgias or arthralgias. No new joint swelling. Denies new back pain. Skin: Denies new rash or lesions. No new ulcers or wounds are related.. Neuro: Denies headache or visual change. Denies any new onset weakness or difficulty with ambulation. Denies falls or seizures. Psychiatric:Denies anxiety or depression. Endocrine: Denies significant fatigue, denies significant weight loss or weight gain. 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 uses cane or walker as needed History of Any Multi-Drug Resistant Organisms: None Reported Year Discovered:: None MDRO Source:: None Past Surgical History: Bladder Surgery, Bowel Resection, Joint Replacement, Orthopedic Surgery, Tonsillectomy, Tubal Ligation Additional Past Surgical History / Comment(s): 07/2015 cystoscopy with bladder bxs, Bowel RESECTIONs d/t ANAL CA x 2,has colostomy, bladder suspension x2- all done at [facility], urethropexies, fecal transplant at [facility] with no CDiff since, CARDIOVERSION, JOINT REPLACEMENTS: RT ELBOW & LEFT KNEE, LEFT HIP, RT FOOT surgery X2: HAMMERTOE AND BUNION. R foot 5th toe bone removed. Septoplasty. Bilateral eyelid sx. Past Anesthesia/Blood Transfusion Reactions: No Reported Reaction Past Psychological History: No Psychological Hx Reported Additional Psychological History / Comment(s): . Retired. Lifelong nonsmoker. No recent travel. No experience. No animal exposures Smoking Status: Never smoker Past Alcohol Use History: None Reported Past Drug Use History: None Reported Additional Drug Use History / Comment(s): . - Past Family History Brother(s) Family Medical History: Blood Disorder Additional Family Medical History / Comment(s): MTHFR Mother Family Medical History: No Reported History Father Family Medical History: Unable to Obtain Additional Family Medical History / Comment(s): Father at the age of 35yrs following a stomach surgery. Pt unsure what was wrong with his stomach. Medications and Allergies Home Medications and Allergies Comment(s): Current Medications Albuterol/Ipratropium (Duoneb 0.5 Mg-3 Mg/3 Ml Soln) 3 ml INHALATION RT-QID [facility] Last Admin: 12/11/16 19:42 Dose: 3 ml Albuterol/Ipratropium (Duoneb 0.5 Mg-3 Mg/3 Ml Soln) 3 ml INHALATION RT-Q2H PRN PRN Reason: Shortness Of Breath Or Wheezing Amlodipine Besylate (Norvasc) [address] [facility] Last Admin: 12/11/16 20:54 Dose: 5 mg Budesonide/Formoterol Fumarate (Symbicort 160-4.5 Mcg Inhaler) 2 puff INHALATION RT-DAILY PRN PRN Reason: Shortness Of Breath Last Admin: 12/11/16 08:35 Dose: 2 puff Fidaxomicin (Dificid) 200 mg PO BID [facility] Stop: 12/21/16 15:49 Last Admin: 12/11/16 20:55 Dose: 200 mg HCTZ/Losartan Potassium (Hyzaar 50-12.5) 2 each PO DAILY [facility] Last Admin: 12/11/16 08:22 Dose: 2 each Promethazine HCl 25 mg/ Sodium (Chloride) 51 mls @ 200 mls/hr IVPB Q6HR PRN PRN Reason: Nausea And Vomiting Last Admin: 12/10/16 02:05 Dose: 200 mls/hr Sodium Chloride (Saline 0.9%) 1,000 mls @ 20 mls/hr IV .Q24H [facility] Last Admin: 12/11/16 04:57 Dose: Not Given Lactobacillus Acidoph/Bulgaricus (Lactinex) 1 each PO TID [facility] Last Admin: 12/11/16 20:55 Dose: 1 each Leflunomide (Arava) 20 mg PO DAILY [facility] Last Admin: 12/11/16 08:18 Dose: 20 mg Magnesium Oxide (Mag-Ox) 400 mg PO DAILY [facility] Last Admin: 12/11/16 08:22 Dose: 400 mg Miscellaneous Information (Potassium Per Protocol) 1 each MISCELLANE DAILY PRN ; Protocol PRN Reason: Per Protocol Miscellaneous Information ( Communication To Pharmacy) 1 each PO ONCE PRN PRN Reason: See Comments Nitroglycerin (Nitrostat) 0.4 mg SUBLINGUAL Q5M PRN PRN Reason: Chest Pain Oxybutynin Chloride (Ditropan) 5 mg PO BID [facility] Last Admin: 12/11/16 20:55 Dose: 5 mg Potassium Chloride (K-Dur 10) 10 meq PO DAILY [facility] Last Admin: 12/11/16 08:22 Dose: 10 meq Prednisone () 10 mg PO DAILY [facility] Last Admin: 12/11/16 08:22 Dose: 10 mg Rivaroxaban (Xarelto) 20 mg PO DAILY [facility] Last Admin: 12/11/16 08:20 Dose: 20 mg Sotalol HCl (Betapace) 120 mg PO TID [facility] Last Admin: 12/11/16 20:55 Dose: 120 mg Home Medications Medication Instructions Recorded Confirmed Type Budesonide-Formot 160-4.5 Mcg 2 puff INHALATION RT-DAILY PRN 11/30/13 12/10/16 History [Symbicort 160-4.5 Mcg Inhaler] Losartan/Hydrochlorothiazide 1 tab PO DAILY 11/30/13 12/10/16 History [Losartan-Hctz 100-25 mg Tab] amLODIPine [Norvasc] 5 mg PO HS 11/30/13 12/10/16 History Magnesium Gluconate [Magonate] 500 mg PO DAILY 11/19/15 12/10/16 History [place]-3 Fatty Acids/Fish Oil [Fish 2 cap PO DAILY 11/19/15 12/10/16 History Oil 1,000 mg Softgel] Potassium Gluconate 99 mg PO DAILY 11/19/15 12/10/16 History Leflunomide [Arava] 20 mg PO DAILY 04/18/16 12/10/16 History Oxybutynin Chloride [Ditropan] 5 mg PO BID 12/04/16 12/10/16 History Rivaroxaban [Xarelto] 20 mg PO DAILY 12/04/16 12/10/16 History Furosemide [Lasix] 20 mg PO DAILY #30 tab 12/08/16 12/10/16 Rx Ipratropium/Albuterol Sulfate 2 puff INHALATION RT-QID #0 12/08/16 12/10/16 Rx [Combivent Respimat Inhaler] Levofloxacin [Levaquin] 750 mg PO HS #7 tab 12/08/16 12/10/16 Rx Sotalol [Betapace] 80 mg PO TID #90 tab 12/08/16 12/10/16 Rx predniSONE 10 mg PO DAILY #30 tab 12/08/16 12/10/16 Rx Allergies Allergy/AdvReac Type Severity Reaction Status Date / Time No Known Allergies Allergy Verified 12/10/16 07:13 Physical Exam Vitals: Vital Signs Temp Pulse Pulse Resp BP Pulse Ox 12/11/16 20:00 97.8 F 103 H 20 103/62 94 L 12/11/16 19:53 108 H 12/11/16 19:42 104 H 12/11/16 17:01 98 12/11/16 16:47 100 12/11/16 16:00 98.1 F 97 20 101/52 95 12/11/16 12:00 99.3 F 95 18 121/57 95 12/11/16 11:52 96 12/11/16 11:40 100 12/11/16 08:49 100 12/11/16 08:35 100 12/11/16 08:00 100.0 F H 96 18 113/63 93 L 12/11/16 05:31 108 H 12/11/16 05:22 103 H 12/11/16 04:00 97.5 F L 94 18 121/70 94 L 12/11/16 00:00 98.1 F 89 18 113/63 93 L 12/10/16 23:00 89 87/53 Intake and Output 12/11/16 12/11/16 12/11/16 06:59 14:59 22:59 Intake Total 180 120 100 Output Total 475 500 Balance -295 120 -400 Intake: IV 180 Sodium Chloride 0.9% 1, 180 000 ml @ 20 mls/hr IV . Q24H [facility] Rx#:[id number] Oral 120 100 Output: Stool 475 500 Other: Voiding Method Bedside Commode Bedside Commode Bedside Commode # Voids 2 1 Weight 86 kg Gen: This is a 71-year-old female. She is sitting up in the bed and appears to be in no respiratory distress. HEENT: Head is atraumatic, normocephalic. Pupils equal, round. Sclerae is anicteric. NECK: Supple. No JVD. No lymphadenopathy. No thyromegaly. LUNGS: A few scattered rhonchi. No intercostal retractions. HEART: Regular rate and rhythm. No murmur. ABDOMEN: Soft. Bowel sounds are present. No masses. Minimal Lower abdominal tenderness. EXTREMITIES: No pedal edema. No calf tenderness. Dorsalis pedis is +2 bilaterally. NEUROLOGICAL: Patient is awake, alert and oriented x3. Results CBC & Chem 7: 12/11/16 05:39 12/11/16 15:00 Labs: Abnormal Lab Results - Last 24 Hours (Table) 12/11/16 12/11/16 12/11/16 Range/Units 05:39 05:39 06:30 Neutrophils # 8.4 H (1.3-7.7) k/uL Sodium 135 L (137-145) mmol/L Potassium 3.4 L (3.5-5.1) mmol/L Chloride 97 L (98-107) mmol/L Carbon Dioxide 32 H (22-30) mmol/L BUN 19 H (7-17) mg/dL HDL Cholesterol 32 L (40-60) mg/dL Urine Protein (Negative) C. difficile (EIA) Intrp Positive A (Negative) 12/11/16 Range/Units 08:30 Neutrophils # (1.3-7.7) k/uL Sodium (137-145) mmol/L Potassium (3.5-5.1) mmol/L Chloride (98-107) mmol/L Carbon Dioxide (22-30) mmol/L BUN (7-17) mg/dL HDL Cholesterol (40-60) mg/dL Urine Protein Trace H (Negative) C. difficile (EIA) Intrp (Negative) Microbiology - Last 24 Hours (Table) 12/11/16 08:30 Urine Culture - Preliminary Urine,Voided Laboratory Results WBC 10.2 k/uL (3.8-10.6) 12/11/16 05:39 RBC 4.42 m/uL (3.80-5.40) 12/11/16 05:39 Hgb 13.3 gm/dL (11.4-16.0) 12/11/16 05:39 Hct 41.2 % (34.0-46.0) 12/11/16 05:39 MCV 93.4 fL (80.0-100.0) 12/11/16 05:39 MCH 30.1 pg (25.0-35.0) 12/11/16 05:39 MCHC 32.2 g/dL (31.0-37.0) 12/11/16 05:39 RDW 15.4 % (11.5-15.5) 12/11/16 05:39 Plt Count 185 k/uL (150-450) 12/11/16 05:39 Neutrophils % 82 % 12/11/16 05:39 Lymphocytes % 11 % 12/11/16 05:39 Monocytes % 5 % 12/11/16 05:39 Eosinophils % 0 % 12/11/16 05:39 Basophils % 0 % 12/11/16 05:39 Neutrophils # 8.4 k/uL (1.3-7.7) H 12/11/16 05:39 Lymphocytes # 1.1 k/uL (1.0-4.8) 12/11/16 05:39 Monocytes # 0.5 k/uL (0-1.0) 12/11/16 05:39 Eosinophils # 0.0 k/uL (0-0.7) 12/11/16 05:39 Basophils # 0.0 k/uL (0-0.2) 12/11/16 05:39 PT 14.0 sec (9.0-12.0) H 12/10/16 01:44 INR 1.4 (<1.2) H 12/10/16 01:44 APTT 24.8 sec (22.0-30.0) 12/10/16 01:44 Sodium 135 mmol/L (137-145) L 12/11/16 05:39 Potassium 3.9 mmol/L (3.5-5.1) 12/11/16 15:00 Chloride 97 mmol/L (98-107) L 12/11/16 05:39 Carbon Dioxide 32 mmol/L (22-30) H 12/11/16 05:39 Anion Gap 6 mmol/L 12/11/16 05:39 BUN 19 mg/dL (7-17) H 12/11/16 05:39 Creatinine 0.60 mg/dL (0.52-1.04) 12/11/16 05:39 Est GFR (MDRD) Af Amer >60 (>60 ml/min/1.73 sqM) 12/11/16 05:39 Est GFR (MDRD) Non-Af >60 (>60 ml/min/1.73 sqM) 12/11/16 05:39 Glucose 94 mg/dL (74-99) 12/11/16 05:39 POC Glucose (mg/dL) 111 mg/dL (75-99) H 12/10/16 04:27 POC Glu Synthetic Soil Blocks Pulper ID MaleEmilee bradshaw 12/10/16 04:27 Lactic Ac Sepsis Rflx Y 12/10/16 02:31 Plasma Lactic Acid Kana 1.5 mmol/L (0.7-2.0) 12/10/16 06:22 Calcium 8.7 mg/dL (8.4-10.2) 12/11/16 05:39 Magnesium 1.9 mg/dL (1.6-2.3) 12/11/16 05:39 Total Bilirubin 0.8 mg/dL (0.2-1.3) 12/10/16 01:44 AST 15 U/L (14-36) 12/10/16 01:44 ALT 54 U/L (9-52) H 12/10/16 01:44 Alkaline Phosphatase 86 U/L (38-126) 12/10/16 01:44 Total Creatine Kinase 24 U/L (30-135) L 12/10/16 13:18 CK-MB (CK-2) 0.4 ng/mL (0.0-2.4) 12/10/16 13:18 CK-MB (CK-2) Rel Index 1.7 12/10/16 13:18 Troponin I 0.085 ng/mL (0.000-0.034) H* 12/10/16 13:18 Total Protein 5.8 g/dL (6.3-8.2) L 12/10/16 01:44 Albumin 3.3 g/dL (3.5-5.0) L 12/10/16 01:44 Triglycerides 139 mg/dL (<150) 12/11/16 05:39 Cholesterol 147 mg/dL (<200) 12/11/16 05:39 LDL Cholesterol, Calc 87 mg/dL (0-99) 12/11/16 05:39 HDL Cholesterol 32 mg/dL (40-60) L 12/11/16 05:39 Urine Color Yellow 12/11/16 08:30 Urine Appearance Clear (Clear) 12/11/16 08:30 Urine pH 6.0 (5.0-8.0) 12/11/16 08:30 Ur Specific [place] 1.018 (1.001-1.035) 12/11/16 08:30 Urine Protein Trace (Negative) H 12/11/16 08:30 Urine Glucose (UA) Negative (Negative) 12/11/16 08:30 Urine Ketones Negative (Negative) 12/11/16 08:30 Urine Blood Negative (Negative) 12/11/16 08:30 Urine Nitrite Negative (Negative) 12/11/16 08:30 Urine Bilirubin Negative (Negative) 09/15/17 08:30 Urine Urobilinogen <2.0 mg/dL (<2.0) 12/11/16 08:30 Ur Leukocyte Esterase Negative (Negative) 12/11/16 08:30 C. difficile (EIA) Intrp Positive (Negative) A 12/11/16 06:30 Microbiology 12/11/16 08:30 Urine,Voided Urine Culture - Preliminary Assessment and Plan Plan: 71-year-old woman presents to Hospital with the onset of increasing weakness some vague abdominal discomfort and multiple loose stools through her ostomy. This reveals evidence of recurrence of question difficile colitis. In that she has a known history of C. diff in the past. She required fecal transplantation at [facility]. The symptoms treatment will be with deficit. Milligrams orally twice a day for 10 days. This will be effective. Probiotic therapy is adequate. Encourage protein high probiotic diet with yogurt at least daily. Monitor stool output. Remains large some cholestyramine can be added at improve this state.
[2016-12-12] MEDS: SODIUM CHLORIDE 0.9% 1,000 ML IV SCH (05:29)
[2016-12-12] MEDS: IPRATROPIUM-ALBUTEROL 3 ML NEB INHALATION SCH ×4 (08:42→20:44)
[2016-12-12] MEDS: SYMBICORT 160-4.5 MCG INHALER INHALATION PRN (08:42)
[2016-12-12] MEDS: LOSARTAN-HCTZ 50-12.5 MG 1 EACH TAB PO SCH (09:15)
[2016-12-12] MEDS: LACTOBACILLUS ACIDOPH & BULGAR 1 EACH PACKET PO SCH ×3 (09:15→21:23)
[2016-12-12] MEDS: LEFLUNOMIDE 20 MG TAB PO SCH (09:15)
[2016-12-12] MEDS: SOTALOL 120 MG TAB PO SCH ×3 (09:15→21:23)
[2016-12-12] MEDS: FIDAXOMICIN 200 MG TABLET PO SCH ×2 (09:15→21:23)
[2016-12-12] MEDS: OXYBUTYNIN CHLORIDE 5 MG TAB PO SCH ×2 (09:16→21:23)
[2016-12-12] MEDS: MAGNESIUM OXIDE 400 MG TAB PO SCH (09:16)
[2016-12-12] MEDS: POTASSIUM CHLORIDE ER 10 MEQ TAB.ER.PRT PO SCH (09:17)
[2016-12-12] MEDS: RIVAROXABAN 10 MG TAB PO SCH (09:17)
[2016-12-12] MEDS: predniSONE 10 MG TAB PO SCH (09:18)
--- NOTE | 2016-12-12 11:19 | P.PN ---
Subjective Principal diagnosis: Shortness of breath and generalized malaise This is a 71-year-old female patient who was recently discharged home from the hospital after an admission with pneumonia. She came back to the hospital primarily with symptoms of generally not feeling well, associated shortness of breath and mental confusion. She was in atrial fibrillation with rapid ventricular response, for which cardiology consultation was requested. She was seen in consultation yesterday by Dr. Laird. Patient continues to be in atrial fibrillation this morning, heart rate around 108 to low 1 teens. She also was noted to have mild troponin abnormality not consistent with acute coronary syndrome. We will increase her dose of sotalol back to 120 mg by mouth 3 times a day. This morning patient states she just does not feel well, states she has some mild shortness of breath, denies any chest discomfort. Blood pressure 120/ 70. CBC normal. Potassium 3.4, BUN 19, creatinine 0.6. 12/12/2016 Patient seen and examined this morning, sitting up in the chair at bedside. Feeling overall much better today. Continues to have diarrhea stools. Positive for C. diff. Continues to be in atrial fibrillation, heart rate today is in the 90s. Objective - Vital Signs Vital signs: Vital Signs Temp 97.2 F L 12/12/16 08:00 Pulse 100 12/12/16 08:51 Resp 16 12/12/16 08:00 BP 102/57 12/12/16 08:00 Pulse Ox 9 L 12/12/16 08:42 Intake & Output 12/11/16 12/12/16 12/12/16 18:59 06:59 18:59 Intake Total 220 240 80 Output Total 250 251 150 Balance Weight 86.4 kg Intake: IV 240 Sodium Chloride 0.9% 1, 240 000 ml @ 20 mls/hr IV . Q24H [facility] Rx#:[id number] Oral 220 80 Output: Stool 250 251 150 Other: Voiding Method Bedside Commode Bedside Commode # Voids 1 1 - Exam PHYSICAL EXAMINATION: HEENT: Head is atraumatic, normocephalic. Pupils equal, round. Neck is supple. There is no elevated jugular venous pressure. HEART EXAMINATION: Heart S1 and S2 irregularly irregular CHEST EXAMINATION: Lungs are clear to auscultation and precussion. No chest wall tenderness is noted on palpation or with deep breathing. ABDOMEN: Soft, nontender. Bowel sounds are heard. No organomegaly noted]. EXTREMITIES:[ 2+ peripheral pulses with no evidence of peripheral edema and no calf tenderness noted]. NEUROLOGIC [patient is awake, alert and oriented -3.] . - Labs CBC & Chem 7: 12/11/16 05:39 12/11/16 15:00 Labs: Abnormal Lab Results - Last 24 Hours (Table) 12/11/16 Range/Units 06:30 C. difficile (EIA) Intrp Positive A (Negative) Microbiology - Last 24 Hours (Table) 12/11/16 08:30 Urine Culture - Preliminary Urine,Voided Assessment and Plan (1) Paroxysmal a-fib Status: Acute (2) Confusion Status: Acute (3) Atrial fibrillation with rapid ventricular response Status: Acute (4) Pneumonia Status: Acute (5) C. difficile colitis Status: Acute Plan: From cardiology's perspective, we will continue the patient on her current medications. We will follow her with you now on an as-needed basis only, please don't hesitate to call with any questions. DNP note has been reviewed, I agree with a documented findings and plan of care. Patient was seen and examined.
[2016-12-12 12:10] LABS: Glucose,Whole Blood 129 mg/dL (75-99)
[2016-12-12] MEDS: risperiDONE 0.25 MG TAB PO SCH (21:23)
[2016-12-12] MEDS: amLODIPine 5 MG TAB PO SCH (21:24)
[2016-12-13] MEDS: SODIUM CHLORIDE 0.9% 1,000 ML IV SCH (06:24)
[2016-12-13] MEDS: SYMBICORT 160-4.5 MCG INHALER INHALATION PRN (08:02)
[2016-12-13] MEDS: IPRATROPIUM-ALBUTEROL 3 ML NEB INHALATION SCH ×4 (08:02→20:31)
[2016-12-13] MEDS: LACTOBACILLUS ACIDOPH & BULGAR 1 EACH PACKET PO SCH ×3 (08:19→21:53)
[2016-12-13] MEDS: SOTALOL 120 MG TAB PO SCH ×3 (08:19→21:53)
[2016-12-13] MEDS: RIVAROXABAN 10 MG TAB PO SCH (08:20)
[2016-12-13] MEDS: LEFLUNOMIDE 20 MG TAB PO SCH (08:20)
[2016-12-13] MEDS: FIDAXOMICIN 200 MG TABLET PO SCH ×2 (08:20→20:44)
[2016-12-13] MEDS: LOSARTAN-HCTZ 50-12.5 MG 1 EACH TAB PO SCH (08:20)
[2016-12-13] MEDS: POTASSIUM CHLORIDE ER 10 MEQ TAB.ER.PRT PO SCH (08:21)
[2016-12-13] MEDS: OXYBUTYNIN CHLORIDE 5 MG TAB PO SCH ×2 (08:21→20:44)
[2016-12-13] MEDS: predniSONE 10 MG TAB PO SCH (08:21)
[2016-12-13] MEDS: MAGNESIUM OXIDE 400 MG TAB PO SCH (08:21)
[2016-12-13] MEDS: amLODIPine 5 MG TAB PO SCH (20:44)
[2016-12-13] MEDS: risperiDONE 0.25 MG TAB PO SCH (20:44)
--- NOTE | 2016-12-13 23:48 | P.PN ---
Subjective Principal diagnosis: Atrial fibrillation with rapid ventricular rate and C. diff infection Patient is a 71-year-old female with a known history of paroxysmal atrial fibrillation on anticoagulation with xarelto, rheumatoid arthritis and COPD came to the hospital with altered mental status and difficulty breathing. Patient was recently treated for pneumonia. Patient was found to have atrial fibrillation with a rapid ventricular rate. Patient was started on Cardizem drip and her rate is currently in 90s. Patient is awake alert but seems to be confused. Her chest x-ray showed bibasilar atelectasis/consolidation and improved right-sided pleural effusion. Patient was found to have a slightly elevated troponin level. Patient says that she did have fever at home. No significant cough or sputum production. Patient is on sotalol for rate control. Otherwise patient is a poor historian due to her current clinical condition. On 12/11/2016 Patient is more awake and oriented today. Patient developed diarrhea and C. diff toxin came or positive. Heart rate is in upper 90s today. Now complains of abdominal pain. No nausea no vomiting. 12/12/2016 Patient is Feeling overall much better today. Continues to have diarrhea stools. Positive for C. diff. Continues to be in atrial fibrillation, heart rate today is in the 90s. Patient was started on fidoxomycin as per ID recommendations. No chest pain no short of breath. No fever no chills. Denied any abdominal pain no nausea no vomiting tolerating by mouth diet. Objective - Vital Signs Vital signs: Vital Signs Temp 97.6 F 12/12/16 15:46 Pulse 93 12/12/16 15:46 Resp 18 12/12/16 15:46 BP 95/57 12/12/16 15:46 Pulse Ox 94 L 12/12/16 15:46 Intake & Output 12/11/16 12/12/16 12/12/16 18:59 06:59 18:59 Intake Total 220 240 80 Output Total 250 251 150 Balance - Weight 86.4 kg Intake: IV 240 Sodium Chloride 0.9% 1, 240 000 ml @ 20 mls/hr IV . Q24H [facility] Rx#:[id number] Oral 220 80 Output: Stool 250 251 150 Other: Voiding Method Bedside Commode Bedside Commode # Voids 1 1 - Exam Patient is lying in the bed comfortably, no acute distress, awake alert but confused and lethargic. HEENT: Normocephalic. Neck is supple. Pupils reactive. Nostrils clear. Oral cavity is moist. Ears reveal no drainage. Neck reveals no JVD, carotid bruits, or thyromegaly. CHEST EXAMINATION: Trachea is central. Symmetrical expansion. Lung harmon clear to auscultation and percussion. CARDIAC: Normal S1, S2 with no gallops. No murmurs . Irregularly irregular rhythm ABDOMEN: Soft. Bowel sounds normal. No organomegaly. No abdominal bruits. Extremities reveal no edema. No clubbing or cyanosis Neurologically awake, alert, oriented x2 with well-coordinated movements. Skin: no rash or skin lesions Musculoskeletal: no joint swelling or deformity. - Labs CBC & Chem 7: 12/11/16 05:39 12/11/16 15:00 Labs: Abnormal Lab Results - Last 24 Hours (Table) 12/12/16 Range/Units 12:05 POC Glucose (mg/dL) 129 H (75-99) mg/dL Microbiology - Last 24 Hours (Table) 12/11/16 08:30 Urine Culture - Final Urine,Voided Assessment and Plan Plan: #1 acute C. diff infection. With recent antibiotics for pneumonia. #1 atrial fibrillation with a rapid regular rate. fairly controlled. #2 altered mental status possible metabolic encephalopathy #3 elevated troponin level possible demand mismatch secondary to #1 #3 recently admitted for pneumonia #4 leukocytosis. improved. 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 #12 acute delirium due to hospital stay. Plan: Patient's heart rate is better controlled today. sotalol has been increased to 3 times a day. Cardiology is following. Patient was started on metronidazole. Change to Ange as per ID recommendations. due to previous history of recurrent C. diff, requiring fecal transplant.. Continue with the home medications including breathing treatments when necessary. Prognosis is guarded. Further recommendations based on the clinical course. Discussed with her over telephone. Time with Patient: Greater than 30
--- NOTE | 2016-12-13 23:54 | P.PN ---
Subjective Principal diagnosis: Atrial fibrillation with rapid ventricular rate and C. diff infection Patient is a 71-year-old female with a known history of paroxysmal atrial fibrillation on anticoagulation with xarelto, rheumatoid arthritis and COPD came to the hospital with altered mental status and difficulty breathing. Patient was recently treated for pneumonia. Patient was found to have atrial fibrillation with a rapid ventricular rate. Patient was started on Cardizem drip and her rate is currently in 90s. Patient is awake alert but seems to be confused. Her chest x-ray showed bibasilar atelectasis/consolidation and improved right-sided pleural effusion. Patient was found to have a slightly elevated troponin level. Patient says that she did have fever at home. No significant cough or sputum production. Patient is on sotalol for rate control. Otherwise patient is a poor historian due to her current clinical condition. On 12/11/2016 Patient is more awake and oriented today. Patient developed diarrhea and C. diff toxin came or positive. Heart rate is in upper 90s today. Now complains of abdominal pain. No nausea no vomiting. 12/12/2016 Patient is Feeling overall much better today. Continues to have diarrhea stools. Positive for C. diff. Continues to be in atrial fibrillation, heart rate today is in the 90s. Patient was started on fidoxomycin as per ID recommendations. No chest pain no short of breath. No fever no chills. Denied any abdominal pain no nausea no vomiting tolerating by mouth diet. 12/13/2016 Patient is still having loose stools but slightly formed. No abdominal pain. No nausea or vomiting. Tolerating by mouth diet. Patient was able to sleep well last night and then delirium seems to be improved. Objective - Vital Signs Vital signs: Vital Signs Temp 98.2 F 12/13/16 20:00 Pulse 90 12/13/16 20:44 Resp 18 12/13/16 20:00 BP 115/80 12/13/16 20:00 Pulse Ox 97 12/13/16 20:00 Intake & Output 12/13/16 12/13/16 12/14/16 06:59 18:59 06:59 Intake Total 1360 250 Output Total 750 325 Balance -750 1035 250 Weight 86.5 kg Intake: IV 160 Sodium Chloride 0.9% 1, 160 000 ml @ 20 mls/hr IV . Q24H [facility] Rx#:[id number] Oral 1200 250 Output: Stool 750 325 Other: Voiding Method Bedside Commode Bedside Commode # Voids 1 - Exam Patient is lying in the bed comfortably, no acute distress, awake alert but confused and lethargic. HEENT: Normocephalic. Neck is supple. Pupils reactive. Nostrils clear. Oral cavity is moist. Ears reveal no drainage. Neck reveals no JVD, carotid bruits, or thyromegaly. CHEST EXAMINATION: Trachea is central. Symmetrical expansion. Lung harmon clear to auscultation and percussion. CARDIAC: Normal S1, S2 with no gallops. No murmurs . Irregularly irregular rhythm ABDOMEN: Soft. Bowel sounds normal. No organomegaly. No abdominal bruits. Colostomy bag in place. Extremities reveal no edema. No clubbing or cyanosis Neurologically awake, alert, oriented x2 with well-coordinated movements. Skin: no rash or skin lesions Musculoskeletal: no joint swelling or deformity. - Labs CBC & Chem 7: 12/11/16 05:39 12/11/16 15:00 Assessment and Plan Plan: #1 acute C. diff infection. With recent antibiotics for pneumonia. #1 atrial fibrillation with a rapid regular rate. fairly controlled. #2 altered mental status possible metabolic encephalopathy #3 elevated troponin level possible demand mismatch secondary to #1 #3 recently admitted for pneumonia #4 leukocytosis. improved. 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 #12 acute delirium due to hospital stay. Improved #13 colostomy bag care. Plan: Patient's heart rate is better controlled today. sotalol has been increased to 3 times a day. Cardiology is following. Patient was started on metronidazole. Change to Ange as per ID recommendations. due to previous history of recurrent C. diff, requiring fecal transplant.. Continue with the home medications including breathing treatments when necessary. Prognosis is guarded. Further recommendations based on the clinical course. Discussed with her at bedside in detail.
[2016-12-14] MEDS ORDERED: CALCIUM CARBONATE 500 MG CHEWABLE PO PRN (00:35)
[2016-12-14] MEDS: SODIUM CHLORIDE 0.9% 1,000 ML IV SCH (04:43)
[2016-12-14] MEDS: SYMBICORT 160-4.5 MCG INHALER INHALATION PRN (07:40)
[2016-12-14] MEDS: IPRATROPIUM-ALBUTEROL 3 ML NEB INHALATION SCH ×3 (07:40→15:49)
[2016-12-14] MEDS: LACTOBACILLUS ACIDOPH & BULGAR 1 EACH PACKET PO SCH (09:29)
[2016-12-14] MEDS: SOTALOL 120 MG TAB PO SCH (09:30)
[2016-12-14] MEDS: predniSONE 10 MG TAB PO SCH (09:30)
[2016-12-14] MEDS: MAGNESIUM OXIDE 400 MG TAB PO SCH (09:30)
[2016-12-14] MEDS: POTASSIUM CHLORIDE ER 10 MEQ TAB.ER.PRT PO SCH (09:30)
[2016-12-14] MEDS: FIDAXOMICIN 200 MG TABLET PO SCH (09:30)
[2016-12-14] MEDS: LOSARTAN-HCTZ 50-12.5 MG 1 EACH TAB PO SCH (09:30)
[2016-12-14] MEDS: RIVAROXABAN 10 MG TAB PO SCH (09:31)
[2016-12-14] MEDS: OXYBUTYNIN CHLORIDE 5 MG TAB PO SCH (09:31)
[2016-12-14] MEDS: LEFLUNOMIDE 20 MG TAB PO SCH (09:31)
[2016-12-14 10:05] VITALS: RESP 18
[2016-12-14 12:47] VITALS: BP 123/69; TEMP 97.6
[2016-12-14 16:05] VITALS: PULSE 98
--- NOTE | 2016-12-14 20:46 | P.PN ---
Subjective Principal diagnosis: diarrhea 71-year-old female known to the infectious disease service regarding her recent hospitalization. Attempts were recent stay she had evidence of significant pneumonia and sepsis. She with a course of intravenous antibiotic therapy. Her pneumonia improved and she was to complete a 7 day course of levofloxacin for her suspected gram-negative pneumonia. She however started to develop some abdominal discomforts and then diarrhea. Stools quite loose and had to change her pouch quite a bit. She's here to feel poorly. She became weak. As well as she presents to Hospital. There is mild dehydration. Testing shows evidence of positive C. difficile toxin in the stool. Infectious diseases consultation was requested for her recurrent C. diff colitis. Patient relates that in general she's not having high-grade fevers, chills or rigors. Her breathing is improved. She has had 2 formed stools today, soft but not watery. Denies abdominal pain, eating poorly but no nausea, looks forward to going home Objective - Vital Signs Vital signs: Vital Signs Temp 97.6 F 12/14/16 12:00 Pulse 98 12/14/16 16:04 Resp 18 12/14/16 12:00 BP 123/69 12/14/16 12:00 Pulse Ox 98 12/14/16 15:49 Intake & Output 12/14/16 12/14/16 12/15/16 06:59 18:59 06:59 Intake Total 250 600 Output Total 925 Balance 250 -325 Weight 88 kg Intake: Oral 250 600 Output: Urine 600 Stool 325 Other: Voiding Method Bedside Commode Bedside Commode # Voids 1 - Exam Gen: This is a 71-year-old female. She is sitting up appears to be in no respiratory distress. HEENT: Head is atraumatic, normocephalic. Pupils equal, round. Sclerae is anicteric. NECK: Supple. No JVD. No lymphadenopathy. No thyromegaly. LUNGS: A few scattered rhonchi. No intercostal retractions. HEART: Regular rate and rhythm. No murmur. ABDOMEN: Soft. Bowel sounds are present. No masses. No tenderness, the ostomy functioning well EXTREMITIES: No pedal edema. No calf tenderness. Dorsalis pedis is +2 bilaterally. NEUROLOGICAL: Patient is awake, alert and oriented x3. - Labs CBC & Chem 7: 12/11/16 05:39 12/11/16 15:00 Labs: Laboratory Results WBC 10.2 k/uL (3.8-10.6) 12/11/16 05:39 RBC 4.42 m/uL (3.80-5.40) 12/11/16 05:39 Hgb 13.3 gm/dL (11.4-16.0) 12/11/16 05:39 Hct 41.2 % (34.0-46.0) 12/11/16 05:39 MCV 93.4 fL (80.0-100.0) 12/11/16 05:39 MCH 30.1 pg (25.0-35.0) 12/11/16 05:39 MCHC 32.2 g/dL (31.0-37.0) 12/11/16 05:39 RDW 15.4 % (11.5-15.5) 12/11/16 05:39 Plt Count 185 k/uL (150-450) 12/11/16 05:39 Neutrophils % 82 % 12/11/16 05:39 Lymphocytes % 11 % 12/11/16 05:39 Monocytes % 5 % 12/11/16 05:39 Eosinophils % 0 % 12/11/16 05:39 Basophils % 0 % 12/11/16 05:39 Neutrophils # 8.4 k/uL (1.3-7.7) H 12/11/16 05:39 Lymphocytes # 1.1 k/uL (1.0-4.8) 12/11/16 05:39 Monocytes # 0.5 k/uL (0-1.0) 12/11/16 05:39 Eosinophils # 0.0 k/uL (0-0.7) 12/11/16 05:39 Basophils # 0.0 k/uL (0-0.2) 12/11/16 05:39 PT 14.0 sec (9.0-12.0) H 12/10/16 01:44 INR 1.4 (<1.2) H 12/10/16 01:44 APTT 24.8 sec (22.0-30.0) 12/10/16 01:44 Sodium 135 mmol/L (137-145) L 12/11/16 05:39 Potassium 3.9 mmol/L (3.5-5.1) 12/11/16 15:00 Chloride 97 mmol/L (98-107) L 12/11/16 05:39 Carbon Dioxide 32 mmol/L (22-30) H 12/11/16 05:39 Anion Gap 6 mmol/L 12/11/16 05:39 BUN 19 mg/dL (7-17) H 12/11/16 05:39 Creatinine 0.60 mg/dL (0.52-1.04) 12/11/16 05:39 Est GFR (MDRD) Af Amer >60 (>60 ml/min/1.73 sqM) 12/11/16 05:39 Est GFR (MDRD) Non-Af >60 (>60 ml/min/1.73 sqM) 12/11/16 05:39 Glucose 94 mg/dL (74-99) 12/11/16 05:39 POC Glucose (mg/dL) 129 mg/dL (75-99) H 12/12/16 12:05 POC Glu Viscose Cellar Charge Hand ID Mik Ng 12/12/16 12:05 Lactic Ac Sepsis Rflx Y 12/10/16 02:31 Plasma Lactic Acid Kana 1.5 mmol/L (0.7-2.0) 12/10/16 06:22 Calcium 8.7 mg/dL (8.4-10.2) 12/11/16 05:39 Magnesium 1.9 mg/dL (1.6-2.3) 12/11/16 05:39 Total Bilirubin 0.8 mg/dL (0.2-1.3) 12/10/16 01:44 AST 15 U/L (14-36) 12/10/16 01:44 ALT 54 U/L (9-52) H 12/10/16 01:44 Alkaline Phosphatase 86 U/L (38-126) 12/10/16 01:44 Total Creatine Kinase 24 U/L (30-135) L 12/10/16 13:18 CK-MB (CK-2) 0.4 ng/mL (0.0-2.4) 12/10/16 13:18 CK-MB (CK-2) Rel Index 1.7 12/10/16 13:18 Troponin I 0.085 ng/mL (0.000-0.034) H* 12/10/16 13:18 Total Protein 5.8 g/dL (6.3-8.2) L 12/10/16 01:44 Albumin 3.3 g/dL (3.5-5.0) L 12/10/16 01:44 Triglycerides 139 mg/dL (<150) 12/11/16 05:39 Cholesterol 147 mg/dL (<200) 12/11/16 05:39 LDL Cholesterol, Calc 87 mg/dL (0-99) 12/11/16 05:39 HDL Cholesterol 32 mg/dL (40-60) L 12/11/16 05:39 Urine Color Yellow 12/11/16 08:30 Urine Appearance Clear (Clear) 12/11/16 08:30 Urine pH 6.0 (5.0-8.0) 12/11/16 08:30 Ur Specific [place] 1.018 (1.001-1.035) 12/11/16 08:30 Urine Protein Trace (Negative) H 12/11/16 08:30 Urine Glucose (UA) Negative (Negative) 12/11/16 08:30 Urine Ketones Negative (Negative) 12/11/16 08:30 Urine Blood Negative (Negative) 12/11/16 08:30 Urine Nitrite Negative (Negative) 12/11/16 08:30 Urine Bilirubin Negative (Negative) 12/11/16 08:30 Urine Urobilinogen <2.0 mg/dL (<2.0) 12/11/16 08:30 Ur Leukocyte Esterase Negative (Negative) 12/11/16 08:30 C. difficile (EIA) Intrp Positive (Negative) A 12/11/16 06:30 Microbiology 12/11/16 08:30 Urine,Voided Urine Culture - Final Assessment and Plan Plan: 71-year-old woman presents to Hospital with the onset of increasing weakness some vague abdominal discomfort and multiple loose stools through her ostomy. This reveals evidence of recurrence of question difficile colitis. In that she has a known history of C. diff in the past. She required fecal transplantation at [facility]. The symptoms treatment will be with deficit. Milligrams orally twice a day for 10 days. This will be effective. Probiotic therapy is adequate. Encourage protein high protein diet with yogurt at least daily. Monitor stool output, is improved. ready for discharge today, will finish the course of Dificid at home and follow in office next week, report any worsejing os symptoms. Patient and understand if diarrhea worsens she will be a candidate for repeat fecal transplant.
== END 2016-12-14 17:18 | disposition home or self-care (01) | DRG 308 ==
LOC: EC 00:38 → 6ICU 03:16 → 6SEL 18:38
PROVIDERS: ADMIT Hospitalist; ATTEND Hospitalist
DX: I48.0 Paroxysmal atrial fibrillation (principal); G93.41 Metabolic encephalopathy; A04.7 Enterocolitis due to Clostridium difficile; F05 Delirium due to known physiological condition; I50.9 Heart failure, unspecified; I48.2 Chronic atrial fibrillation; I11.0 Hypertensive heart disease with heart failure; J44.9 Chronic obstructive pulmonary disease, unspecified; E86.0 Dehydration; E87.6 Hypokalemia; K21.9 Gastro-esophageal reflux disease without esophagitis; R53.1 Weakness; M06.9 Rheumatoid arthritis, unspecified; D72.829 Elevated white blood cell count, unspecified; K44.9 Diaphragmatic hernia without obstruction or gangrene; R74.8 Abnormal levels of other serum enzymes; Z87.01 Personal history of pneumonia (recurrent); Z86.718 Personal history of other venous thrombosis and embolism; Z86.711 Personal history of pulmonary embolism; Z85.820 Personal history of malignant melanoma of skin; Z79.51 Long term (current) use of inhaled steroids; Z79.01 Long term (current) use of anticoagulants; Z79.899 Other long term (current) drug therapy; Z87.440 Personal history of urinary (tract) infections; Z79.2 Long term (current) use of antibiotics; Z79.52 Long term (current) use of systemic steroids; Z92.25 Personal history of immunosuppression therapy; Z87.81 Personal history of (healed) traumatic fracture; Z96.621 Presence of right artificial elbow joint; Z96.652 Presence of left artificial knee joint; Z96.642 Presence of left artificial hip joint; Z93.3 Colostomy status; Z87.19 Personal history of other diseases of the digestive system; Z86.19 Personal history of other infectious and parasitic diseases; Z90.49 Acquired absence of other specified parts of digestive tract; Z98.51 Tubal ligation status; Z83.2 Family history of diseases of the blood and blood-forming organs and certain disorders involving the immune mechanism; Z83.79 Family history of other diseases of the digestive system; Z85.048 Personal history of other malignant neoplasm of rectum, rectosigmoid junction, and anus
CPT/HCPCS: 36415; 71010; 80048; 80053; 80061; 81003; 82550; 82553; 83605; 83735; 84132; 84484; 85025; 85610; 85730; 87086; 87324; 93005; 94640; 94760; 96365; 96366; 96368; 96376; 99285

== ENCOUNTER → 2016-12-17 | Outpatient (CLI) | payer MEDICARE, BC ==
[2016-12-17 12:47] LABS: Blood Urea Nitrogen 16 mg/dL (7-17); Non-African American GFR(MDRD) >60 (>60 ml/min/1.73 sqM)
--- NOTE | 2016-12-17 13:36 | CT ---
EXAMINATION TYPE: CT angio chest DATE OF EXAM: 12/17/2016 COMPARISON: NONE HISTORY: Patient complains of difficulty breathing. Patient displays wet unproductive cough. CT DLP: 395.6 mGycm. Automated Exposure Control for Dose Reduction was Utilized. CONTRAST: CTA scan of the thorax is performed with IV Contrast, patient injected with 100 mL of Omnipaque 350, pulmonary embolism protocol. MIP Images are created on CT scanner and reviewed. FINDINGS: LUNGS: No focal consolidation is present. There is no pleural effusion or pneumothorax seen. The tra cheobronchial tree is patent. Bibasilar subsegmental atelectasis is seen, nodular at the left lung ba se although the nodular atelectasis versus not present on the recent exam of 12/14/2016. Pleural paren chymal scarring is also seen at both lung bases. Persistent elevation of the right hemidiaphragm is p resent. MEDIASTINUM: There is satisfactory enhancement of the pulmonary artery and its branches, there is no CT evidence for pulmonary embolism. There are no greater than 1 cm hilar or mediastinal lymph nodes. There is four-chamber cardiac enlargement and enlargement of the main pulmonary artery measuring up to 3.8 cm. Mild coronary artery calcifications are seen in the left anterior descending coronary ellen ry. Note is made of a bovine aortic arch, and normal anatomic variant.. OTHER: Incidentally noted within the splenic flexure there is mild pericolonic fat stranding and william l wall thickening. Moderate degenerative changes of the thoracic spine are noted. IMPRESSION: 1. No evidence of pulmonary embolus. 2. No focal airspace disease to suggest pneumonia. 3. Enlargement of the main pulmonary artery, which may clinically correlate with pulmonary arterial h ypertension. 3. Stable ascending thoracic aortic aneurysm measuring up to 4.0 cm.
== END | disposition home or self-care (01) ==
LOC: RADCTMAIN 11:29
PROVIDERS: ATTEND Internal Medicine
DX: I71.2 Thoracic aortic aneurysm, without rupture (principal); I77.89 Other specified disorders of arteries and arterioles
CPT/HCPCS: 82565; 84520; 71275; 36415; Q9967

== ENCOUNTER 2017-01-24 17:51 | Inpatient (IN) | payer MEDICARE, BC ==
[2017-01-24] MEDS ORDERED: ACETAMINOPHEN TAB 500 MG TAB PO STA (18:00)
[2017-01-24] MEDS ORDERED: ONDANSETRON 4 MG/2 ML VIAL IVP STA (18:04)
[2017-01-24] MEDS: SODIUM CHLORIDE 0.9% 1,000 ML IV SCH (18:07)
[2017-01-24] MEDS: SODIUM CHLORIDE 0.9% 250 ML IV SCH ×3 (18:07→23:45)
--- NOTE | 2017-01-24 18:07 | ED ---
General Adult HPI - General Chief complaint: Shortness of Breath Stated complaint: SID/vomiting Time Seen by Provider: 01/24/17 17:56 Source: patient, EMS, RN notes reviewed, old records reviewed Mode of arrival: EMS Limitations: no limitations - History of Present Illness Initial comments: 71-year-old female presenting with dyspnea and nausea vomiting. Patient is a poor historian. She is unable to state if she has history of heart failure, cardiac history or COPD. According to EMS patient does have history of COPD. Patient reports nausea and vomiting throughout the day today. She denies chest pain. Patient is found to be in A. fib with RVR upon arrival. Patient is hypertensive. Unable to give a complete history secondary to patient's vomiting , and respiratory status. - Related Data Home Medications Medication Instructions Recorded Confirmed Budesonide-Formot 160-4.5 Mcg 2 puff INHALATION RT-DAILY PRN 11/30/13 01/24/17 [Symbicort 160-4.5 Mcg Inhaler] Losartan/Hydrochlorothiazide 1 tab PO DAILY 11/30/13 01/24/17 [Losartan-Hctz 100-25 mg Tab] amLODIPine [Norvasc] 5 mg PO HS 11/30/13 01/24/17 Magnesium Gluconate [Magonate] 500 mg PO DAILY 11/19/15 01/24/17 [place]-3 Fatty Acids/Fish Oil [Fish 2 cap PO DAILY 11/19/15 01/24/17 Oil 1,000 mg Softgel] Potassium Gluconate 99 mg PO DAILY 11/19/15 01/24/17 Leflunomide [Arava] 20 mg PO DAILY 04/18/16 01/24/17 Rivaroxaban [Xarelto] 20 mg PO DAILY 12/04/16 01/24/17 predniSONE 10 mg PO DAILY 01/24/17 01/24/17 Previous Rx's Medication Instructions Recorded Ipratropium/Albuterol Sulfate 2 puff INHALATION RT-QID #0 12/08/16 [Combivent Respimat Inhaler] Sotalol [Betapace] 120 mg PO TID #90 tab 12/14/16 Allergies Allergy/AdvReac Type Severity Reaction Status Date / Time No Known Allergies Allergy Verified 01/24/17 18:34 Review of Systems ROS Statement: Those systems with pertinent positive or pertinent negative responses have been documented in the HPI. ROS Other: All systems not noted in ROS Statement are negative. 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 uses cane or walker as needed History of Any Multi-Drug Resistant Organisms: None Reported Date of last positivie culture/infection: None MDRO Source:: None Past Surgical History: Bladder Surgery, Bowel Resection, Joint Replacement, Orthopedic Surgery, Tonsillectomy, Tubal Ligation Additional Past Surgical History / Comment(s): 07/2015 cystoscopy with bladder bxs, Bowel RESECTIONs d/t ANAL CA x 2,has colostomy, bladder suspension x2- all done at [facility], urethropexies, fecal transplant at [facility] with no CDiff since, CARDIOVERSION, JOINT REPLACEMENTS: RT ELBOW & LEFT KNEE, LEFT HIP, RT FOOT surgery X2: HAMMERTOE AND BUNION. R foot 5th toe bone removed. Septoplasty. Bilateral eyelid sx. Past Anesthesia/Blood Transfusion Reactions: No Reported Reaction Past Psychological History: No Psychological Hx Reported Smoking Status: Never smoker Past Alcohol Use History: None Reported Past Drug Use History: None Reported - Past Family History Brother(s) Family Medical History: Blood Disorder Additional Family Medical History / Comment(s): MTHFR Mother Family Medical History: No Reported History Father Family Medical History: Unable to Obtain Additional Family Medical History / Comment(s): Father at the age of 35yrs following a stomach surgery. Pt unsure what was wrong with his stomach. General Exam Limitations: no limitations General appearance: in no apparent distress Head exam: Present: atraumatic, normocephalic Eye exam: Present: normal appearance, PERRL ENT exam: Present: mucous membranes dry Neck exam: Present: normal inspection. Absent: tenderness, meningismus Respiratory exam: Present: respiratory distress, accessory muscle use, decreased breath sounds Cardiovascular Exam: Present: tachycardia, irregular rhythm GI/Abdominal exam: Present: soft. Absent: distended, tenderness, guarding, rebound Extremities exam: Present: normal capillary refill. Absent: pedal edema Neurological exam: Absent: motor sensory deficit Psychiatric exam: Present: normal affect, normal mood Skin exam: Present: warm, dry, intact. Absent: cyanosis, diaphoretic Course Vital Signs 01/24/17 01/24/17 01/24/17 17:53 18:20 18:29 Temperature 100.9 F H Pulse Rate 120 H 134 H 131 H Respiratory 24 Rate Blood Pressure 198/110 O2 Sat by Pulse 91 L Oximetry 01/24/17 01/24/17 01/24/17 18:35 19:38 20:34 Temperature Pulse Rate 124 H 109 H 91 Respiratory 25 H 16 16 Rate Blood Pressure 102/55 86/52 91/50 O2 Sat by Pulse 92 L 87 L Oximetry 01/24/17 01/24/17 21:11 21:33 Temperature Pulse Rate 102 H 107 H Respiratory 16 16 Rate Blood Pressure 88/53 97/61 O2 Sat by Pulse 91 L 91 L Oximetry - Reevaluation(s) Reevaluation #1: 01/24/17 21:38 On reevaluation, patient is able to give more detailed history. She does admit to worsening dyspnea and cough over the preceding 3 days. Also reports chills. No chest pain. No abdominal pain. Patient did have dry heaving, no significant vomiting prior to arrival. Denies any abdominal pain or diarrhea. EKG Findings - EKG Comments: EKG Findings:: EKG shows atrial fibrillation with RVR, ventricular rate 139, castration 82, QTC 447, no ST segment elevation or depression Medical Decision Making - Medical Decision Making 71-year-old female presented with cough, dyspnea, and fever. Patient is found to be in A. fib with RVR, ventricular rate between 04/28/1951. History initially limited secondary to patient's status. Given albuterol, Atrovent, steroids. She started on Cardizem for her atrial fibrillation. Laboratory studies the white blood cell count 14.5, chest x-ray shows bilateral pleural effusions versus infiltrate, presentation more consistent with pneumonia and COPD. Hemoglobin 14.6 which is stable, troponin negative, lactic acid normal at 1.8. Urinalysis shows 18 WBCs, culture and blood culture are pending. Abdominal x-ray shows no acute process. Patient's heart rate improves with Cardizem and IV hydration. She started on antibiotics to cover healthcare associated pneumonia. Diagnosis: COPD with hypoxia, A. fib with RVR, healthcare associated pneumonia with sepsis - Lab Data Result diagrams: 01/24/17 18:20 01/24/17 18:20 Lab Results 01/24/17 01/24/17 01/24/17 Range/Units 18:20 18:20 18:20 WBC 14.5 H (3.8-10.6) k/uL RBC 4.96 (3.80-5.40) m/uL Hgb 14.6 (11.4-16.0) gm/dL Hct 46.6 H (34.0-46.0) % MCV 93.9 (80.0-100.0) fL MCH 29.3 (25.0-35.0) pg MCHC 31.3 (31.0-37.0) g/dL RDW 15.0 (11.5-15.5) % Plt Count 233 (150-450) k/uL Neutrophils % 93 % Lymphocytes % 4 % Monocytes % 2 % Eosinophils % 1 % Basophils % 0 % Neutrophils # 13.5 H (1.3-7.7) k/uL Lymphocytes # 0.5 L (1.0-4.8) k/uL Monocytes # 0.3 (0-1.0) k/uL Eosinophils # 0.1 (0-0.7) k/uL Basophils # 0.0 (0-0.2) k/uL Hypochromasia Slight PT (9.0-12.0) sec INR (<1.2) APTT (22.0-30.0) sec Sodium 136 L (137-145) mmol/L Potassium 3.8 (3.5-5.1) mmol/L Chloride 100 (98-107) mmol/L Carbon Dioxide 27 (22-30) mmol/L Anion Gap 9 mmol/L BUN 12 (7-17) mg/dL Creatinine 0.60 (0.52-1.04) mg/dL Est GFR (MDRD) Af Amer >60 (>60 ml/min/1.73 sqM) Est GFR (MDRD) Non-Af >60 (>60 ml/min/1.73 sqM) Glucose 113 H (74-99) mg/dL Plasma Lactic Acid Kana (0.7-2.0) mmol/L Calcium 9.3 (8.4-10.2) mg/dL Total Bilirubin 1.2 (0.2-1.3) mg/dL AST 39 H (14-36) U/L ALT 28 (9-52) U/L Alkaline Phosphatase 94 (38-126) U/L Total Creatine Kinase 39 (30-135) U/L CK-MB (CK-2) 0.3 (0.0-2.4) ng/mL CK-MB (CK-2) Rel Index 0.8 Troponin I <0.012 (0.000-0.034) ng/mL Total Protein 6.3 (6.3-8.2) g/dL Albumin 3.4 L (3.5-5.0) g/dL Urine Color Urine Appearance (Clear) Urine pH (5.0-8.0) Ur Specific [place] (1.001-1.035) Urine Protein (Negative) Urine Glucose (UA) (Negative) Urine Ketones (Negative) Urine Blood (Negative) Urine Nitrite (Negative) Urine Bilirubin (Negative) Urine Urobilinogen (<2.0) mg/dL Ur Leukocyte Esterase (Negative) Urine RBC (0-5) /hpf Urine WBC (0-5) /hpf Ur Squamous Epith Cells (0-4) /hpf Amorphous Sediment (None) /hpf 01/24/17 01/24/17 01/24/17 Range/Units 18:20 18:20 19:48 WBC (3.8-10.6) k/uL RBC (3.80-5.40) m/uL Hgb (11.4-16.0) gm/dL Hct (34.0-46.0) % MCV (80.0-100.0) fL MCH (25.0-35.0) pg MCHC (31.0-37.0) g/dL RDW (11.5-15.5) % Plt Count (150-450) k/uL Neutrophils % % Lymphocytes % % Monocytes % % Eosinophils % % Basophils % % Neutrophils # (1.3-7.7) k/uL Lymphocytes # (1.0-4.8) k/uL Monocytes # (0-1.0) k/uL Eosinophils # (0-0.7) k/uL Basophils # (0-0.2) k/uL Hypochromasia PT 12.1 H (9.0-12.0) sec INR 1.2 H (<1.2) APTT 22.2 (22.0-30.0) sec Sodium (137-145) mmol/L Potassium (3.5-5.1) mmol/L Chloride (98-107) mmol/L Carbon Dioxide (22-30) mmol/L Anion Gap mmol/L BUN (7-17) mg/dL Creatinine (0.52-1.04) mg/dL Est GFR (MDRD) Af Amer (>60 ml/min/1.73 sqM) Est GFR (MDRD) Non-Af (>60 ml/min/1.73 sqM) Glucose (74-99) mg/dL Plasma Lactic Acid Kana 1.8 (0.7-2.0) mmol/L Calcium (8.4-10.2) mg/dL Total Bilirubin (0.2-1.3) mg/dL AST (14-36) U/L ALT (9-52) U/L Alkaline Phosphatase (38-126) U/L Total Creatine Kinase (30-135) U/L CK-MB (CK-2) (0.0-2.4) ng/mL CK-MB (CK-2) Rel Index Troponin I (0.000-0.034) ng/mL Total Protein (6.3-8.2) g/dL Albumin (3.5-5.0) g/dL Urine Color Yellow Urine Appearance Clear (Clear) Urine pH 5.0 (5.0-8.0) Ur Specific [place] 1.008 (1.001-1.035) Urine Protein Trace H (Negative) Urine Glucose (UA) Negative (Negative) Urine Ketones Negative (Negative) Urine Blood Negative (Negative) Urine Nitrite Negative (Negative) Urine Bilirubin Negative (Negative) Urine Urobilinogen <2.0 (<2.0) mg/dL Ur Leukocyte Esterase Moderate H (Negative) Urine RBC 3 (0-5) /hpf Urine WBC 18 H (0-5) /hpf Ur Squamous Epith Cells <1 (0-4) /hpf Amorphous Sediment Rare H (None) /hpf Critical Care Time Critical Care Time: Yes Total Critical Care Time: 35 Disposition Clinical Impression: Healthcare-associated pneumonia, COPD exacerbation, Atrial fibrillation with RVR Disposition: ADMITTED IP TO THIS [facility] Condition: Serious Referrals: Maude Paez MD [Primary Care Provider] - 1-2 days Decision to Admit Reason: Admit from EC Decision Date: 01/24/17 Decision Time: 21:42
[2017-01-24] MEDS ORDERED: DEXAMETHASONE SOD PHOSPHATE 10 MG/ML 1 ML VIAL IV STA (18:08)
[2017-01-24] MEDS ORDERED: IPRATROPIUM 0.5 MG/2.5 ML NEBU INHALATION STA (18:08)
[2017-01-24] MEDS ORDERED: ALBUTEROL NEBULIZED 2.5 MG/3 ML INHALATION STA ×2 (18:08→21:25)
[2017-01-24] MEDS ORDERED: DILTIAZEM 125 MG in SODIUM CHLORIDE 0.9% 100 ML IV ONE (18:09)
[2017-01-24 18:41] LABS: ALT 28 U/L (9-52); AST 39 U/L (14-36); Alkaline Phosphatase 94 U/L (38-126); Anion Gap 9 mmol/L; Blood Urea Nitrogen 12 mg/dL (7-17); Calcium 9.3 mg/dL (8.4-10.2); Carbon Dioxide 27 mmol/L (22-30); Chloride 100 mmol/L (98-107); Glucose 113 mg/dL (74-99); Non-African American GFR(MDRD) >60 (>60 ml/min/1.73 sqM); Sodium 136 mmol/L (137-145); Total Bilirubin 1.2 mg/dL (0.2-1.3); Total Protein 6.3 g/dL (6.3-8.2)
[2017-01-24 18:42] LABS: INR 1.2 (<1.2); Prothrombin Time 12.1 sec (9.0-12.0)
[2017-01-24 18:43] LABS: Potassium 3.8 mmol/L (3.5-5.1)
[2017-01-24 18:44] LABS: Basophils % (A) 0 %; CH 29.8; CHCM 31.9; Eosinophils # (A) 0.1 k/uL (0-0.7); Eosinophils % (A) 1 %; HCT 46.6 % (34.0-46.0); HDW 2.59; HGB 14.6 gm/dL (11.4-16.0); Hypochromasia Slight; Luc # (Auto) 0.03; Luc % (Auto) 0; Lymphocytes # (A) 0.5 k/uL (1.0-4.8); Lymphocytes % (A) 4 %; MCH 29.3 pg (25.0-35.0); MCHC 31.3 g/dL (31.0-37.0); MCV 93.9 fL (80.0-100.0); Mean Platelet Volume 8.4; Monocytes # (A) 0.3 k/uL (0-1.0); Monocytes % (A) 2 %; Neutrophils # (A) 13.5 k/uL (1.3-7.7); Neutrophils % (A) 93 %; RBC 4.96 m/uL (3.80-5.40); WBC 14.5 k/uL (3.8-10.6); WBC (Perox) 14.46
[2017-01-24 18:49] LABS: Creatine Kinase 39 U/L (30-135); Partial Thromboplastin Time 22.2 sec (22.0-30.0)
[2017-01-24 19:02] LABS: Creatine Kinase MB 0.3 ng/mL (0.0-2.4); Troponin I <0.012 ng/mL (0.000-0.034)
[2017-01-24] MEDS ORDERED: VANCOMYCIN IV PER PHARMACY 1 EACH MISC MISCELLANE PRN (19:19)
[2017-01-24] MEDS ORDERED: VANCOMYCIN 1,500 MG in SODIUM CHLORIDE 0.9% 250 ML IVPB STA (19:21)
--- NOTE | 2017-01-24 19:45 | XR ---
EXAMINATION TYPE: XR chest 2V DATE OF EXAM: 01/24/2017 COMPARISON: CTA chest December 17, 2016. Most recent chest x-ray December 17, 2016 HISTORY: Dyspnea on fever. TECHNIQUE: Frontal and lateral views of the chest are obtained. FINDINGS: There is redemonstration of cardiomegaly. There is new bibasilar opacity felt to reflect small right greater than left pleural effusions and associated bibasilar atelectasis and/or infiltra te. Upper lungs are clear without pneumothorax. The osseous structures are intact. IMPRESSION: Consider CHF exacerbation as there is cardiomegaly with new small right greater than ple ural effusions. Underlying bibasilar infiltrates are not excluded. Correlate clinically.
--- NOTE | 2017-01-24 19:51 | XR ---
EXAMINATION TYPE: XR KUB DATE OF EXAM: 01/24/2017 7:05 PM CLINICAL HISTORY: Nausea and vomiting. TECHNIQUE: Two supine KUB images of the abdomen are obtained. COMPARISON: CT abdomen and pelvis December 04, 2016 FINDINGS: Scattered gas is seen in non-distended stomach and small bowel loops. Gas is seen in non-di stended colon. Left lower quadrant colostomy is noted. Surgical clips left lower quadrant and pelvis are present. There are scattered right lower quadrant phleboliths. Metallic hardware from left hip arriola rgery is seen. There is moderate to advanced joint space loss right hip joint. Vascular calcification and phleboliths overlie pelvis. IMPRESSION: Overall nonobstructive bowel gas pattern remains present.
[2017-01-24 19:59] LABS: Amorphous Sediment,Urine Rare /hpf; Appearance,Urine Clear (Clear); Bilirubin,Urine Negative (Negative); Glucose,Urine (UA) Negative (Negative); Ketones,Urine Negative (Negative); Leukocyte Esterase,Urine Moderate (Negative); Nitrite,Urine Negative (Negative); Particle Count 3421; Protein,Urine Trace (Negative); RBC,Urine 3 /hpf (0-5); Specific Gravity,Urine 1.008 (1.001-1.035); Squamous Epithelial Cell,Urine <1 /hpf (0-4); UA Billing (MACRO vs. MICRO) MICRO; Urobilinogen,Urine <2.0 mg/dL (<2.0); WBC,Urine 18 /hpf (0-5)
[2017-01-24] MEDS: CEFEPIME 2 GM in SODIUM CHLORIDE 0.9% 50 ML IVPB SCH (23:49)
[2017-01-24] MEDS: methylPREDNISolone SOD SUCCI 125 MG/2 ML VIAL IV SCH (23:49)
[2017-01-25] MEDS: SODIUM CHLORIDE 0.9% 250 ML IV SCH ×5 (00:44→00:48)
[2017-01-25 06:10] LABS: Glucose,Whole Blood 180 mg/dL (75-99)
[2017-01-25 06:12] LABS: Basophils # (A) 0.1 k/uL (0-0.2); Basophils % (A) 0 %; CH 29.4; CHCM 30.5; Eosinophils # (A) 0.1 k/uL (0-0.7); Eosinophils % (A) 0 %; HCT 46.9 % (34.0-46.0); HDW 2.47; HGB 14.5 gm/dL (11.4-16.0); Hypochromasia Moderate; Luc # (Auto) 0.04; Luc % (Auto) 0; Lymphocytes # (A) 0.4 k/uL (1.0-4.8); Lymphocytes % (A) 2 %; MCHC 30.9 g/dL (31.0-37.0); Mean Platelet Volume 7.7; Monocytes # (A) 0.3 k/uL (0-1.0); Monocytes % (A) 2 %; Neutrophils # (A) 20.2 k/uL (1.3-7.7); Neutrophils % (A) 96 %; RBC 4.84 m/uL (3.80-5.40); RDW 15.1 % (11.5-15.5); WBC 21.1 k/uL (3.8-10.6); WBC (Perox) 21.15
[2017-01-25 06:25] LABS: ALT 30 U/L (9-52); AST 21 U/L (14-36); Alkaline Phosphatase 77 U/L (38-126); Anion Gap 10 mmol/L; Calcium 8.7 mg/dL (8.4-10.2); Carbon Dioxide 24 mmol/L (22-30); Chloride 104 mmol/L (98-107); Glucose 185 mg/dL (74-99); Non-African American GFR(MDRD) >60 (>60 ml/min/1.73 sqM); Potassium 4.4 mmol/L (3.5-5.1); Sodium 138 mmol/L (137-145); Total Bilirubin 0.7 mg/dL (0.2-1.3); Total Protein 6.1 g/dL (6.3-8.2)
[2017-01-25] MEDS: methylPREDNISolone SOD SUCCI 125 MG/2 ML VIAL IV SCH ×3 (06:26→17:16)
[2017-01-25 06:30] LABS: Blood Urea Nitrogen 17 mg/dL (7-17)
[2017-01-25] MEDS: INSULIN LISPRO (humaLOG) 300 UNIT/3 ML VIAL SQ SCH ×4 (06:55→21:53)
[2017-01-25] MEDS: CEFEPIME 2 GM in SODIUM CHLORIDE 0.9% 50 ML IVPB SCH ×2 (07:48→15:10)
[2017-01-25] MEDS: IPRATROPIUM-ALBUTEROL 3 ML NEB INHALATION PRN ×4 (08:24→20:27)
[2017-01-25] MEDS ORDERED: RIVAROXABAN 10 MG TAB PO SCH (09:00)
[2017-01-25] MEDS ORDERED: AZITHROMYCIN 500 MG TAB PO SCH (09:00)
--- NOTE | 2017-01-25 09:10 | P.CRDCN ---
History of Present Illness Consult date: 01/25/17 Chief complaint: Shortness of breath History of present illness: This is a pleasant 71-year-old female patient who I follow in the office as an outpatient who used to see Dr. Sanchez in the past with a past medical history significant for COPD, long standing persistent A. fib, came in to the hospital complaining of shortness of breath. The patient was admitted to the hospital back in November 2016 with a pneumonia and at that point she was in A. fib with RVR. She was discharged home in stable medical condition. She is on oral anticoagulation with Xarelto. At that time in November 2016 the echocardiogram revealed normal LV function without any significant valvular abnormalities. This time she presented back to the hospital complaining of progressive dyspnea. Beside that she has a component of orthopnea. She stated that she gained some weight lately. No bilateral lower extremities edema. She did not have any chest pain or chest discomfort. The EKG showed A. fib with RVR and the patient was started on Cardizem IV. The chest x-ray showed bilateral pleural effusion. We don't have BNP at this time. The cardiac enzymes were checked and came in to be within normal limits. 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 uses cane or walker as needed History of Any Multi-Drug Resistant Organisms: C-DIFF Date of last positivie culture/infection: 2014 MDRO Source:: cdiff Past Surgical History: Bladder Surgery, Bowel Resection, Joint Replacement, Orthopedic Surgery, Tonsillectomy, Tubal Ligation Additional Past Surgical History / Comment(s): 07/2015 cystoscopy with bladder bxs, Bowel RESECTIONs d/t ANAL CA x 2,has colostomy, bladder suspension x2- all done at [facility], urethropexies, fecal transplant at [facility] with no CDiff since, CARDIOVERSION, JOINT REPLACEMENTS: RT ELBOW & LEFT KNEE, LEFT HIP, RT FOOT surgery X2: [facility]OE [facility] BUNION. R foot 5th toe bone removed. Septoplasty. Bilateral eyelid sx. Past Anesthesia/Blood Transfusion Reactions: No Reported Reaction Past Psychological History: No Psychological Hx Reported Additional Psychological History / Comment(s): . Retired. Lifelong nonsmoker. No recent travel. No experience. patient has 1 cat and 1 dog Smoking Status: Never smoker Past Alcohol Use History: None Reported Past Drug Use History: None Reported - Past Family History Brother(s) Family Medical History: Blood Disorder Additional Family Medical History / Comment(s): bowel resection Mother Family Medical History: No Reported History Father Family Medical History: Unable to Obtain Additional Family Medical History / Comment(s): Father at the age of 35yrs following a stomach surgery. Pt unsure what was wrong with his stomach. Medications and Allergies Home Medications Medication Instructions Recorded Confirmed Type Budesonide-Formot 160-4.5 Mcg 2 puff INHALATION RT-DAILY PRN 11/30/13 01/24/17 History [Symbicort 160-4.5 Mcg Inhaler] Losartan/Hydrochlorothiazide 1 tab PO DAILY 11/30/13 01/24/17 History [Losartan-Hctz 100-25 mg Tab] amLODIPine [Norvasc] 5 mg PO HS 11/30/13 01/24/17 History Magnesium Gluconate [Magonate] 500 mg PO DAILY 11/19/15 01/24/17 History Oberon-3 Fatty Acids/Fish Oil [Fish 2 cap PO DAILY 11/19/15 01/24/17 History Oil 1,000 mg Softgel] Potassium Gluconate 99 mg PO DAILY 11/19/15 01/24/17 History Leflunomide [Arava] 20 mg PO DAILY 04/18/16 01/24/17 History Rivaroxaban [Xarelto] 20 mg PO DAILY 12/04/16 01/24/17 History Ipratropium/Albuterol Sulfate 2 puff INHALATION RT-QID #0 12/08/16 01/24/17 Rx [Combivent Respimat Inhaler] Sotalol [Betapace] 120 mg PO TID #90 tab 12/14/16 01/24/17 Rx predniSONE 10 mg PO DAILY 01/24/17 01/24/17 History Allergies Allergy/AdvReac Type Severity Reaction Status Date / Time No Known Allergies Allergy Verified 01/24/17 22:55 Physical Exam Vitals: Vital Signs Temp Pulse Pulse Resp BP BP Pulse Ox 01/25/17 08:38 104 H 01/25/17 08:24 104 H 01/25/17 08:00 100 19 01/25/17 07:46 98.1 F 100 19 97/72 92 L 01/25/17 06:30 104/55 01/25/17 04:00 97.8 F 93 18 93/66 91 L 01/25/17 00:00 98.1 F 88 18 98/63 92 L 01/24/17 22:15 109 H 01/24/17 22:12 103 H 16 91/76 94 L 01/24/17 21:58 112 H 01/24/17 21:33 107 H 16 97/61 91 L 01/24/17 21:11 102 H 16 88/53 91 L 01/24/17 20:34 91 16 91/50 87 L 01/24/17 19:38 109 H 16 86/52 92 L 01/24/17 18:35 124 H 25 H 102/55 01/24/17 18:29 131 H 01/24/17 18:20 134 H 01/24/17 17:53 100.9 F H 120 H 24 198/110 91 L Intake and Output 01/24/17 01/25/17 01/25/17 22:59 06:59 14:59 Intake Total 125 405 360 Output Total 100 Balance 125 305 360 Intake: IV 125 405 Cefepime 2 gm In Sodium 50 Chloride 0.9% 50 ml @ 100 mls/hr IVPB Q8HR [facility] Rx# :[id number] Diltiazem 125 mg In 30 Sodium Chloride 0.9% 100 ml @ 5 MG/HR 5 mls/hr IV .Q24H ONE Rx#:[id number] Sodium Chloride 0.9% 1, 75 375 000 ml @ 75 mls/hr IV . [id number] [facility] Rx#:[id number] Oral 360 Output: Urine 100 Other: # Voids 1 1 Weight 99.79 kg 87.6 kg - Constitutional General appearance: no acute distress - Respiratory Respiratory: bilateral: diminished, rales - Cardiovascular Rhythm: irregularly irregular Heart sounds: normal: S1, S2 Results 01/25/17 05:22 01/25/17 05:22 Cardiac Enzymes 01/24/17 01/24/17 01/25/17 Range/Units 18:20 18:20 05:22 AST 39 H 21 (14-36) U/L CK-MB (CK-2) 0.3 (0.0-2.4) ng/mL Troponin I <0.012 (0.000-0.034) ng/mL Coagulation 01/24/17 Range/Units 18:20 PT 12.1 H (9.0-12.0) sec APTT 22.2 (22.0-30.0) sec CBC 01/24/17 01/25/17 Range/Units 18:20 05:22 WBC 14.5 H 21.1 H (3.8-10.6) k/uL RBC 4.96 4.84 (3.80-5.40) m/uL Hgb 14.6 14.5 (11.4-16.0) gm/dL Hct 46.6 H 46.9 H (34.0-46.0) % Plt Count 233 215 (150-450) k/uL Comprehensive Metabolic Panel 01/24/17 01/25/17 Range/Units 18:20 05:22 Sodium 136 L 138 (137-145) mmol/L Potassium 3.8 4.4 (3.5-5.1) mmol/L Chloride 100 104 (98-107) mmol/L Carbon Dioxide 27 24 (22-30) mmol/L BUN 12 17 (7-17) mg/dL Creatinine 0.60 0.85 (0.52-1.04) mg/dL Glucose 113 H 185 H (74-99) mg/dL Calcium 9.3 8.7 (8.4-10.2) mg/dL AST 39 H 21 (14-36) U/L ALT 28 30 (9-52) U/L Alkaline Phosphatase 94 77 (38-126) U/L Total Protein 6.3 6.1 L (6.3-8.2) g/dL Albumin 3.4 L 3.3 L (3.5-5.0) g/dL Current Medications Generic Name Dose Route Start Last Admin Trade Name Freq PRN Reason Stop Dose Admin Albuterol/Ipratropium 3 ml 01/24/17 21:34 01/25/17 08:24 Duoneb 0.5 Mg-3 Mg/3 Ml Soln INHALATION 3 ml RT-Q4H PRN Administration Shortness Of Breath Or Wheezing Azithromycin 500 mg 01/25/17 09:00 01/25/17 07:48 Zithromax PO 500 mg DAILY [facility] Administration Diltiazem HCl 125 mg/ Sodium 125 mls @ 5 mls/hr 01/24/17 18:09 01/24/17 18:27 Chloride IV 01/25/17 18:08 5 mg/hr .Q24H ONE 5 mls/hr Protocol Administration 5 MG/HR Cefepime HCl 2 gm/ Sodium 50 mls @ 100 mls/hr 01/24/17 22:00 01/25/17 07:48 Chloride IVPB 100 mls/hr Q8HR [facility] Administration Vancomycin HCl 1,500 mg/ 250 mls @ 125 mls/hr 01/25/17 11:00 Sodium Chloride IVPB Q16H [facility] Insulin Human Lispro 0 unit 01/25/17 07:30 01/25/17 06:55 Humalog SQ 4 unit ACHS [facility] Administration Protocol Methylprednisolone Sodium Succinate 60 mg 01/25/17 00:00 01/25/17 06:26 Solu-Medrol IV 60 mg Q6HR [facility] Administration Rivaroxaban 20 mg 01/25/17 18:00 Xarelto PO DAILY@1800 [facility] Intake and Output 01/24/17 01/25/17 01/25/17 22:59 06:59 14:59 Intake Total 125 405 360 Output Total 100 Balance 125 305 360 Intake: IV 125 405 Cefepime 2 gm In Sodium 50 Chloride 0.9% 50 ml @ 100 mls/hr IVPB Q8HR [facility] Rx# :[id number] Diltiazem 125 mg In 30 Sodium Chloride 0.9% 100 ml @ 5 MG/HR 5 mls/hr IV .Q24H [facility] Rx#:[id number] Sodium Chloride 0.9% 1, 75 375 000 ml @ 75 mls/hr IV . [id number] [facility] Rx#:[id number] Oral 360 Output: Urine 100 Other: # Voids 1 1 Weight 99.79 kg 87.6 kg 01/25/17 05:22 01/25/17 05:22 Assessment and Plan Assessment: This is a pleasant 71-year-old female patient with a known long- standing persistent A. fib as well as COPD presented back to the hospital complaining of shortness of breath and was found to be in A. fib with RVR and was started on Cardizem drip. Currently the patient is in A. fib with heart rate between 100 and 110 beats per minute. She is on Cardizem at 5 mg per hour. She is on oral anticoagulation using Xarelto. Beside that the patient is on IV fluid at 75 mL per hour. I am going to DC the Cardizem IV and start the patient on Cardizem by mouth. I' m going to DC the IV fluid. I do feel that the patient has a component of CHF and I am going to obtain a BNP. Continue oral anticoagulation. No need to repeat the echocardiogram in view of recent echocardiogram showing normal LV function. We'll continue following up with the patient.
[2017-01-25] MEDS ORDERED: VANCOMYCIN 1,500 MG in SODIUM CHLORIDE 0.9% 250 ML IVPB SCH (11:00)
[2017-01-25] MEDS: DILTIAZEM CD 180 MG CAP.ER.24H PO SCH (11:18)
[2017-01-25 11:43] LABS: Glucose,Whole Blood 190 mg/dL (75-99)
--- NOTE | 2017-01-25 14:49 | HP ---
HISTORY AND PHYSICAL CHIEF COMPLAINT: Shortness of breath and palpitations. HISTORY OF PRESENT ILLNESS: This is a 71-year-old woman with a past medical history of COPD, history of atrial fibrillation, history of DVT, GERD, hypertension, hyperlipidemia, history of pneumonia, being followed by [facility] in the outpatient setting was admitted recently with COPD and pneumonia. Patient improved significantly. Patient went home and currently the patient is complaining of shortness of breath and some vomiting also. The patient was found to have COPD, acute exacerbation, as well as atrial fibrillation with fast ventricular rate. The patient is started on Cardizem drip. Patient admitted for further evaluation and treatment. Bronchodilator was also given. There is no history of fever, rigors or chills. No history of headache, loss of consciousness or seizures. PAST MEDICAL HISTORY: Atrial fibrillation, history of DVT, GERD, hypertension, pneumonia. MEDICATIONS: Prior to admission include, the home medications are 1. Prednisone 10 mg p.o. daily. 2. Betapace 120 mg p.o. t.i.d. 3. Xarelto 20 mg p.o. daily. 4. Potassium gluconate 99 mg p.o. daily. 5. Fish oil 2 capsules daily. 6. Magonate 500 mg p.o. daily. 7. Losartan hydrochlorothiazide 100/25 b.i.d. 8. Arava 20 mg p.o. daily. 9. Combivent 2 puffs q.i.d. 10.Symbicort 160/4.5 two puffs daily p.r.n. 11.Norvasc 5 mg q.h.s. ALLERGIES: None. FAMILY HISTORY: History of stomach surgery in father. SOCIAL HISTORY: No history of smoking or alcohol currently. REVIEW OF SYSTEMS: ENT: No diminished hearing or vision. CARDIOVASCULAR: No angina, no palpitation. RESPIRATORY: As mentioned earlier. GI: No nausea. : No dysuria. NERVOUS SYSTEM: No numbness or weakness. ALLERGY/IMMUNOLOGY: No asthma or hayfever. MUSCULOSKELETAL: As mentioned earlier. HEMATOLOGY: No history of anemia. ENDOCRINE: No history of diabetes or hypothyroidism. CONSTITUTIONAL: As mentioned earlier. DERMATOLOGY: Negative. PSYCHIATRY: As mentioned earlier. PHYSICAL EXAMINATION: Patient is alert and oriented x3. The pulse is 97, blood pressure 120/72, respiration 19, temperature is normal, pulse ox 94% on 6 L. HEENT: Conjunctivae normal. Oral mucosa moist. Neck is no jugular venous distention. No lymph node enlargement. CARDIOVASCULAR: S1, S2. RESPIRATORY: Breath sounds diminished at the bases, bilateral scattered rhonchi, no crackles and expiratory wheezing also present. ABDOMEN: Soft, nontender. No mass palpable. LEGS: Minimal bilateral leg edema. NERVOUS SYSTEM: Higher functions as mentioned, moves all 4 limbs, no focal deficits. LYMPHATICS: No lymph node enlargement in the neck or axillae. SKIN: No ulcer, rash or bleeding. LABS: At this time shows the WBC 21.1. The other labs are noted. ASSESSMENT: 1. Chronic obstructive pulmonary disease acute exacerbation with possible acute periventricular bronchitis, possible pneumonia. 2. Atrial fibrillation with fast ventricular rate. 3. History of recent pneumonia. 4. History of deep venous thrombosis. 5. Hypertension. 6. History of pulmonary embolus. 7. History of rheumatoid arthritis. 8. Bilateral leg deep venous thrombosis. 9. History of MTHFR gene mutation. 10.History of Clostridium difficile and history of fecal transplantation. 11.History of bowel resection. RECOMMENDATION: In this 71-year-old woman who presented with multiple complex medical issues, will monitor the patient closely. Continue with the current management and symptomatic treatment. Will continue with the Cardizem drip. Otherwise, also continue with bronchodilators. Patient initiated on vancomycin at this time. Continue to monitor. Will also obtain a Pulmonary consultation as well. Prognosis guarded. Further recommendation to follow. MMODL / IJN: [id number] /
[2017-01-25] MEDS: SOTALOL 120 MG TAB PO SCH ×2 (15:10→20:23)
--- NOTE | 2017-01-25 16:04 | P.CNPUL ---
History of Present Illness Consult date: 01/25/17 Reason for consult: dyspnea History of present illness: This is a 71-year-old female patient who is known to our service. The patient has been followed up by Dr. Sawyer. The patient is known to have COPD. The patient is known to have rheumatoid arthritis. The patient also has previous history of bilateral DVTs and previous pulmonary embolism and has been attributed to underlying hypercoagulable state. The patient came into the hospital because of worsening shortness of breath. She was found to be in atrial fibrillation with rapid ventricular response. Her chest x-ray shows small bilateral pleural effusion. The patient is on long-term anticoagulation. The patient denies having any chest pain. No cough or sputum production. The patient was started on Cardizem drip. Cardiac enzymes came back within normal limits. Cardiology will be evaluating this patient. The echocardiogram from 2016 showed mild concentric ventricular hypertrophy. The patient has an ejection fraction of 55-60%. There was also [id number] degree of pulmonary hypertension. No swelling lower extremities. No pleurisy. No hemoptysis. No fever chills or night sweats. She is already feeling better as the patient's atrial fibrillation is under better control for now. Note that the patient is known to have paroxysmal atrial fibrillation. She is on oxygen at 2 L/m nasal cannula. She has rheumatoid arthritis that there is no evidence of any interstitial lung disease based on the most recent CAT scan of the chest. Review of Systems Constitutional: Reports fatigue, Reports weakness, Reports weight gain Eyes: denies blurred vision, denies bulging eye, denies decreased vision Ears: deny: decreased hearing, ear discharge, earache Ears, nose, mouth and throat: Reports as per HPI Cardiovascular: Reports irregular heart beat, Reports rapid heart beat Respiratory: Reports dyspnea Gastrointestinal: Reports as per HPI Genitourinary: Reports as per HPI Musculoskeletal: absent: ankle stiffness, ankle swelling, as per HPI Integumentary: Denies pruritus, Denies rash Neurological: Denies numbness, Denies weakness Psychiatric: Denies anxiety, Denies depression Endocrine: Denies fatigue, Denies weight change Past Medical History Past Medical History: Atrial Fibrillation, Blood Disorder, Cancer, Deep Vein Thrombosis (DVT), GERD/Reflux, Hypertension, Pneumonia, Pulmonary Embolus (PE), Rheumatoid Arthritis (RA) Additional Past Medical History / Comment(s): COPD, rheumatoid arthritis, previous history of bilateral DVT and pulmonary embolism, hypercoagulability with a MT HFR gene mutation, basal cell carcinoma of the skin/tip of the nose that has been resected, chronic back pain, recurrent urine checked infection, 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 uses cane or walker as needed History of Any Multi-Drug Resistant Organisms: C-DIFF Date of last positivie culture/infection: 2014 MDRO Source:: cdiff Past Surgical History: Bladder Surgery, Bowel Resection, Joint Replacement, Orthopedic Surgery, Tonsillectomy, Tubal Ligation Additional Past Surgical History / Comment(s): Cystoscopy, bowel resection with diverticular colostomy, bladder suspension surgery 2, urethropexy, fecal transplantation for C. diff colitis, electric cardioversion, left knee replacement, left hip replacement, right foot surgery 2 for hammertoe and bunion, Septoplasty. Bilateral eyelid sx. Past Anesthesia/Blood Transfusion Reactions: No Reported Reaction Past Psychological History: No Psychological Hx Reported Additional Psychological History / Comment(s): . Retired. Lifelong nonsmoker. No recent travel. No experience. patient has 1 cat and 1 dog Smoking Status: Never smoker Past Alcohol Use History: None Reported Past Drug Use History: None Reported - Past Family History Brother(s) Family Medical History: Blood Disorder Additional Family Medical History / Comment(s): bowel resection Mother Family Medical History: No Reported History Father Family Medical History: Unable to Obtain Additional Family Medical History / Comment(s): Father at the age of 35yrs following a stomach surgery. Pt unsure what was wrong with his stomach. Medications and Allergies Home Medications Medication Instructions Recorded Confirmed Type Budesonide-Formot 160-4.5 Mcg 2 puff INHALATION RT-DAILY PRN 11/30/13 01/24/17 History [Symbicort 160-4.5 Mcg Inhaler] Losartan/Hydrochlorothiazide 1 tab PO DAILY 11/30/13 01/24/17 History [Losartan-Hctz 100-25 mg Tab] amLODIPine [Norvasc] 5 mg PO HS 11/30/13 01/24/17 History Magnesium Gluconate [Magonate] 500 mg PO DAILY 11/19/15 01/24/17 History Kenneth-3 Fatty Acids/Fish Oil [Fish 2 cap PO DAILY 11/19/15 01/24/17 History Oil 1,000 mg Softgel] Potassium Gluconate 99 mg PO DAILY 11/19/15 01/24/17 History Leflunomide [Arava] 20 mg PO DAILY 04/18/16 01/24/17 History Rivaroxaban [Xarelto] 20 mg PO DAILY 12/04/16 01/24/17 History Ipratropium/Albuterol Sulfate 2 puff INHALATION RT-QID #0 12/08/16 01/24/17 Rx [Combivent Respimat Inhaler] Sotalol [Betapace] 120 mg PO TID #90 tab 12/14/16 01/24/17 Rx predniSONE 10 mg PO DAILY 01/24/17 01/24/17 History Allergies Allergy/AdvReac Type Severity Reaction Status Date / Time No Known Allergies Allergy Verified 01/24/17 22:55 Physical Exam Vitals: Vital Signs Temp Pulse Pulse Resp BP BP Pulse Ox 01/25/17 15:07 97.8 F 88 18 118/61 93 L 01/25/17 15:01 19 01/25/17 12:05 100 01/25/17 11:53 96 01/25/17 11:49 94 L 01/25/17 11:16 97 19 110/72 95 01/25/17 08:38 104 H 01/25/17 08:24 104 H 01/25/17 08:00 100 19 01/25/17 07:46 98.1 F 100 19 97/72 92 L 01/25/17 06:30 104/55 01/25/17 04:00 97.8 F 93 18 93/66 91 L 01/25/17 00:00 98.1 F 88 18 98/63 92 L 01/24/17 22:15 109 H 01/24/17 22:12 103 H 16 91/76 94 L 01/24/17 21:58 112 H 01/24/17 21:33 107 H 16 97/61 91 L 01/24/17 21:11 102 H 16 88/53 91 L 01/24/17 20:34 91 16 91/50 87 L 01/24/17 19:38 109 H 16 86/52 92 L 01/24/17 18:35 124 H 25 H 102/55 01/24/17 18:29 131 H 01/24/17 18:20 134 H 01/24/17 17:53 100.9 F H 120 H 24 198/110 91 L Intake and Output 01/25/17 01/25/17 01/25/17 06:59 14:59 22:59 Intake Total 405 870 Output Total 100 Balance 305 870 Intake: IV 405 80 Cefepime 2 gm In Sodium 50 Chloride 0.9% 50 ml @ 100 mls/hr IVPB Q8HR [facility] Rx# :[id number] Diltiazem 125 mg In 30 30 Sodium Chloride 0.9% 100 ml @ 5 MG/HR 5 mls/hr IV .Q24H [facility] Rx#:[id number] Sodium Chloride 0.9% 1, 375 000 ml @ 75 mls/hr IV . [id number] [facility] Rx#:[id number] Intake, IV Titration 250 Amount Vancomycin 1,500 mg In 250 Sodium Chloride 0.9% 250 ml @ 125 mls/hr IVPB Q16H [facility] Rx#:[id number] Oral 540 Output: Urine 100 Other: # Voids 1 1 Weight 87.6 kg Gen. appearance the patient is calm comfortable likely distress.Head exam was generally normal. There was no scleral icterus or corneal arcus. Mucous membranes were moist.Neck was supple and without jugular venous distension, thyromegaly, or carotid bruits. Carotids were easily palpable bilaterally. There was no adenopathy. Lung sounds are diminished bilaterally especially lung bases otherwise clear. Heart sounds are irregular, positive S1-S2, no significant murmurs appreciated.Abdominal exam revealed normal bowel sounds. The abdomen was soft, non-tender, and without masses, organomegaly, or appreciable enlargement of the abdominal aorta.Examination of the extremities revealed easily palpable radial, femoral and pedal pulses. There was no cyanosis , clubbing or edema.Examination of the skin revealed no evidence of significant rashes, suspicious appearing nevi or other concerning lesions. Neurologically the patient is awake and alert and there is no focal neurological deficit. Muscular Exam negative for any joint deformities Results - Laboratory Findings CBC and BMP: 01/25/17 05:22 01/25/17 05:22 PT/INR, D-dimer PT 12.1 sec (9.0-12.0) H 01/24/17 18:20 INR 1.2 (<1.2) H 01/24/17 18:20 Abnormal lab findings: Abnormal Labs 01/24/17 01/24/17 01/24/17 18:20 18:20 18:20 WBC 14.5 H Hct 46.6 H MCHC Neutrophils # 13.5 H Lymphocytes # 0.5 L PT 12.1 H INR 1.2 H Sodium 136 L Glucose 113 H POC Glucose (mg/dL) AST 39 H Total Protein Albumin 3.4 L Urine Protein Ur Leukocyte Esterase Urine WBC Amorphous Sediment 01/24/17 01/25/17 01/25/17 19:48 05:22 05:22 WBC 21.1 H Hct 46.9 H MCHC 30.9 L Neutrophils # 20.2 H Lymphocytes # 0.4 L PT INR Sodium Glucose 185 H POC Glucose (mg/dL) AST Total Protein 6.1 L Albumin 3.3 L Urine Protein Trace H Ur Leukocyte Esterase Moderate H Urine WBC 18 H Amorphous Sediment Rare H 01/25/17 01/25/17 06:08 11:40 WBC Hct MCHC Neutrophils # Lymphocytes # PT INR Sodium Glucose POC Glucose (mg/dL) 180 H 190 H AST Total Protein Albumin Urine Protein Ur Leukocyte Esterase Urine WBC Amorphous Sediment - Diagnostic Findings Chest x-ray: image reviewed Assessment and Plan Plan: 1 Acute shortness of breath, likely on the basis of CHF in the setting of an acute A. fib with RVR 2 CHF with bilateral pleural effusions, small. Based on echocardiogram at shown a preserved LV function with mild concentric left ventricular hypertrophy 3 COPD currently inactive in stable 4 chronic hypoxic respiratory failure 5 paroxysmal atrial fibrillation 6 rheumatoid arthritis without evidence of any interstitial lung disease and the patient has been maintained on a combination of Arava and prednisone outpatient basis 7 DVT bilaterally with previous history of pulmonary embolism currently on oral anticoagulants 8 history of hypercoagulable state 9 basal cell carcinoma of the skin, resected 10 rectal cancer status post colectomy 11 previous history of C. diff colitis requiring a CT transplantation 12 osteoarthritis with multiple previous orthopedic surgeries Plan Stop the cefepime and vancomycin. Avoid the use of antibiotics especially with the patient's history of C. diff colitis in the absence of any strict indication for pneumonia. Management of atrial fibrillation with rapid response per cardiology. Continue to assess this patient oral prednisone as of tomorrow. Give 20 mg of Lasix IV push every 12 hours. Monitor electrolytes. We'll continue to follow. PA chest x-ray within next 24 hours.
[2017-01-25 16:54] LABS: Glucose,Whole Blood 199 mg/dL (75-99)
[2017-01-25] MEDS: RIVAROXABAN 10 MG TAB PO SCH (17:16)
[2017-01-25] MEDS: FUROSEMIDE 10 MG/ML 2 ML VIAL IV SCH (20:23)
[2017-01-25] MEDS ORDERED: amLODIPine 5 MG TAB PO SCH (21:00)
[2017-01-25 21:33] LABS: Glucose,Whole Blood 170 mg/dL (75-99)
[2017-01-26] MEDS: methylPREDNISolone SOD SUCCI 125 MG/2 ML VIAL IV SCH ×3 (00:19→12:31)
[2017-01-26 06:03] LABS: Glucose,Whole Blood 171 mg/dL (75-99)
[2017-01-26 06:35] LABS: Basophils % (A) 0 %; CH 29.5; CHCM 30.2; Eosinophils # (A) 0.1 k/uL (0-0.7); Eosinophils % (A) 1 %; HCT 43.2 % (34.0-46.0); HDW 2.47; HGB 13.2 gm/dL (11.4-16.0); Hypochromasia Moderate; Luc # (Auto) 0.04; Luc % (Auto) 0; Lymphocytes # (A) 0.4 k/uL (1.0-4.8); Lymphocytes % (A) 3 %; MCHC 30.5 g/dL (31.0-37.0); MCV 98.4 fL (80.0-100.0); Macrocytosis Slight; Mean Platelet Volume 7.5; Monocytes # (A) 0.5 k/uL (0-1.0); Monocytes % (A) 3 %; Neutrophils % (A) 94 %; RBC 4.39 m/uL (3.80-5.40); RDW 15.3 % (11.5-15.5)
[2017-01-26] MEDS: INSULIN LISPRO (humaLOG) 300 UNIT/3 ML VIAL SQ SCH ×4 (06:41→20:55)
[2017-01-26 06:42] LABS: Anion Gap 8 mmol/L; Blood Urea Nitrogen 33 mg/dL (7-17); Calcium 8.9 mg/dL (8.4-10.2); Carbon Dioxide 27 mmol/L (22-30); Chloride 101 mmol/L (98-107); Glucose 164 mg/dL (74-99); Non-African American GFR(MDRD) >60 (>60 ml/min/1.73 sqM); Potassium 4.5 mmol/L (3.5-5.1); Sodium 136 mmol/L (137-145)
[2017-01-26] MEDS: PANTOPRAZOLE 40 MG TABLET PO SCH (06:42)
[2017-01-26] MEDS: MAGNESIUM OXIDE 400 MG TAB PO SCH (08:34)
[2017-01-26] MEDS: SOTALOL 120 MG TAB PO SCH ×3 (08:34→20:55)
[2017-01-26] MEDS: LEFLUNOMIDE 20 MG TAB PO SCH (08:35)
[2017-01-26] MEDS: POTASSIUM CHLORIDE ORAL LIQUID 40 MEQ/30 ML CUP PO SCH (08:38)
[2017-01-26] MEDS: FUROSEMIDE 10 MG/ML 2 ML VIAL IV SCH ×2 (08:39→20:55)
[2017-01-26] MEDS: DILTIAZEM CD 180 MG CAP.ER.24H PO SCH (08:39)
[2017-01-26] MEDS ORDERED: DILTIAZEM CD 180 MG CAP.ER.24H PO SCH (09:00)
[2017-01-26] MEDS ORDERED: predniSONE 10 MG TAB PO SCH (09:00)
[2017-01-26] MEDS ORDERED: NON-FORMULARY DRUG (Omega-3 Fatty Acids/Fish Oil [Fish Oil 1,000 Mg Softgel] 2 CAP) PO SCH (09:00)
[2017-01-26] MEDS: LOSARTAN-HCTZ 50-12.5 MG 1 EACH TAB PO SCH (09:58)
--- NOTE | 2017-01-26 11:16 | P.PN ---
<Gil,Agnieszka - Last Filed: 01/26/17 11:12> Subjective Progress Note Date: 01/26/17 Principal diagnosis: This is a 71-year-old female patient who is known to our service. The patient has been followed up by Dr. Sawyer. The patient is known to have COPD. The patient is known to have rheumatoid arthritis. The patient also has previous history of bilateral DVTs and previous pulmonary embolism and has been attributed to underlying hypercoagulable state. The patient came into the hospital because of worsening shortness of breath. She was found to be in atrial fibrillation with rapid ventricular response. Her chest x-ray shows small bilateral pleural effusion. The patient is on long-term anticoagulation. The patient denies having any chest pain. No cough or sputum production. The patient was started on Cardizem drip. Cardiac enzymes came back within normal limits. Cardiology will be evaluating this patient. The echocardiogram from 2016 showed mild concentric ventricular hypertrophy. The patient has an ejection fraction of 55-60%. There was also qrea-qu-[id number] degree of pulmonary hypertension. No swelling lower extremities. No pleurisy. No hemoptysis. No fever chills or night sweats. She is already feeling better as the patient's atrial fibrillation is under better control for now. Note that the patient is known to have paroxysmal atrial fibrillation. She is on oxygen at 2 L/m nasal cannula. She has rheumatoid arthritis that there is no evidence of any interstitial lung disease based on the most recent CAT scan of the chest. The patient is seen again today 01/26/2017 in follow-up on the selective care unit. She is up ambulating in the room without acute distress. She denies any worsening shortness of breath, cough or congestion. She diuresed well. She is breathing easier today as compared to yesterday. Her atrial fibrillation is better controlled. She is maintaining good O2 saturations in the 90s on 2 L/m per nasal cannula. She's afebrile. Hemodynamically stable. Objective - Vital Signs Vital signs: Vital Signs Temp 96.8 F L 01/26/17 08:00 Pulse 87 01/26/17 08:00 Resp 18 01/26/17 08:00 BP 116/75 01/26/17 08:00 Pulse Ox 93 L 01/26/17 08:00 Intake & Output 01/25/17 01/26/1701/26/17 18:59 06:59 18:59 Intake Total 1050 790 Output Total 350 350 Balance 700 -350 790 Weight 89.6 kg Intake: IV 80 20 Cefepime 2 gm In Sodium 50 Chloride 0.9% 50 ml @ 100 mls/hr IVPB Q8HR [facility] Rx# :[id number] Diltiazem 125 mg In 30 Sodium Chloride 0.9% 100 ml @ 5 MG/HR 5 mls/hr IV .Q24H [facility] Rx#:[id number] Invasive Line 1 10 Invasive Line 2 10 Intake, IV Titration 250 Amount Vancomycin 1,500 mg In 250 Sodium Chloride 0.9% 250 ml @ 125 mls/hr IVPB Q16H [facility] Rx#:[id number] Oral 720 770 Output: Urine 350 350 Other: Voiding Method Toilet Toilet # Voids 1 2 - Exam Gen. appearance the patient is calm comfortable likely distress. Head exam was generally normal. There was no scleral icterus or corneal arcus. Mucous membranes were moist.Neck was supple and without jugular venous distension, thyromegaly, or carotid bruits. Carotids were easily palpable bilaterally. There was no adenopathy. Lung sounds are diminished bilaterally especially lung bases otherwise clear. Heart sounds are irregular, positive S1-S2, no significant murmurs appreciated.Abdominal exam revealed normal bowel sounds. The abdomen was soft, non-tender, and without masses, organomegaly, or appreciable enlargement of the abdominal aorta.Examination of the extremities revealed easily palpable radial, femoral and pedal pulses. There was no cyanosis , clubbing or edema.Examination of the skin revealed no evidence of significant rashes, suspicious appearing nevi or other concerning lesions. Neurologically the patient is awake and alert and there is no focal neurological deficit. Muscular Exam negative for any joint deformities - Labs CBC & Chem 7: 01/26/17 06:01 01/26/17 06:01 Labs: Abnormal Lab Results - Last 24 Hours (Table) 01/25/17 01/25/17 01/25/17 Range/Units 11:40 16:40 20:49 WBC (3.8-10.6) k/uL MCHC (31.0-37.0) g/dL Neutrophils # (1.3-7.7) k/uL Lymphocytes # (1.0-4.8) k/uL Sodium (137-145) mmol/L BUN (7-17) mg/dL Glucose (74-99) mg/dL POC Glucose (mg/dL) 190 H 199 H 170 H (75-99) mg/dL 01/26/17 01/26/17 01/26/17 Range/Units 06:00 06:01 06:01 WBC 17.0 H (3.8-10.6) k/uL MCHC 30.5 L (31.0-37.0) g/dL Neutrophils # 16.0 H (1.3-7.7) k/uL Lymphocytes # 0.4 L (1.0-4.8) k/uL Sodium 136 L (137-145) mmol/L BUN 33 H (7-17) mg/dL Glucose 164 H (74-99) mg/dL POC Glucose (mg/dL) 171 H (75-99) mg/dL Microbiology - Last 24 Hours (Table) 01/24/17 18:20 Blood Culture - Preliminary Blood No Growth after 24 hours 01/24/17 19:48 Urine Culture - Final Urine,Catheterized Assessment and Plan Assessment: Impression: 1 Acute shortness of breath, likely on the basis of CHF in the setting of an acute A. fib with RVR 2 CHF with bilateral pleural effusions, small. 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 Richey. She is improved from the pulmonary standpoint. We'll continue with her current medications for now. We' ll increase her activity as tolerated. Continue to diurese. Her rate is better controlled. We will repeat her chest x-ray in the a.m. Probable discharge in the next 24-48 hours. I performed a history & physical examination of the patient , she continues with crackles in the bilateral posterior bases. Diminished. I discussed their management with my nurse practitioner, Agnieszka Cordero. I reviewed the nurse practitioner's note and agree with the documented findings and plan of care. <Danni Richey - Last Filed: 01/26/17 11:55> Objective - Vital Signs Vital signs: Vital Signs Temp 98.2 F 01/26/17 11:44 Pulse 54 L 01/26/17 11:49 Resp 16 01/26/17 11:49 BP 182/85 01/26/17 11:44 Pulse Ox 99 01/26/17 11:44 Intake & Output 01/25/17 01/26/17 01/26/17 18:59 06:59 18:59 Intake Total 1050 790 Output Total 350 350 Balance 700 -350 790 Weight 89.6 kg Intake: IV 80 20 Cefepime 2 gm In Sodium 50 Chloride 0.9% 50 ml @ 100 mls/hr IVPB Q8HR [facility] Rx# :[id number] Diltiazem 125 mg In 30 Sodium Chloride 0.9% 100 ml @ 5 MG/HR 5 mls/hr IV .Q24H [facility] Rx#:[id number] Invasive Line 1 10 Invasive Line 2 10 Intake, IV Titration 250 Amount Vancomycin 1,500 mg In 250 Sodium Chloride 0.9% 250 ml @ 125 mls/hr IVPB Q16H [facility] Rx#:[id number] Oral 720 770 Output: Urine 350 350 Other: Voiding Method Toilet Toilet # Voids 1 2 - Labs CBC & Chem 7: 01/26/17 06:01 01/26/17 06:01 Labs: Abnormal Lab Results - Last 24 Hours (Table) 01/25/17 01/25/17 01/26/17 Range/Units 16:40 20:49 06:00 WBC (3.8-10.6) k/uL MCHC (31.0-37.0) g/dL Neutrophils # (1.3-7.7) k/uL Lymphocytes # (1.0-4.8) k/uL Sodium (137-145) mmol/L BUN (7-17) mg/dL Glucose (74-99) mg/dL POC Glucose (mg/dL) 199 H 170 H 171 H (75-99) mg/dL 01/26/17 01/26/17 01/26/17 Range/Units 06:01 06:01 11:45 WBC 17.0 H (3.8-10.6) k/uL MCHC 30.5 L (31.0-37.0) g/dL Neutrophils # 16.0 H (1.3-7.7) k/uL Lymphocytes # 0.4 L (1.0-4.8) k/uL Sodium 136 L (137-145) mmol/L BUN 33 H (7-17) mg/dL Glucose 164 H (74-99) mg/dL POC Glucose (mg/dL) 137 H (75-99) mg/dL Microbiology - Last 24 Hours (Table) 01/24/17 18:20 Blood Culture - Preliminary Blood No Growth after 24 hours 01/24/17 19:48 Urine Culture - Final Urine,Catheterized Assessment and Plan Assessment: This is a joint evaluation that was done along with a nurse practitioner. Venecia is doing well. She is diuresing nicely with IV Lasix. Will repeat chest x-ray in a.m. She is feeling better. We'll continue to follow.
[2017-01-26] MEDS: IPRATROPIUM-ALBUTEROL 3 ML NEB INHALATION PRN (11:27)
[2017-01-26] MEDS: SYMBICORT 160-4.5 MCG INHALER INHALATION PRN ×2 (11:34→21:52)
[2017-01-26 11:47] LABS: Glucose,Whole Blood 137 mg/dL (75-99)
--- NOTE | 2017-01-26 14:37 | PN ---
PROGRESS NOTE DATE OF SERVICE: 01/26/2017 This is a 71-year-old woman who was admitted with COPD acute exacerbation as well as tracheobronchitis and being closely monitored at this time, shortness of breath with feeling better. Please also note, the patient also has history of significant C. difficile colitis in the remote past. Also, CHF is also considered. Patient is being diuresed. PAST MEDICAL HISTORY: Reviewed. PHYSICAL EXAM: Patient is alert and oriented x3. Pulse 54, blood pressure 193/80, respirations 16, temperature 98.2, pulse ox 99% on room air. HEENT: Conjunctivae normal. Oral mucosa moist. Neck is no jugular venous distention, no carotid bruit, no lymph node enlargement. CARDIOVASCULAR SYSTEM: S1, S2. RESPIRATORY: Breath sounds diminished at the bases, a few crackles. ABDOMEN: Soft, nontender. LEGS: No edema, no swelling. NERVOUS SYSTEM: No focal deficits. LABS: 1. WBC 17.0, hemoglobin 13.2, sodium 136. ASSESSMENT: 1. Shortness of breath, possibly congestive heart failure acute exacerbation with possible chronic obstructive pulmonary disease acute exacerbation. 2. Atrial fibrillation with fast ventricular rate. 3. History of recent pneumonia. 4. History of deep vein thrombosis. 5. Hypertension. 6. History of pulmonary embolism. 7. History of rheumatoid arthritis. 8. History of bilateral leg deep venous thromboses. 9. History of MTHFR gene mutation. 10.History of Clostridium difficile colitis and fecal transplantation. 11.History of bowel resection. RECOMMENDATION: Recommend to continue current management. Continue with symptomatic treatment. Otherwise, will recommend to continue with the bronchodilators. Continue with the diuretics. Otherwise, I would also recommend monitor creatinine closely. Taper the steroids. Guarded prognosis with multiple complex medical issues. Further recommendations to follow. MMODL / IJN: [id number] /
--- NOTE | 2017-01-26 15:02 | P.PN ---
Subjective Progress Note Date: 01/26/17 Principal diagnosis: Is a pleasant 71-year-old female who follows with Dr. Sapp in the office. She has a past medical history significant for COPD, persistent atrial fibrillation, she presented to the hospital with symptoms of progressively worsening shortness of breath. On presentation here patient was found to be in atrial fibrillation with rapid ventricular response. Most recent echocardiogram performed in November revealed a normal left ventricular systolic function. Patient was seen in consultation yesterday by Dr. Sapp, her Cardizem drip was discontinued and she was initiated on oral Cardizem. This morning her heart rate was still in the 90s to low 100s, this afternoon her heart rate is in the 60s. Blood pressure 116/75, Patient just came back from the restroom at the time of my examination, was slightly short of breath. She states she's more short of breath then when she's lying flat than when she sits forward. Chest x-ray did show suggestion of congestive heart failure with new right greater than left effusions. Currently on 20 mg of IV Lasix twice a day which we will continue for another 24 hours. Repeat a chest x-ray tomorrow. Potassium 4.5, BUN 33, creatinine 0.8. Objective - Vital Signs Vital signs: Vital Signs Temp 98.2 F 01/26/17 11:44 Pulse 54 L 01/26/17 11:49 Resp 16 01/26/17 11:49 BP 182/85 01/26/17 11:44 Pulse Ox 99 01/26/17 11:44 Intake & Output 01/25/17 01/26/17 01/26/17 18:59 06:59 18:59 Intake Total 1050 790 Output Total 350 350 Balance 700 -350 790 Weight 89.6 kg Intake: IV 80 20 Cefepime 2 gm In Sodium 50 Chloride 0.9% 50 ml @ 100 mls/hr IVPB Q8HR [facility] Rx# :[id number] Diltiazem 125 mg In 30 Sodium Chloride 0.9% 100 ml @ 5 MG/HR 5 mls/hr IV .Q24H ONE Rx#:[id number] Invasive Line 1 10 Invasive Line 2 10 Intake, IV Titration 250 Amount Vancomycin 1,500 mg In 250 Sodium Chloride 0.9% 250 ml @ 125 mls/hr IVPB Q16H [facility] Rx#:[id number] Oral 720 770 Output: Urine 350 350 Other: Voiding Method Toilet Toilet # Voids 1 2 - Exam PHYSICAL EXAMINATION: HEENT: Head is atraumatic, normocephalic. Pupils equal, round. Neck is supple. There is no elevated jugular venous pressure. HEART EXAMINATION: Heart S1 and S2 irregularly irregular CHEST EXAMINATION: Lungs reveal diminished air entry to bilateral bases. ABDOMEN: Soft, nontender. Bowel sounds are heard. No organomegaly noted. EXTREMITIES: 2+ peripheral pulses with no evidence of peripheral edema and no calf tenderness noted. NEUROLOGIC patient is awake, alert and oriented -3. . - Labs CBC & Chem 7: 01/26/17 06:01 01/26/17 06:01 Labs: Abnormal Lab Results - Last 24 Hours (Table) 01/25/17 01/25/17 01/26/17 Range/Units 16:40 20:49 06:00 WBC (3.8-10.6) k/uL MCHC (31.0-37.0) g/dL Neutrophils # (1.3-7.7) k/uL Lymphocytes # (1.0-4.8) k/uL Sodium (137-145) mmol/L BUN (7-17) mg/dL Glucose (74-99) mg/dL POC Glucose (mg/dL) 199 H 170 H 171 H (75-99) mg/dL 01/26/17 01/26/17 01/26/17 Range/Units 06:01 06:01 11:45 WBC 17.0 H (3.8-10.6) k/uL MCHC 30.5 L (31.0-37.0) g/dL Neutrophils # 16.0 H (1.3-7.7) k/uL Lymphocytes # 0.4 L (1.0-4.8) k/uL Sodium 136 L (137-145) mmol/L BUN 33 H (7-17) mg/dL Glucose 164 H (74-99) mg/dL POC Glucose (mg/dL) 137 H (75-99) mg/dL Microbiology - Last 24 Hours (Table) 01/24/17 18:20 Blood Culture - Preliminary Blood No Growth after 24 hours 01/24/17 19:48 Urine Culture - Final Urine,Catheterized Assessment and Plan Plan: Assessment and plan #1 atrial fibrillation with rapid ventricular response, patient has known chronic persistent atrial fibrillation, on anticoagulation in the form of Xarelto. She was initiated on oral Cardizem yesterday, heart rate today in the 60s. #2 diastolic congestive heart failure acute on chronic patient currently on IV Lasix 20 mg twice a day which we will continue. #3COPD #4 rheumatoid arthritis #5 history of rectal cancer status post colectomy Plan We will continue current dose of IV Lasix, check lytes BUN and creatinine daily weights in the morning. Repeat chest x-ray in the morning as well. We will also stop the Norvasc as the patient is on oral Cardizem. DNP note has been reviewed, I agree with a documented findings and plan of care. Patient was seen and examined.
[2017-01-26 16:40] LABS: Glucose,Whole Blood 279 mg/dL (75-99)
[2017-01-26] MEDS: RIVAROXABAN 10 MG TAB PO SCH (17:30)
[2017-01-26] MEDS ORDERED: INSULIN REGULAR 100 UNIT/ML VIAL SQ ONE (17:37)
[2017-01-26] MEDS ORDERED: INSULIN LISPRO (humaLOG) 300 UNIT/3 ML VIAL SQ ONE (17:45)
[2017-01-26 20:53] LABS: Glucose,Whole Blood 221 mg/dL (75-99)
[2017-01-26] MEDS: methylPREDNISolone SOD SUCCI 40 MG/ML 1 ML VIAL IV SCH (23:33)
[2017-01-26] MEDS ORDERED: MELATONIN 5 MG TABLET PO SCH (23:45)
[2017-01-27 05:56] LABS: Glucose,Whole Blood 176 mg/dL (75-99)
[2017-01-27] MEDS: INSULIN LISPRO (humaLOG) 300 UNIT/3 ML VIAL SQ SCH ×2 (06:24→11:49)
[2017-01-27] MEDS: PANTOPRAZOLE 40 MG TABLET PO SCH (06:24)
[2017-01-27 06:27] LABS: Anisocytosis Slight; Basophils % (A) 0 %; CH 28.7; CHCM 30.1; Eosinophils # (A) 0.1 k/uL (0-0.7); Eosinophils % (A) 0 %; HCT 42.5 % (34.0-46.0); HDW 2.48; HGB 13.4 gm/dL (11.4-16.0); Hypochromasia Moderate; Luc # (Auto) 0.05; Luc % (Auto) 0; Lymphocytes # (A) 0.4 k/uL (1.0-4.8); Lymphocytes % (A) 3 %; MCH 30.4 pg (25.0-35.0); MCHC 31.6 g/dL (31.0-37.0); Mean Platelet Volume 7.8; Monocytes # (A) 0.6 k/uL (0-1.0); Monocytes % (A) 4 %; Neutrophils # (A) 12.4 k/uL (1.3-7.7); Neutrophils % (A) 92 %; RBC 4.42 m/uL (3.80-5.40); RDW 16.7 % (11.5-15.5); WBC 13.5 k/uL (3.8-10.6); WBC (Perox) 13.46
[2017-01-27 06:50] LABS: Anion Gap 9 mmol/L; Blood Urea Nitrogen 35 mg/dL (7-17); Calcium 9.2 mg/dL (8.4-10.2); Carbon Dioxide 29 mmol/L (22-30); Chloride 101 mmol/L (98-107); Glucose 190 mg/dL (74-99); Non-African American GFR(MDRD) >60 (>60 ml/min/1.73 sqM); Potassium 3.9 mmol/L (3.5-5.1); Sodium 139 mmol/L (137-145)
--- NOTE | 2017-01-27 07:38 | XR ---
EXAMINATION TYPE: XR chest 2V DATE OF EXAM: 01/27/2017 COMPARISON: Chest x-ray from 3 days ago. HISTORY: CHF progress study. TECHNIQUE: Frontal and lateral views of the chest are obtained. FINDINGS: There is persistent cardiomegaly with improving central vascular congestion. There is per sistent elevated right hemidiaphragm. There is improved bibasilar effusions with improved blunting of lateral and posterior costophrenic angles . No new focal airspace opacity or pneumothorax is seen. T he osseous structures are intact. IMPRESSION: Findings are consistent with improving or resolving CHF exacerbation as there is cardiom egaly with resolving bilateral pleural effusions and resolving central vascular congestion noted.
[2017-01-27] MEDS: LEFLUNOMIDE 20 MG TAB PO SCH (08:42)
[2017-01-27] MEDS: DILTIAZEM CD 180 MG CAP.ER.24H PO SCH (08:42)
[2017-01-27] MEDS: SOTALOL 120 MG TAB PO SCH (08:42)
[2017-01-27] MEDS: POTASSIUM CHLORIDE ORAL LIQUID 40 MEQ/30 ML CUP PO SCH (08:42)
[2017-01-27] MEDS: MAGNESIUM OXIDE 400 MG TAB PO SCH (08:42)
[2017-01-27] MEDS: methylPREDNISolone SOD SUCCI 40 MG/ML 1 ML VIAL IV SCH (08:43)
[2017-01-27] MEDS: LOSARTAN-HCTZ 50-12.5 MG 1 EACH TAB PO SCH (08:43)
[2017-01-27] MEDS ORDERED: FUROSEMIDE 20 MG TAB PO SCH (09:00)
[2017-01-27] MEDS ORDERED: VANCOMYCIN TROUGH DUE 1 EACH MISC MISCELLANE ONE (10:00)
[2017-01-27 11:30] LABS: Glucose,Whole Blood 139 mg/dL (75-99)
--- NOTE | 2017-01-27 11:40 | P.PN ---
Subjective Progress Note Date: 01/27/17 Principal diagnosis: Is a pleasant 71-year-old female who follows with Dr. Sapp in the office. She has a past medical history significant for COPD, persistent atrial fibrillation, she presented to the hospital with symptoms of progressively worsening shortness of breath. On presentation here patient was found to be in atrial fibrillation with rapid ventricular response. Most recent echocardiogram performed in November revealed a normal left ventricular systolic function. Patient was seen in consultation yesterday by Dr. Sapp, her Cardizem drip was discontinued and she was initiated on oral Cardizem. This morning her heart rate was still in the 90s to low 100s, this afternoon her heart rate is in the 60s. Blood pressure 116/75, Patient just came back from the restroom at the time of my examination, was slightly short of breath. She states she's more short of breath then when she's lying flat than when she sits forward. Chest x-ray did show suggestion of congestive heart failure with new right greater than left effusions. Currently on 20 mg of IV Lasix twice a day which we will continue for another 24 hours. Repeat a chest x-ray tomorrow. Potassium 4.5, BUN 33, creatinine 0.8. 01/27/2017 Patient seen and examined this morning, feeling much better overall. Diuresed well on IV Lasix. White blood cell count 13.5, hemoglobin 13.4, potassium 3.9, BUN 35, creatinine 0.7. Chest x-ray performed this morning revealed resolving congestive heart failure exacerbation. We will discontinue the IV Lasix today and start the patient on oral diuretics. She continues to be in atrial fibrillation, rate under good control. Objective - Vital Signs Vital signs: Vital Signs Temp 98 F 01/27/17 08:00 Pulse 99 01/27/17 08:00 Resp 20 01/27/17 08:00 BP 121/67 01/27/17 08:00 Pulse Ox 93 L 01/27/17 08:00 Intake & Output 01/26/17 01/27/17 01/27/17 18:59 06:59 18:59 Intake Total 1390 300 Balance 1390 300 Weight 89.1 kg Intake: IV 20 Invasive Line 1 10 Invasive Line 2 10 Oral 1370 300 Other: Voiding Method Toilet Toilet # Voids 1 2 - Exam PHYSICAL EXAMINATION: HEENT: Head is atraumatic, normocephalic. Pupils equal, round. Neck is supple. There is no elevated jugular venous pressure. HEART EXAMINATION: Heart S1 and S2 irregularly irregular CHEST EXAMINATION: Lungs reveal diminished air entry to bilateral bases. ABDOMEN: Soft, nontender. Bowel sounds are heard. No organomegaly noted. EXTREMITIES: 2+ peripheral pulses with no evidence of peripheral edema and no calf tenderness noted. NEUROLOGIC patient is awake, alert and oriented -3. . - Labs CBC & Chem 7: 01/27/17 06:15 01/27/17 06:15 Labs: Abnormal Lab Results - Last 24 Hours (Table) 01/26/17 01/26/17 01/26/17 Range/Units 06:01 11:45 16:33 WBC (3.8-10.6) k/uL RDW (11.5-15.5) % Neutrophils # (1.3-7.7) k/uL Lymphocytes # (1.0-4.8) k/uL BUN (7-17) mg/dL Glucose (74-99) mg/dL POC Glucose (mg/dL) 137 H 279 H (75-99) mg/dL Hemoglobin A1c 6.1 H (4.0-6.0) % 01/26/17 01/27/17 01/27/17 Range/Units 20:52 05:54 06:15 WBC (3.8-10.6) k/uL RDW (11.5-15.5) % Neutrophils # (1.3-7.7) k/uL Lymphocytes # (1.0-4.8) k/uL BUN 35 H (7-17) mg/dL Glucose 190 H (74-99) mg/dL POC Glucose (mg/dL) 221 H 176 H (75-99) mg/dL Hemoglobin A1c (4.0-6.0) % 01/27/17 01/27/17 Range/Units 06:15 11:28 WBC 13.5 H (3.8-10.6) k/uL RDW 16.7 H (11.5-15.5) % Neutrophils # 12.4 H (1.3-7.7) k/uL Lymphocytes # 0.4 L (1.0-4.8) k/uL BUN (7-17) mg/dL Glucose (74-99) mg/dL POC Glucose (mg/dL) 139 H (75-99) mg/dL Hemoglobin A1c (4.0-6.0) % Microbiology - Last 24 Hours (Table) 01/24/17 18:20 Blood Culture - Preliminary Blood No Growth after 48 hours Assessment and Plan Plan: Assessment and plan #1 atrial fibrillation with rapid ventricular response, patient has known chronic persistent atrial fibrillation, on anticoagulation in the form of Xarelto. S #2 diastolic congestive heart failure acute on chronic patient currently on IV Lasix 20 mg twice a day. #3COPD #4 rheumatoid arthritis #5 history of rectal cancer status post colectomy Plan We'll discontinue the IV Lasix and start the patient on oral diuretics. From cardiology's perspective, she may be able to be discharged once cleared by primary and pulmonary. We will make her a follow-up appointment in the office to see Dr. Sapp post discharge. DNP note has been reviewed, I agree with a documented findings and plan of care. Patient was seen and examined.
[2017-01-27] MEDS: SYMBICORT 160-4.5 MCG INHALER INHALATION PRN (12:09)
--- NOTE | 2017-01-27 12:19 | P.PN ---
<Gil,Agnieszka - Last Filed: 01/27/17 12:14> Subjective Progress Note Date: 01/27/17 Principal diagnosis: This is a 71-year-old female patient who is known to our service. The patient has been followed up by Dr. Sawyer. The patient is known to have COPD. The patient is known to have rheumatoid arthritis. The patient also has previous history of bilateral DVTs and previous pulmonary embolism and has been attributed to underlying hypercoagulable state. The patient came into the hospital because of worsening shortness of breath. She was found to be in atrial fibrillation with rapid ventricular response. Her chest x-ray shows small bilateral pleural effusion. The patient is on long-term anticoagulation. The patient denies having any chest pain. No cough or sputum production. The patient was started on Cardizem drip. Cardiac enzymes came back within normal limits. Cardiology will be evaluating this patient. The echocardiogram from 2016 showed mild concentric ventricular hypertrophy. The patient has an ejection fraction of 55-60%. There was also [id number] degree of pulmonary hypertension. No swelling lower extremities. No pleurisy. No hemoptysis. No fever chills or night sweats. She is already feeling better as the patient's atrial fibrillation is under better control for now. Note that the patient is known to have paroxysmal atrial fibrillation. She is on oxygen at 2 L/m nasal cannula. She has rheumatoid arthritis that there is no evidence of any interstitial lung disease based on the most recent CAT scan of the chest. The patient is seen again today 01/26/2017 in follow-up on the selective care unit. She is up ambulating in the room without acute distress. She denies any worsening shortness of breath, cough or congestion. She diuresed well. She is breathing easier today as compared to yesterday. Her atrial fibrillation is better controlled. She is maintaining good O2 saturations in the 90s on 2 L/m per nasal cannula. She's afebrile. Hemodynamically stable. Then today in follow-up 01/27/2017 on the selective care unit. She is awake and alert in no acute distress. She's been up ambulating without any significant shortness of breath. Her chest x-ray does show improvement in the fluid volume overload. Her IV Lasix has been converted to oral. Her heart rate is better controlled as well. She is afebrile. Maintaining good O2 saturations in the 90s on 2 L/m per nasal cannula. Objective - Vital Signs Vital signs: Vital Signs Temp 98 F 01/27/17 08:00 Pulse 99 01/27/17 08:00 Resp 20 01/27/17 08:00 BP 121/67 01/27/17 08:00 Pulse Ox 93 L 01/27/17 08:00 Intake & Output 01/26/17 01/27/17 01/27/17 18:59 06:59 18:59 Intake Total 1390 300 Balance 1390 300 Weight 89.1 kg Intake: IV 20 Invasive Line 1 10 Invasive Line 2 10 Oral 1370 300 Other: Voiding Method Toilet Toilet # Voids 1 2 - Exam Gen. appearance the patient is calm comfortable likely distress. Head exam was generally normal. There was no scleral icterus or corneal arcus. Mucous membranes were moist.Neck was supple and without jugular venous distension, thyromegaly, or carotid bruits. Carotids were easily palpable bilaterally. There was no adenopathy. Lung sounds are diminished bilaterally especially lung bases otherwise clear. Heart sounds are irregular, positive S1-S2, no significant murmurs appreciated.Abdominal exam revealed normal bowel sounds. The abdomen was soft, non-tender, and without masses, organomegaly, or appreciable enlargement of the abdominal aorta.Examination of the extremities revealed easily palpable radial, femoral and pedal pulses. There was no cyanosis , clubbing or edema.Examination of the skin revealed no evidence of significant rashes, suspicious appearing nevi or other concerning lesions. Neurologically the patient is awake and alert and there is no focal neurological deficit. Muscular Exam negative for any joint deformities - Labs CBC & Chem 7: 01/27/17 06:15 01/27/17 06:15 Labs: Abnormal Lab Results - Last 24 Hours (Table) 01/26/17 01/26/17 01/26/17 Range/Units 06:01 16:33 20:52 WBC (3.8-10.6) k/uL RDW (11.5-15.5) % Neutrophils # (1.3-7.7) k/uL Lymphocytes # (1.0-4.8) k/uL BUN (7-17) mg/dL Glucose (74-99) mg/dL POC Glucose (mg/dL) 279 H 221 H (75-99) mg/dL Hemoglobin A1c 6.1 H (4.0-6.0) % 01/27/17 01/27/17 01/27/17 Range/Units 05:54 06:15 06:15 WBC 13.5 H (3.8-10.6) k/uL RDW 16.7 H (11.5-15.5) % Neutrophils # 12.4 H (1.3-7.7) k/uL Lymphocytes # 0.4 L (1.0-4.8) k/uL BUN 35 H (7-17) mg/dL Glucose 190 H (74-99) mg/dL POC Glucose (mg/dL) 176 H (75-99) mg/dL Hemoglobin A1c (4.0-6.0) % 01/27/17 Range/Units 11:28 WBC (3.8-10.6) k/uL RDW (11.5-15.5) % Neutrophils # (1.3-7.7) k/uL Lymphocytes # (1.0-4.8) k/uL BUN (7-17) mg/dL Glucose (74-99) mg/dL POC Glucose (mg/dL) 139 H (75-99) mg/dL Hemoglobin A1c (4.0-6.0) % Microbiology - Last 24 Hours (Table) 01/24/17 18:20 Blood Culture - Preliminary Blood No Growth after 48 hours Assessment and Plan Assessment: Impression: 1 Acute shortness of breath, likely on the basis of acute exacerbation of diastolic CHF in the setting of an acute A. fib with RVR during today's chest x- ray shows improvement in the fluid volume overload. 2 CHF with bilateral pleural effusions, small. 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 Richey. She is improved from the pulmonary standpoint. We'll continue with her current medications for now. We' ll increase her activity as tolerated. Continue to diurese. Converted to oral diuretics. Her rate is better controlled. Probable discharge in the next 24-48 hours. I performed a history & physical examination of the patient . Lung sounds are clear anteriorly faint crackles in the posterior bases. Diminished. I discussed their management with my nurse practitioner, Agnieszka Cordero. I reviewed the nurse practitioner's note and agree with the documented findings and plan of care. <Danni Richey - Last Filed: 01/27/17 14:02> Objective - Vital Signs Vital signs: Vital Signs Temp 97.8 F 01/27/17 12:00 Pulse 98 01/27/17 12:00 Resp 18 01/27/17 12:00 BP 123/79 01/27/17 12:00 Pulse Ox 93 L 01/27/17 12:00 Intake & Output 01/26/17 01/27/17 01/27/17 18:59 06:59 18:59 Intake Total 1390 540 Balance 1390 540 Weight 89.1 kg Intake: IV 20 Invasive Line 1 10 Invasive Line 2 10 Oral 1370 540 Other: Voiding Method Toilet Toilet # Voids 1 2 - Labs CBC & Chem 7: 01/27/17 06:15 01/27/17 06:15 Labs: Abnormal Lab Results - Last 24 Hours (Table) 01/26/17 01/26/17 01/26/17 Range/Units 06:01 16:33 20:52 WBC (3.8-10.6) k/uL RDW (11.5-15.5) % Neutrophils # (1.3-7.7) k/uL Lymphocytes # (1.0-4.8) k/uL BUN (7-17) mg/dL Glucose (74-99) mg/dL POC Glucose (mg/dL) 279 H 221 H (75-99) mg/dL Hemoglobin A1c 6.1 H (4.0-6.0) % 01/27/17 01/27/17 01/27/17 Range/Units 05:54 06:15 06:15 WBC 13.5 H (3.8-10.6) k/uL RDW 16.7 H (11.5-15.5) % Neutrophils # 12.4 H (1.3-7.7) k/uL Lymphocytes # 0.4 L (1.0-4.8) k/uL BUN 35 H (7-17) mg/dL Glucose 190 H (74-99) mg/dL POC Glucose (mg/dL) 176 H (75-99) mg/dL Hemoglobin A1c (4.0-6.0) % 01/27/17 Range/Units 11:28 WBC (3.8-10.6) k/uL RDW (11.5-15.5) % Neutrophils # (1.3-7.7) k/uL Lymphocytes # (1.0-4.8) k/uL BUN (7-17) mg/dL Glucose (74-99) mg/dL POC Glucose (mg/dL) 139 H (75-99) mg/dL Hemoglobin A1c (4.0-6.0) % Microbiology - Last 24 Hours (Table) 01/24/17 18:20 Blood Culture - Preliminary Blood No Growth after 48 hours Assessment and Plan Assessment: Is a joint evaluation that was done along with a nurse practitioner. The patient is doing well. The patient is converted to oral diuretics. No significant complaints for now. Shortness of breath has improved considerably. We'll continue to follow.
[2017-01-27 13:17] VITALS: BP 123/79; PULSE 98; RESP 18; TEMP 97.8
--- NOTE | 2017-01-27 14:12 | P.DS ---
Providers Date of admission: 01/24/17 21:37 Attending physician: Jennifer Singh Consults: 01/24/17 21:34 Consult Physician Routine Consulting Provider: Anthony Godinez Consult Reason/Comments: COPD, HCAP Do you want consulting provider notified?: Yes, Notify in am Consult Physician Routine Consulting Provider: Abhilash Benz Consult Reason/Comments: A. fib with RVR Do you want consulting provider notified?: Yes, Notify in am 01/25/17 13:08 Consult Physician Routine Consulting Provider: Danni Richey Consult Reason/Comments: copd Do you want consulting provider notified?: Yes Primary care physician: [facility] Course: -year-old woman with a past medical history multiple medical problems was admitted with shortness of breath due to CHF acute exacerbation. Patient also had a COPD acute exacerbation. Patient treated with bronchodilators and diuretics were significantly. Cardiology pulmonology. cleared The patient for discharge. Patient discharged in stable condition with guarded prognosis. On exam vitals stable. Cardio S1 and S2 normal. Respirator system few scattered rhonchi. Abdomen soft. Final diagnosis 1. Shortness with possible CHF exacerbation with possible COPD acute exacerbation multifactorial. 2. Atrial fibrillation fast ventricular rate. 3. History of recent pneumonia. 4. History of DVT. 5. Hypertension. Next in 6. History of pulmonary embolism 7. History of arthritis. Patient Condition at Discharge: Serious Plan - Discharge Summary Discharge Rx Participant: Yes New Discharge Prescriptions: New predniSONE 10 mg PO DIRECTED #20 tab Furosemide [Lasix] 20 mg PO BID@0900,1600 #60 tab Pantoprazole [Protonix] 40 mg PO [facility] #15 tablet. Continue Budesonide-Formot 160-4.5 Mcg [Symbicort 160-4.5 Mcg Inhaler] 2 puff INHALATION RT-DAILY PRN PRN Reason: Shortness Of Breath Losartan/Hydrochlorothiazide [Losartan-Hctz 100-25 mg Tab] 1 tab PO DAILY Magnesium Gluconate [Magonate] 500 mg PO DAILY Jasper-3 Fatty Acids/Fish Oil [Fish Oil 1,000 mg Softgel] 2 cap PO DAILY Potassium Gluconate 99 mg PO DAILY Leflunomide [Arava] 20 mg PO DAILY Rivaroxaban [Xarelto] 20 mg PO DAILY Ipratropium/Albuterol Sulfate [Combivent Respimat Inhaler] 2 puff INHALATION RT-QID #0 Sotalol [Betapace] 120 mg PO TID #90 tab predniSONE 10 mg PO DAILY Discharge Medication List Budesonide-Formot 160-4.5 Mcg [Symbicort 160-4.5 Mcg Inhaler] 2 puff INHALATION RT-DAILY PRN 11/30/13 [History] Losartan/Hydrochlorothiazide [Losartan-Hctz 100-25 mg Tab] 1 tab PO DAILY [History] Magnesium Gluconate [Magonate] 500 mg PO DAILY 11/19/15 [History] Jasper-3 Fatty Acids/Fish Oil [Fish Oil 1,000 mg Softgel] 2 cap PO DAILY [History] Potassium Gluconate 99 mg PO DAILY 11/19/15 [History] Leflunomide [Arava] 20 mg PO DAILY 04/18/16 [History] Rivaroxaban [Xarelto] 20 mg PO DAILY 12/04/16 [History] Ipratropium/Albuterol Sulfate [Combivent Respimat Inhaler] 2 puff INHALATION RT- QID #0 12/08/16 [Rx] Sotalol [Betapace] 120 mg PO TID #90 tab 12/14/16 [Rx] predniSONE 10 mg PO DAILY 01/24/17 [History] Furosemide [Lasix] 20 mg PO BID@0900,1600 #60 tab 01/27/17 [Rx] Pantoprazole [Protonix] 40 mg PO [id number]-[id number] #15 tablet. 01/27/17 [Rx] predniSONE 10 mg PO DIRECTED #20 tab 01/27/17 [Rx] Follow up Appointment(s)/Referral(s): Salvador Ramires MD [STAFF PHYSICIAN] - 02/09/17 4:00 pm Maude Paez MD [Primary Care Provider] - 3 Days Danni Richey MD [STAFF PHYSICIAN] - 2 Weeks Ambulatory/Diagnostic Orders: Complete Blood Count w/diff [LAB.AMB] Time Frame: 3 Days, Location: Determined By Patient
== END 2017-01-27 15:37 | disposition home or self-care (01) | DRG 190 ==
LOC: EC 17:51 → 6SEL 21:37
PROVIDERS: ADMIT Hospitalist; ATTEND Hospitalist
DX: J44.1 Chronic obstructive pulmonary disease with (acute) exacerbation (principal); I50.33 Acute on chronic diastolic (congestive) heart failure; I27.20 Pulmonary hypertension, unspecified; J96.11 Chronic respiratory failure with hypoxia; Z94.89 Other transplanted organ and tissue status; D68.59 Other primary thrombophilia; I48.1 Persistent atrial fibrillation; I11.0 Hypertensive heart disease with heart failure; I48.0 Paroxysmal atrial fibrillation; E78.5 Hyperlipidemia, unspecified; M06.9 Rheumatoid arthritis, unspecified; M19.90 Unspecified osteoarthritis, unspecified site; I48.2 Chronic atrial fibrillation; K21.9 Gastro-esophageal reflux disease without esophagitis; Z85.820 Personal history of malignant melanoma of skin; Z85.048 Personal history of other malignant neoplasm of rectum, rectosigmoid junction, and anus; Z86.711 Personal history of pulmonary embolism; Z86.19 Personal history of other infectious and parasitic diseases; Z86.718 Personal history of other venous thrombosis and embolism; Z79.01 Long term (current) use of anticoagulants; Z79.51 Long term (current) use of inhaled steroids; Z79.899 Other long term (current) drug therapy; Z87.01 Personal history of pneumonia (recurrent); Z87.440 Personal history of urinary (tract) infections; Z90.49 Acquired absence of other specified parts of digestive tract; Z93.3 Colostomy status; Z96.642 Presence of left artificial hip joint; Z96.652 Presence of left artificial knee joint
CPT/HCPCS: 36415; 71020; 74000; 80048; 80053; 80202; 81001; 82550; 82553; 83036; 83605; 83880; 84484; 85025; 85610; 85730; 87040; 87086; 93005; 94640; 94760; 96365; 96366; 96368; 96375; 99291